=== PATIENT | male | born 1950 | race Caucasian/White ===

== ENCOUNTER 2018-02-10 17:51 | Inpatient (IN) ==
[2018-02-10] MEDS ORDERED: Sod Chloride 0.9% Inj 1,000 ML IV.SIG SCH ×3 (18:15→19:30)
[2018-02-10 18:25] LABS: Baso % (Auto) 0.1 % (0.0-2.0); Hematocrit 34.2 % (39.0-51.0); Hemoglobin 11.5 gm/dL (13.0-17.0); Lymph # (Auto) 0.6 th/mm3 (1.0-4.8); Lymph % (Auto) 5.2 % (9.0-44.0); Mean Corpuscular HGB Conc 33.5 % (32.0-36.0); Mean Corpuscular Hemoglobin 28.9 pg (27.0-34.0); Mean Corpuscular Volume 86.5 fL (80.0-100.0); Mean Platelet Volume 9.9 fL (7.0-11.0); Mono # (Auto) 1.5 th/mm3 (0.0-0.9); Mono % (Auto) 12.4 % (0.0-8.0); Neut # (Auto) 9.8 th/mm3 (1.8-7.7); Neut % (Auto) 82.3 % (16.0-70.0); Platelet Count 257 th/mm3 (150-450); Red Blood Count 3.96 mil/mm3 (4.50-5.90); Red Cell Distribution Width 15.8 % (11.6-17.2)
--- NOTE | 2018-02-10 18:33 | ED ---
HPI General Chief Complaint: Altered Mental Status Stated Complaint: Syncope Time Seen by Provider: 02/10/18 17:59 Source: patient and EMS Mode of arrival: EMS Limitations: altered mental status History of Present Illness HPI narrative: 67-year-old male who presents to the ED for evaluation of altered mental status and possible syncope. Per EVAC report this patient himself is not a good historian and appears to be altered patient apparently had a syncopal versus alteration today. Apparently about 30 minutes before EVAC showed up patient had a possible syncope and he was acting abnormal. Per bystanders he may have passed out but is unclear as there is no bystanders of family at bedside. Patient himself is a poor historian and does state that he does drink alcohol but cannot really provide much information. He denies any pain. He does appear to be somewhat confused. He does answer some yes and no questions appropriately. Does appear to know where he is. Again history is limited as patient himself is not a great historian. 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 Medical History Medical History ETOH abuse (Acute) Tobacco abuse (Acute) Surgical History Surgical History History of total left hip arthroplasty (Acute) Family History Family History Mother CHF (congestive heart failure) Social History Social History Substance History: Unable to Obtain Smoking Status: Smoker, status unknown Tobacco Type: Cigarettes How Often Do You Have a Drink Containing Alcohol: 4 or more times a week Recent Travel in [place] within the Last 8 Weeks: No Recent Out of Country Travel within the Last 8 Weeks: No Exam Narrative Exam Narrative: GENERAL: Well appearing but confused SKIN: Focused skin assessment warm/dry. HEAD: Atraumatic. Normocephalic. EYES: Pupils equal and round. No scleral icterus. No injection or drainage. ENT: No nasal bleeding or discharge. Mucous membranes pink and moist. Tongue is midline. No Uvula deviation. NECK: Trachea midline. No JVD. CARDIOVASCULAR: Regular rate and rhythm. No murmur appreciated. RESPIRATORY: No accessory muscle use. Clear to auscultation. Breath sounds equal bilaterally. GASTROINTESTINAL: Abdomen soft, non-tender, nondistended. Hepatic and splenic margins not palpable. MUSCULOSKELETAL: No obvious deformities. No clubbing. No cyanosis. No edema. Full range of motion of the upper and lower extremities bilaterally. 2+ pulses bilaterally. NEUROLOGICAL: Awake and alert. No obvious cranial nerve deficits. Motor grossly within normal limits. Normal speech. PSYCHIATRIC: Altered mood and affect; insight and judgment minimal Course Initial Documented Vital Signs Temperature 97.6 F 02/10/18 18:04 Pulse Rate 104 H 02/10/18 18:04 Respiratory Rate 22 02/10/18 18:04 Blood Pressure 101/59 L 02/10/18 18:04 Pulse Oximetry 94 L 02/10/18 18:04 Last Documented Vital Signs Temperature 97.6 F 02/10/18 18:04 Pulse Rate 107 H 02/10/18 18:44 Respiratory Rate 18 02/10/18 18:44 Blood Pressure 101/59 L 02/10/18 18:04 Pulse Oximetry 94 L 02/10/18 18:04 Procedures Intubation Time Out Performed: No Sedative: etomidate Paralytic: succinylcholine Laryngoscope: Mason Tube Secured Depth (cm): 8 Tube Placement Confirmation: visualized tube passing through cords, equal breath sounds bilaterally and no breath sounds over epigastrium Patient Tolerated Procedure: well Intubation Complications: none Medical Decision Making MORALES Attestation MORALES supervised visit: Yes Attestation: The history, exam, and medical decision-making in the associated mid-level provider note were completed with my assistance. I reviewed and agree with the findings presented. I attest that I had a [id number] encounter with the patient on the same day, and personally performed and documented my assessment and findings in the medical record. *My assessment and Findings: 67-year-old man with altered mental status, shock, respiratory failure, unclear etiology, mild pneumonia on chest x-ray. Empirically covered. Altered mental status etiology is unclear. He was intubated. We will plan on doing LP. Will be admitted to the ICU. [facility] Narrative Medical decision making narrative: 67-year-old male who presents to the ED for evaluation of altered mental status and possible syncope. Labs and imaging were ordered. Labs and imaging showed what appears to be severe sepsis with elevated troponin. Unclear etiology. Patient has possible pneumonia and chest x-ray. My attending was made aware of findings and evaluate the patient himself. Dr. Portillo recommends intubation due to patient decompensating.. Patient was intubated. Patient was started on Rocephin and azithromycin IV to cover for infectious etiology. My attending spoke with Dr. Palma for intensive care who agreed to admission to her service. Medical Screen Exam Complete: Yes Emergency Medical Condition: Yes Differential Diagnosis Differential Diagnosis: Altered mental status versus syncope versus alcohol versus substance use versus ACS versus dehydration 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s Medical records reviewed: Yes I reviewed the patient's medical records. Lab Data Lab results reviewed: Yes I reviewed the patient's lab results. Result diagrams: 02/10/18 18:15 02/10/18 18:15 Lab Results 02/10/18 02/10/18 02/10/18 Range/Units 18:15 18:15 18:15 WBC 12.0 H (4.0-11.0) th/mm3 RBC 3.96 L (4.50-5.90) mil/mm3 Hgb 11.5 L (13.0-17.0) gm/dL Hct 34.2 L (39.0-51.0) % MCV 86.5 (80.0-100.0) fL MCH 28.9 (27.0-34.0) pg MCHC 33.5 (32.0-36.0) % RDW 15.8 (11.6-17.2) % Plt Count 257 (150-450) th/mm3 MPV 9.9 (7.0-11.0) fL Neut % (Auto) 82.3 H (16.0-70.0) % Lymph % (Auto) 5.2 L (9.0-44.0) % [place] % (Auto) 12.4 H (0.0-8.0) % Eos % (Auto) 0.0 (0.0-4.0) % Baso % (Auto) 0.1 (0.0-2.0) % Neut # (Auto) 9.8 H (1.8-7.7) th/mm3 Lymph # (Auto) 0.6 L (1.0-4.8) th/mm3 [place] # (Auto) 1.5 H (0.0-0.9) th/mm3 Eos # (Auto) 0.0 (0.0-0.4) th/mm3 Baso # (Auto) 0.0 (0.0-0.2) th/mm3 WBC Differential . Differential Comment Auto diff final PT 15.2 H (9.8-11.6) sec INR 1.5 Ratio APTT 28.0 (23.4-31.7) sec Sodium 135 L (136-145) meq/L Potassium 4.0 (3.5-5.1) meq/L Chloride 95 L (98-107) meq/L Carbon Dioxide 29.6 (21.0-32.0) meq/L Anion Gap 10 (5-15) meq/L BUN 58 H (7-18) mg/dL Creatinine 1.84 H (0.60-1.30) mg/dL Estimated GFR 37 L (>89) mL/min Random Glucose 145 H (74-106) mg/dL Lactic Acid (0.4-2.0) mmol/L Calcium 8.1 L (8.5-10.1) mg/dL Magnesium 2.0 (1.5-2.5) mg/dL Total Bilirubin 1.0 (0.2-1.0) mg/dL AST 229 H (15-37) U/L ALT 119 H (12-78) U/L Alkaline Phosphatase 92 (45-117) U/L Ammonia (11-32) mcmol/L Troponin I 0.21 H (0.02-0.05) ng/mL B-Natriuretic Peptide (0-100) pg/mL Total Protein 7.8 (6.4-8.2) g/dL Albumin 2.5 L (3.4-5.0) g/dL TSH 2.100 (0.358-3.740) uIU/mL Urine Color (Yellw/Straw) Urine Clarity (Clear) Urine pH (5.0-8.5) Ur Specific [place] (1.002-1.035) Urine Protein (Neg-Trace) mg/dL Urine Glucose (UA) (Negative) mg/dL Urine Ketones (Negative) mg/dL Urine Occult Blood (Negative) Urine Nitrate (Negative) Urine Bilirubin (Negative) Urine Ictotest (Negative) Urine Urobilinogen (Less than 2) mg/dL Ur Leukocyte Esterase (Negative) Urine RBC (0-3) /hpf Urine WBC (0-5) /hpf Amorphous Sediment (None) /hpf Urine Bacteria (None) /hpf Hyaline Casts (0-3) /lpf Urine Mucus (Occasional) /lpf Micro UA Comment Ur Microscopic Review Urine Culture Comments Urine Opiates Screen (Neg) Ur Barbiturates Screen (Neg) Ur Amphetamines Screen (Neg) U Benzodiazepines Scrn (Neg) Urine Cocaine Screen (Neg) U Cannabinoids Screen (Neg) Serum Alcohol Less than 3 (0-5) mg/dL 02/10/18 02/10/18 02/10/18 Range/Units 18:15 18:15 18:15 WBC (4.0-11.0) th/mm3 RBC (4.50-5.90) mil/mm3 Hgb (13.0-17.0) gm/dL Hct (39.0-51.0) % MCV (80.0-100.0) fL MCH (27.0-34.0) pg MCHC (32.0-36.0) % RDW (11.6-17.2) % Plt Count (150-450) th/mm3 MPV (7.0-11.0) fL Neut % (Auto) (16.0-70.0) % Lymph % (Auto) (9.0-44.0) % [place] % (Auto) (0.0-8.0) % Eos % (Auto) (0.0-4.0) % Baso % (Auto) (0.0-2.0) % Neut # (Auto) (1.8-7.7) th/mm3 Lymph # (Auto) (1.0-4.8) th/mm3 [place] # (Auto) (0.0-0.9) th/mm3 Eos # (Auto) (0.0-0.4) th/mm3 Baso # (Auto) (0.0-0.2) th/mm3 WBC Differential Differential Comment PT (9.8-11.6) sec INR Ratio APTT (23.4-31.7) sec Sodium (136-145) meq/L Potassium (3.5-5.1) meq/L Chloride (98-107) meq/L Carbon Dioxide (21.0-32.0) meq/L Anion Gap (5-15) meq/L BUN (7-18) mg/dL Creatinine (0.60-1.30) mg/dL Estimated GFR (>89) mL/min Random Glucose (74-106) mg/dL Lactic Acid 5.0 H* (0.4-2.0) mmol/L Calcium (8.5-10.1) mg/dL Magnesium (1.5-2.5) mg/dL Total Bilirubin (0.2-1.0) mg/dL AST (15-37) U/L ALT (12-78) U/L Alkaline Phosphatase (45-117) U/L Ammonia 29 (11-32) mcmol/L Troponin I (0.02-0.05) ng/mL B-Natriuretic Peptide 1035 H (0-100) pg/mL Total Protein (6.4-8.2) g/dL Albumin (3.4-5.0) g/dL TSH (0.358-3.740) uIU/mL Urine Color (Yellw/Straw) Urine Clarity (Clear) Urine pH (5.0-8.5) Ur Specific [place] (1.002-1.035) Urine Protein (Neg-Trace) mg/dL Urine Glucose (UA) (Negative) mg/dL Urine Ketones (Negative) mg/dL Urine Occult Blood (Negative) Urine Nitrate (Negative) Urine Bilirubin (Negative) Urine Ictotest (Negative) Urine Urobilinogen (Less than 2) mg/dL Ur Leukocyte Esterase (Negative) Urine RBC (0-3) /hpf Urine WBC (0-5) /hpf Amorphous Sediment (None) /hpf Urine Bacteria (None) /hpf Hyaline Casts (0-3) /lpf Urine Mucus (Occasional) /lpf Micro UA Comment Ur Microscopic Review Urine Culture Comments Urine Opiates Screen (Neg) Ur Barbiturates Screen (Neg) Ur Amphetamines Screen (Neg) U Benzodiazepines Scrn (Neg) Urine Cocaine Screen (Neg) U Cannabinoids Screen (Neg) Serum Alcohol (0-5) mg/dL 02/10/18 02/10/18 Range/Units 20:39 20:39 WBC (4.0-11.0) th/mm3 RBC (4.50-5.90) mil/mm3 Hgb (13.0-17.0) gm/dL Hct (39.0-51.0) % MCV (80.0-100.0) fL MCH (27.0-34.0) pg MCHC (32.0-36.0) % RDW (11.6-17.2) % Plt Count (150-450) th/mm3 MPV (7.0-11.0) fL Neut % (Auto) (16.0-70.0) % Lymph % (Auto) (9.0-44.0) % [place] % (Auto) (0.0-8.0) % Eos % (Auto) (0.0-4.0) % Baso % (Auto) (0.0-2.0) % Neut # (Auto) (1.8-7.7) th/mm3 Lymph # (Auto) (1.0-4.8) th/mm3 [place] # (Auto) (0.0-0.9) th/mm3 Eos # (Auto) (0.0-0.4) th/mm3 Baso # (Auto) (0.0-0.2) th/mm3 WBC Differential Differential Comment PT (9.8-11.6) sec INR Ratio APTT (23.4-31.7) sec Sodium (136-145) meq/L Potassium (3.5-5.1) meq/L Chloride (98-107) meq/L Carbon Dioxide (21.0-32.0) meq/L Anion Gap (5-15) meq/L BUN (7-18) mg/dL Creatinine (0.60-1.30) mg/dL Estimated GFR (>89) mL/min Random Glucose (74-106) mg/dL Lactic Acid (0.4-2.0) mmol/L Calcium (8.5-10.1) mg/dL Magnesium (1.5-2.5) mg/dL Total Bilirubin (0.2-1.0) mg/dL AST (15-37) U/L ALT (12-78) U/L Alkaline Phosphatase (45-117) U/L Ammonia (11-32) mcmol/L Troponin I (0.02-0.05) ng/mL B-Natriuretic Peptide (0-100) pg/mL Total Protein (6.4-8.2) g/dL Albumin (3.4-5.0) g/dL TSH (0.358-3.740) uIU/mL Urine Color [place] (Yellw/Straw) Urine Clarity Cloudy H (Clear) Urine pH 5.0 (5.0-8.5) Ur Specific [place] 1.018 (1.002-1.035) Urine Protein 500 or greater (Neg-Trace) mg/dL Urine Glucose (UA) Negative (Negative) mg/dL Urine Ketones Negative (Negative) mg/dL Urine Occult Blood Negative (Negative) Urine Nitrate Negative (Negative) Urine Bilirubin Negative (Negative) Urine Ictotest Negative (Negative) Urine Urobilinogen 1.0 (Less than 2) mg/dL Ur Leukocyte Esterase Negative (Negative) Urine RBC 2 (0-3) /hpf Urine WBC 8 H (0-5) /hpf Amorphous Sediment Moderate H (None) /hpf Urine Bacteria Few H (None) /hpf Hyaline Casts Innum (0-3) /lpf Urine Mucus Moderate H (Occasional) /lpf Micro UA Comment Culture not ind Ur Microscopic Review Not Reportable Urine Culture Comments Culture not ind Urine Opiates Screen Neg (Neg) Ur Barbiturates Screen Neg (Neg) Ur Amphetamines Screen Neg (Neg) U Benzodiazepines Scrn Neg (Neg) Urine Cocaine Screen Neg (Neg) U Cannabinoids Screen Neg (Neg) Serum Alcohol (0-5) mg/dL Imaging Data Attestation: I personally reviewed and interpreted this imaging study as follows : Radiologist's impression: Chest X-Ray 02/10/18 18:03 CONCLUSION: Right basilar lung consolidation most characteristic of pneumonia or aspiration. Chest X-Ray 02/10/18 20:21 CONCLUSION: Intubation with endotracheal tube in good position. NG traversing the esophagus. ECG Data Attestation: I personally reviewed and interpreted this ECG as follows: Interpretation: EKG shows sinus tachycardia with a ventricular rate 106 bpm, ID interval [address] elevations or signs of acute ischemia read by my attending. Discharge Plan Discharge Disposition Patient Disposition: ED Admit(ED Internal Use Only) Discharge Details Diagnosis: Altered mental status, Sepsis, Acute respiratory distress, Pneumonia Physicians Team ED Provider: Lawrence Portillo ED Midlevel Provider: Ad Franklin Primary Care Provider: Primary Care Physici,No Rxs /Orders / Referrals /Forms Prescriptions: No Action Unable to Obtain Home Meds RF: 0 Status ED Status: Admitted Patient
[2018-02-10 18:35] LABS: INR 1.5 Ratio; Prothrombin Time 15.2 sec (9.8-11.6)
[2018-02-10 18:44] LABS: Alanine Aminotransferase 119 U/L (12-78); Albumin 2.5 g/dL (3.4-5.0); Anion Gap 10 meq/L (5-15); Aspartate Aminotransferase 229 U/L (15-37); Blood Urea Nitrogen 58 mg/dL (7-18); Calcium 8.1 mg/dL (8.5-10.1); Carbon Dioxide 29.6 meq/L (21.0-32.0); Chloride 95 meq/L (98-107); Glomerular Filtration Rate 37 mL/min (>89); Glucose,Random 145 mg/dL (74-106); Sodium 135 meq/L (136-145)
[2018-02-10 18:54] LABS: Alkaline Phosphatase 92 U/L (45-117); Total Protein 7.8 g/dL (6.4-8.2); Troponin I 0.21 ng/mL (0.02-0.05)
[2018-02-10] MEDS ORDERED: Aspirin 325 MG Tablet PO ONE (19:00)
--- NOTE | 2018-02-10 19:02 | XR ---
EXAM DATE: 02/10/2018 6:35 PM EST AGE/SEX: 67 years / Male INDICATIONS: Chest pain. CLINICAL DATA: This is the patient's initial encounter. Patient reports that signs and symptoms have been present for 1 day and indicates a pain score of Nonresponsive. MEDICAL/SURGICAL HISTORY: Non-responsive. Non-responsive. COMPARISON: No prior exams available for comparison. FINDINGS: There is right basilar airspace consolidation. Differential diagnosis includes pneumonia and aspirati on. Probable left basilar atelectasis. No significant effusion. No pneumothorax. Healed right rib fra ctures. CONCLUSION: Right basilar lung consolidation most characteristic of pneumonia or aspiration. Electronically signed by: Kenny Orozco MD Board Certified Radiologist 02/10/2018 7:00 PM EST
[2018-02-10] MEDS ORDERED: Azithromycin Inj 500 MG in Sodium Chlor 0.9% Inj 250 ML IV.SIG ONE (19:03)
[2018-02-10] MEDS ORDERED: Etomidate Inj 40 MG/20 ML Vial IV.PUSH ONE ×2 (20:09→21:20)
[2018-02-10] MEDS: Propofol 1000 mg/100 ml Inj 1,000 MG/100 ML BOTTLE IV.CONT PRN (20:30)
[2018-02-10 21:00] LABS: Amphetamine Screen,Urine Neg (Neg); Barbiturate Screen,Urine Neg (Neg); Cannabinoid Screen,Urine Neg (Neg); Cocaine Screen,Urine Neg (Neg)
[2018-02-10 21:01] LABS: Amorphous Sediment,Urine Moderate /hpf; Bacteria,Urine Few /hpf; Clarity,Urine Cloudy (Clear); Color,Urine Amber (Yellw/Straw); Glucose,Urine (UA) Negative (Negative); Hyaline Casts,Urine INNUM /lpf (0-3); Leukocyte Esterase,Urine Negative (Negative); Mucus,Urine Moderate /lpf (Occasional); Nitrite,Urine Negative (Negative); Specific Gravity,Urine 1.018 (1.002-1.035)
--- NOTE | 2018-02-10 21:02 | P.HPCC ---
History of Present Illness Service: Critical Care Medicine Primary Care Physician: No Primary Care Physician Chief Complaint: AMS History of Present Illness: Patient is unable to provide history because he is intubated. Reviewed EMR. 67-year-old male with past medical history of alcohol abuse, tobacco abuse who presented to [facility] emergency department with altered mental status. Per report from [facility] he may have had syncope prior to their arrival. He ultimately was intubated for airway protection. CXR shows right lower lobe consolidation. White blood cell count is 12. Lactic acid is 5. Creatinine is 1.8. Most recent prior creatinine was 0.6 in 2008. He received 3 L normal saline bolus, azithromycin, Rocephin, neb in the emergency department. CT brain is pending. Mainframe Programmer consulted for admission. 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 - Medical History Medical History: Medical History (Last Updated 02/10/18 @ 20:57 by Tiffany Palma MD) ETOH abuse Tobacco abuse - Surgical History Surgical History: Surgical History (Last Updated 02/10/18 @ 20:58 by Tiffany Palma MD) History of total left hip arthroplasty - Family History Family History: Family History (Last Updated 02/10/18 @ 20:58 by Tiffany Palma MD) Mother CHF (congestive heart failure) - Social History I have reviewed the patient's Social History: Yes - Tobacco History Smoking Status: Smoker, status unknown Tobacco Type: Cigarettes - Alcohol History How Often Do You Have a Drink Containing Alcohol: 4 or more times a week - Substance Use History Substance History: Unable to Obtain - Travel History Recent Travel in the [place] Within the Last 8 Weeks: No Recent Travel Out of the Country Within the Last 8 Weeks: No - Immunization History Tetanus Immunization: Unable to Assess Medications and Allergies Active Medications: Active Medications Propofol (Diprivan 1000 Mg/100 Ml Inj) 1,000 mg in 100 mls @ 2.313 mls/hr IV.CONT TITRATE PRN; Protocol PRN Reason: Per Protocol Allergies Allergy/AdvReac Type Severity Reaction Status Date / Time penicillin G Allergy Severe RASH Unverified 09/24/16 19:44 Home Medications Medication Instructions Recorded Confirmed Type Unable to Obtain Home Meds 02/10/18 02/10/18 History Results - Labs CBC & Chem 7: 02/11/18 03:51 02/11/18 03:51 Labs: Short CBC 02/10/18 Range/Units 18:15 WBC 12.0 H (4.0-11.0) th/mm3 Hgb 11.5 L (13.0-17.0) gm/dL Hct 34.2 L (39.0-51.0) % Plt Count 257 (150-450) th/mm3 BMP 02/10/18 18:15 Sodium 135 L Potassium 4.0 Chloride 95 L Carbon Dioxide 29.6 BUN 58 H Creatinine 1.84 H Calcium 8.1 L Cardiac Enzymes 02/10/18 Range/Units 18:15 Troponin I 0.21 H (0.02-0.05) ng/mL Liver Function 02/10/18 Range/Units 18:15 Total Bilirubin 1.0 (0.2-1.0) mg/dL AST 229 H (15-37) U/L ALT 119 H (12-78) U/L Alkaline Phosphatase 92 (45-117) U/L Albumin 2.5 L (3.4-5.0) g/dL - Imaging Impressions Chest X-Ray 02/10/18 18:03 CONCLUSION: Right basilar lung consolidation most characteristic of pneumonia or aspiration. Exam Vital signs: Vital Signs 02/10/18 18:04 02/10/18 18:44 Temperature 97.6 F Pulse Rate 104 H 107 H Respiratory Rate 22 18 Blood Pressure 101/59 L Pulse Oximetry 94 L Intake & Output 02/10/18 02/10/18 02/11/18 06:59 18:59 06:59 Weight 77.111 kg Narrative: GENERAL: Well-nourished, well-developed patient who is orotracheally intubated. He has been on sedation fall but this was held for examination. SKIN: Warm and dry. There are excoriations around his bilateral ankles. There are petechiae around the ankles at the site of the excoriations and there is a clear line of delineation where they abruptly stop at what appears to be a sock or shoe line. No petechiae of palms or soles. No splinter hemorrhages. HEAD: Atraumatic. Normocephalic. EYES: Pupils equal and round, pinpoint bilaterally no scleral icterus. No injection or drainage. ENT: No nasal bleeding or discharge. Mucous membranes pink and moist. NECK: Trachea midline. +JVD. No meningismus CARDIOVASCULAR: Regular rate and rhythm. No murmurs rubs or gallops. RESPIRATORY: Bibasilar rales with rhonchorous breath sounds bilaterally. Copious yellow secretions with endotracheal tube suctioning. Wheeze from left lung field GASTROINTESTINAL: Abdomen soft, non-tender, nondistended. Bowel sounds present. OG tube in place with gastric secretions suctioned. MUSCULOSKELETAL: Extremities without clubbing, cyanosis, or edema. Scar overlying left shoulder. NEUROLOGICAL: No eye opening. Pupils pinpoint and sluggishly reactive bilaterally. Gaze is conjugate. Moves bilateral lower extremities spontaneously off sedation. Withdraws with all extremities, moves Left upper more vigorously than right. No clonus. Septic Shock Reassessment Septic shock perfusion: reassessment completed Caprini VTE Risk Assessment Caprini VTE Risk Assessment: Moderate/High Risk (score >= 2) Caprini Risk Assessment Model: Point Value = 1 Point Value = 2 Point Value = 3 Point Value = 5 Age 41-60 Minor surgery BMI > 25 kg/m2 Swollen legs Varicose veins or History of unexplained or recurrent spontaneous Oral contraceptives or hormone replacement Sepsis (< 1 month) Serious lung disease, including pneumonia (< 1 month) Abnormal pulmonary function Acute myocardial infarction Congestive heart failure (< 1 month) History of inflammatory bowel disease Medical patient at bed rest Age 61-74 Arthroscopic surgery Major open surgery (> 45 min) Laparoscopic surgery (> 45 min) Malignancy Confined to bed (> 72 hours) Immobilizing plaster cast Central venous access Age >= 75 History of VTE Family history of VTE Factor V Leiden Prothrombin [id number] Lupus anticoagulant Anticardiolipin antibodies Elevated serum homocysteine Heparin-induced thrombocytopenia Other congenital or acquired thrombophilia Stroke (< 1 month) Elective arthroplasty Hip, pelvis, or leg fracture Acute spinal cord injury (< 1 month) Prophylaxis Regimen: Total Risk Factor Score Risk Level Prophylaxis Regimen 0-1 Low Early ambulation 2 Moderate Order ONE of the following: *Sequential Compression Device (SCD) *Heparin 5000 units SQ BID 3-4 Higher Order ONE of the following medications: *Heparin 5000 units SQ TID *Enoxaparin/Lovenox 40 mg SQ daily (WT < 150 kg, CrCl > 30 mL/min) *Enoxaparin/Lovenox 30 mg SQ daily (WT < 150 kg, CrCl > 10-29 mL/min) *Enoxaparin/Lovenox 30 mg SQ BID (WT < 150 kg, CrCl > 30 mL/min) AND/OR *Sequential Compression Device (SCD) 5 or more Highest Order ONE of the following medications: *Heparin 5000 units SQ TID (Preferred with Epidurals) *Enoxaparin/Lovenox 40 mg SQ daily (WT < 150 kg, CrCl > 30 mL/min) *Enoxaparin/Lovenox 30 mg SQ daily (WT < 150 kg, CrCl > 10-29 mL/min) *Enoxaparin/Lovenox 30 mg SQ BID (WT < 150 kg, CrCl > 30 mL/min) AND *Sequential Compression Device (SCD) Assessment and Plan - Problem List (1) Stroke Code(s): I63.9 - Cerebral infarction, unspecified Status: Acute (2) Encephalopathy acute Code(s): G93.40 - Encephalopathy, unspecified Status: Acute (3) Septic shock Code(s): A41.9 - Sepsis, unspecified organism; R65.21 - Severe sepsis with septic shock Status: Acute (4) Respiratory failure Code(s): J96.90 - Respiratory failure, unspecified, unspecified whether with hypoxia or hypercapnia Status: Acute (5) Aspiration pneumonia Code(s): J69.0 - Pneumonitis due to inhalation of food and vomit Status: Acute (6) KIMBERLY (acute kidney injury) Code(s): N17.9 - Acute kidney failure, unspecified Status: Acute (7) Tobacco abuse Code(s): Z72.0 - Tobacco use Status: Chronic (8) Anemia Code(s): D64.9 - Anemia, unspecified Status: Chronic (9) Lactic acidemia Code(s): E87.2 - Acidosis Status: Acute (10) Transaminasemia Code(s): R74.0 - Nonspecific elevation of levels of transaminase and lactic acid dehydrogenase [LDH] Status: Acute (11) Hyperglycemia Code(s): R73.9 - Hyperglycemia, unspecified Status: Acute - Assessment and Plan Plan: NEURO: Subacute ischemic stroke Acute encephalopathy EtOH abuse per prior record CT brain volving infarct left occipital lobe and medial left temporal lobe. No hemorrhage. Not candidate for TPA due to unknown time of onset, probably subacute. Obtain 2D echo, MRI/MRA carotids, lipids, hemoglobin A1c Aspirin 162 daily Neurology consult Ammonia level normal. Thiamine/multivitamin/folic acid Seizure a consideration with presence of lactic acidemia ?postictal. He would be at risk with history of alcohol use and acute stroke. Currently no evidence of clinical seizure and is on propofol which for which would provide seizure suppression. Will check portably EEG Ativan as needed seizure. Monitor for signs of alcohol withdrawal and administer Ativan as indicated per [facility] protocol. RESP: Acute hypercapnic respiratory failure Tobacco abuse Intubated 02/10 for airway protection Ventilator bundle PRVC tidal volume 575/rate 18/PEEP 5/I time 1/FiO2 50% DuoNeb every 6 hours. Albuterol every 2 hours as needed CV: Lactic acidemia Elevated troponin Received 3 L normal saline bolus per ED. Appears significantly volume loaded and has JVD.. Levophed to maintain mean pressure greater than 65 Receiving aspirin Trend troponin. Obtain 2D echo EKG sinus rhythm with nonspecific ST changes in inferior leads. Trend lactic acid until clear GI: Transaminase elevated Follow-up liver ultrasound Viral hepatitis panel OG tube to low intermittent wall suction. Bowel regimen FEN/RENAL: Acute kidney injury Check CPK. Follow-up renal ultrasound Insert Ornelas. Monitor intake and output hourly. Monitor electrolytes and replace as indicated. ID: Septic shock Leukocytosis Aspiration pneumonia Penicillin allergyhives. Received ceftriaxone in the ED without issue. Chest x-ray with right lower lobe infiltrate. Blood cultures pending. Influenza negative. Ordered sputum culture Follow-up urine Legionella pneumococcal antigen. Received ceftriaxone and azithromycin in the emergency department. Will continue ceftriaxone and flagyl. HEME: Anemia Monitor CBC ENDO: Mild hyperglycemia Check HgbA1C TSH normal PROPH: SCDs for DVT prophylaxis. Protonix 40 mg IV daily for stress ulcer prophylaxis ACCESS: Left IJ central venous line placed 02/10 #1 FULL CODE CCT 55 minutes exclusive of separately billable procedures. (4) Respiratory failure Qualifiers: Chronicity: acute Respiratory failure complication: hypercapnia Qualified Code(s): J96.02 - Acute respiratory failure with hypercapnia
[2018-02-10 21:05] LABS: Bilirubin,Urine Negative (Negative); Ictotest,Urine Negative (Negative); Opiate Screen,Urine Neg (Neg)
--- NOTE | 2018-02-10 21:16 | XR ---
EXAM DATE: 02/10/2018 8:56 PM EST AGE/SEX: 67 years / Male INDICATIONS: Post intubation. CLINICAL DATA: This is the patient's subsequent encounter. Patient reports that signs and symptoms h ave been present for 1 day and indicates a pain score of Nonresponsive. MEDICAL/SURGICAL HISTORY: Non-responsive. Non-responsive. COMPARISON: [facility], CHEST 1V SINGLE AP, 02/10/2018. . FINDINGS: Endotracheal tube in good position. NG traverses esophagus. Stable right basilar airspace disease. No significant effusion or pneumothorax. CONCLUSION: Intubation with endotracheal tube in good position. NG traversing the esophagus. Electronically signed by: Kenny Orozco MD Board Certified Radiologist 02/10/2018 9:14 PM EST
[2018-02-10] MEDS ORDERED: Succinylcholine Inj 100 MG/5 ML Syringe IV.PUSH ONE (21:20)
--- NOTE | 2018-02-10 21:44 | P.PCN ---
Date of procedure: 02/10/18 Procedure: DATE: 02/10/18 CENTRAL LINE PLACEMENT: Left IJ vein. INDICATION: Central venous access CONSENT Patient is not capacitated for medical decision-making. Line was placed emergently as patient is acutely hypotensive and unstable and requiring central line placement. DESCRIPTION OF THE PROCEDURE The patient was placed in supine position, mild Trendelenburg. The skin was cleansed with Chloraprep x3. Additional barrier precautions included large sterile drape, sterile gloves, sterile gown, face mask, and hat. 1 % lidocaine was used for local anesthesia. Under direct ultrasound guidance and on single attempt, the vein was accessed with an introducer needle. The guide wire was advanced and the tract was dilated. Using Seldinger technique a 7 Micronesian 20 cm antimicrobial coated triple-lumen catheter was advanced to a depth of 20 centimeters. The guide wire was removed. All ports had good return of dark venous blood and flushed easily with saline. The central line was secured with 2.0 silk and StatLock would not adhere adequately. A sterile dressing with antibiotic disc was applied. ESTIMATED BLOOD LOSS: Minimal COMPLICATIONS: No apparent complications. STAT chest x-ray is pending.
--- NOTE | 2018-02-10 22:22 | XR ---
EXAM DATE: 02/10/2018 10:03 PM EST AGE/SEX: 67 years / Male INDICATIONS: Central line placement. CLINICAL DATA: This is the patient's subsequent encounter. Patient reports that signs and symptoms h ave been present for 1 day and indicates a pain score of Nonresponsive. MEDICAL/SURGICAL HISTORY: Non-responsive. Abdominal aortic aneurysm repair. COMPARISON: [facility], CHEST 1V SINGLE AP, 02/10/2018. . FINDINGS: Endotracheal tube is in good position. NG enters stomach. Left central line in superior cava. Right b asilar airspace disease is stable. CONCLUSION: New left central line in superior vena cava. No pneumothorax. Endotracheal tube and nasogastric tube unchanged. Electronically signed by: Kenny Orozco MD Board Certified Radiologist 02/10/2018 10:21 PM EST
[2018-02-10 22:38] LABS: ABG Base Excess 2.1 mmol/L (-2-2); ABG PCO2 59 mmHg (38-42); ABG PO2 472 mmHg (61-120)
--- NOTE | 2018-02-10 22:39 | CT ---
EXAM DATE: 02/10/2018 10:30 PM EST AGE/SEX: 67 years / Male INDICATIONS: Altered mental status. CLINICAL DATA: This is the patient's initial encounter. Patient reports that signs and symptoms have been present for 1 day and indicates a pain score of Nonresponsive. MEDICAL/SURGICAL HISTORY: None. None. RADIATION DOSE: 66.40 CTDI (mGy) COMPARISON: No prior exams available for comparison. TECHNIQUE: CT of the head without contrast. Using automated exposure control and adjustment of the mA and/or kV according to patient size, radiation dose was kept as low as reasonably achievable to ob tain optimal diagnostic quality images. DICOM format image data is available electronically for revi ew and comparison. FINDINGS: There is a suspected evolving infarct left occipital lobe extending into the medial left temporal lob e. No mass effect or shift. No associated hemorrhage. No hydrocephalus. Chronic white matter ischemic changes. CONCLUSION: 1. Probable evolving infarct in the left occipital lobe extending into the medial left temporal lobe without hemorrhage or significant mass effect. 2. Chronic white matter ischemic changes. . Electronically signed by: Kenny Orozco MD Board Certified Radiologist 02/10/2018 10:38 PM EST
[2018-02-10] MEDS ORDERED: Bisacodyl 10 MG Supp RECTAL PRN (22:53)
[2018-02-10] MEDS ORDERED: fentaNYL Citrate Inj 100 MCG/2 ML Ampul IV PUSH PRN (22:53)
[2018-02-10] MEDS ORDERED: Acetaminophen 325 MG Tablet PO PRN (22:53)
[2018-02-10] MEDS ORDERED: LORazepam 1 MG Tablet PO PRN (23:00)
[2018-02-11 00:15] LABS: Hepatitis A IgM Antibody Nonreactive (Nonreactive); Hepatitits B Surface Antigen Nonreactive (Nonreactive)
[2018-02-11] MEDS: Heparin - SQ 10,000 UNITS/ML Vial SQ SCH ×2 (00:28→10:29)
[2018-02-11] MEDS: Thiamine Inj 100 MG in Sodium Chlor 0.9% Inj 100 ML IV.SIG SCH ×2 (00:28→08:35)
[2018-02-11] MEDS: Oral Hygiene Kit OROPHARYNG SCH ×4 (00:33→16:54)
[2018-02-11] MEDS: Propofol 1000 mg/100 ml Inj 1,000 MG/100 ML BOTTLE IV.CONT PRN ×4 (02:45→20:44)
[2018-02-11] MEDS: Chlorhexidine Gluconate 2% 1 Pack (2 Cloths) TOPICAL SCH (03:10)
[2018-02-11] MEDS ORDERED: Chlorhexidine Gluconate 2% 1 Pack (2 Cloths) TOPICAL PRN (04:00)
[2018-02-11 04:51] LABS: Baso % (Auto) 0.2 % (0.0-2.0); Hemoglobin 10.3 gm/dL (13.0-17.0); Lymph % (Auto) 9.1 % (9.0-44.0); Mean Corpuscular HGB Conc 32.3 % (32.0-36.0); Mean Corpuscular Hemoglobin 27.3 pg (27.0-34.0); Mean Corpuscular Volume 84.6 fL (80.0-100.0); Mean Platelet Volume 10.1 fL (7.0-11.0); Mono # (Auto) 1.5 th/mm3 (0.0-0.9); Mono % (Auto) 13.3 % (0.0-8.0); Neut # (Auto) 8.6 th/mm3 (1.8-7.7); Neut % (Auto) 77.4 % (16.0-70.0); Platelet Count 222 th/mm3 (150-450); Red Blood Count 3.79 mil/mm3 (4.50-5.90); Red Cell Distribution Width 15.8 % (11.6-17.2); White Blood Count 11.1 th/mm3 (4.0-11.0)
[2018-02-11 05:27] LABS: Alanine Aminotransferase 472 U/L (12-78); Albumin 2.2 g/dL (3.4-5.0); Alkaline Phosphatase 80 U/L (45-117); Anion Gap 9 meq/L (5-15); Aspartate Aminotransferase 1188 U/L (15-37); Blood Urea Nitrogen 61 mg/dL (7-18); Calcium 7.5 mg/dL (8.5-10.1); Carbon Dioxide 28.6 meq/L (21.0-32.0); Chloride 101 meq/L (98-107); Cholesterol 76 mg/dL (120-200); Glomerular Filtration Rate 47 mL/min (>89); Glucose,Random 102 mg/dL (74-106); HDL Cholesterol 27.1 mg/dL (40.0-60.0); LDL Cholesterol,Calculated 35 mg/dL (0-99); Magnesium 1.8 mg/dL (1.5-2.5); Potassium 3.7 meq/L (3.5-5.1); Sodium 139 meq/L (136-145); Total Protein 6.4 g/dL (6.4-8.2); Triglycerides 69 mg/dL (42-150)
[2018-02-11] MEDS: Senna/Docusate Sodium 8.6/50 MG Tablet PO SCH ×2 (08:35→20:46)
[2018-02-11] MEDS: Pantoprazole Inj 40 MG Vial IV.PUSH SCH (08:35)
[2018-02-11] MEDS: Chlorhexidine 0.12% Oral Kit 15 ML UDC OROPHARYNG SCH ×2 (08:35→20:45)
[2018-02-11] MEDS: Folic Acid 1 MG Tablet NG/OG SCH (08:35)
--- NOTE | 2018-02-11 09:35 | US ---
EXAM DATE: 02/11/2018 9:28 AM EST AGE/SEX: 67 years / Male INDICATIONS: Abdominal pain. CLINICAL DATA: This is the patient's initial encounter. Patient reports that signs and symptoms have been present for 1 day and indicates a pain score of 0/10. MEDICAL/SURGICAL HISTORY: . ETOH. . Left hip arthroplasty. COMPARISON: No prior exams available for comparison. MEASUREMENTS: Liver:__ 16.7 cm. Common Bile Duct:___ 3mm. Right Kidney:___11.8 x 5.6 x 5.3 cm. Left Kidney:___11.5 x 5.4 x 5.5 cm. Spleen:___7.6 cm. FINDINGS: Liver: Normal echogenicity without focal lesion or ductal dilatation. Trace ascites is seen around t he liver. Portal Vein: Hepatopedal flow seen in portal vein. Common Duct: No intraluminal mass or stone visualized. Gallbladder: Gallstone or wall thickening with some ascites around the gallbladder. No gallstones Pancreas: The visualized portions are within normal limits Right Kidney: Small 2.3 cm cyst lower pole right kidney Left Kidney: Normal echogenicity and cortical thickness. No mass or hydronephrosis. Ascites: Trace ascites Pleural Effusion: Left Spleen: Granulomas present in the spleen Aorta: Non aneurysmal. IVC: Within normal limits CONCLUSION: 1. Small liver with trace ascites. 2. Small cyst lower pole right kidney. Electronically signed by: Pastor Nava MD Board Certified Radiologist 02/11/2018 9:34 AM EST
--- NOTE | 2018-02-11 10:00 | ECG ---
Date Performed: 02/10/2018 Time Performed: 19:05:28 PTAGE: 67 years EKG: SINUS TACHYCARDIA LEFT ATRIAL ENLARGEMENT RIGHT BUNDLE BRANCH BLOCK MODERATE T-WAVE ABNORMA LITY, CONSIDER INFERIOR ISCHEMIA ABNORMAL ECG PREVIOUS TRACING : 12/29/2006 08.49 DOCTOR: Lawrence Hernandez Interpretating Date/Time 02/11/2018 09:56:22
--- NOTE | 2018-02-11 10:51 | MB ---
cc: Joel Santillan MD DATE: 02/11/2018 HISTORY OF PRESENT ILLNESS: With a history of fall at home, possible syncope. He was acting abnormal, may have passed out. It was unclear. The history is a little sketchy. I did talk with somebody who lives in his apartment building and they said that he fell but they did not see it. They thought in the ER he had severe sepsis, elevated troponin, and he wound up being intubated. He has not had frequent admissions to the hospital here. In the past, from the ER notes from 2012: SOCIAL HISTORY: He has 2 beers a day, 1 pack a day smoker. No drug abuse ALLERGIES: HE IS ALLERGIC TO PENICILLIN. HOME MEDICATIONS: He does not usually take any medication. PAST MEDICAL HISTORY: There is a history of arthritis, otherwise appeared fairly healthy. CURRENT MEDICATIONS: He is on Tylenol, 162 of aspirin, fentanyl, folic acid, p.r.n. Ativan. PHYSICAL EXAMINATION: VITAL SIGNS: Sinus rhythm, sinus jhonny, afebrile, 44, 18, 128/64, his lowest 93/59. NECK: There are no carotid bruits. GENERAL: He is intubated. CARDIOVASCULAR: Regular rate and rhythm. I did not detect a murmur. NEUROLOGIC: Pupils are equal, appears to react to threat. He wiggled his toes for me in both his feet. He appears to move all 4 extremities. Toes are downgoing bilaterally. DTRs are trace to absent. DIAGNOSTIC STUDIES: His white count was elevated at 12. UA is 8 white cells. BMP: Creatinine 1.47, had been 1.84. Ammonia 49. Troponin elevated at 0.42. LDL cholesterol normal. TSH normal. Lactic acid was 5. AST 229, ALT 119. CPK normal. ABG 7.30, 59, 472. Coags were normal. Hepatitis screen negative. Urine drug screen negative. CT scan of his brain shows what appears to be as acute to subacute left occipital lobe infarct. IMPRESSION AND PLAN: Left occipital lobe infarct, probably resulted in his fall, may be a myocardial infarction. I would recommend having cardiology see him. Check an echo, Holter, MRI of the brain, MRA neck and kaw of Stone, B12 level. Leave him on the aspirin for now. MD CORI Garcia/caden , 10:28 AM , 10:36 AM
[2018-02-11] MEDS ORDERED: Vancomycin Consult Pharmacy OTHER PRN (11:16)
--- NOTE | 2018-02-11 11:24 | P.PNCC ---
Subjective Subjective Remarks/Hospital Course: Patient is unable to provide history because he is intubated. Reviewed EMR. 67-year-old male with past medical history of alcohol abuse, tobacco abuse who presented to [facility] emergency department with altered mental status. Per report from [facility] he may have had syncope prior to their arrival. He ultimately was intubated for airway protection. CXR shows right lower lobe consolidation. White blood cell count is 12. Lactic acid is 5. Creatinine is 1.8. Most recent prior creatinine was 0.6 in 2008. He received 3 L normal saline bolus, azithromycin, Rocephin, neb in the emergency department. CT brain is pending. Barbering Teacher consulted for admission. SUBJ 02/11/18: Remains severely septic from 4 out of 4 bottles growing GPC. 2D echo ordered to rule out endocarditis. However mental status is improving following commands. MRI ordered by Dr. Santillan Objective Vital Signs / I&O: Vital Signs 02/10/18 18:04 02/10/18 18:44 02/10/18 20:01 Temperature 97.6 F Pulse Rate 104 H 107 H 112 H Respiratory Rate 22 18 26 H Blood Pressure 101/59 L 146/76 H Pulse Oximetry 94 L 93 L 02/10/18 20:09 02/10/18 20:17 02/10/18 20:20 Temperature Pulse Rate 156 H 116 H Respiratory Rate 26 H 18 18 Blood Pressure 197/101 H 152/67 H Pulse Oximetry 93 L 94 L 100 02/10/18 20:30 02/10/18 20:45 02/10/18 20:58 Temperature Pulse Rate 137 H 86 90 Respiratory Rate 18 18 18 Blood Pressure 154/66 H 122/54 L 90/51 L Pulse Oximetry 100 100 100 02/10/18 21:00 02/10/18 21:30 02/10/18 22:00 Temperature Pulse Rate 76 68 62 Respiratory Rate 18 18 18 Blood Pressure 93/59 L 93/59 L 113/66 Pulse Oximetry 100 100 100 02/10/18 22:05 02/10/18 22:30 02/10/18 23:00 Temperature Pulse Rate 62 57 L Respiratory Rate 18 18 Blood Pressure 126/61 147/70 H Pulse Oximetry 100 100 98 02/10/18 23:24 02/11/18 01:49 02/11/18 02:17 Temperature Pulse Rate 58 L 61 Respiratory Rate 18 18 18 Blood Pressure 125/64 123/72 Pulse Oximetry 100 99 98 02/11/18 02:30 02/11/18 02:37 02/11/18 02:45 Temperature Pulse Rate Respiratory Rate 18 19 Blood Pressure Pulse Oximetry 98 99 100 02/11/18 03:00 02/11/18 03:25 02/11/18 04:00 Temperature 97.1 F L 97.5 F L Pulse Rate 53 L 55 L 45 L Respiratory Rate 18 18 18 Blood Pressure 102/57 L 115/64 Pulse Oximetry 100 100 02/11/18 04:02 02/11/18 05:00 02/11/18 06:00 Temperature 98.6 F 98.2 F Pulse Rate 52 L 45 L Respiratory Rate 18 18 18 Blood Pressure 120/66 127/71 Pulse Oximetry 100 100 100 02/11/18 07:00 02/11/18 07:15 02/11/18 09:51 Temperature 98.2 F Pulse Rate 44 L 60 Respiratory Rate 18 18 18 Blood Pressure 128/64 Pulse Oximetry 100 100 Intake & Output 02/10/18 02/11/18 02/11/18 18:59 06:59 18:59 Intake Total 3651 / 3651 0 / 0 Output Total 280 / 280 0 / 0 Balance 3371 / 3371 0 / 0 Weight 77.111 kg 70.3 kg Intake: IV 3651 / 3651 Diprivan 1000 mg/100 ml Inj 1, 100 / 100 000 mg In 100 ml @ 5 MCG/KG/MIN 2.313 mls/hr IV.CONT TITRATE PRN Rx#:[id number] Azithromycin Inj 500 MG In NS 250 / 250 Inj 250 ML @ 250 mls/hr IV.SIG ONCE ONE Rx#:[id number] NS Inj 1,000 ML @ 1000 mls/hr 3000 / 3000 IV.SIG BOLUS JUSTINE Rx#:[id number] Thiamine Inj 100 MG In NS Inj 101 / 101 100 ML @ 100 mls/hr IV.SIG DAILY JUSTINE Rx#:[id number] Rocephin Inj 1,000 MG In NS Inj 100 / 100 100 ML @ 200 mls/hr IV.SIG ONCE ONE Rx#:[id number] Flagyl 500 MG Inj 100 ML @ 100 100 / 100 mls/hr IV.SIG Q8H JUSTINE Rx#: [id number] Oral 0 / 0 0 / 0 Output: Stool 0 / 0 0 / 0 Urine/Stool Mix 0 / 0 0 / 0 Urine Amount (Catheter) 280 / 280 0 / 0 Indwelling Urethral Catheter 280 / 280 0 / 0 Other: # Bowel Movements 0 0 # Incontinent Bowel Movements 0 0 Weight On Admission 70.4 kg Result Diagrams: 02/11/18 03:51 02/11/18 03:51 Objective Remarks: GENERAL: Well-nourished, well-developed patient who is orotracheally intubated. SKIN: Warm and dry. There are excoriations around his bilateral ankles. There are petechiae around the ankles at the site of the excoriations and there is a clear line of delineation where they abruptly stop at what appears to be a sock or shoe line. No petechiae of palms or soles. No splinter hemorrhages. HEAD: Atraumatic. Normocephalic. EYES: Pupils equal and round, pinpoint bilaterally no scleral icterus. No injection or drainage. ENT: No nasal bleeding or discharge. Mucous membranes pink and moist. NECK: Trachea midline. +JVD. No meningismus CARDIOVASCULAR: Regular rate and rhythm. No murmurs rubs or gallops. RESPIRATORY: Bibasilar rales with rhonchorous breath sounds bilaterally. Copious yellow secretions with endotracheal tube suctioning. Wheeze from left lung GASTROINTESTINAL: Abdomen soft, non-tender, nondistended. Bowel sounds present. OG tube in place with gastric secretions suctioned. MUSCULOSKELETAL: Extremities without clubbing, cyanosis, or edema. Scar overlying left shoulder. NEUROLOGICAL: Pupils pinpoint and sluggishly reactive bilaterally. Gaze is conjugate. Follows commands on bilateral upper extremities. Withdraws lower extremities Assessment and Plan - Assessment and Plan Plan: NEURO: Subacute ischemic stroke Acute encephalopathy EtOH abuse per prior record CT brain 1/1evolving infarct left occipital lobe and medial left temporal lobe. No hemorrhage. Not candidate for TPA due to unknown time of onset, probably subacute. F/u 2D echo, MRI/MRA carotids, lipids, hemoglobin A1c Aspirin [address] Santillan Ammonia level normal. Thiamine/multivitamin/folic acid Seizure a consideration with presence of lactic acidemia ?postictal. He would be at risk with history of alcohol use and acute stroke. Currently no evidence of clinical seizure and is on propofol which for which would provide seizure suppression. Ativan as needed seizure. Monitor for signs of alcohol withdrawal and administer Ativan as indicated per [facility] protocol. RESP: Acute hypercapnic respiratory failure Tobacco abuse Intubated 02/10 for airway protection Ventilator bundle PRVC tidal volume 575/rate 18/PEEP 5/I time 1/FiO2 50% DuoNeb every 6 hours. Albuterol every 2 hours as needed CV: Lactic acidemia Elevated troponin Received 3 L normal saline bolus per ED. Appears significantly volume loaded and has JVD.. Levophed to maintain mean pressure greater than 65 Receiving aspirin Trend troponin. Obtain 2D echo EKG sinus rhythm with nonspecific ST changes in inferior leads. Trend lactic acid until clear GI: Transaminase elevated, likely shock liver Follow-up liver ultrasound Viral hepatitis panel OG tube to low intermittent wall suction. Bowel regimen FEN/RENAL: Acute kidney injury Follow-up renal ultrasound Maintain Ornelas. Monitor intake and output hourly. Monitor electrolytes and replace as indicated. ID: Septic shock Leukocytosis Aspiration pneumonia Gram-positive bacteremia Penicillin allergyhives. Received ceftriaxone in the ED without issue. Chest x-ray with right lower lobe infiltrate. Blood cultures pending. Influenza negative. Ordered sputum culture Follow-up urine Legionella pneumococcal antigen. Received ceftriaxone and azithromycin in the emergency department. Will continue ceftriaxone and flagyl. Add vancomycin 1.25 g x1 and pharmacy to dose HEME: Anemia Monitor CBC ENDO: Mild hyperglycemia F/u HgbA1C, B12 TSH normal PROPH: SCDs for DVT prophylaxis. Protonix 40 mg IV daily for stress ulcer prophylaxis ACCESS: Left IJ central venous line placed 02/10 #2 FULL CODE CCT 45 minutes exclusive of separately billable procedures. Patient is critically ill with new onset acute stroke renal failure and now with gram-positive bacteremia likely secondary to pneumonia. Prognosis is guarded. 2D echo to evaluate for endocarditis ordered
--- NOTE | 2018-02-11 12:50 | MR ---
EXAM DATE: 02/11/2018 12:43 PM EST AGE/SEX: 67 years / Male INDICATIONS: CVA. CLINICAL DATA: This is the patient's initial encounter. Patient reports that signs and symptoms have been present for 1 day and indicates a pain score of 0/10. MEDICAL/SURGICAL HISTORY: Non-responsive. . Left hip replacement. [place] [facility] [place]. . TECHNIQUE: 3D [id number] MRA was performed. Source images, multiplanar STS MIP, and 3D volum e MIP reconstructions were reviewed. FINDINGS: There is occlusion of the left posterior cerebral artery corresponding with the area of restricted di ffusion in the left occipital region in the left SOFTWARE DEVELOPMENT ENGINEER territory. Moderate gaseous chronic vascular disease is evident in the supratentorial brain. The basilar artery is patent. CONCLUSION: 1. Occlusion of the left posterior cerebral artery at its origin with acute ischemia left occipital region.. Electronically signed by: Pastor Nava MD Board Certified Radiologist 02/11/2018 12:49 PM EST
[2018-02-11] MEDS ORDERED: Gadobutrol PF 10 MMOL/10 ML Vial (for RAD) IV.SIG ONE (12:57)
[2018-02-11] MEDS ORDERED: Vancomycin Inj 1,250 MG in Sodium Chlor 0.9% Inj 250 ML IV.SIG ONE (13:00)
--- NOTE | 2018-02-11 13:01 | MR ---
EXAM DATE: 02/11/2018 12:56 PM EST AGE/SEX: 67 years / Male INDICATIONS: Stenosis. CLINICAL DATA: This is the patient's initial encounter. Patient reports that signs and symptoms have been present for 1 day and indicates a pain score of 0/10. MEDICAL/SURGICAL HISTORY: Non-responsive. . Left hip replacement. COMPAR[place]: [facility] [place] W & W/O CONTRAST, 02/11/2018. . TECHNIQUE: 10 ml Gadavist (gadobutrol) contrast infused MRA (single exam dose) of the extracranial circulation was performed using a neurovascular coil. Postprocessing was performed, including rotati ng sub-volume maximum intensity projections of each carotid artery, rotating full-volume maximum inte nsity projections of both carotid arteries, sagittal and coronal sliding thin-slab reformations of ea ch carotid artery, and left oblique sliding thin-slab reformation through the aortic arch to include the origin of the arch branch vessels. FINDINGS: Aortic Arch : There is a three-vessel origin of the great vessels from the aorta. No evidence of o stial narrowing. Right Carotid : The common carotid artery is intact. The carotid bulb has a normal configuration wi thout ulceration or narrowing. The internal carotid artery lumen is smooth without stenosis. The ex ternal carotid artery is intact. Left Carotid : The common carotid artery is intact. The carotid bulb has a normal configuration wit hout ulceration or narrowing. The internal carotid artery lumen is smooth without stenosis. The ext ernal carotid artery is intact. Vertebrals : The vertebral arteries have a symmetric diameter. No stenotic lesions are seen. CONCLUSION: 1. Negative MRA Carotids. Percent stenosis is calculated using the diameter of the stenotic region over the diameter of the nor mal distal internal carotid artery Electronically signed by: Geo Kwong MD Board Certified Radiologist 02/11/2018 1:00 PM EST
--- NOTE | 2018-02-11 13:07 | MR ---
EXAM DATE: 02/11/2018 12:56 PM EST AGE/SEX: 67 years / Male INDICATIONS: CVA. CLINICAL DATA: This is the patient's initial encounter. Patient reports that signs and symptoms have been present for 1 day and indicates a pain score of 0/10. MEDICAL/SURGICAL HISTORY: Non-responsive. . Left hip replacement. COMPARISON: [facility] – [place], MRA HEAD W/O CONTRAST, 02/11/2018. [facility] [place], [place] HEAD W/O CONTRAST, 02/10/2018. . TECHNIQUE: Multiplanar, multisequence examination of the brain was performed without and with 10 ml G adavist (gadobutrol) contrast as a single exam dose. FINDINGS: There is a large area of acute infarction involving the left occipital lobe and parts of the left pos terior thalamus demonstrating abnormal diffusion. There is punctate area of bright signal on the diff usion portion of the exam in the right high convexity anterior parietal lobe appears to be shine thro ugh without any restriction of diffusion capacity. Moderate periventricular white matter changes seen nonspecific mostly consistent with chronic small vessel ischemic changes. CONCLUSION: 1. Acute infarction involving the left posterior thalamus and occipital lobe without hemorrhage or m ass effect. Electronically signed by: Geo Kwong MD Board Certified Radiologist 02/11/2018 1:06 PM EST
--- NOTE | 2018-02-11 13:49 | MG ---
cc: Madiha Leal MD ELECTROENCEPHALOGRAM NUMBER: [id number]. REFERRING PHYSICIAN: Tiffany Palma. ROOM: 505B. Photic done, 20 mcg of propofol. Awake, drowsy, asleep, intubated. History of ethanol, tobacco use. MRI report is not clear what it states here. Partially typed but not indicating what type of finding. Patient has an overall background of 5 Hz. EKG: Difficult to read as far sinus rhythm, out of eye movement artifact. Photic stimulation shows a posterior driving response. Hyperventilation was not done. No epileptic activity. IMPRESSION: Mild slowing in the background consistent with encephalopathy. Clinical correlation. Madiha Leal MD DF/ts , 01:26 PM , 01:33 PM
--- NOTE | 2018-02-11 14:03 | ECHRPT ---
Indication: cva/tia CONCLUSIONS Technically very difficult study making assessment of left ventricular function and wall motion subo ptimal. Upper normal left ventricular size. Wall thickness is normal. Left ventricular systolic function is mild to moderately reduced with an estimated ejection fraction in the range of 40-45%. No definite regiona l wall motion abnormalities. There is mild tricuspid valve regurgitation. The estimated pulmonary arterial pressure is 40 mmHg. BP: / HR: Rhythm: MEASUREMENTS (Male / Female) Normal Values Technical Quality: 2D ECHO LV Diastolic Diameter PLAX 5.4 cm 4.2 - 5.9 / 3.9 - 5.3 cm LV Systolic Diameter PLAX 4.6 cm IVS Diastolic Thickness 1.1 cm 0.6 - 1.0 / 0.6 - 0.9 cm LVPW Diastolic Thickness 0.9 cm 0.6 - 1.0 / 0.6 - 0.9 cm LV Relative Wall Thickness 0.4 RV Internal Dim ED PLAX 3.4 cm LVOT Diameter 2.1 cm Aortic Root Diameter 2.7 cm LA Systolic Diameter LX 3.8 cm 3.0 - 4.0 / 2.7 - 3.8 cm M-MODE Aortic Root Diameter MM 3.4 cm LA Systolic Diameter MM 4.0 cm LA Ao Ratio MM 1.2 AV Cusp Separation MM 1.7 cm DOPPLER AV Peak Velocity 114.0 cm/s AV Peak Gradient 5.2 mmHg LVOT Peak Velocity 64.2 cm/s LVOT Peak Gradient 1.6 mmHg AV Area Cont Eq pk 2.0 cm Mitral E Point Velocity 71.1 cm/s Mitral A Point Velocity 60.2 cm/s Mitral E to A Ratio 1.2 LV E' Lateral Velocity 2.5 cm/s Mitral E to LV E' Lateral Ratio 28.1 LV E' Septal Velocity 3.8 cm/s Mitral E to LV E' Septal Ratio 18.7 TR Peak Velocity 274.0 cm/s TR Peak Gradient 30.0 mmHg Right Atrial Pressure 10.0 mmHg Pulmonary Artery Systolic Pressu 40.0 mmHg Right Ventricular Systolic Press 40.0 mmHg PV Peak Velocity 56.5 cm/s PV Peak Gradient 1.3 mmHg FINDINGS LEFT VENTRICLE Technically very difficult study making assessment of left ventricular function and wall motion subo ptimal. Upper normal left ventricular size. Wall thickness is normal. Left ventricular systolic function is mild to moderately reduced with an estimated ejection fraction in the range of 40-45%. No definite regiona l wall motion abnormalities. RIGHT VENTRICLE Normal right ventricular size and systolic function. LEFT ATRIUM The left atrial size is upper limits of normal. RIGHT ATRIUM The right atrial size is normal. ATRIAL SEPTUM Normal atrial septal thickness without atrial level shunting by limited color doppler interrogation. AORTA The aortic root and proximal ascending aorta are normal in size on limited imaging. MITRAL VALVE Structurally normal mitral valve. No mitral valve stenosis or regurgitation. AORTIC VALVE Trileaflet aortic valve. No aortic valve stenosis or regurgitation. TRICUSPID VALVE There is mild tricuspid valve regurgitation. The estimated pulmonary arterial pressure is 40 mmHg. PULMONARY VALVE No pulmonary valve regurgitation or stenosis. VESSELS The inferior vena cava is normal in size. PERICARDIUM No pericardial effusion. Rafael Gibson MD (Electronically Signed) Final Date:11 February 2018 14:02
[2018-02-11 16:38] LABS: Hemoglobin A1c 5.3 % (4.3-6.0)
[2018-02-12] MEDS: Heparin - SQ 10,000 UNITS/ML Vial SQ SCH ×2 (00:25→10:59)
[2018-02-12] MEDS: Oral Hygiene Kit OROPHARYNG SCH ×4 (00:25→15:51)
[2018-02-12] MEDS: Propofol 1000 mg/100 ml Inj 1,000 MG/100 ML BOTTLE IV.CONT PRN (03:14)
[2018-02-12] MEDS: Chlorhexidine Gluconate 2% 1 Pack (2 Cloths) TOPICAL SCH (03:15)
[2018-02-12 04:31] LABS: Hematocrit 32.7 % (39.0-51.0); Hemoglobin 10.4 gm/dL (13.0-17.0); Mean Corpuscular HGB Conc 31.8 % (32.0-36.0); Mean Corpuscular Volume 84.8 fL (80.0-100.0); Mean Platelet Volume 9.9 fL (7.0-11.0); Platelet Count 249 th/mm3 (150-450); Red Blood Count 3.86 mil/mm3 (4.50-5.90); Red Cell Distribution Width 16.1 % (11.6-17.2); White Blood Count 10.3 th/mm3 (4.0-11.0)
[2018-02-12 04:41] LABS: Alanine Aminotransferase 313 U/L (12-78); Albumin 1.8 g/dL (3.4-5.0); Alkaline Phosphatase 73 U/L (45-117); Anion Gap 6 meq/L (5-15); Aspartate Aminotransferase 316 U/L (15-37); Blood Urea Nitrogen 42 mg/dL (7-18); Calcium 7.6 mg/dL (8.5-10.1); Carbon Dioxide 30.8 meq/L (21.0-32.0); Chloride 105 meq/L (98-107); Chol/HDL Ratio 3.45 Ratio; Cholesterol 67 mg/dL (120-200); Glomerular Filtration Rate 86 mL/min (>89); Glucose,Random 79 mg/dL (74-106); HDL Cholesterol 19.4 mg/dL (40.0-60.0); LDL Cholesterol,Calculated 31 mg/dL (0-99); Phosphorus 1.4 mg/dL (2.5-4.9); Potassium 3.3 meq/L (3.5-5.1); Sodium 142 meq/L (136-145); Total Protein 5.9 g/dL (6.4-8.2); Triglycerides 85 mg/dL (42-150)
--- NOTE | 2018-02-12 05:40 | XR ---
EXAM DATE: 02/12/2018 5:36 AM EST AGE/SEX: 67 years / Male INDICATIONS: Shortness of breath, possible pulmonary disease. CLINICAL DATA: This is the patient's subsequent encounter. Patient reports that signs and symptoms h ave been present for 3 days and indicates a pain score of Nonresponsive. MEDICAL/SURGICAL HISTORY: Non-responsive. . Left hip arthroplasty. COMPARISON: [facility], CHEST 1V SINGLE AP, 02/10/2018. . FINDINGS: The ET tube and NG tube are well placed. The heart size is normal. This increased density seen in the mid and lower right lung with silhouetting the right hemidiaphragm. The left lung is grossly clear. There are old healed fracture deformities from right rib fractures. Surgical hardware seen at the lef t scapula and left proximal humerus. CONCLUSION: Right mid and lower lung atelectasis or consolidation. Some degree of right effusion should be consid ered. Electronically signed by: Adarsh Rodriguez MD Board Certified Radiologist 02/12/2018 5:39 AM EST
--- NOTE | 2018-02-12 07:54 | P.PNNEU ---
Subjective Subjective Comments: sr Active Medications: Active Medications Acetaminophen (Tylenol) 650 mg PO Q6H PRN PRN Reason: PAIN 1-10 AND/OR FEVER >101F Hydrocodone Bitart/Acetaminophen ([place] 5/325) 1 tab PO Q4H PRN PRN Reason: PAIN SCALE 1 TO 5 Al Hydroxide/Mg Hydroxide (Milk Of Magnvalencia Liq) 30 ml PO Q12H PRN PRN Reason: Mild Constipation Albuterol (Albuterol Neb (Prn)) 2.5 mg NEB Q2HR NEB PRN PRN Reason: SHORTNESS OF BREATH/WHEEZING Albuterol (Duoneb Neb ([facility])) 1 ampul NEB Q6HR NEB [facility] Last Admin: 02/12/18 03:25 Dose: 1 ampul Aspirin (Aspirin Chew) 162 mg PO DAILY [facility] Last Admin: 02/11/18 08:36 Dose: 162 mg Bisacodyl (Dulcolax Supp) 10 mg RECTAL DAILY PRN PRN Reason: SEVERE CONSITIPATION Chlorhexidine Gluconate (Peridex 0.12% Oral Kit) 15 ml OROPHARYNG BID@0800, 2000 [facility] Last Admin: 02/11/18 20:45 Dose: 15 ml Chlorhexidine Gluconate (Chlorhexidine 2% Cloth) 3 pack TOPICAL DAILY@0400 [facility] Stop: 02/16/18 03:59 Last Admin: 02/12/18 03:15 Dose: 3 pack Chlorhexidine Gluconate (Chlorhexidine 2% Cloth) 3 pack TOPICAL DAILY@0400 PRN PRN Reason: Extra cloth needed Stop: 02/16/18 03:59 Fentanyl Citrate (Fentanyl Inj) 50 mcg IV PUSH Q1H PRN PRN Reason: Pain scale 6-10, &/or sedation Flumazenil (Romazicon Inj) 0.2 mg IV.PUSH Q1M PRN PRN Reason: OVERSEDATION Folic Acid (Folic Acid) 1 mg NG/OG DAILY [facility] Last Admin: 02/11/18 08:35 Dose: 1 mg Heparin Sodium (Porcine) (Heparin Inj) 5,000 units SQ Q12H [facility] Last Admin: 02/12/18 00:25 Dose: 5,000 units Propofol (Diprivan 1000 Mg/100 Ml Inj) 1,000 mg in 100 mls @ 2.313 mls/hr IV.CONT TITRATE PRN; Protocol PRN Reason: Per Protocol Last Admin: 02/12/18 03:14 Dose: 30 mcg/kg/min, 13.88 mls/hr Norepinephrine Bitartrate (Levophed-Dextrose 4 Mg/250 Ml Drip) 4 mg in 250 mls @ 7.5 mls/hr IV.SIG TITRATE PRN; Protocol PRN Reason: Per Protocol Last Titration: 02/11/18 02:40 Dose: 0 mcg/min, 0 mls/hr Thiamine HCl 100 mg/ Sodium (Chloride) 101 mls @ 100 mls/hr IV.SIG DAILY [facility] Last Infusion: 02/11/18 10:00 Dose: Infused Ceftriaxone Sodium 1,000 mg/ (Sodium Chloride) 100 mls @ 200 mls/hr IV.SIG Q12H [facility] Last Infusion: 02/12/18 06:29 Dose: Infused Metronidazole/Sodium Chloride (Flagyl 500 Mg Inj) 100 mls @ 100 mls/hr IV.SIG Q8H [facility] Last Infusion: 02/12/18 06:29 Dose: Infused Vancomycin HCl 1,500 mg/ (Sodium Chloride) 515 mls @ 250 mls/hr IV.SIG Q24H [facility] Lactulose (Lactulose Liq) 30 ml PO DAILY PRN PRN Reason: SEVERE CONSITIPATION Lorazepam (Ativan) 1 mg PO Q4H PRN PRN Reason: for CIWA 8-10 Lorazepam (Ativan Inj) 2 mg IV.PUSH Q2H PRN PRN Reason: for CIWA 11-14 Lorazepam (Ativan Inj) 2 mg IV.PUSH Q1H PRN PRN Reason: for CIWA 15-20 Lorazepam (Ativan Inj) 2 mg IV.PUSH Q15M PRN PRN Reason: for CIWA > 20 Lorazepam (Ativan Inj) 1 mg IV.PUSH Q4H PRN PRN Reason: for CIWA 8-10 Lorazepam (Ativan) 2 mg PO Q2H PRN PRN Reason: for CIWA 11-14 Lorazepam (Ativan Inj) 1 mg IV.PUSH Q5M PRN PRN Reason: seizure Miscellaneous Information ([facility] Ordered Lab Info) 0 each OTHER ONCE ONE Stop: 02/14/18 11:46 Miscellaneous Medication () 1 each OROPHARYNG 0000,0400,1200,1600 [facility] Last Admin: 02/12/18 03:16 Dose: 1 each Multivitamins (Theragran) 1 tab NG/OG DAILY [facility] Last Admin: 02/11/18 08:35 Dose: 1 tab Ondansetron HCl (Zofran Inj) 4 mg IV.PUSH Q6H PRN PRN Reason: NAUSEA OR VOMITING Pantoprazole Sodium (Protonix Inj) 40 mg IV.PUSH DAILY [facility] Last Admin: 02/11/18 08:35 Dose: 40 mg Pharmacy Profile Note (Vancomycin Consult Pharmacy) 1 each OTHER UNSCH PRN PRN Reason: Pharmacy to dose Senna/Docusate Sodium (Charissa-Colace) 1 tab PO BID [facility] Last Admin: 02/11/18 20:46 Dose: 1 tab Sennosides (Senokot) 17.2 mg PO Q12H PRN PRN Reason: Moderate Constipation Sodium Chloride (Ns Flush) 2 ml IV.FLUSH PRN PRN PRN Reason: FLUSH AFTER USING IV ACCESS Sodium Chloride (Ns Flush) 2 ml IV.FLUSH BID [facility] Last Admin: 02/11/18 20:46 Dose: 2 ml Terbutaline Sulfate (Brethine Inj) 1 mg SQ UNSCH PRN PRN Reason: For Extravasation Allergies/Adverse Reactions: Allergies Allergy/AdvReac Type Severity Reaction Status Date / Time penicillin G Allergy Severe RASH Unverified 09/24/16 19:44 Physical Exam Vital signs: Vital Signs 02/11/18 08:00 02/11/18 09:10 02/11/18 09:20 Temperature 97.6 F Pulse Rate 49 L 64 60 Respiratory Rate 18 18 18 Blood Pressure 128/67 116/65 130/69 Pulse Oximetry 100 100 99 02/11/18 09:31 02/11/18 09:40 02/11/18 09:50 Temperature Pulse Rate 62 59 L 58 L Respiratory Rate 18 18 18 Blood Pressure 120/64 115/71 115/68 Pulse Oximetry 100 100 100 02/11/18 09:51 02/11/18 10:00 02/11/18 10:10 Temperature Pulse Rate 60 60 59 L Respiratory Rate 18 18 18 Blood Pressure 116/65 128/67 Pulse Oximetry 99 99 02/11/18 10:20 02/11/18 10:30 02/11/18 10:41 Temperature Pulse Rate 63 66 65 Respiratory Rate 18 18 24 Blood Pressure 137/62 133/67 132/62 Pulse Oximetry 98 98 98 02/11/18 10:50 02/11/18 11:00 02/11/18 11:10 Temperature Pulse Rate 61 62 67 Respiratory Rate 18 18 18 Blood Pressure 125/59 L 132/70 123/71 Pulse Oximetry 98 98 97 02/11/18 11:14 02/11/18 11:20 02/11/18 11:27 Temperature Pulse Rate 70 65 Respiratory Rate 18 18 18 Blood Pressure 123/60 125/59 L Pulse Oximetry 96 96 99 02/11/18 11:30 02/11/18 11:40 02/11/18 12:00 Temperature Pulse Rate 68 57 L 68 Respiratory Rate 18 18 15 Blood Pressure 125/59 L 119/58 L Pulse Oximetry 98 99 100 02/11/18 12:09 02/11/18 12:13 02/11/18 12:39 Temperature Pulse Rate 70 Respiratory Rate Blood Pressure 117/58 L Pulse Oximetry 99 100 02/11/18 13:00 02/11/18 13:04 02/11/18 13:10 Temperature Pulse Rate 72 76 71 Respiratory Rate 23 10 L 13 Blood Pressure 124/64 120/63 Pulse Oximetry 100 100 100 02/11/18 13:16 02/11/18 14:00 02/11/18 15:00 Temperature Pulse Rate 90 73 68 Respiratory Rate 11 L 17 15 Blood Pressure 121/57 L 106/55 L 108/56 L Pulse Oximetry 100 92 L 93 L 02/11/18 15:44 02/11/18 16:00 02/11/18 18:00 Temperature 96.2 F L Pulse Rate 69 70 62 Respiratory Rate 16 16 Blood Pressure 111/56 L Pulse Oximetry 93 L 92 L 02/11/18 19:58 02/11/18 20:00 02/11/18 20:06 Temperature 97.4 F L Pulse Rate 60 63 Respiratory Rate 18 18 18 Blood Pressure 120/60 Pulse Oximetry 96 97 02/11/18 22:00 02/12/18 00:00 02/12/18 00:30 Temperature 97.4 F L Pulse Rate 55 L 52 L Respiratory Rate 18 18 Blood Pressure 133/63 Pulse Oximetry 96 95 02/12/18 02:00 02/12/18 03:25 02/12/18 04:00 Temperature 97.4 F L Pulse Rate 52 L 48 L 60 Respiratory Rate 18 18 Blood Pressure 126/62 Pulse Oximetry 96 96 02/12/18 06:00 02/12/18 07:22 Temperature Pulse Rate 68 Respiratory Rate 13 Blood Pressure Pulse Oximetry 98 Intake & Output 02/11/18 02/12/18 02/12/18 18:59 06:59 18:59 Intake Total 663.50 / 663.50 600 / 600 Output Total 900 / 900 0 / 0 Balance -236.50 / -236.50 600 / 600 Weight 70.1 kg Intake: IV 663.50 / 663.50 600 / 600 Diprivan 1000 mg/100 ml Inj 1, 100 / 100 300 / 300 000 mg In 100 ml @ 5 MCG/KG/MIN 2.313 mls/hr IV.CONT TITRATE PRN Rx#:[id number] Thiamine Inj 100 MG In NS Inj 101 / 101 100 ML @ 100 mls/hr IV.SIG DAILY [facility] Rx#:[id number] Vancomycin Inj 1,250 MG In NS 262.50 / 262.50 Inj 250 ML @ 250 mls/hr IV.SIG ONCE ONE Rx#:[id number] Rocephin Inj 1,000 MG In NS Inj 100 / 100 100 / 100 100 ML @ 200 mls/hr IV.SIG Q12H [facility] Rx#:[id number] Flagyl 500 MG Inj 100 ML @ 100 100 / 100 200 / 200 mls/hr IV.SIG Q8H [facility] Rx#: [id number] Oral 0 / 0 0 / 0 Output: Stool 0 / 0 0 / 0 Urine/Stool Mix 0 / 0 0 / 0 Urine Amount (Catheter) 900 / 900 0 / 0 Indwelling Urethral Catheter 900 / 900 0 / 0 Other: Date of Last Bowel Movement 02/11/18 02/11/18 # Bowel Movements 0 0 # Incontinent Bowel Movements 0 0 Narrative: moving all agitated off sedatives on vent not follow commands for me - Urinary Catheter Management Condom Cath placed during this visit: yes Reason for continuing: Hourly intake/output Insertion date: 02/10/18 Insertion time: 20:20 Indwelling Urethral Catheter Cath placed during this visit: yes, but has since been removed by the nurse Reason for continuing: Decision to DC catheter Insertion date: 02/10/18 Insertion time: 23:00 Removal date: 02/11/18 Removal time: 17:00 Objective Laboratory Results - last 24 hr 02/11/18 02/11/18 02/11/18 03:51 06:13 13:59 WBC RBC Hgb Hct MCV MCH MCHC RDW Plt Count MPV ESR Sodium Potassium Chloride Carbon Dioxide Anion Gap BUN Creatinine Estimated GFR POC Glucose 98 Random Glucose Hemoglobin A1c 5.3 Calcium Phosphorus Magnesium Total Bilirubin AST ALT Alkaline Phosphatase Troponin I 0.42 H Total Protein Albumin Triglycerides Cholesterol LDL Cholesterol, Calc HDL Cholesterol Cholesterol/HDL Ratio Vitamin B12 02/11/18 02/11/18 02/11/18 14:22 14:22 17:20 WBC RBC Hgb Hct MCV MCH MCHC RDW Plt Count MPV ESR 32 H Sodium Potassium Chloride Carbon Dioxide Anion Gap BUN Creatinine Estimated GFR POC Glucose 84 Random Glucose Hemoglobin A1c Calcium Phosphorus Magnesium Total Bilirubin AST ALT Alkaline Phosphatase Troponin I Total Protein Albumin Triglycerides Cholesterol LDL Cholesterol, Calc HDL Cholesterol Cholesterol/HDL Ratio Vitamin B12 917 02/12/18 02/12/18 03:30 03:30 WBC 10.3 RBC 3.86 L Hgb 10.4 L Hct 32.7 L MCV 84.8 MCH 27.0 MCHC 31.8 L RDW 16.1 Plt Count 249 MPV 9.9 ESR Sodium 142 Potassium 3.3 L Chloride 105 Carbon Dioxide 30.8 Anion Gap 6 BUN 42 H Creatinine 0.88 Estimated GFR 86 L POC Glucose Random Glucose 79 Hemoglobin A1c Calcium 7.6 L Phosphorus 1.4 L Magnesium 2.0 Total Bilirubin 0.6 AST 316 H ALT 313 H Alkaline Phosphatase 73 Troponin I Total Protein 5.9 L Albumin 1.8 L Triglycerides 85 Cholesterol 67 L LDL Cholesterol, Calc 31 HDL Cholesterol 19.4 L Cholesterol/HDL Ratio 3.45 Vitamin B12 Microbiology 02/10/18 20:00 Aerobic Blood Culture - Preliminary Blood - Peripheral Streptococcus species Anaerobic Blood Culture - Preliminary gram positive cocci 02/10/18 20:05 Aerobic Blood Culture - Preliminary Blood - Peripheral gram positive cocci Anaerobic Blood Culture - Preliminary gram positive cocci 02/11/18 04:44 Gram Stain - Final Sputum - Tracheal Aspirate 02/10/18 23:00 Streptococcus pneumoniae Antigen (M - Final Urine - Catheterized Urine Presumptive negative for streptococcus pneumoniae antigen, suggesting no current or recent infection. Infection due to Streptococcus pneumoniae cannot be ruled out since the antigen present in the sample may be below the detection limit of the test. 02/10/18 23:00 Legionella Antigen - Final Urine - Catheterized Urine Presumptive negative for Legionella pneumophila serogroup 1 antigen in urine, suggesting no recent or recurrent infection. Infection due to Legionella cannot be ruled out since other serogroups and species may cause disease, antigen may not be present in urine in early infection, and the level of antigen present in the urine may be below the detection limit of the test. 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
--- NOTE | 2018-02-12 09:06 | P.CONCA ---
History of Present Illness Service: cardiology Consult date: 02/12/18 Requesting Physician: Joel Amin Reason for Consult: stroke Primary Care Provider: No Primary Care Physician Chief Complaint: AMS History of Present Illness: 67-year-old gentleman who presented on 02/10/2018 with altered mental status after an apparent syncopal event. Patient is currently AOx name only and HPI is obtained from chart review. Apparently he is an active smoker and drinker of alcohol. He was found to have RML and RLL infiltrates on chest x-ray consistent with probable pneumonia. WBC 12, LA 5, significant transaminitis, Cr 1.8 on arrival. MRI brain revealed acute stroke involving the left posterior thalamus and occipital lobes. He required endotracheal intubation due to respiratory failure. He was provided IV fluid resuscitation with improvement in renal function to near baseline. He self extubated this morning and is currently moderately hypoxemic on supplemental oxygen via nasal cannula. Blood cultures have returned +2/2 for GPC. Patient has been maintained on broad-spectrum antibiotics since admission. Neurology was consulted and has evaluated the patient and believes his stroke appears to be possibly embolic in nature. Cardiology was consulted for mild elevation in troponin 0.21, 0.42 in this setting. EKG reveals sinus rhythm with RBBB and nonspecific ST-T abnormalities. Echocardiogram reveals LVEF 40-45% with poor imaging for sensitivity of valvular vegetations. No clinically significant valvular stenosis or regurgitation. Review of Systems Unable to be accurately obtained due to patient's altered mental status. 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 - Medical History Medical History: Medical History (Last Reviewed 02/11/18 @ 07:53 by Yohannes Corrales) ETOH abuse Tobacco abuse - Surgical History Surgical History: Surgical History (Last Reviewed 02/11/18 @ 07:53 by Yohannes Corrales) History of total left hip arthroplasty - Family History Family History: Family History (Last Updated 02/10/18 @ 20:58 by Tiffany Palma MD) Mother CHF (congestive heart failure) - Tobacco History Second Hand Smoke Exposure: Yes Tobacco Use In Past 30 Days: Yes Smoking Status: Smoker, status unknown Tobacco Type: Cigarettes - Alcohol History How Often Do You Have a Drink Containing Alcohol: 4 or more times a week - Substance Use History Substance History: Unable to Obtain - Travel History Recent Travel in the [facility] Within the Last 8 Weeks: No Recent Travel Out of the Country Within the Last 8 Weeks: No - Immunization History Tetanus Immunization: Unable to Assess Medications and Allergies Active Medications: Active Medications Acetaminophen (Tylenol) 650 mg PO Q6H PRN PRN Reason: PAIN 1-10 AND/OR FEVER >101F Hydrocodone Bitart/Acetaminophen ([place] 5/325) 1 tab PO Q4H PRN PRN Reason: PAIN SCALE 1 TO 5 Al Hydroxide/Mg Hydroxide (Milk Of Magnvalencia Liq) 30 ml PO Q12H PRN PRN Reason: Mild Constipation Albuterol (Albuterol Neb (Prn)) 2.5 mg NEB Q2HR NEB PRN PRN Reason: SHORTNESS OF BREATH/WHEEZING Albuterol (Duoneb Neb ([facility])) 1 ampul NEB Q6HR NEB [facility] Last Admin: 02/12/18 03:25 Dose: 1 ampul Aspirin (Aspirin Chew) 162 mg PO DAILY [facility] Last Admin: 02/11/18 08:36 Dose: 162 mg Bisacodyl (Dulcolax Supp) 10 mg RECTAL DAILY PRN PRN Reason: SEVERE CONSITIPATION Chlorhexidine Gluconate (Peridex 0.12% Oral Kit) 15 ml OROPHARYNG BID@0800, 2000 [facility] Last Admin: 02/11/18 20:45 Dose: 15 ml Chlorhexidine Gluconate (Chlorhexidine 2% Cloth) 3 pack TOPICAL DAILY@0400 [facility] Stop: 02/16/18 03:59 Last Admin: 02/12/18 03:15 Dose: 3 pack Chlorhexidine Gluconate (Chlorhexidine 2% Cloth) 3 pack TOPICAL DAILY@0400 PRN PRN Reason: Extra cloth needed Stop: 02/16/18 03:59 Fentanyl Citrate (Fentanyl Inj) 50 mcg IV PUSH Q1H PRN PRN Reason: Pain scale 6-10, &/or sedation Flumazenil (Romazicon Inj) 0.2 mg IV.PUSH Q1M PRN PRN Reason: OVERSEDATION Folic Acid (Folic Acid) 1 mg NG/OG DAILY [facility] Last Admin: 02/11/18 08:35 Dose: 1 mg Heparin Sodium (Porcine) (Heparin Inj) 5,000 units SQ Q12H [facility] Last Admin: 02/12/18 00:25 Dose: 5,000 units Propofol (Diprivan 1000 Mg/100 Ml Inj) 1,000 mg in 100 mls @ 2.313 mls/hr IV.CONT TITRATE PRN; Protocol PRN Reason: Per Protocol Last Admin: 02/12/18 03:14 Dose: 30 mcg/kg/min, 13.88 mls/hr Norepinephrine Bitartrate (Levophed-Dextrose 4 Mg/250 Ml Drip) 4 mg in 250 mls @ 7.5 mls/hr IV.SIG TITRATE PRN; Protocol PRN Reason: Per Protocol Last Titration: 02/11/18 02:40 Dose: 0 mcg/min, 0 mls/hr Thiamine HCl 100 mg/ Sodium (Chloride) 101 mls @ 100 mls/hr IV.SIG DAILY [facility] Last Infusion: 02/11/18 10:00 Dose: Infused Ceftriaxone Sodium 1,000 mg/ (Sodium Chloride) 100 mls @ 200 mls/hr IV.SIG Q12H [facility] Last Infusion: 02/12/18 06:29 Dose: Infused Metronidazole/Sodium Chloride (Flagyl 500 Mg Inj) 100 mls @ 100 mls/hr IV.SIG Q8H [facility] Last Infusion: 02/12/18 06:29 Dose: Infused Vancomycin HCl 1,500 mg/ (Sodium Chloride) 515 mls @ 250 mls/hr IV.SIG Q24H [facility] Lactulose (Lactulose Liq) 30 ml PO DAILY PRN PRN Reason: SEVERE CONSITIPATION Lorazepam (Ativan) 1 mg PO Q4H PRN PRN Reason: for CIWA 8-10 Lorazepam (Ativan Inj) 2 mg IV.PUSH Q2H PRN PRN Reason: for CIWA 11-14 Lorazepam (Ativan Inj) 2 mg IV.PUSH Q1H PRN PRN Reason: for CIWA 15-20 Lorazepam (Ativan Inj) 2 mg IV.PUSH Q15M PRN PRN Reason: for CIWA > 20 Lorazepam (Ativan Inj) 1 mg IV.PUSH Q4H PRN PRN Reason: for CIWA 8-10 Lorazepam (Ativan) 2 mg PO Q2H PRN PRN Reason: for CIWA 11-14 Lorazepam (Ativan Inj) 1 mg IV.PUSH Q5M PRN PRN Reason: seizure Miscellaneous Information ([facility] Ordered Lab Info) 0 each OTHER ONCE ONE Stop: 02/14/18 11:46 Miscellaneous Medication () 1 each OROPHARYNG 0000,0400,1200,1600 [facility] Last Admin: 02/12/18 03:16 Dose: 1 each Multivitamins (Theragran) 1 tab NG/OG DAILY [facility] Last Admin: 02/11/18 08:35 Dose: 1 tab Ondansetron HCl (Zofran Inj) 4 mg IV.PUSH Q6H PRN PRN Reason: NAUSEA OR VOMITING Pantoprazole Sodium (Protonix Inj) 40 mg IV.PUSH DAILY [facility] Last Admin: 02/11/18 08:35 Dose: 40 mg Pharmacy Profile Note (Vancomycin Consult Pharmacy) 1 each OTHER UNSCH PRN PRN Reason: Pharmacy to dose Senna/Docusate Sodium (Charissa-Colace) 1 tab PO BID [facility] Last Admin: 02/11/18 20:46 Dose: 1 tab Sennosides (Senokot) 17.2 mg PO Q12H PRN PRN Reason: Moderate Constipation Sodium Chloride (Ns Flush) 2 ml IV.FLUSH PRN PRN PRN Reason: FLUSH AFTER USING IV ACCESS Sodium Chloride (Ns Flush) 2 ml IV.FLUSH BID [facility] Last Admin: 02/11/18 20:46 Dose: 2 ml Terbutaline Sulfate (Brethine Inj) 1 mg SQ UNSCH PRN PRN Reason: For Extravasation Allergies Allergy/AdvReac Type Severity Reaction Status Date / Time penicillin G Allergy Severe RASH Unverified 09/24/16 19:44 Home Medications Medication Instructions Recorded Confirmed Type Unable to Obtain Home Meds 02/10/18 02/10/18 History Exam Vital signs: Vital Signs 02/11/18 09:10 02/11/18 09:20 02/11/18 09:31 Temperature Pulse Rate 64 60 62 Respiratory Rate 18 18 18 Blood Pressure 116/65 130/69 120/64 Pulse Oximetry 100 99 100 02/11/18 09:40 02/11/18 09:50 02/11/18 09:51 Temperature Pulse Rate 59 L 58 L 60 Respiratory Rate 18 18 18 Blood Pressure 115/71 115/68 Pulse Oximetry 100 100 02/11/18 10:00 02/11/18 10:10 02/11/18 10:20 Temperature Pulse Rate 60 59 L 63 Respiratory Rate 18 18 18 Blood Pressure 116/65 128/67 137/62 Pulse Oximetry 99 99 98 02/11/18 10:30 02/11/18 10:41 02/11/18 10:50 Temperature Pulse Rate 66 65 61 Respiratory Rate 18 24 18 Blood Pressure 133/67 132/62 125/59 L Pulse Oximetry 98 98 98 02/11/18 11:00 02/11/18 11:10 02/11/18 11:14 Temperature Pulse Rate 62 67 Respiratory Rate 18 18 18 Blood Pressure 132/70 123/71 Pulse Oximetry 98 97 96 02/11/18 11:20 02/11/18 11:27 02/11/18 11:30 Temperature Pulse Rate 70 65 68 Respiratory Rate 18 18 18 Blood Pressure 123/60 125/59 L 125/59 L Pulse Oximetry 96 99 98 02/11/18 11:40 02/11/18 12:00 02/11/18 12:09 Temperature Pulse Rate 57 L 68 70 Respiratory Rate 18 15 Blood Pressure 119/58 L Pulse Oximetry 99 100 99 02/11/18 12:13 02/11/18 12:39 02/11/18 13:00 Temperature Pulse Rate 72 Respiratory Rate 23 Blood Pressure 117/58 L Pulse Oximetry 100 100 02/11/18 13:04 02/11/18 13:10 02/11/18 13:16 Temperature Pulse Rate 76 71 90 Respiratory Rate 10 L 13 11 L Blood Pressure 124/64 120/63 121/57 L Pulse Oximetry 100 100 100 02/11/18 14:00 02/11/18 15:00 02/11/18 15:44 Temperature Pulse Rate 73 68 69 Respiratory Rate 17 15 16 Blood Pressure 106/55 L 108/56 L Pulse Oximetry 92 L 93 L 93 L 02/11/18 16:00 02/11/18 18:00 02/11/18 19:58 Temperature 96.2 F L Pulse Rate 70 62 Respiratory Rate 16 18 Blood Pressure 111/56 L Pulse Oximetry 92 L 96 02/11/18 20:00 02/11/18 20:06 02/11/18 22:00 Temperature 97.4 F L Pulse Rate 60 63 55 L Respiratory Rate 18 18 Blood Pressure 120/60 Pulse Oximetry 97 02/12/18 00:00 02/12/18 00:30 02/12/18 02:00 Temperature 97.4 F L Pulse Rate 52 L 52 L Respiratory Rate 18 18 Blood Pressure 133/63 Pulse Oximetry 96 95 02/12/18 03:25 02/12/18 04:00 02/12/18 06:00 Temperature 97.4 F L Pulse Rate 48 L 60 68 Respiratory Rate 18 18 Blood Pressure 126/62 Pulse Oximetry 96 96 02/12/18 07:22 02/12/18 08:02 Temperature Pulse Rate Respiratory Rate 13 Blood Pressure Pulse Oximetry 98 95 Intake & Output 02/11/18 02/12/18 02/12/18 18:59 06:59 18:59 Intake Total 663.50 / 663.50 600 / 600 Output Total 900 / 900 0 / 0 Balance -236.50 / -236.50 600 / 600 Weight 70.1 kg Intake: IV 663.50 / 663.50 600 / 600 Diprivan 1000 mg/100 ml Inj 1, 100 / 100 300 / 300 000 mg In 100 ml @ 5 MCG/KG/MIN 2.313 mls/hr IV.CONT TITRATE PRN Rx#:[id number] Thiamine Inj 100 MG In NS Inj 101 / 101 100 ML @ 100 mls/hr IV.SIG DAILY [facility] Rx#:[id number] Vancomycin Inj 1,250 MG In NS 262.50 / 262.50 Inj 250 ML @ 250 mls/hr IV.SIG ONCE ONE Rx#:[id number] Rocephin Inj 1,000 MG In NS Inj 100 / 100 100 / 100 100 ML @ 200 mls/hr IV.SIG Q12H [facility] Rx#:[id number] Flagyl 500 MG Inj 100 ML @ 100 100 / 100 200 / 200 mls/hr IV.SIG Q8H [facility] Rx#: [id number] Oral 0 / 0 0 / 0 Output: Stool 0 / 0 0 / 0 Urine/Stool Mix 0 / 0 0 / 0 Urine Amount (Catheter) 900 / 900 0 / 0 Indwelling Urethral Catheter 900 / 900 0 / 0 Other: Date of Last Bowel Movement 02/11/18 02/11/18 # Bowel Movements 0 0 # Incontinent Bowel Movements 0 0 Narrative: GENERAL: AAO x1 (name only) not speaking coherently but is able to say his name SKIN: Warm and dry. HEAD: Atraumatic. Normocephalic. EYES: Pupils equal and round. No scleral icterus. No injection or drainage. NECK: Trachea midline. No JVD. Left IJ TLC CARDIOVASCULAR: Regular rate and rhythm. RESPIRATORY: Decreased breath sounds with upper airway tracheal sounds, no wheeze GASTROINTESTINAL: Abdomen soft, non-tender, nondistended. MUSCULOSKELETAL: Extremities without clubbing, cyanosis, or edema. No obvious deformities. Results 02/12/18 03:30 02/12/18 03:30 Cardiac Enzymes 02/10/18 02/10/18 02/11/18 Range/Units 18:15 18:15 00:26 AST 229 H (15-37) U/L Troponin I 0.21 H 0.34 H (0.02-0.05) ng/mL B-Natriuretic Peptide 1035 H (0-100) pg/mL 02/11/18 02/11/18 02/12/18 Range/Units 03:51 06:13 03:30 AST 1188 H 316 H (15-37) U/L Troponin I 0.42 H (0.02-0.05) ng/mL B-Natriuretic Peptide (0-100) pg/mL Coagulation 02/10/18 02/10/18 Range/Units 18:15 18:15 PT 15.2 H (9.8-11.6) sec APTT 28.0 (23.4-31.7) sec B-Natriuretic Peptide 1035 H (0-100) pg/mL Lipids 02/11/18 02/12/18 Range/Units 03:51 03:30 Triglycerides 69 85 (42-150) mg/dL Cholesterol 76 L 67 L (120-200) mg/dL HDL Cholesterol 27.1 L 19.4 L (40.0-60.0) mg/dL Cholesterol/HDL Ratio 2.80 3.45 Ratio CBC 02/10/18 02/11/18 02/12/18 Range/Units 18:15 03:51 03:30 WBC 12.0 H 11.1 H 10.3 (4.0-11.0) th/mm3 RBC 3.96 L 3.79 L 3.86 L (4.50-5.90) mil/mm3 Hgb 11.5 L 10.3 L 10.4 L (13.0-17.0) gm/dL Hct 34.2 L 32.0 L 32.7 L (39.0-51.0) % Plt Count 257 222 249 (150-450) th/mm3 Neut # (Auto) 9.8 H 8.6 H (1.8-7.7) th/mm3 Lymph # (Auto) 0.6 L 1.0 (1.0-4.8) th/mm3 Ralls # (Auto) 1.5 H 1.5 H (0.0-0.9) th/mm3 Eos # (Auto) 0.0 0.0 (0.0-0.4) th/mm3 Baso # (Auto) 0.0 0.0 (0.0-0.2) th/mm3 Comprehensive Metabolic Panel 02/10/18 02/11/18 02/12/18 Range/Units 18:15 03:51 03:30 Sodium 135 L 139 142 (136-145) meq/L Potassium 4.0 3.7 3.3 L (3.5-5.1) meq/L Chloride 95 L 101 105 (98-107) meq/L Carbon Dioxide 29.6 28.6 30.8 (21.0-32.0) meq/L BUN 58 H 61 H 42 H (7-18) mg/dL Creatinine 1.84 H 1.47 H 0.88 (0.60-1.30) mg/dL Calcium 8.1 L 7.5 L 7.6 L (8.5-10.1) mg/dL AST 229 H 1188 H 316 H (15-37) U/L ALT 119 H 472 H 313 H (12-78) U/L Alkaline Phosphatase 92 80 73 (45-117) U/L Total Protein 7.8 6.4 D 5.9 L (6.4-8.2) g/dL Albumin 2.5 L 2.2 L 1.8 L (3.4-5.0) g/dL Intake and Output 02/11/18 02/12/18 02/12/18 22:59 06:59 14:59 Intake Total 300 / 300 300 / 300 Output Total 400 / 400 0 / 0 Balance -100 / -100 300 / 300 Intake: IV 300 / 300 300 / 300 Diprivan 1000 mg/100 ml Inj 1, 200 / 200 100 / 100 000 mg In 100 ml @ 5 MCG/KG/MIN 2.313 mls/hr IV.CONT TITRATE PRN Rx#:[id number] Rocephin Inj 1,000 MG In NS Inj 100 / 100 100 ML @ 200 mls/hr IV.SIG Q12H [facility] Rx#:[id number] Flagyl 500 MG Inj 100 ML @ 100 100 / 100 100 / 100 mls/hr IV.SIG Q8H [facility] Rx#: [id number] Oral 0 / 0 Output: Stool 0 / 0 Urine/Stool Mix 0 / 0 Urine Amount (Catheter) 400 / 400 0 / 0 Indwelling Urethral Catheter 400 / 400 0 / 0 Other: Date of Last Bowel Movement 02/11/18 02/11/18 # Bowel Movements 0 # Incontinent Bowel Movements 0 Weight 70.1 kg - Imaging and Cardiology Imaging: Impressions Chest X-Ray 02/10/18 18:03 CONCLUSION: Right basilar lung consolidation most characteristic of pneumonia or aspiration. Head CT 02/10/18 18:03 CONCLUSION: 1. Probable evolving infarct in the left occipital lobe extending into the medial left temporal lobe without hemorrhage or significant mass effect. 2. Chronic white matter ischemic changes. . Chest X-Ray 02/10/18 20:21 CONCLUSION: Intubation with endotracheal tube in good position. NG traversing the esophagus. Chest X-Ray 02/10/18 21:43 CONCLUSION: New left central line in superior vena cava. No pneumothorax. Endotracheal tube and nasogastric tube unchanged. Abdomen Ultrasound 02/11/18 00:00 CONCLUSION: 1. Small liver with trace ascites. 2. Small cyst lower pole right kidney. Head MRA 02/11/18 00:00 CONCLUSION: 1. Occlusion of the left posterior cerebral artery at its origin with acute ischemia left occipital region.. Neck MRA 02/11/18 00:00 CONCLUSION: 1. Negative MRA Carotids. Percent stenosis is calculated using the diameter of the stenotic region over the diameter of the normal distal internal carotid artery Head MRI 02/11/18 10:28 CONCLUSION: 1. Acute infarction involving the left posterior thalamus and occipital lobe without hemorrhage or mass effect. Chest X-Ray 02/12/18 06:00 CONCLUSION: Right mid and lower lung atelectasis or consolidation. Some degree of right effusion should be considered. Assessment and Plan - Plan Assessment: Mild troponin elevation consistent with demand ischemia in the setting of the following problems. Doubt ACS. Altered mental status/confusion in the setting of acute stroke syndrome Acute left thalamic and occipital strokes by MRI, suspicious for embolic etiology Bacteremia with 2/2 blood culture positive for GPC Severe sepsis secondary to RML/RLL pneumonia with bacteremia Acute respiratory failure requiring endotracheal intubation, currently moderately hypoxemic following self extubation this morning Significant transaminitis consistent with possible shock liver versus potential embolic ischemic event with liver infarction KIMBERLY appears to have resolved Recommendations: Appropriate to continue antiplatelet agent given ischemic strokes. Lipid profile is acceptable. Given stroke superior embolic in etiology, would recommend CHARLIE. Please obtain consent. Patient is currently unstable from a respiratory standpoint for sedation for the procedure therefore will hold off until more stable. I am suspecting he will be here through the weekend and may consider the procedure for Friday. ID consultation to guide antibiosis Respiratory primary team
[2018-02-12] MEDS: Thiamine Inj 100 MG in Sodium Chlor 0.9% Inj 100 ML IV.SIG SCH (09:30)
[2018-02-12] MEDS: Pantoprazole Inj 40 MG Vial IV.PUSH SCH (09:30)
[2018-02-12] MEDS: Senna/Docusate Sodium 8.6/50 MG Tablet PO SCH ×2 (10:58→21:16)
[2018-02-12] MEDS: Chlorhexidine 0.12% Oral Kit 15 ML UDC OROPHARYNG SCH ×2 (10:58→21:15)
[2018-02-12] MEDS: Folic Acid 1 MG Tablet NG/OG SCH (10:58)
--- NOTE | 2018-02-12 11:25 | P.PNCC ---
Subjective Subjective Remarks/Hospital Course: Patient is unable to provide history because he is intubated. Reviewed EMR. 67-year-old male with past medical history of alcohol abuse, tobacco abuse who presented to [facility] emergency department with altered mental status. Per report from [facility] he may have had syncope prior to their arrival. He ultimately was intubated for airway protection. CXR shows right lower lobe consolidation. White blood cell count is 12. Lactic acid is 5. Creatinine is 1.8. Most recent prior creatinine was 0.6 in 2008. He received 3 L normal saline bolus, azithromycin, Rocephin, neb in the emergency department. CT brain is pending. [facility] [employer] consulted for admission. SUBJ 02/11/18: Remains severely septic from 4 out of 4 bottles growing GPC. 2D echo ordered to rule out endocarditis. However mental status is improving following commands. MRI ordered by Dr. Santillan 02/12/18: Patient was intubated lightly sedated am. On sedation hold slight improvement of the neuro exam opens eyes intermittently follows simple commands with upper extremities. While undergoing CPAP trial patient self extubated initially was hypoxic and required 100% oxygen currently maintaining oxygen saturation on nonrebreather. Objective Vital Signs / I&O: Vital Signs 02/11/18 11:14 02/11/18 11:20 02/11/18 11:27 Temperature Pulse Rate 70 65 Respiratory Rate 18 18 18 Blood Pressure 123/60 125/59 L Pulse Oximetry 96 96 99 02/11/18 11:30 02/11/18 11:40 02/11/18 12:00 Temperature Pulse Rate 68 57 L 68 Respiratory Rate 18 18 15 Blood Pressure 125/59 L 119/58 L Pulse Oximetry 98 99 100 02/11/18 12:09 02/11/18 12:13 02/11/18 12:39 Temperature Pulse Rate 70 Respiratory Rate Blood Pressure 117/58 L Pulse Oximetry 99 100 02/11/18 13:00 02/11/18 13:04 02/11/18 13:10 Temperature Pulse Rate 72 76 71 Respiratory Rate 23 10 L 13 Blood Pressure 124/64 120/63 Pulse Oximetry 100 100 100 02/11/18 13:16 02/11/18 14:00 02/11/18 15:00 Temperature Pulse Rate 90 73 68 Respiratory Rate 11 L 17 15 Blood Pressure 121/57 L 106/55 L 108/56 L Pulse Oximetry 100 92 L 93 L 02/11/18 15:44 02/11/18 16:00 02/11/18 17:00 Temperature 96.2 F L Pulse Rate 69 70 61 Respiratory Rate 16 16 18 Blood Pressure 111/56 L 108/59 L Pulse Oximetry 93 L 92 L 95 02/11/18 18:00 02/11/18 19:00 02/11/18 19:58 Temperature Pulse Rate 62 61 Respiratory Rate 18 18 18 Blood Pressure 120/59 L 118/58 L Pulse Oximetry 95 95 96 02/11/18 20:00 02/11/18 20:06 02/11/18 21:00 Temperature 97.4 F L Pulse Rate 60 63 58 L Respiratory Rate 18 18 18 Blood Pressure 121/60 121/60 Pulse Oximetry 97 95 02/11/18 22:00 02/11/18 23:00 02/12/18 00:00 Temperature 97.4 F L Pulse Rate 55 L 50 L 52 L Respiratory Rate 18 18 18 Blood Pressure 127/62 122/58 L 133/63 Pulse Oximetry 94 L 96 96 02/12/18 00:30 02/12/18 01:00 02/12/18 02:00 Temperature Pulse Rate 50 L 52 L Respiratory Rate 18 18 18 Blood Pressure 122/60 122/57 L Pulse Oximetry 95 95 94 L 02/12/18 03:00 02/12/18 03:25 02/12/18 04:00 Temperature 97.4 F L Pulse Rate 52 L 48 L 60 Respiratory Rate 18 18 18 Blood Pressure 118/58 L 126/62 Pulse Oximetry 95 96 93 L 02/12/18 05:00 02/12/18 06:00 02/12/18 07:00 Temperature Pulse Rate 69 68 111 H Respiratory Rate 19 18 25 H Blood Pressure 120/61 126/59 L 121/69 Pulse Oximetry 92 L 94 L 89 L 02/12/18 07:22 02/12/18 08:00 02/12/18 08:02 Temperature 98.3 F Pulse Rate 83 Respiratory Rate 13 28 H Blood Pressure 117/56 L Pulse Oximetry 98 92 L 95 02/12/18 09:00 02/12/18 10:00 02/12/18 10:20 Temperature Pulse Rate 92 H 84 82 Respiratory Rate 23 21 20 Blood Pressure 127/66 124/60 Pulse Oximetry 95 99 02/12/18 10:21 Temperature Pulse Rate Respiratory Rate Blood Pressure Pulse Oximetry 95 Intake & Output 02/11/18 02/12/18 02/12/18 18:59 06:59 18:59 Intake Total 663.50 / 663.50 600 / 600 Output Total 900 / 900 0 / 0 Balance -236.50 / -236.50 600 / 600 Weight 70.1 kg Intake: IV 663.50 / 663.50 600 / 600 Diprivan 1000 mg/100 ml Inj 1, 100 / 100 300 / 300 000 mg In 100 ml @ 5 MCG/KG/MIN 2.313 mls/hr IV.CONT TITRATE PRN Rx#:[id number] Thiamine Inj 100 MG In NS Inj 101 / 101 100 ML @ 100 mls/hr IV.SIG DAILY JUSTINE Rx#:[id number] Vancomycin Inj 1,250 MG In NS 262.50 / 262.50 Inj 250 ML @ 250 mls/hr IV.SIG ONCE ONE Rx#:[id number] Rocephin Inj 1,000 MG In NS Inj 100 / 100 100 / 100 100 ML @ 200 mls/hr IV.SIG Q12H JUSTINE Rx#:[id number] Flagyl 500 MG Inj 100 ML @ 100 100 / 100 200 / 200 mls/hr IV.SIG Q8H JUSTINE Rx#: [id number] Oral 0 / 0 0 / 0 Output: Stool 0 / 0 0 / 0 Urine/Stool Mix 0 / 0 0 / 0 Urine Amount (Catheter) 900 / 900 0 / 0 Indwelling Urethral Catheter 900 / 900 0 / 0 Other: Date of Last Bowel Movement 02/11/18 02/11/18 02/11/18 # Bowel Movements 0 0 # Incontinent Bowel Movements 0 0 Result Diagrams: 02/12/18 03:30 02/12/18 03:30 Objective Remarks: GENERAL: Well-nourished, well-developed patient who is orotracheally intubated. SKIN: Warm and dry. There are excoriations around his bilateral ankles. There are petechiae around the ankles at the site of the excoriations and there is a clear line of delineation where they abruptly stop at what appears to be a sock or shoe line. No petechiae of palms or soles. No splinter hemorrhages. HEAD: Atraumatic. Normocephalic. EYES: Pupils equal and round, pinpoint bilaterally no scleral icterus. No injection or drainage. ENT: No nasal bleeding or discharge. Mucous membranes pink and moist. NECK: Trachea midline. +JVD. No meningismus CARDIOVASCULAR: Regular rate and rhythm. No murmurs rubs or gallops. RESPIRATORY: Bibasilar rales with rhonchorous breath sounds bilaterally. Yellow secretions with endotracheal tube suctioning. Wheeze from left lung GASTROINTESTINAL: Abdomen soft, non-tender, nondistended. Bowel sounds present. OG tube MUSCULOSKELETAL: Extremities without clubbing, cyanosis, or edema. Scar overlying left shoulder. NEUROLOGICAL: Pupils pinpoint and sluggishly reactive bilaterally. Gaze is conjugate. Follows commands on bilateral upper extremities. Withdraws lower extremities Assessment and Plan - Problem List (1) Stroke Code(s): I63.9 - Cerebral infarction, unspecified Status: Acute (2) Encephalopathy acute Code(s): G93.40 - Encephalopathy, unspecified Status: Acute (3) Septic shock Code(s): A41.9 - Sepsis, unspecified organism; R65.21 - Severe sepsis with septic shock Status: Acute (4) Respiratory failure Code(s): J96.90 - Respiratory failure, unspecified, unspecified whether with hypoxia or hypercapnia Status: Acute (5) Aspiration pneumonia Code(s): J69.0 - Pneumonitis due to inhalation of food and vomit Status: Acute (6) KIMBERLY (acute kidney injury) Code(s): N17.9 - Acute kidney failure, unspecified Status: Acute (7) Tobacco abuse Code(s): Z72.0 - Tobacco use Status: Chronic (8) Anemia Code(s): D64.9 - Anemia, unspecified Status: Chronic (9) Lactic acidemia Code(s): E87.2 - Acidosis Status: Acute (10) Transaminasemia Code(s): R74.0 - Nonspecific elevation of levels of transaminase and lactic acid dehydrogenase [LDH] Status: Acute (11) Hyperglycemia Code(s): R73.9 - Hyperglycemia, unspecified Status: Acute - Assessment and Plan Plan: NEURO: Subacute ischemic stroke Acute encephalopathy EtOH abuse per prior record CT brain 1/1evolving infarct left occipital lobe and medial left temporal lobe. No hemorrhage. MRI brain -Acute infarction involving the left posterior thalamus and occipital lobe without hemorrhage or mass effect. Not candidate for TPA due to unknown time of onset, probably subacute. Aspirin 162 daily Neurology consult Ammonia level normal. Thiamine/multivitamin/folic acid Ativan as needed seizure. Monitor for signs of alcohol withdrawal and administer Ativan as indicated per [facility] protocol. 2D echo inadequate study, may need CHARLIE when clinically stable RESP: Acute hypercapnic respiratory failure Tobacco abuse Intubated 02/10 for airway protection Self extubated today 02/12/2017 while on CPAP trial Currently requiring 100% nonrebreather DuoNeb every 6 hours. Albuterol every 2 hours as needed Broad-spectrum antibiotics for pneumonia CV: Lactic acidemia Elevated troponin/demand ischemia Received 3 L normal saline bolus per ED. Appears significantly volume loaded and has JVD.. Levophed to maintain mean pressure greater than 65 Receiving aspirin Trend troponin. 2D echo limited study normal-appearing ejection fraction Need CHARLIE when clinically stable appreciate cardiology consult EKG sinus rhythm with nonspecific ST changes in inferior leads. Trend lactic acid until clear GI: Transaminase elevated Follow-up liver ultrasound Viral hepatitis panel OG tube to low intermittent wall suction. Bowel regimen FEN/RENAL: Acute kidney injury Follow-up renal ultrasound. Ornelas removed 02-28 Monitor intake and output hourly. Monitor electrolytes and replace as indicated. ID: Septic shock GPC bacteremia Leukocytosis Aspiration pneumonia Penicillin allergyhives. Received ceftriaxone in the ED without issue. Chest x-ray with right lower lobe infiltrate. Blood cultures GPC/Streptococcus in 4 out of 4 bottles. Influenza negative. Follow-up sputum culture Follow-up urine Legionella pneumococcal antigen. Received ceftriaxone and azithromycin in the emergency department. Continue ceftriaxone and Flagyl Vancomycin started yesterday HEME: Anemia Monitor CBC ENDO: Mild hyperglycemia HgbA1C 5.3 TSH normal PROPH: SCDs for DVT prophylaxis. Protonix 40 mg IV daily for stress ulcer prophylaxis ACCESS: Left IJ central venous line placed 02/10 FULL CODE CCT 35 minutes exclusive of separately billable procedures. Remains critically ill do mental status slightly improved patient self extubated while on CPAP trial. Currently requiring 100% nonrebreather. He is maintaining oxygen saturation however his ability to protect airway is questionable. Not a candidate for BiPAP due to pneumonia and altered mental status. Closely watch for airway protection and further deterioration (4) Respiratory failure Qualifiers: Chronicity: acute Respiratory failure complication: hypercapnia Qualified Code(s): J96.02 - Acute respiratory failure with hypercapnia
[2018-02-12] MEDS ORDERED: Vancomycin Inj 1,500 MG in Sodium Chlor 0.9% Inj 500 ML IV.SIG SCH (12:00)
[2018-02-13] MEDS: Oral Hygiene Kit OROPHARYNG SCH ×4 (00:22→16:20)
[2018-02-13] MEDS: Heparin - SQ 10,000 UNITS/ML Vial SQ SCH ×3 (00:22→22:53)
[2018-02-13 04:12] LABS: Hematocrit 33.7 % (39.0-51.0); Hemoglobin 10.7 gm/dL (13.0-17.0); Mean Corpuscular HGB Conc 31.7 % (32.0-36.0); Mean Corpuscular Hemoglobin 27.2 pg (27.0-34.0); Mean Corpuscular Volume 85.6 fL (80.0-100.0); Mean Platelet Volume 9.2 fL (7.0-11.0); Platelet Count 249 th/mm3 (150-450); Red Blood Count 3.94 mil/mm3 (4.50-5.90); Red Cell Distribution Width 16.3 % (11.6-17.2)
[2018-02-13 04:47] LABS: Alanine Aminotransferase 264 U/L (12-78); Albumin 1.9 g/dL (3.4-5.0); Anion Gap 4 meq/L (5-15); Aspartate Aminotransferase 181 U/L (15-37); Blood Urea Nitrogen 19 mg/dL (7-18); Calcium 7.9 mg/dL (8.5-10.1); Carbon Dioxide 36.2 meq/L (21.0-32.0); Chloride 106 meq/L (98-107); Glomerular Filtration Rate Greater Than 89 mL/min (>89); Glucose,Random 70 mg/dL (74-106); Magnesium 2.1 mg/dL (1.5-2.5); Potassium 3.5 meq/L (3.5-5.1); Sodium 146 meq/L (136-145)
[2018-02-13 04:49] LABS: Alkaline Phosphatase 75 U/L (45-117); Total Protein 6.4 g/dL (6.4-8.2)
[2018-02-13] MEDS: Chlorhexidine Gluconate 2% 1 Pack (2 Cloths) TOPICAL SCH (05:17)
[2018-02-13] MEDS: Vancomycin Inj 1,500 MG in Sodium Chlor 0.9% Inj 500 ML IV.SIG SCH (05:21)
--- NOTE | 2018-02-13 06:26 | XR ---
EXAM DATE: 02/13/2018 5:52 AM EST AGE/SEX: 67 years / Male INDICATIONS: Respiratory failure. Status post extubation. CLINICAL DATA: This is the patient's subsequent encounter. Patient reports that signs and symptoms h ave been present for 4 - 6 days and indicates a pain score of Nonresponsive. MEDICAL/SURGICAL HISTORY: Non-responsive. Non-responsive. COMPARISON: [facility], CHEST 1V SINGLE AP, 02/12/2018. . FINDINGS: 2 AP portable supine views of the chest were obtained and demonstrate apparent mild interval increase in the hazy opacity in the perihilar regions and both lung bases. The right costophrenic angle remai ns blunted. There is mild blunting of the left costophrenic angle as well. The heart size remains at the upper limits of normal. CONCLUSION: 1. Status post extubation and removal of nasogastric tube. 2. Mild increase in the perihilar and bibasilar opacity. 3. Bilateral effusions right greater than left. Electronically signed by: Yohannes Hidalgo MD Board Certified Radiologist 02/13/2018 6:25 AM EST
--- NOTE | 2018-02-13 07:35 | P.PNNEU ---
Subjective Active Medications: Active Medications Acetaminophen (Tylenol) 650 mg PO Q6H PRN PRN Reason: PAIN 1-10 AND/OR FEVER >101F Hydrocodone Bitart/Acetaminophen ([place] 5/325) 1 tab PO Q4H PRN PRN Reason: PAIN SCALE 1 TO 5 Al Hydroxide/Mg Hydroxide (Milk Of Magnvalencia Liq) 30 ml PO Q12H PRN PRN Reason: Mild Constipation Albuterol (Albuterol Neb (Prn)) 2.5 mg NEB Q2HR NEB PRN PRN Reason: SHORTNESS OF BREATH/WHEEZING Albuterol (Duoneb Neb (Russell)) 1 ampul NEB Q6HR NEB [facility] Last Admin: 02/13/18 03:38 Dose: 1 ampul Aspirin (Aspirin Chew) 162 mg PO DAILY [facility] Last Admin: 02/12/18 10:58 Dose: Not Given Bisacodyl (Dulcolax Supp) 10 mg RECTAL DAILY PRN PRN Reason: SEVERE CONSITIPATION Chlorhexidine Gluconate (Peridex 0.12% Oral Kit) 15 ml OROPHARYNG BID@0800, 2000 [facility] Last Admin: 02/12/18 21:15 Dose: 15 ml Chlorhexidine Gluconate (Chlorhexidine 2% Cloth) 3 pack TOPICAL DAILY@0400 [facility] Stop: 02/16/18 03:59 Last Admin: 02/13/18 05:17 Dose: 3 pack Chlorhexidine Gluconate (Chlorhexidine 2% Cloth) 3 pack TOPICAL DAILY@0400 PRN PRN Reason: Extra cloth needed Stop: 02/16/18 03:59 Fentanyl Citrate (Fentanyl Inj) 50 mcg IV PUSH Q1H PRN PRN Reason: Pain scale 6-10, &/or sedation Flumazenil (Romazicon Inj) 0.2 mg IV.PUSH Q1M PRN PRN Reason: OVERSEDATION Folic Acid (Folic Acid) 1 mg NG/OG DAILY [facility] Last Admin: 02/12/18 10:58 Dose: Not Given Heparin Sodium (Porcine) (Heparin Inj) 5,000 units SQ Q12H [facility] Last Admin: 02/13/18 00:22 Dose: 5,000 units Propofol (Diprivan 1000 Mg/100 Ml Inj) 1,000 mg in 100 mls @ 2.313 mls/hr IV.CONT TITRATE PRN; Protocol PRN Reason: Per Protocol Last Titration: 02/12/18 07:30 Dose: Infused Norepinephrine Bitartrate (Levophed-Dextrose 4 Mg/250 Ml Drip) 4 mg in 250 mls @ 7.5 mls/hr IV.SIG TITRATE PRN; Protocol PRN Reason: Per Protocol Last Titration: 02/11/18 02:40 Dose: 0 mcg/min, 0 mls/hr Thiamine HCl 100 mg/ Sodium (Chloride) 101 mls @ 100 mls/hr IV.SIG DAILY RUSSELL Last Infusion: 02/12/18 10:35 Dose: Infused Ceftriaxone Sodium 1,000 mg/ (Sodium Chloride) 100 mls @ 200 mls/hr IV.SIG Q12H [facility] Last Infusion: 02/13/18 06:48 Dose: Infused Metronidazole/Sodium Chloride (Flagyl 500 Mg Inj) 100 mls @ 100 mls/hr IV.SIG Q8H [facility] Last Infusion: 02/13/18 06:48 Dose: Infused Vancomycin HCl 1,500 mg/ (Sodium Chloride) 515 mls @ 250 mls/hr IV.SIG Q18H [facility] Last Admin: 02/13/18 05:21 Dose: 250 mls/hr Lactulose (Lactulose Liq) 30 ml PO DAILY PRN PRN Reason: SEVERE CONSITIPATION Lorazepam (Ativan) 1 mg PO Q4H PRN PRN Reason: for CIWA 8-10 Lorazepam (Ativan Inj) 2 mg IV.PUSH Q2H PRN PRN Reason: for CIWA 11-14 Lorazepam (Ativan Inj) 2 mg IV.PUSH Q1H PRN PRN Reason: for CIWA 15-20 Lorazepam (Ativan Inj) 2 mg IV.PUSH Q15M PRN PRN Reason: for CIWA > 20 Lorazepam (Ativan Inj) 1 mg IV.PUSH Q4H PRN PRN Reason: for CIWA 8-10 Lorazepam (Ativan) 2 mg PO Q2H PRN PRN Reason: for CIWA 11-14 Lorazepam (Ativan Inj) 1 mg IV.PUSH Q5M PRN PRN Reason: seizure Miscellaneous Information ([facility] Ordered Lab Info) 0 each OTHER ONCE ONE Stop: 02/14/18 17:46 Miscellaneous Medication () 1 each OROPHARYNG 0000,0400,1200,1600 [facility] Last Admin: 02/13/18 05:17 Dose: 1 each Multivitamins (Theragran) 1 tab NG/OG DAILY [facility] Last Admin: 02/12/18 10:59 Dose: Not Given Ondansetron HCl (Zofran Inj) 4 mg IV.PUSH Q6H PRN PRN Reason: NAUSEA OR VOMITING Pantoprazole Sodium (Protonix Inj) 40 mg IV.PUSH DAILY [facility] Last Admin: 02/12/18 09:30 Dose: 40 mg Pharmacy Profile Note (Vancomycin Consult Pharmacy) 1 each OTHER UNSCH PRN PRN Reason: Pharmacy to dose Senna/Docusate Sodium (Charissa-Colace) 1 tab PO BID [facility] Last Admin: 02/12/18 21:16 Dose: Not Given Sennosides (Senokot) 17.2 mg PO Q12H PRN PRN Reason: Moderate Constipation Sodium Chloride (Ns Flush) 2 ml IV.FLUSH PRN PRN PRN Reason: FLUSH AFTER USING IV ACCESS Sodium Chloride (Ns Flush) 2 ml IV.FLUSH BID [facility] Last Admin: 02/12/18 21:16 Dose: 2 ml Terbutaline Sulfate (Brethine Inj) 1 mg SQ UNSCH PRN PRN Reason: For Extravasation Allergies/Adverse Reactions: Allergies Allergy/AdvReac Type Severity Reaction Status Date / Time penicillin G Allergy Severe RASH Unverified 09/24/16 19:44 Physical Exam Vital signs: Vital Signs 02/12/18 08:00 02/12/18 08:02 02/12/18 09:00 Temperature 98.3 F Pulse Rate 83 92 H Respiratory Rate 28 H 23 Blood Pressure 117/56 L 127/66 Pulse Oximetry 92 L 95 95 02/12/18 10:00 02/12/18 10:20 02/12/18 10:21 Temperature Pulse Rate 84 82 Respiratory Rate 21 20 Blood Pressure 124/60 Pulse Oximetry 99 95 02/12/18 11:00 02/12/18 12:00 02/12/18 13:00 Temperature 98.4 F Pulse Rate 81 80 82 Respiratory Rate 18 18 18 Blood Pressure 118/55 L 128/59 L 120/56 L Pulse Oximetry 96 96 94 L 02/12/18 14:00 02/12/18 14:51 02/12/18 15:00 Temperature Pulse Rate 77 76 77 Respiratory Rate 16 20 18 Blood Pressure 119/59 L 117/57 L 118/59 L Pulse Oximetry 95 92 L 94 L 02/12/18 15:20 02/12/18 15:21 02/12/18 16:00 Temperature 98.0 F Pulse Rate 79 84 Respiratory Rate 18 25 H Blood Pressure 118/61 Pulse Oximetry 93 L 96 02/12/18 18:00 02/12/18 19:00 02/12/18 20:00 Temperature 97.9 F Pulse Rate 83 77 Respiratory Rate 21 Blood Pressure 118/59 L Pulse Oximetry 93 L 96 02/12/18 20:07 02/12/18 22:00 02/13/18 00:00 Temperature 97.9 F Pulse Rate 79 75 75 Respiratory Rate 18 21 Blood Pressure 126/59 L Pulse Oximetry 93 L 96 02/13/18 02:00 02/13/18 03:38 02/13/18 04:00 Temperature 97.9 F Pulse Rate 82 80 84 Respiratory Rate 20 17 Blood Pressure 136/63 Pulse Oximetry 96 02/13/18 06:00 Temperature Pulse Rate 75 Respiratory Rate Blood Pressure Pulse Oximetry Intake & Output 02/12/18 02/13/18 02/13/18 18:59 06:59 18:59 Intake Total 357 / 357 815 / 815 Output Total 900 / 900 300 / 300 Balance -543 / -543 515 / 515 Weight 71 kg Intake: IV 357 / 357 815 / 815 Diprivan 1000 mg/100 ml Inj 1, 56 / 56 000 mg In 100 ml @ 5 MCG/KG/MIN 2.313 mls/hr IV.CONT TITRATE PRN Rx#:[id number] Thiamine Inj 100 MG In NS Inj 101 / 101 100 ML @ 100 mls/hr IV.SIG DAILY RUSSELL Rx#:[id number] Rocephin Inj 1,000 MG In NS Inj 100 / 100 100 / 100 100 ML @ 200 mls/hr IV.SIG Q12H [facility]LL Rx#:[id number] Flagyl 500 MG Inj 100 ML @ 100 100 / 100 200 / 200 mls/hr IV.SIG Q8H [facility]USSELL Rx#: [id number] Oral 0 / 0 Output: Urine 200 / 200 300 / 300 Stool 0 / 0 Urine/Stool Mix 0 / 0 Urine Amount (Catheter) 700 / 700 Indwelling Urethral Catheter 700 / 700 Other: # Incontinent Voids 1 2 Date of Last Bowel Movement 02/11/18 02/11/18 # Bowel Movements 0 # Incontinent Bowel Movements 0 Narrative: awake alert rhh moves all well - Urinary Catheter Management Condom Cath placed during this visit: yes Reason for continuing: Hourly intake/output Insertion date: 02/10/18 Insertion time: 20:20 Indwelling Urethral Catheter Cath placed during this visit: yes, but has since been removed by the nurse Reason for continuing: Decision to DC catheter Insertion date: 02/10/18 Insertion time: 23:00 Removal date: 02/11/18 Removal time: 17:00 Objective Laboratory Results - last 24 hr 02/12/18 02/12/18 02/13/18 11:58 17:28 03:30 WBC 10.0 RBC 3.94 L Hgb 10.7 L Hct 33.7 L MCV 85.6 MCH 27.2 MCHC 31.7 L RDW 16.3 Plt Count 249 MPV 9.2 Sodium Potassium Chloride Carbon Dioxide Anion Gap BUN Creatinine Estimated GFR POC Glucose 78 78 Random Glucose Calcium Magnesium Total Bilirubin AST ALT Alkaline Phosphatase Total Protein Albumin 02/13/18 03:30 WBC RBC Hgb Hct MCV MCH MCHC RDW Plt Count MPV Sodium 146 H Potassium 3.5 Chloride 106 Carbon Dioxide 36.2 H Anion Gap 4 L BUN 19 H Creatinine 0.52 L Estimated GFR Greater than 89 POC Glucose Random Glucose 70 L Calcium 7.9 L Magnesium 2.1 Total Bilirubin 0.5 AST 181 H ALT 264 H Alkaline Phosphatase 75 Total Protein 6.4 Albumin 1.9 L Microbiology 02/11/18 04:44 Gram Stain - Final Sputum - Tracheal Aspirate Sputum Culture - Preliminary Haemophilus species Review/Management - Review/Management Plan: 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
[2018-02-13] MEDS: Chlorhexidine 0.12% Oral Kit 15 ML UDC OROPHARYNG SCH ×2 (08:37→19:49)
[2018-02-13] MEDS: Folic Acid 1 MG Tablet NG/OG SCH (08:37)
[2018-02-13] MEDS: Senna/Docusate Sodium 8.6/50 MG Tablet PO SCH ×2 (08:38→20:25)
[2018-02-13] MEDS: Thiamine Inj 100 MG in Sodium Chlor 0.9% Inj 100 ML IV.SIG SCH (08:38)
[2018-02-13] MEDS: Pantoprazole Inj 40 MG Vial IV.PUSH SCH (08:38)
--- NOTE | 2018-02-13 11:18 | P.PNCC ---
Subjective Subjective Remarks/Hospital Course: Patient is unable to provide history because he is intubated. Reviewed EMR. 67-year-old male with past medical history of alcohol abuse, tobacco abuse who presented to [facility] emergency department with altered mental status. Per report from [facility] he may have had syncope prior to their arrival. He ultimately was intubated for airway protection. CXR shows right lower lobe consolidation. White blood cell count is 12. Lactic acid is 5. Creatinine is 1.8. Most recent prior creatinine was 0.6 in 2008. He received 3 L normal saline bolus, azithromycin, Rocephin, neb in the emergency department. CT brain is pending. Armature Straightener consulted for admission. SUBJ 02/11/18: Remains severely septic from 4 out of 4 bottles growing GPC. 2D echo ordered to rule out endocarditis. However mental status is improving following commands. MRI ordered by Dr. Santillan 02/12/18: Patient was intubated lightly sedated am. On sedation hold slight improvement of the neuro exam opens eyes intermittently follows simple commands with upper extremities. While undergoing CPAP trial patient self extubated initially was hypoxic and required 100% oxygen currently maintaining oxygen saturation on nonrebreather. 02/13/18: Patient self extubated yesterday a.m. while undergoing CPAP trial for planned extubation. Tolerating reasonably well. Chest x-ray shows increasing right-sided effusion. Sputum culture with Haemophilus. Plan for thoracentesis if large enough pleural effusion. Blood cultures growing strep species. 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, will need CHARLIE when more stable Objective Vital Signs / I&O: Vital Signs 02/12/18 12:00 02/12/18 13:00 02/12/18 14:00 Temperature 98.4 F Pulse Rate 80 82 77 Respiratory Rate 18 18 16 Blood Pressure 128/59 L 120/56 L 119/59 L Pulse Oximetry 96 94 L 95 02/12/18 14:51 02/12/18 15:00 02/12/18 15:20 Temperature Pulse Rate 76 77 79 Respiratory Rate 20 18 18 Blood Pressure 117/57 L 118/59 L Pulse Oximetry 92 L 94 L 02/12/18 15:21 02/12/18 16:00 02/12/18 17:00 Temperature 98.0 F Pulse Rate 84 83 Respiratory Rate 25 H 26 H Blood Pressure 118/61 120/58 L Pulse Oximetry 93 L 96 94 L 02/12/18 18:00 02/12/18 19:00 02/12/18 20:00 Temperature 97.9 F Pulse Rate 83 78 77 Respiratory Rate 21 24 21 Blood Pressure 119/57 L 118/56 L 118/59 L Pulse Oximetry 94 L 93 L 92 L 02/12/18 20:07 02/12/18 21:00 02/12/18 22:00 Temperature Pulse Rate 79 79 80 Respiratory Rate 18 21 18 Blood Pressure 117/58 L 131/62 Pulse Oximetry 93 L 96 02/12/18 23:00 02/13/18 00:00 02/13/18 01:00 Temperature 97.9 F Pulse Rate 89 75 76 Respiratory Rate 23 21 13 Blood Pressure 130/67 126/59 L 130/61 Pulse Oximetry 92 L 93 L 02/13/18 02:00 02/13/18 03:00 02/13/18 03:38 Temperature Pulse Rate 82 84 80 Respiratory Rate 12 39 H 20 Blood Pressure 124/60 131/63 Pulse Oximetry 92 L 85 L 02/13/18 04:00 02/13/18 05:00 02/13/18 06:00 Temperature 97.9 F Pulse Rate 84 83 75 Respiratory Rate 20 25 H 23 Blood Pressure 136/63 131/63 133/63 Pulse Oximetry 93 L 91 L 94 L 02/13/18 07:00 02/13/18 08:00 02/13/18 08:35 Temperature 98.3 F Pulse Rate 74 77 76 Respiratory Rate 19 20 18 Blood Pressure 134/63 134/64 Pulse Oximetry 95 95 94 L 02/13/18 09:00 02/13/18 10:00 Temperature Pulse Rate 85 90 Respiratory Rate 21 Blood Pressure 158/68 H Pulse Oximetry 94 L Intake & Output 02/12/18 02/13/18 02/13/18 18:59 06:59 18:59 Intake Total 357 / 357 815 / 815 716 / 716 Output Total 900 / 900 300 / 300 Balance -543 / -543 515 / 515 716 / 716 Weight 71 kg Intake: IV 357 / 357 815 / 815 716 / 716 Diprivan 1000 mg/100 ml Inj 1, 56 / 56 000 mg In 100 ml @ 5 MCG/KG/MIN 2.313 mls/hr IV.CONT TITRATE PRN Rx#:[id number] Thiamine Inj 100 MG In NS Inj 101 / 101 101 / 101 100 ML @ 100 mls/hr IV.SIG DAILY [facility] Rx#:[id number] Vancomycin Inj 1,500 MG In NS 515 / 515 Inj 500 ML @ 250 mls/hr IV.SIG Q18H [facility] Rx#:[id number] Rocephin Inj 1,000 MG In NS Inj 100 / 100 100 / 100 100 / 100 100 ML @ 200 mls/hr IV.SIG Q12H [facility] Rx#:[id number] Flagyl 500 MG Inj 100 ML @ 100 100 / 100 200 / 200 mls/hr IV.SIG Q8H [facility] Rx#: [id number] Oral 0 / 0 Output: Urine 200 / 200 300 / 300 Stool 0 / 0 Urine/Stool Mix 0 / 0 Urine Amount (Catheter) 700 / 700 Indwelling Urethral Catheter 700 / 700 Other: # Incontinent Voids 1 2 Date of Last Bowel Movement 02/11/18 02/11/18 02/11/18 # Bowel Movements 0 # Incontinent Bowel Movements 0 Result Diagrams: 02/13/18 03:30 02/13/18 03:30 Objective Remarks: GENERAL: Well-nourished, well-developed patient who is lying in bed slightly sedated from receiving Ativan SKIN: Warm and dry. There are excoriations around his bilateral ankles. There are petechiae around the ankles at the site of the excoriations and there is a clear line of delineation where they abruptly stop at what appears to be a sock or shoe line. No petechiae of palms or soles. No splinter hemorrhages. HEAD: Atraumatic. Normocephalic. EYES: Pupils equal and round, pinpoint bilaterally no scleral icterus. No injection or drainage. ENT: No nasal bleeding or discharge. Mucous membranes pink and moist. NECK: Trachea midline. +JVD. No meningismus CARDIOVASCULAR: Regular rate and rhythm. No murmurs rubs or gallops. RESPIRATORY: Bibasilar rales with rhonchorous breath sounds bilaterally. Minimal Wheezes GASTROINTESTINAL: Abdomen soft, non-tender, nondistended. Bowel sounds present. MUSCULOSKELETAL: Extremities without clubbing, cyanosis, or edema. Scar overlying left shoulder. NEUROLOGICAL: Pupils pinpoint and sluggishly reactive bilaterally. Sedated from recent Ativen otherwise, moving purposefully x4. Follows commands Assessment and Plan - Problem List (1) Stroke Code(s): I63.9 - Cerebral infarction, unspecified Status: Acute (2) Encephalopathy acute Code(s): G93.40 - Encephalopathy, unspecified Status: Acute (3) Septic shock Code(s): A41.9 - Sepsis, unspecified organism; R65.21 - Severe sepsis with septic shock Status: Acute (4) Respiratory failure Code(s): J96.90 - Respiratory failure, unspecified, unspecified whether with hypoxia or hypercapnia Status: Acute (5) Aspiration pneumonia Code(s): J69.0 - Pneumonitis due to inhalation of food and vomit Status: Acute (6) KIMBERLY (acute kidney injury) Code(s): N17.9 - Acute kidney failure, unspecified Status: Acute (7) Tobacco abuse Code(s): Z72.0 - Tobacco use Status: Chronic (8) Anemia Code(s): D64.9 - Anemia, unspecified Status: Chronic (9) Lactic acidemia Code(s): E87.2 - Acidosis Status: Acute (10) Transaminasemia Code(s): R74.0 - Nonspecific elevation of levels of transaminase and lactic acid dehydrogenase [LDH] Status: Acute (11) Hyperglycemia Code(s): R73.9 - Hyperglycemia, unspecified Status: Acute - Assessment and Plan Plan: NEURO: Subacute ischemic stroke Acute encephalopathy EtOH abuse per prior record CT brain 1/1evolving infarct left occipital lobe and medial left temporal lobe. No hemorrhage. MRI brain -Acute infarction involving the left posterior thalamus and occipital lobe without hemorrhage or mass effect. 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 Aspirin [address] Santillan Ammonia level normal. Thiamine/multivitamin/folic acid Ativan as needed seizure. Monitor for signs of alcohol withdrawal 2D echo inadequate study, may need CHARLIE when clinically stable- RESP: Acute hypercapnic respiratory failure Haemophilus influenza pneumonia right pleural effusion Tobacco abuse Intubated 02/10 for airway protection Self extubated today 02/12/2017 while on CPAP trial Currently requiring on NC DuoNeb every 6 hours. Albuterol every 2 hours as needed Broad-spectrum antibiotics for pneumonia Likely need right thoracentesis CV: Lactic acidemia Elevated troponin/demand ischemia Received 3 L normal saline bolus per ED. Appears significantly volume loaded and has JVD. Levophed as needed to maintain mean pressure greater than 65 Receiving aspirin 2D echo limited study normal-appearing ejection fraction Need CHARLIE when clinically stable appreciate cardiology consult EKG sinus rhythm with nonspecific ST changes in inferior leads. Trend lactic acid until clear GI: Transaminase elevated Follow-up liver ultrasound Viral hepatitis panel FEN/RENAL: Acute kidney injury Follow-up renal ultrasound. Ornelas removed 02-28 Monitor intake and output hourly. Monitor electrolytes and replace as indicated. ID: Septic shock-resolving GPC/Streptococcus bacteremia Leukocytosis Aspiration pneumonia/Haemophilus influenza Penicillin allergyhives. Received ceftriaxone in the ED without issue. Chest x-ray with right lower lobe infiltrate. Blood cultures GPC/Streptococcus in 4 out of 4 bottles. Influenza negative. Follow-up sputum culture-Haemophilus influenzae Follow-up urine Legionella pneumococcal antigen. Received ceftriaxone and azithromycin in the emergency department. Continue ceftriaxone and Flagyl Vancomycin started 02/11/18 HEME: Anemia Monitor CBC ENDO: Mild hyperglycemia HgbA1C 5.3 TSH normal PROPH: SCDs for DVT prophylaxis. Protonix 40 mg IV daily for stress ulcer prophylaxis ACCESS: Left IJ central venous line placed 02/10 FULL CODE CCT 35 Patient is critically ill has sustained embolic stroke to the left posterior cerebral artery territory. He has pneumonia and sepsis. Need CHARLIE to rule out cardioembolic source of emboli and rule out vegetation. He is acute at risk of respiratory and neurological decompensation. Continue ICU care (4) Respiratory failure Qualifiers: Chronicity: acute Respiratory failure complication: hypercapnia Qualified Code(s): J96.02 - Acute respiratory failure with hypercapnia
--- NOTE | 2018-02-13 14:00 | P.PCN ---
Date of procedure: 02/13/18 Pre-op diagnosis: Large right pl effusion, pneumonia Post-op diagnosis: same Procedure: Ultrasound-guided right thoracentesis Details of procedure: Consent obtained from patient's brother. The patient was laid in left lateral decubitus position. The right posterior lateral chest wall was cleaned with ChloraPrep twice. Regional sterile drapes were applied. 1% lidocaine was used for local anesthesia and injected into the subcutaneous and deep muscle tissues at the site marked by ultrasound. A 0.25 cm skin incision was made with a scalpel blade. Thoracentesis needle was placed angled superiorly and posteriorly and the insertion needle was entered into the pleural space superior to the rib and slightly cloudy yellow pleural fluid was obtained. Thoracentesis catheter was further advanced and the needle and syringe were removed. Sample was collected and the thoracentesis catheter was connected to the Vacutainer and approximately 650 mL of slightly cloudy yellow pleural fluid was drained. After procedure thoracentesis catheter was removed, Band-Aid was placed at the site. Chest x-ray pending fluid studies are sent. Anesthesia: local Surgeon: Suri Altamirano Estimated blood loss (mL): 1 Pathology: other Condition: critical Disposition: ICU (Pleural fluid study)
--- NOTE | 2018-02-13 14:24 | XR ---
EXAM DATE: 02/13/2018 2:21 PM EST AGE/SEX: 67 years / Male INDICATIONS: Right thoracentesis. CLINICAL DATA: This is the patient's subsequent encounter. Patient reports that signs and symptoms h ave been present for 1 day and indicates a pain score of Nonresponsive. MEDICAL/SURGICAL HISTORY: Non-responsive. Non-responsive. COMPARISON: . FINDINGS: There is no pneumothorax following right thoracentesis. Moderate interstitial edema remains. Minimal bibasilar parenchymal changes are evident. CONCLUSION: No pneumothorax following right thoracentesis Electronically signed by: Pastor Nava MD Board Certified Radiologist 02/13/2018 2:23 PM EST
[2018-02-13 14:45] LABS: RBC,Pleural Fluid 115 /mm3 (0-0)
[2018-02-13 14:48] LABS: Lymphocytes,Pleural Fluid 6 %; Mesothelial,Pleural Fluid 2 %; Monocytes,Pleural Fluid 11 %; Neutrophils,Pleural Fluid 79 %; Total Protein,Pleural Fluid 1.8 gm/dL
[2018-02-13] MEDS ORDERED: Amiodarone Inj 150 MG in Dextrose 5% in Water Inj 97 ML IV.SIG ONE ×2 (23:42)
[2018-02-13] MEDS ORDERED: Calcium Chloride Inj 1 GM in Dextrose 5% in Water Inj 100 ML IV.SIG ONE ×2 (23:45)
[2018-02-13] MEDS ORDERED: Magnesium Sulfate Inj 2 GM in Sodium Chlor 0.9% Inj 96 ML IV.SIG ONE (23:45)
[2018-02-13] MEDS ORDERED: Potassium Chlor 40 mEq Premix 40 MEQ/100 ML PIGGYBACK IV.SIG ONE (23:48)
[2018-02-14] MEDS: dilTIAZem Inj 125 MG in Sodium Chlor 0.9% Inj 100 ML IV.CONT PRN ×2 (00:23→20:55)
[2018-02-14] MEDS: Oral Hygiene Kit OROPHARYNG SCH ×4 (00:38→16:27)
[2018-02-14] MEDS ORDERED: Potassium Chlor 20 mEq Premix 20 MEQ/100 ML PIGGYBACK IV.SIG ONE (00:45)
[2018-02-14] MEDS: Potassium Chlor 20 mEq Premix 20 MEQ/100 ML PIGGYBACK IV.SIG SCH ×2 (00:56→02:52)
[2018-02-14] MEDS: Vancomycin Inj 1,500 MG in Sodium Chlor 0.9% Inj 500 ML IV.SIG SCH ×2 (00:57→17:14)
[2018-02-14] MEDS: Chlorhexidine Gluconate 2% 1 Pack (2 Cloths) TOPICAL SCH (05:00)
--- NOTE | 2018-02-14 05:57 | XR ---
EXAM DATE: 02/14/2018 5:13 AM EST AGE/SEX: 67 years / Male INDICATIONS: Shortness of breath. Respiratory failure. CLINICAL DATA: This is the patient's subsequent encounter. Patient reports that signs and symptoms h ave been present for 1 week and indicates a pain score of Nonresponsive. MEDICAL/SURGICAL HISTORY: Non-responsive. Non-responsive. COMPARISON: [facility] [place], CHEST 1V SINGLE AP, 02/13/2018. [facility] [place], CHEST 1V SINGLE AP, 02/13/2018. . FINDINGS: A single AP semierect portable view of the chest was obtained. This again demonstrates volume loss in the right hemithorax, shift to the right. The heart size remains mildly prominent. Perihilar and bib asilar opacities remain right greater than left. Both costophrenic angles remain blunted. The bony th orax is intact. CONCLUSION: No significant change. The findings remain most characteristic of pulmonary edema. Electronically signed by: Yohannes Hidalgo MD Board Certified Radiologist 02/14/2018 5:56 AM EST
[2018-02-14] MEDS: Thiamine Inj 100 MG in Sodium Chlor 0.9% Inj 100 ML IV.SIG SCH (08:19)
[2018-02-14] MEDS: Chlorhexidine 0.12% Oral Kit 15 ML UDC OROPHARYNG SCH ×2 (08:23→21:42)
[2018-02-14] MEDS: Senna/Docusate Sodium 8.6/50 MG Tablet PO SCH ×2 (08:39→21:15)
[2018-02-14] MEDS: Folic Acid 1 MG Tablet NG/OG SCH (08:39)
[2018-02-14] MEDS: Pantoprazole Inj 40 MG Vial IV.PUSH SCH (08:40)
[2018-02-14 09:06] LABS: Hematocrit 39.2 % (39.0-51.0); Mean Corpuscular Hemoglobin 27.1 pg (27.0-34.0); Mean Corpuscular Volume 88.6 fL (80.0-100.0); Mean Platelet Volume 9.4 fL (7.0-11.0); Platelet Count 237 th/mm3 (150-450); Red Blood Count 4.43 mil/mm3 (4.50-5.90); Red Cell Distribution Width 16.3 % (11.6-17.2); White Blood Count 9.3 th/mm3 (4.0-11.0)
[2018-02-14 09:10] LABS: Mean Corpuscular HGB Conc 30.5 % (32.0-36.0)
[2018-02-14 09:20] LABS: Albumin 2.2 g/dL (3.4-5.0); Anion Gap 2 meq/L (5-15); Aspartate Aminotransferase 152 U/L (15-37); Blood Urea Nitrogen 14 mg/dL (7-18); Calcium 8.6 mg/dL (8.5-10.1); Chloride 105 meq/L (98-107); Glomerular Filtration Rate Greater Than 89 mL/min (>89); Glucose,Random 115 mg/dL (74-106); Magnesium 2.3 mg/dL (1.5-2.5); Potassium 4.3 meq/L (3.5-5.1); Sodium 145 meq/L (136-145)
[2018-02-14 09:22] LABS: Alanine Aminotransferase 256 U/L (12-78)
[2018-02-14 09:37] LABS: Alkaline Phosphatase 76 U/L (45-117); Total Protein 7.2 g/dL (6.4-8.2); Troponin I 0.09 ng/mL (0.02-0.05)
[2018-02-14] MEDS: Heparin - SQ 10,000 UNITS/ML Vial SQ SCH ×2 (10:03→23:38)
--- NOTE | 2018-02-14 15:32 | HM ---
Date Performed: 02/11/2018 Time Performed: 15:32:00 HOOKUP DATE: 02/11/18 03:32:00 PM Wed ANALYSIS START TIME: 02/11/2018 3:37:00 PM ANALYSIS END TIME: 02/12/2018 3:40:59 PM PATIENT AGE: 67 PATIENT HEIGHT PATIENT WEIGHT DRUG LIST: ROOM 505 PATIENT DIAGNOSIS: RESPIRATORY FAILURE/NEURO TEST NARRATIVE: The patient's average heart rate was 69 BPM. Heart rates greater than 120 B PM were noted < 1% of the time. Heart rates less than 50 BPM were noted 16% of the time. No paus es exceeding 2.0 seconds were noted. 715 ventricular ectopics, which represented 1% of the total beat count, were noted. The highest ventricular ectopic frequency occurred from 07:00 AM to 08:00 AM Whit. During this time 110 VE(s) occurred. Ventricular ectopics were observed as 701 isolated beat( s) and as 7 couplet(s). No runs were noted. Some of the ventricular beats occurred in bigeminal cyc les. 2980 supraventricular ectopics, which represented 3% of the total beat count, were noted. T he highest supraventricular ectopic frequency occurred from 06:00 AM to 07:00 AM Whit. During this ti me 439 SVE(s) occurred. No episodes of ST depression (defined as -1.0 mm or more) were noted in c hannel 1. No episodes of ST depression (defined as -1.0 mm or more) were noted in channel 2. No epi sodes of ST depression (defined as -1.0 mm or more) were noted in channel 3. NO DIARY WAS GIVEN TO PA TIENT TEST INTERPRETATION: Patient has a moderate amount of supraventricular ectopic rhythm. There are some isolated PACs, some couplets, some runs of PACs in an irregular rate at a rate between 100 and 135, usually between 4 and 8 beats that seem to self-terminate. There is no atrial fibrillation seen. There is no prolonged pauses or heart blocks seen. Ventricular ectopy is occasional with only some c ouplets that are rare. No triplets or Vtach seen. No patient diary included. Overall, this patient h as a moderate amount of supraventricular ectopic beats with moderate complexity of runs between 4 and 8 beats at a rate between 100-140. No atrial fibrillation and no heart block seen. Ventricular ectop y is infrequent with no significant complex forms. Signed by : Ibrahima Barkley
--- NOTE | 2018-02-14 17:02 | P.PNCC ---
Subjective Subjective Remarks/Hospital Course: Patient is unable to provide history because he is intubated. Reviewed EMR. 67-year-old male with past medical history of alcohol abuse, tobacco abuse who presented to [facility] emergency department with altered mental status. Per report from [facility] he may have had syncope prior to their arrival. He ultimately was intubated for airway protection. CXR shows right lower lobe consolidation. White blood cell count is 12. Lactic acid is 5. Creatinine is 1.8. Most recent prior creatinine was 0.6 in 2008. He received 3 L normal saline bolus, azithromycin, Rocephin, neb in the emergency department. CT brain is pending. [facility]lman consulted for admission. SUBJ 02/11/18: Remains severely septic from 4 out of 4 bottles growing GPC. 2D echo ordered to rule out endocarditis. However mental status is improving following commands. MRI ordered by Dr. Santillan 02/12/18: Patient was intubated lightly sedated am. On sedation hold slight improvement of the neuro exam opens eyes intermittently follows simple commands with upper extremities. While undergoing CPAP trial patient self extubated initially was hypoxic and required 100% oxygen currently maintaining oxygen saturation on nonrebreather. 02/13/18: Patient self extubated yesterday a.m. while undergoing CPAP trial for planned extubation. Tolerating reasonably well. Chest x-ray shows increasing right-sided effusion. Sputum culture with Haemophilus. Plan for thoracentesis if large enough pleural effusion. Blood cultures growing strep species. 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, will need CHARLIE when more stable 02/14: Afebrile .patient remains on facemask at 5 L O2 saturation 96%. The patient underwent thoracentesis yesterday with approximately 650 cc removed, cultures pending. Patient extremely lethargic after receiving Ativan during the night. Ativan now discontinued the patient is on scheduled doses of Librium for avoidance of delirium tremens.. Formal swallow completed patient on mechanical soft diet, currently held secondary to lethargy. Objective Vital Signs / I&O: Vital Signs 02/13/18 18:00 02/13/18 19:00 02/13/18 20:00 Temperature 98.7 F Pulse Rate 87 98 H 91 H Respiratory Rate 46 H 30 H Blood Pressure 160/90 H 163/78 H Pulse Oximetry 90 L 94 L 02/13/18 20:46 02/13/18 21:00 02/13/18 21:06 Temperature Pulse Rate 90 114 H 115 H Respiratory Rate 26 H 28 H 31 H Blood Pressure 181/86 H 150/81 H Pulse Oximetry 93 L 92 L 76 L 02/13/18 22:00 02/13/18 22:14 02/13/18 23:00 Temperature Pulse Rate 143 H 147 H 159 H Respiratory Rate 23 30 H 41 H Blood Pressure 148/113 H 130/67 142/95 H Pulse Oximetry 90 L 71 L 95 02/13/18 23:43 02/13/18 23:45 02/13/18 23:50 Temperature Pulse Rate 150 H 152 H 154 H Respiratory Rate 35 H 36 H 42 H Blood Pressure 176/98 H 150/85 H 158/81 H Pulse Oximetry 96 95 94 L 02/13/18 23:55 02/14/18 00:00 02/14/18 00:01 Temperature 99 F Pulse Rate 143 H 113 H 112 H Respiratory Rate 38 H 31 H 34 H Blood Pressure 147/80 H 172/81 H Pulse Oximetry 94 L 94 L 94 L 02/14/18 00:05 02/14/18 00:10 02/14/18 00:15 Temperature Pulse Rate 110 H 112 H 113 H Respiratory Rate 30 H 36 H 29 H Blood Pressure 164/77 H 164/79 H 162/77 H Pulse Oximetry 93 L 94 L 93 L 02/14/18 00:20 02/14/18 00:30 02/14/18 00:45 Temperature Pulse Rate 112 H 100 H 96 H Respiratory Rate 35 H 35 H 33 H Blood Pressure 156/77 H 140/69 154/70 H Pulse Oximetry 93 L 88 L 92 L 02/14/18 01:00 02/14/18 01:15 02/14/18 01:30 Temperature Pulse Rate 81 79 74 Respiratory Rate 27 H 30 H 30 H Blood Pressure 133/68 137/70 134/68 Pulse Oximetry 91 L 88 L 88 L 02/14/18 01:45 02/14/18 02:00 02/14/18 02:15 Temperature Pulse Rate 73 71 75 Respiratory Rate 32 H 29 H 31 H Blood Pressure 133/64 142/67 H 140/68 Pulse Oximetry 93 L 94 L 95 02/14/18 02:30 02/14/18 02:45 02/14/18 03:00 Temperature Pulse Rate 74 74 74 Respiratory Rate 32 H 31 H 33 H Blood Pressure 140/65 146/65 H 134/73 Pulse Oximetry 91 L 89 L 94 L 02/14/18 03:15 02/14/18 03:30 02/14/18 03:45 Temperature 99.1 F Pulse Rate 72 76 73 Respiratory Rate 36 H 33 H 38 H Blood Pressure 140/71 141/67 H 134/64 Pulse Oximetry 98 86 L 91 L 02/14/18 04:00 02/14/18 04:15 02/14/18 04:30 Temperature Pulse Rate 71 71 74 Respiratory Rate 35 H 29 H 36 H Blood Pressure 136/66 139/69 135/71 Pulse Oximetry 92 L 87 L 93 L 02/14/18 04:45 02/14/18 05:00 02/14/18 05:15 Temperature Pulse Rate 72 74 71 Respiratory Rate 30 H 40 H 31 H Blood Pressure 145/69 H 147/70 H 127/63 Pulse Oximetry 94 L 92 L 90 L 02/14/18 05:30 02/14/18 05:45 02/14/18 06:00 Temperature Pulse Rate 72 69 71 Respiratory Rate 32 H 29 H 37 H Blood Pressure 150/68 H 146/63 H 148/69 H Pulse Oximetry 91 L 93 L 87 L 02/14/18 06:15 02/14/18 06:30 02/14/18 06:45 Temperature Pulse Rate 72 70 69 Respiratory Rate 31 H 32 H 31 H Blood Pressure 134/60 134/64 133/64 Pulse Oximetry 91 L 84 L 90 L 02/14/18 07:00 02/14/18 07:15 02/14/18 07:30 Temperature Pulse Rate 67 69 67 Respiratory Rate 24 23 28 H Blood Pressure 145/67 H 144/69 H 138/62 Pulse Oximetry 93 L 94 L 95 02/14/18 07:45 02/14/18 08:00 02/14/18 08:15 Temperature 98.2 F Pulse Rate 69 71 70 Respiratory Rate 29 H 28 H 34 H Blood Pressure 146/72 H 139/67 137/65 Pulse Oximetry 96 95 95 02/14/18 08:30 02/14/18 09:00 02/14/18 09:02 Temperature Pulse Rate 67 71 70 Respiratory Rate 33 H 33 H 24 Blood Pressure 136/62 148/67 H Pulse Oximetry 94 L 95 02/14/18 09:03 02/14/18 09:30 02/14/18 10:00 Temperature Pulse Rate 68 69 Respiratory Rate 29 H 28 H Blood Pressure 147/69 H 146/67 H Pulse Oximetry 94 L 94 L 95 02/14/18 10:30 02/14/18 11:00 02/14/18 11:30 Temperature Pulse Rate 66 69 66 Respiratory Rate 25 H 29 H 28 H Blood Pressure 143/65 H 145/67 H 144/65 H Pulse Oximetry 97 97 97 02/14/18 12:00 02/14/18 12:34 02/14/18 13:00 Temperature 97.7 F Pulse Rate 65 67 69 Respiratory Rate 52 H 28 H 37 H Blood Pressure 146/67 H 148/68 H 154/69 H Pulse Oximetry 95 96 95 02/14/18 13:30 02/14/18 14:00 02/14/18 14:31 Temperature Pulse Rate 71 68 75 Respiratory Rate 28 H 28 H 30 H Blood Pressure 161/70 H 156/67 H 173/81 H Pulse Oximetry 95 92 L 92 L 02/14/18 14:51 02/14/18 15:00 02/14/18 15:02 Temperature Pulse Rate 73 74 74 Respiratory Rate 20 37 H 28 H Blood Pressure 155/120 H 154/70 H Pulse Oximetry 94 L 94 L 02/14/18 15:30 02/14/18 16:00 Temperature 97.7 F Pulse Rate 69 71 Respiratory Rate 27 H 24 Blood Pressure 156/68 H 150/69 H Pulse Oximetry 96 93 L Intake & Output 02/13/18 02/14/18 02/14/18 18:59 06:59 18:59 Intake Total 816 / 816 200 / 200 1776 / 1776 Output Total 1075 / 1075 550 / 550 Balance -259 / -259 -350 / -350 1776 / 1776 Weight 71.5 kg Intake: IV 816 / 816 200 / 200 1776 / 1776 Cordarone Inj 450 MG In D5W Inj 350 / 350 241 ML @ 1 MG/MIN 33.33 mls/hr IV.CONT TITRATE PRN Rx#: [id number] Cordarone Inj 150 MG In D5W Inj 100 / 100 97 ML @ 600 mls/hr IV.SIG ONCE ONE Rx#:[id number] Calcium Chloride Inj 1 GM In 110 / 110 D5W Inj 100 ML @ 110 mls/hr IV. SIG ONCE ONE Rx#:[id number] Magnesium Sulfate Inj 2 GM In 100 / 100 NS Inj 96 ML @ 50 mls/hr IV.SIG ONCE ONE Rx#:[id number] KCl 20 mEq Premix Inj 20 meq In 100 / 100 100 / 100 100 ml @ 50 mls/hr IV.SIG Q2H JUSTINE Rx#:[id number] Thiamine Inj 100 MG In NS Inj 101 / 101 101 / 101 100 ML @ 100 mls/hr IV.SIG DAILY JUSTINE Rx#:[id number] Vancomycin Inj 1,500 MG In NS 515 / 515 515 / 515 Inj 500 ML @ 250 mls/hr IV.SIG Q18H JUSTINE Rx#:[id number] Rocephin Inj 1,000 MG In NS Inj 100 / 100 200 / 200 100 ML @ 200 mls/hr IV.SIG Q12H JUSTINE Rx#:[id number] Flagyl 500 MG Inj 100 ML @ 100 100 / 100 100 / 100 200 / 200 mls/hr IV.SIG Q8H JUSTINE Rx#: [id number] Oral 0 / 0 Output: Pleural Fluid 650 / 650 Urine Amount (Catheter) 425 / 425 550 / 550 Condom 425 / 425 550 / 550 Other: # Incontinent Voids 3 Date of Last Bowel Movement 02/13/18 02/13/18 02/13/18 # Bowel Movements 0 # Incontinent Bowel Movements 1 Result Diagrams: 02/14/18 08:28 02/14/18 08:23 Other Results: Laboratory Results WBC 9.3 th/mm3 (4.0-11.0) 02/14/18 08:28 RBC 4.43 mil/mm3 (4.50-5.90) L 02/14/18 08:28 Hgb 12.0 gm/dL (13.0-17.0) L 02/14/18 08:28 Hct 39.2 % (39.0-51.0) 02/14/18 08:28 MCV 88.6 fL (80.0-100.0) 02/14/18 08:28 MCH 27.1 pg (27.0-34.0) 02/14/18 08:28 MCHC 30.5 % (32.0-36.0) L 02/14/18 08:28 RDW 16.3 % (11.6-17.2) 02/14/18 08:28 Plt Count 237 th/mm3 (150-450) 02/14/18 08:28 MPV 9.4 fL (7.0-11.0) 02/14/18 08:28 Neut % (Auto) 77.4 % (16.0-70.0) H 02/11/18 03:51 Lymph % (Auto) 9.1 % (9.0-44.0) 02/11/18 03:51 [place] % (Auto) 13.3 % (0.0-8.0) H 02/11/18 03:51 Eos % (Auto) 0.0 % (0.0-4.0) 02/11/18 03:51 Baso % (Auto) 0.2 % (0.0-2.0) 02/11/18 03:51 Neut # (Auto) 8.6 th/mm3 (1.8-7.7) H 02/11/18 03:51 Lymph # (Auto) 1.0 th/mm3 (1.0-4.8) 02/11/18 03:51 [place] # (Auto) 1.5 th/mm3 (0.0-0.9) H 02/11/18 03:51 Eos # (Auto) 0.0 th/mm3 (0.0-0.4) 02/11/18 03:51 Baso # (Auto) 0.0 th/mm3 (0.0-0.2) 02/11/18 03:51 WBC Differential . 02/11/18 03:51 Differential Comment Auto diff final 02/11/18 03:51 ESR 32 mm/hr (0-20) H 02/11/18 14:22 PT 15.2 sec (9.8-11.6) H 02/10/18 18:15 INR 1.5 Ratio 02/10/18 18:15 APTT 28.0 sec (23.4-31.7) 02/10/18 18:15 Puncture Site Right brachial 02/10/18 22:00 Patient Temperature 98.6 02/10/18 22:00 O2 Saturation 96 % (90-100) 02/10/18 22:00 ABG pH 7.30 (7.380-7.420) L 02/10/18 22:00 ABG pCO2 59 mmHg (38-42) H* 02/10/18 22:00 ABG pO2 472 mmHg (61-120) H 02/10/18 22:00 ABG HCO3 28 mmol/L (22-26) H 02/10/18 22:00 ABG O2 Content 14.6 Vol % (12.0-20.0) 02/10/18 22:00 ABG Base Excess 2.1 mmol/L (-2-2) H 02/10/18 22:00 ABG Methemoglobin 0.3 % (0-2) 02/10/18 22:00 Hemoglobin 10.0 G/DL (12.0-16.0) L 02/10/18 22:00 Carboxyhemoglobin 4.1 % (0-4) H 02/10/18 22:00 O2 Delivery Device Ventilator 02/10/18 22:00 Vent Setting 02/10/18 22:00 Inspired O2 100 % 02/10/18 22:00 Critical Value Yes 02/10/18 22:00 Sodium 145 meq/L (136-145) 02/14/18 08:23 Potassium 4.3 meq/L (3.5-5.1) D 02/14/18 08:23 Chloride 105 meq/L (98-107) 02/14/18 08:23 Carbon Dioxide 38.0 meq/L (21.0-32.0) H 02/14/18 08:23 Anion Gap 2 meq/L (5-15) L 02/14/18 08:23 BUN 14 mg/dL (7-18) 02/14/18 08:23 Creatinine 0.57 mg/dL (0.60-1.30) L 02/14/18 08:23 Estimated GFR Greater than 89 mL/min (>89) 02/14/18 08:23 POC Glucose 94 mg/dl (68-110) 02/13/18 11:22 Random Glucose 115 mg/dL (74-106) H 02/14/18 08:23 Hemoglobin A1c 5.3 % (4.3-6.0) 02/11/18 03:51 Lactic Acid 1.3 mmol/L (0.4-2.0) 02/10/18 22:40 Calcium 8.6 mg/dL (8.5-10.1) 02/14/18 08:23 Phosphorus 1.4 mg/dL (2.5-4.9) L 02/12/18 03:30 Magnesium 2.3 mg/dL (1.5-2.5) 02/14/18 08:23 Total Bilirubin 0.4 mg/dL (0.2-1.0) 02/14/18 08:23 AST 152 U/L (15-37) H 02/14/18 08:23 ALT 256 U/L (12-78) H 02/14/18 08:23 Alkaline Phosphatase 76 U/L (45-117) 02/14/18 08:23 Ammonia 49 mcmol/L (11-32) H 02/10/18 22:40 Total Creatine Kinase 111 U/L (39-308) 02/10/18 18:15 Troponin I 0.09 ng/mL (0.02-0.05) H 02/14/18 08:23 B-Natriuretic Peptide 1035 pg/mL (0-100) H 02/10/18 18:15 Total Protein 7.2 g/dL (6.4-8.2) D 02/14/18 08:23 Albumin 2.2 g/dL (3.4-5.0) L 02/14/18 08:23 Triglycerides 85 mg/dL (42-150) 02/12/18 03:30 Cholesterol 67 mg/dL (120-200) L 02/12/18 03:30 LDL Cholesterol, Calc 31 mg/dL (0-99) 02/12/18 03:30 HDL Cholesterol 19.4 mg/dL (40.0-60.0) L 02/12/18 03:30 Cholesterol/HDL Ratio 3.45 Ratio 02/12/18 03:30 Vitamin B12 917 pg/mL (193-986) 02/11/18 14:22 TSH 2.100 uIU/mL (0.358-3.740) 02/10/18 18:15 Urine Color Yesenia (Yellw/Straw) 02/10/18 20:39 Urine Clarity Cloudy (Clear) H 02/10/18 20:39 Urine pH 5.0 (5.0-8.5) 02/10/18 20:39 Ur Specific Lowry 1.018 (1.002-1.035) 02/10/18 20:39 Urine Protein 500 or greater mg/dL (Neg-Trace) 02/10/18 20:39 Urine Glucose (UA) Negative mg/dL (Negative) 02/10/18 20:39 Urine Ketones Negative mg/dL (Negative) 02/10/18 20:39 Urine Occult Blood Negative (Negative) 02/10/18 20:39 Urine Nitrate Negative (Negative) 02/10/18 20:39 Urine Bilirubin Negative (Negative) 02/10/18 20:39 Urine Ictotest Negative (Negative) 02/10/18 20:39 Urine Urobilinogen 1.0 mg/dL (Less than 2) 02/10/18 20:39 Ur Leukocyte Esterase Negative (Negative) 02/10/18 20:39 Urine RBC 2 /hpf (0-3) 02/10/18 20:39 Urine WBC 8 /hpf (0-5) H 02/10/18 20:39 Amorphous Sediment Moderate /hpf (None) H 02/10/18 20:39 Urine Bacteria Few /hpf (None) H 02/10/18 20:39 Hyaline Casts Innum /lpf (0-3) 02/10/18 20:39 Urine Mucus Moderate /lpf (Occasional) H 02/10/18 20:39 Micro UA Comment Culture not ind 02/10/18 20:39 Ur Microscopic Review Not Reportable 02/10/18 20:39 Urine Culture Comments Culture not ind 02/10/18 20:39 Pleural pH 8.0 02/13/18 13:25 Pleural RBC 115 /mm3 (0-0) H 02/13/18 13:25 Pleural Nuc Cells 655 /mm3 (0-10) H 02/13/18 13:25 Pleural Neutrophils 79 % 02/13/18 13:25 Pleural Lymphocytes 6 % 02/13/18 13:25 Pleural Monocytes 11 % 02/13/18 13:25 Pleural Plasma Cells 1 % 02/13/18 13:25 Pleural Mesothelial 2 % 02/13/18 13:25 Pleural Other Cells 1 % 02/13/18 13:25 Pleural Total Protein 1.8 gm/dL 02/13/18 13:25 Pleural LDH 65 U/L 02/13/18 13:25 Pleural Glucose 100 mg/dL 02/13/18 13:25 Pleural Amylase 13 U/L 02/13/18 13:25 Nasal Screen MRSA (PCR) Not detected (Negative) 02/11/18 02:30 Urine Opiates Screen Neg (Neg) 02/10/18 20:39 Ur Barbiturates Screen Neg (Neg) 02/10/18 20:39 Ur Amphetamines Screen Neg (Neg) 02/10/18 20:39 U Benzodiazepines Scrn Neg (Neg) 02/10/18 20:39 Urine Cocaine Screen Neg (Neg) 02/10/18 20:39 U Cannabinoids Screen Neg (Neg) 02/10/18 20:39 Serum Alcohol Less than 3 mg/dL (0-5) 02/10/18 18:15 JOSE Screen Neg (Neg) 02/11/18 14:22 Hepatitis A IgM Ab Nonreactive (Nonreactive) 02/10/18 22:40 Hep Bs Antigen Nonreactive (Nonreactive) 02/10/18 22:40 Hep B Core IgM Ab Nonreactive (Nonreactive) 02/10/18 22:40 Hep C IgG Ab Nonreactive (Nonreactive) 02/10/18 22:[address] 02/10/18 18:03 CONCLUSION: 1. Probable evolving infarct in the left occipital lobe extending into the medial left temporal lobe without hemorrhage or significant mass effect. 2. Chronic white matter ischemic changes. . Abdomen Ultrasound 02/11/18 00:00 CONCLUSION: 1. Small liver with trace ascites. 2. Small cyst lower pole right kidney. Head MRA 02/11/18 00:00 CONCLUSION: 1. Occlusion of the left posterior cerebral artery at its origin with acute ischemia left occipital region.. Neck MRA 02/11/18 00:00 CONCLUSION: 1. Negative MRA Carotids. Percent stenosis is calculated using the diameter of the stenotic region over the diameter of the normal distal internal carotid artery Head MRI 02/11/18 10:28 CONCLUSION: 1. Acute infarction involving the left posterior thalamus and occipital lobe without hemorrhage or mass effect. Chest X-Ray 02/14/18 06:00 CONCLUSION: No significant change. The findings remain most characteristic of pulmonary edema. Objective Remarks: GENERAL: Well-nourished, well-developed patient who is lying in bed slightly sedated from receiving Ativan overnight SKIN: Warm and dry. There are excoriations around his bilateral ankles. There are petechiae around the ankles at the site of the excoriations and there is a clear line of delineation where they abruptly stop at what appears to be a sock or shoe line. No petechiae of palms or soles. No splinter hemorrhages. HEAD: Atraumatic. Normocephalic. EYES: Pupils equal and round, pinpoint bilaterally no scleral icterus. No injection or drainage. ENT: No nasal bleeding or discharge. Mucous membranes pink and moist. NECK: Trachea midline. +JVD. No meningismus CARDIOVASCULAR: Regular rate and rhythm. No murmurs rubs or gallops. RESPIRATORY: Bibasilar rales with rhonchorous breath sounds bilaterally. Minimal expiratory wheezing GASTROINTESTINAL: Abdomen soft, non-tender, nondistended. Bowel sounds present. MUSCULOSKELETAL: Extremities without clubbing, cyanosis, or edema. Scar overlying left shoulder. NEUROLOGICAL: Pupils pinpoint and sluggishly reactive bilaterally. Sedated from recent Ativan otherwise, moving purposefully x 4. Follows commands Procedures: 02/13 Thoracentesis Assessment and Plan - Problem List (1) Stroke Code(s): I63.9 - Cerebral infarction, unspecified Status: Acute (2) Encephalopathy acute Code(s): G93.40 - Encephalopathy, unspecified Status: Acute (3) Septic shock Code(s): A41.9 - Sepsis, unspecified organism; R65.21 - Severe sepsis with septic shock Status: Acute (4) Respiratory failure Code(s): J96.90 - Respiratory failure, unspecified, unspecified whether with hypoxia or hypercapnia Status: Acute (5) Aspiration pneumonia Code(s): J69.0 - Pneumonitis due to inhalation of food and vomit Status: Acute (6) KIMBERLY (acute kidney injury) Code(s): N17.9 - Acute kidney failure, unspecified Status: Acute (7) Tobacco abuse Code(s): Z72.0 - Tobacco use Status: Chronic (8) Anemia Code(s): D64.9 - Anemia, unspecified Status: Chronic (9) Lactic acidemia Code(s): E87.2 - Acidosis Status: Acute (10) Transaminasemia Code(s): R74.0 - Nonspecific elevation of levels of transaminase and lactic acid dehydrogenase [LDH] Status: Acute (11) Hyperglycemia Code(s): R73.9 - Hyperglycemia, unspecified Status: Acute - Assessment and Plan Plan: NEURO: Subacute ischemic stroke Acute encephalopathy EtOH abuse per prior record CT brain volving infarct left occipital lobe and medial left temporal lobe. No hemorrhage. MRI brain -Acute infarction involving the left posterior thalamus and occipital lobe without hemorrhage or mass effect. 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 Aspirin [address] Santillan following Ammonia level normal. Thiamine/multivitamin/folic acid Seizure precautions. Monitor for signs of alcohol withdrawal Add Librium 10 mill TID 2D echo inadequate study, may need CHARLIE when clinically stable- RESP: Acute hypercapnic respiratory failure Haemophilus influenza pneumonia right pleural effusion Tobacco abuse Intubated 02/10 for airway protection Self extubated today 02/12/2017 while on CPAP trial Currently requiring on NC DuoNeb every 6 hours. Albuterol every 2 hours as needed Broad-spectrum antibiotics for pneumonia 02/13 S/P right thoracentesis-650 cc removed CV: Lactic acidemia Elevated troponin/demand ischemia Received 3 L normal saline bolus per ED. Appears significantly volume loaded and has JVD. Levophed as needed to maintain mean pressure greater than 65 Receiving aspirin 2D echo limited study normal-appearing ejection fraction Need CHARLIE when clinically stable appreciate cardiology consult EKG sinus rhythm with nonspecific ST changes in inferior leads. Trend lactic acid until clear GI: Transaminase elevated Follow-up liver ultrasound Viral hepatitis panel FEN/RENAL: Acute kidney injury Follow-up renal ultrasound. Ornelas removed 1-19 Monitor intake and output hourly. Monitor electrolytes and replace as indicated. ID: Septic shock-resolving GPC/Streptococcus bacteremia Leukocytosis Aspiration pneumonia/Haemophilus influenza Penicillin allergyhives. Received ceftriaxone in the ED without issue. Chest x-ray with right lower lobe infiltrate. Blood cultures GPC/Streptococcus in 4 out of 4 bottles. Influenza negative. Follow-up sputum culture-Haemophilus influenzae Urine Legionella pneumococcal antigen- negative Received ceftriaxone and azithromycin in the emergency department. Continue ceftriaxone and Flagyl Vancomycin started 02/11/18 HEME: Anemia Monitor CBC ENDO: Mild hyperglycemia HgbA1C 5.3 TSH normal PROPH: SCDs for DVT prophylaxis. Protonix 40 mg IV daily for stress ulcer prophylaxis ACCESS: Left IJ central venous line placed 02/10 FULL CODE Patient is critically ill has sustained embolic stroke to the left posterior cerebral artery territory. He has pneumonia and sepsis. Need CHARLIE to rule out cardioembolic source of emboli and rule out vegetation. He is acute at risk of respiratory and neurological decompensation. Continue ICU care This patient remains critically ill with one or more organ systems which are or may become a threat to life. I have spent in excess of 32 minutes discontinuously in the care and management of this patient. This time is exclusive of procedures, and includes, but is not limited to, evaluation of the patient, review of the medical record, discussions with family, consultants, nursing staff, or respiratory therapy, and documentation in the medical record. Code Status: Full Discussed Condition With: MANAGER SALT at bedside (4) Respiratory failure Qualifiers: Chronicity: acute Respiratory failure complication: hypercapnia Qualified Code(s): J96.02 - Acute respiratory failure with hypercapnia
[2018-02-14] MEDS ORDERED: Pharmacy Ordered Lab Info OTHER ONE (17:45)
--- NOTE | 2018-02-14 19:08 | ECG ---
Date Performed: 02/13/2018 Time Performed: 23:33:56 PTAGE: 67 years EKG: Atrial fibrillation with uncontrolled ventricular response Left ventricular hypertrophy ST junctional depression is nonspecific Abnormal ECG NO PREVIOUS TRACING DOCTOR: Ibrahima Barkley Interpretating Date/Time 02/14/2018 19:06:10
[2018-02-15] MEDS: Oral Hygiene Kit OROPHARYNG SCH ×5 (03:08→23:31)
[2018-02-15] MEDS: Chlorhexidine Gluconate 2% 1 Pack (2 Cloths) TOPICAL SCH (03:44)
[2018-02-15 05:08] LABS: Baso % (Auto) 0.2 % (0.0-2.0); Eos % (Auto) 0.1 % (0.0-4.0); Hematocrit 36.7 % (39.0-51.0); Hemoglobin 11.4 gm/dL (13.0-17.0); Lymph # (Auto) 0.6 th/mm3 (1.0-4.8); Lymph % (Auto) 6.7 % (9.0-44.0); Mean Corpuscular HGB Conc 31.2 % (32.0-36.0); Mean Corpuscular Hemoglobin 27.3 pg (27.0-34.0); Mean Corpuscular Volume 87.6 fL (80.0-100.0); Mean Platelet Volume 8.8 fL (7.0-11.0); Mono % (Auto) 10.6 % (0.0-8.0); Neut # (Auto) 7.8 th/mm3 (1.8-7.7); Neut % (Auto) 82.4 % (16.0-70.0); Platelet Count 205 th/mm3 (150-450); Red Blood Count 4.19 mil/mm3 (4.50-5.90); Red Cell Distribution Width 16.3 % (11.6-17.2); White Blood Count 9.4 th/mm3 (4.0-11.0)
[2018-02-15 05:32] LABS: Anion Gap 4 meq/L (5-15); Blood Urea Nitrogen 14 mg/dL (7-18); Calcium 8.4 mg/dL (8.5-10.1); Chloride 105 meq/L (98-107); Glomerular Filtration Rate Greater Than 89 mL/min (>89); Glucose,Random 114 mg/dL (74-106); Magnesium 1.9 mg/dL (1.5-2.5); Potassium 3.9 meq/L (3.5-5.1); Sodium 145 meq/L (136-145)
[2018-02-15 05:33] LABS: Phosphorus 0.9 mg/dL (2.5-4.9)
[2018-02-15] MEDS: Chlorhexidine 0.12% Oral Kit 15 ML UDC OROPHARYNG SCH ×2 (08:50→19:52)
[2018-02-15] MEDS: Pantoprazole Inj 40 MG Vial IV.PUSH SCH (08:51)
[2018-02-15] MEDS: Folic Acid 1 MG Tablet NG/OG SCH (08:51)
[2018-02-15] MEDS: Senna/Docusate Sodium 8.6/50 MG Tablet PO SCH ×2 (08:51→20:35)
[2018-02-15] MEDS: Thiamine Inj 100 MG in Sodium Chlor 0.9% Inj 100 ML IV.SIG SCH (08:52)
[2018-02-15] MEDS: Heparin - SQ 10,000 UNITS/ML Vial SQ SCH ×2 (10:12→23:30)
[2018-02-15] MEDS: dilTIAZem Inj 125 MG in Sodium Chlor 0.9% Inj 100 ML IV.CONT PRN (11:27)
[2018-02-15 11:42] LABS: Lymphocytes 6 % (9-44); Monocytes 2 % (0-8); Myelocytes 3 % (0-0); Tallied Nucleated RBC 1 (0-0)
[2018-02-15 11:46] LABS: Platelet Estimate Normal (Normal); Platelet Morphology Normal (Normal)
[2018-02-15] MEDS ORDERED: Magnesium Sulfate Inj 2 GM in Sodium Chlor 0.9% Inj 96 ML IV.SIG PRN (12:17)
[2018-02-15] MEDS ORDERED: Potassium Chloride 25 MEQ Effervescent Tablet PO PRN (12:17)
[2018-02-15] MEDS ORDERED: Sodium Phosphate Inj 30 MMOL in Sodium Chlor 0.9% Inj 250 ML IV.SIG PRN (12:17)
[2018-02-15] MEDS ORDERED: Potassium Chlor 40 mEq Premix 40 MEQ/100 ML PIGGYBACK IV.SIG PRN ×2 (12:17)
[2018-02-15] MEDS ORDERED: Potassium Phosphate Inj 30 MMOL in Sodium Chlor 0.9% Inj 250 ML IV.SIG PRN (12:17)
[2018-02-15] MEDS ORDERED: Potassium Phosphate 500 MG Soluble Tablet PO PRN ×2 (12:17)
[2018-02-15] MEDS ORDERED: Magnesium Sulfate Inj 4 GM in Sodium Chlor 0.9% Inj 92 ML IV.SIG PRN (12:17)
[2018-02-15] MEDS ORDERED: SODIUM CHLOR 0.9% IV.SIG PRN (12:28)
[2018-02-15] MEDS ORDERED: SODIUM GLYCEROPHOSPHATE IV.SIG PRN (12:28)
[2018-02-15] MEDS: Vancomycin Inj 1,500 MG in Sodium Chlor 0.9% Inj 500 ML IV.SIG SCH (12:32)
[2018-02-15] MEDS ORDERED: hydrALAZINE HCl Inj 20 MG/ML Vial IV.PUSH PRN (15:30)
--- NOTE | 2018-02-15 15:53 | P.PNCC ---
Subjective Subjective Remarks/Hospital Course: Patient is unable to provide history because he is intubated. Reviewed EMR. 67-year-old male with past medical history of alcohol abuse, tobacco abuse who presented to [facility] emergency department with altered mental status. Per report from [facility] he may have had syncope prior to their arrival. He ultimately was intubated for airway protection. CXR shows right lower lobe consolidation. White blood cell count is 12. Lactic acid is 5. Creatinine is 1.8. Most recent prior creatinine was 0.6 in 2008. He received 3 L normal saline bolus, azithromycin, Rocephin, neb in the emergency department. CT brain is pending. [facility] consulted for admission. SUBJ 02/11/18: Remains severely septic from 4 out of 4 bottles growing GPC. 2D echo ordered to rule out endocarditis. However mental status is improving following commands. MRI ordered by Dr. Santillan 02/12/18: Patient was intubated lightly sedated am. On sedation hold slight improvement of the neuro exam opens eyes intermittently follows simple commands with upper extremities. While undergoing CPAP trial patient self extubated initially was hypoxic and required 100% oxygen currently maintaining oxygen saturation on nonrebreather. 02/13/18: Patient self extubated yesterday a.m. while undergoing CPAP trial for planned extubation. Tolerating reasonably well. Chest x-ray shows increasing right-sided effusion. Sputum culture with Haemophilus. Plan for thoracentesis if large enough pleural effusion. Blood cultures growing strep species. 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, will need CHARLIE when more stable 02/14: Afebrile .patient remains on facemask at 5 L O2 saturation 96%. The patient underwent thoracentesis yesterday with approximately 650 cc removed, cultures pending. Patient extremely lethargic after receiving Ativan during the night. Ativan now discontinued the patient is on scheduled doses of Librium for avoidance of delirium tremens.. Formal swallow completed patient on mechanical soft diet, currently held secondary to lethargy. 02/15: The patient is more alert this afternoon after cessation of Ativan. Patient continues on Librium 3 times daily. Patient continues to have high FiO2 requirements Lasix twice daily added to medication regimen. Patient noted to be hypertensive systolic 170s hydralazine added also to medication regime Cardizem IV infusion transition to p.o. Cardizem extended release. The patient remains in four-point restraints for patient safety, intermittent bouts of confusion. Patient tolerating mechanical soft diet but needs assistance to be fed. Objective Vital Signs / I&O: Vital Signs 02/14/18 16:00 02/14/18 16:30 02/14/18 17:00 Temperature 97.7 F Pulse Rate 71 69 74 Respiratory Rate 24 27 H 27 H Blood Pressure 150/69 H 151/66 H 166/75 H Pulse Oximetry 93 L 97 95 02/14/18 17:15 02/14/18 17:30 02/14/18 17:45 Temperature Pulse Rate 70 73 73 Respiratory Rate 27 H 32 H 32 H Blood Pressure 154/70 H 158/73 H 155/67 H Pulse Oximetry 96 96 96 02/14/18 18:00 02/14/18 18:11 02/14/18 18:15 Temperature Pulse Rate 75 74 73 Respiratory Rate 32 H 24 29 H Blood Pressure 158/73 H 152/71 H Pulse Oximetry 96 94 L 02/14/18 18:30 02/14/18 19:00 02/14/18 20:00 Temperature 98.2 F Pulse Rate 75 75 73 Respiratory Rate 11 L 33 H 27 H Blood Pressure 152/67 H 152/69 H 148/67 H Pulse Oximetry 95 96 95 02/14/18 20:08 02/14/18 21:00 02/14/18 22:00 Temperature Pulse Rate 71 74 71 Respiratory Rate 18 29 H 27 H Blood Pressure 140/63 150/67 H Pulse Oximetry 95 92 L 92 L 02/14/18 23:00 02/15/18 00:00 02/15/18 00:22 Temperature 98.1 F Pulse Rate 70 70 70 Respiratory Rate 28 H 22 Blood Pressure 146/66 H 157/72 H Pulse Oximetry 83 L 94 L 95 02/15/18 01:00 02/15/18 02:00 02/15/18 03:00 Temperature 98.3 F Pulse Rate 71 68 69 Respiratory Rate 29 H Blood Pressure 152/71 H 140/64 Pulse Oximetry 90 L 89 L 84 L 02/15/18 03:01 02/15/18 03:55 02/15/18 04:00 Temperature Pulse Rate 69 63 70 Respiratory Rate 36 H 22 29 H Blood Pressure 175/77 H 172/73 H Pulse Oximetry 88 L 93 L 02/15/18 05:00 02/15/18 06:00 02/15/18 07:00 Temperature Pulse Rate 75 73 68 Respiratory Rate 31 H 43 H 27 H Blood Pressure 151/67 H 151/70 H 171/77 H Pulse Oximetry 81 L 93 L 02/15/18 07:14 02/15/18 07:15 02/15/18 08:00 Temperature 97.5 F L Pulse Rate 69 73 Respiratory Rate 22 Blood Pressure 167/74 H Pulse Oximetry 96 93 L 02/15/18 08:10 02/15/18 09:00 02/15/18 10:00 Temperature Pulse Rate 73 75 80 Respiratory Rate 26 H 38 H 36 H Blood Pressure 152/71 H 166/72 H 195/82 H Pulse Oximetry 98 96 96 02/15/18 10:03 02/15/18 11:00 02/15/18 11:20 Temperature Pulse Rate 79 77 79 Respiratory Rate 35 H 36 H 20 Blood Pressure 162/63 H 179/77 H Pulse Oximetry 96 98 02/15/18 11:28 02/15/18 12:00 02/15/18 12:02 Temperature 97.8 F Pulse Rate 78 84 83 Respiratory Rate 20 31 H 35 H Blood Pressure 158/75 H 177/79 H Pulse Oximetry 95 96 97 02/15/18 14:00 02/15/18 14:56 Temperature Pulse Rate 87 80 Respiratory Rate 20 Blood Pressure Pulse Oximetry Intake & Output 02/14/18 02/15/18 02/15/18 18:59 06:59 18:59 Intake Total 1776 / 1776 680 / 680 1531 / 1531 Output Total 375 / 375 250 / 250 Balance 1401 / 1401 430 / 430 1531 / 1531 Weight 71.5 kg Intake: IV 1776 / 1776 200 / 200 1531 / 1531 Cordarone Inj 450 MG In D5W Inj 350 / 350 241 ML @ 1 MG/MIN 33.33 mls/hr IV.CONT TITRATE PRN Rx#: [id number] Cardizem Inj 125 MG In NS Inj 100 / 100 0 / 0 100 ML @ 5 MG/HR 5 mls/hr IV. CONT TITRATE PRN Rx#:[id number] Cordarone Inj 150 MG In D5W Inj 100 / 100 97 ML @ 600 mls/hr IV.SIG ONCE ONE Rx#:[id number] Calcium Chloride Inj 1 GM In 110 / 110 D5W Inj 100 ML @ 110 mls/hr IV. SIG ONCE ONE Rx#:[id number] Magnesium Sulfate Inj 2 GM In 100 / 100 NS Inj 96 ML @ 50 mls/hr IV.SIG ONCE ONE Rx#:[id number] KCl 20 mEq Premix Inj 20 meq In 100 / 100 100 ml @ 50 mls/hr IV.SIG Q2H JUSTINE Rx#:[id number] Thiamine Inj 100 MG In NS Inj 101 / 101 101 / 101 100 ML @ 100 mls/hr IV.SIG DAILY JUSTINE Rx#:[id number] Vancomycin Inj 1,500 MG In NS 515 / 515 1030 / 1030 Inj 500 ML @ 250 mls/hr IV.SIG Q18H JUSTINE Rx#:[id number] Rocephin Inj 1,000 MG In NS Inj 200 / 200 200 / 200 100 ML @ 200 mls/hr IV.SIG Q12H JUSTINE Rx#:[id number] Flagyl 500 MG Inj 100 ML @ 100 200 / 200 100 / 100 200 / 200 mls/hr IV.SIG Q8H JUSTINE Rx#: [id number] Oral 480 / 480 Output: Urine 250 / 250 Urine Amount (Catheter) 375 / 375 Condom 375 / 375 Other: Post Void Residual 1 # Incontinent Voids 2 Date of Last Bowel Movement 02/13/18 02/13/18 02/13/18 Result Diagrams: 02/16/18 04:19 02/16/18 04:19 Other Results: Laboratory Results WBC 9.4 th/mm3 (4.0-11.0) 02/15/18 04:49 RBC 4.19 mil/mm3 (4.50-5.90) L 02/15/18 04:49 Hgb 11.4 gm/dL (13.0-17.0) L 02/15/18 04:49 Hct 36.7 % (39.0-51.0) L 02/15/18 04:49 MCV 87.6 fL (80.0-100.0) 02/15/18 04:49 MCH 27.3 pg (27.0-34.0) 02/15/18 04:49 MCHC 31.2 % (32.0-36.0) L 02/15/18 04:49 RDW 16.3 % (11.6-17.2) 02/15/18 04:49 Plt Count 205 th/mm3 (150-450) 02/15/18 04:49 MPV 8.8 fL (7.0-11.0) 02/15/18 04:49 Prelim Diff (Auto) Slide review pending 02/15/18 04:49 Neut % (Auto) 82.4 % (16.0-70.0) H 02/15/18 04:49 Lymph % (Auto) 6.7 % (9.0-44.0) L 02/15/18 04:49 [place] % (Auto) 10.6 % (0.0-8.0) H 02/15/18 04:49 Eos % (Auto) 0.1 % (0.0-4.0) 02/15/18 04:49 Baso % (Auto) 0.2 % (0.0-2.0) 02/15/18 04:49 Neut # (Auto) 7.8 th/mm3 (1.8-7.7) H 02/15/18 04:49 Lymph # (Auto) 0.6 th/mm3 (1.0-4.8) L 02/15/18 04:49 [place] # (Auto) 1.0 th/mm3 (0.0-0.9) H 02/15/18 04:49 Eos # (Auto) 0.0 th/mm3 (0.0-0.4) 02/15/18 04:49 Baso # (Auto) 0.0 th/mm3 (0.0-0.2) 02/15/18 04:49 WBC Differential Manual diff final 02/15/18 04:49 Seg Neuts % (Manual) 88 % (16-70) H 02/15/18 04:49 Band Neuts % (Manual) 1 % (0-6) 02/15/18 04:49 Lymphocytes % (Manual) 6 % (9-44) L 02/15/18 04:49 Monocytes % (Manual) 2 % (0-8) 02/15/18 04:49 Myelocytes % (Man) 3 % (0-0) H 02/15/18 04:49 Abs Neuts (Manual) 8.6 th/mm3 (1.8-7.7) H 02/15/18 04:49 Nucleated RBCs/100 WBC 1 /100 WBC (0-0) H 02/15/18 04:49 Differential Comment . 02/15/18 04:49 Platelet Estimate Normal (Normal) 02/15/18 04:49 Platelet Morphology Normal (Normal) 02/15/18 04:49 Basophilic Stippling Faint (None) H 02/15/18 04:49 ESR 32 mm/hr (0-20) H 02/11/18 14:22 PT 15.2 sec (9.8-11.6) H 02/10/18 18:15 INR 1.5 Ratio 02/10/18 18:15 APTT 28.0 sec (23.4-31.7) 02/10/18 18:15 Puncture Site Right brachial 02/10/18 22:00 Patient Temperature 98.6 02/10/18 22:00 O2 Saturation 96 % (90-100) 02/10/18 22:00 ABG pH 7.30 (7.380-7.420) L 02/10/18 22:00 ABG pCO2 59 mmHg (38-42) H* 02/10/18 22:00 ABG pO2 472 mmHg (61-120) H 02/10/18 22:00 ABG HCO3 28 mmol/L (22-26) H 02/10/18 22:00 ABG O2 Content 14.6 Vol % (12.0-20.0) 02/10/18 22:00 ABG Base Excess 2.1 mmol/L (-2-2) H 02/10/18 22:00 ABG Methemoglobin 0.3 % (0-2) 02/10/18 22:00 Hemoglobin 10.0 G/DL (12.0-16.0) L 02/10/18 22:00 Carboxyhemoglobin 4.1 % (0-4) H 02/10/18 22:00 O2 Delivery Device Ventilator 02/10/18 22:00 Vent Setting 02/10/18 22:00 Inspired O2 100 % 02/10/18 22:00 Critical Value Yes 02/10/18 22:00 Sodium 145 meq/L (136-145) 02/15/18 04:49 Potassium 3.9 meq/L (3.5-5.1) 02/15/18 04:49 Chloride 105 meq/L (98-107) 02/15/18 04:49 Carbon Dioxide 36.0 meq/L (21.0-32.0) H 02/15/18 04:49 Anion Gap 4 meq/L (5-15) L 02/15/18 04:49 BUN 14 mg/dL (7-18) 02/15/18 04:49 Creatinine 0.50 mg/dL (0.60-1.30) L 02/15/18 04:49 Estimated GFR Greater than 89 mL/min (>89) 02/15/18 04:49 POC Glucose 94 mg/dl (68-110) 02/13/18 11:22 Random Glucose 114 mg/dL (74-106) H 02/15/18 04:49 Hemoglobin A1c 5.3 % (4.3-6.0) 02/11/18 03:51 Lactic Acid 1.3 mmol/L (0.4-2.0) 02/10/18 22:40 Calcium 8.4 mg/dL (8.5-10.1) L 02/15/18 04:49 Phosphorus 0.9 mg/dL (2.5-4.9) L 02/15/18 04:49 Magnesium 1.9 mg/dL (1.5-2.5) 02/15/18 04:49 Total Bilirubin 0.4 mg/dL (0.2-1.0) 02/14/18 08:23 AST 152 U/L (15-37) H 02/14/18 08:23 ALT 256 U/L (12-78) H 02/14/18 08:23 Alkaline Phosphatase 76 U/L (45-117) 02/14/18 08:23 Ammonia 17 mcmol/L (11-32) 02/15/18 03:49 Total Creatine Kinase 111 U/L (39-308) 02/10/18 18:15 Troponin I 0.09 ng/mL (0.02-0.05) H 02/14/18 08:23 B-Natriuretic Peptide 1035 pg/mL (0-100) H 02/10/18 18:15 Total Protein 7.2 g/dL (6.4-8.2) D 02/14/18 08:23 Albumin 2.2 g/dL (3.4-5.0) L 02/14/18 08:23 Triglycerides 85 mg/dL (42-150) 02/12/18 03:30 Cholesterol 67 mg/dL (120-200) L 02/12/18 03:30 LDL Cholesterol, Calc 31 mg/dL (0-99) 02/12/18 03:30 HDL Cholesterol 19.4 mg/dL (40.0-60.0) L 02/12/18 03:30 Cholesterol/HDL Ratio 3.45 Ratio 02/12/18 03:30 Vitamin B12 917 pg/mL (193-986) 02/11/18 14:22 TSH 2.100 uIU/mL (0.358-3.740) 02/10/18 18:15 Urine Color [place] (Yellw/Straw) 02/10/18 20:39 Urine Clarity Cloudy (Clear) H 02/10/18 20:39 Urine pH 5.0 (5.0-8.5) 02/10/18 20:39 Ur Specific [place] 1.018 (1.002-1.035) 02/10/18 20:39 Urine Protein 500 or greater mg/dL (Neg-Trace) 02/10/18 20:39 Urine Glucose (UA) Negative mg/dL (Negative) 02/10/18 20:39 Urine Ketones Negative mg/dL (Negative) 02/10/18 20:39 Urine Occult Blood Negative (Negative) 02/10/18 20:39 Urine Nitrate Negative (Negative) 02/10/18 20:39 Urine Bilirubin Negative (Negative) 02/10/18 20:39 Urine Ictotest Negative (Negative) 02/10/18 20:39 Urine Urobilinogen 1.0 mg/dL (Less than 2) 02/10/18 20:39 Ur Leukocyte Esterase Negative (Negative) 02/10/18 20:39 Urine RBC 2 /hpf (0-3) 02/10/18 20:39 Urine WBC 8 /hpf (0-5) H 02/10/18 20:39 Amorphous Sediment Moderate /hpf (None) H 02/10/18 20:39 Urine Bacteria Few /hpf (None) H 02/10/18 20:39 Hyaline Casts Innum /lpf (0-3) 02/10/18 20:39 Urine Mucus Moderate /lpf (Occasional) H 02/10/18 20:39 Micro UA Comment Culture not ind 02/10/18 20:39 Ur Microscopic Review Not Reportable 02/10/18 20:39 Urine Culture Comments Culture not ind 02/10/18 20:39 Pleural pH 8.0 02/13/18 13:25 Pleural RBC 115 /mm3 (0-0) H 02/13/18 13:25 Pleural Nuc Cells 655 /mm3 (0-10) H 02/13/18 13:25 Pleural Neutrophils 79 % 02/13/18 13:25 Pleural Lymphocytes 6 % 02/13/18 13:25 Pleural Monocytes 11 % 02/13/18 13:25 Pleural Plasma Cells 1 % 02/13/18 13:25 Pleural Mesothelial 2 % 02/13/18 13:25 Pleural Other Cells 1 % 02/13/18 13:25 Pleural Total Protein 1.8 gm/dL 02/13/18 13:25 Pleural LDH 65 U/L 02/13/18 13:25 Pleural Glucose 100 mg/dL 02/13/18 13:25 Pleural Amylase 13 U/L 02/13/18 13:25 Nasal Screen MRSA (PCR) Not detected (Negative) 02/11/18 02:30 Vancomycin Trough 14.5 mcg/mL (5.0-10.0) H 02/14/18 16:30 Urine Opiates Screen Neg (Neg) 02/10/18 20:39 Ur Barbiturates Screen Neg (Neg) 02/10/18 20:39 Ur Amphetamines Screen Neg (Neg) 02/10/18 20:39 U Benzodiazepines Scrn Neg (Neg) 02/10/18 20:39 Urine Cocaine Screen Neg (Neg) 02/10/18 20:39 U Cannabinoids Screen Neg (Neg) 02/10/18 20:39 Serum Alcohol Less than 3 mg/dL (0-5) 02/10/18 18:15 JOSE Screen Neg (Neg) 02/11/18 14:22 Hepatitis A IgM Ab Nonreactive (Nonreactive) 02/10/18 22:40 Hep Bs Antigen Nonreactive (Nonreactive) 02/10/18 22:40 Hep B Core IgM Ab Nonreactive (Nonreactive) 02/10/18 22:40 Hep C IgG Ab Nonreactive (Nonreactive) 02/10/18 22:[address] 02/10/18 18:03 CONCLUSION: 1. Probable evolving infarct in the left occipital lobe extending into the medial left temporal lobe without hemorrhage or significant mass effect. 2. Chronic white matter ischemic changes. . Abdomen Ultrasound 02/11/18 00:00 CONCLUSION: 1. Small liver with trace ascites. 2. Small cyst lower pole right kidney. Head MRA 02/11/18 00:00 CONCLUSION: 1. Occlusion of the left posterior cerebral artery at its origin with acute ischemia left occipital region.. Neck MRA 02/11/18 00:00 CONCLUSION: 1. Negative MRA Carotids. Percent stenosis is calculated using the diameter of the stenotic region over the diameter of the normal distal internal carotid artery Head MRI 02/11/18 10:28 CONCLUSION: 1. Acute infarction involving the left posterior thalamus and occipital lobe without hemorrhage or mass effect. Chest X-Ray 02/14/18 06:00 CONCLUSION: No significant change. The findings remain most characteristic of pulmonary edema. Objective Remarks: GENERAL: Well-nourished, well-developed patient who is lying in bed in four- point restraints, awake and confused SKIN: Warm and dry. There are excoriations around his bilateral ankles. There are petechiae around the ankles at the site of the excoriations and there is a clear line of delineation where they abruptly stop at what appears to be a sock or shoe line. No petechiae of palms or soles. No splinter hemorrhages. HEAD: Atraumatic. Normocephalic. EYES: Pupils equal and round, pinpoint bilaterally no scleral icterus. No injection or drainage. ENT: No nasal bleeding or discharge. Mucous membranes pink and moist. Facemask NECK: Trachea midline. +JVD. No meningismus CARDIOVASCULAR: Regular rate and rhythm. No murmurs rubs or gallops. RESPIRATORY: Bibasilar rales with rhonchorous breath sounds bilaterally. Minimal expiratory wheezing GASTROINTESTINAL: Abdomen soft, non-tender, nondistended. Bowel sounds present. MUSCULOSKELETAL: Extremities without clubbing, cyanosis, or edema. Scar overlying left shoulder. NEUROLOGICAL: GCS 14. RASS 0. Moving purposefully x 4 extremitie. Follows commands intermittently Procedures: 1/ Thoracentesis Assessment and Plan - Problem List (1) Stroke Code(s): I63.9 - Cerebral infarction, unspecified Status: Acute (2) Encephalopathy acute Code(s): G93.40 - Encephalopathy, unspecified Status: Acute (3) Septic shock Code(s): A41.9 - Sepsis, unspecified organism; R65.21 - Severe sepsis with septic shock Status: Acute (4) Respiratory failure Code(s): J96.90 - Respiratory failure, unspecified, unspecified whether with hypoxia or hypercapnia Status: Acute (5) Aspiration pneumonia Code(s): J69.0 - Pneumonitis due to inhalation of food and vomit Status: Acute (6) KIMBERLY (acute kidney injury) Code(s): N17.9 - Acute kidney failure, unspecified Status: Acute (7) Tobacco abuse Code(s): Z72.0 - Tobacco use Status: Chronic (8) Anemia Code(s): D64.9 - Anemia, unspecified Status: Chronic (9) Lactic acidemia Code(s): E87.2 - Acidosis Status: Acute (10) Transaminasemia Code(s): R74.0 - Nonspecific elevation of levels of transaminase and lactic acid dehydrogenase [LDH] Status: Acute (11) Hyperglycemia Code(s): R73.9 - Hyperglycemia, unspecified Status: Acute - Assessment and Plan Plan: NEURO: Subacute ischemic stroke Acute encephalopathy EtOH abuse per prior record CT brain 1/1evolving infarct left occipital lobe and medial left temporal lobe. No hemorrhage. MRI brain -Acute infarction involving the left posterior thalamus and occipital lobe without hemorrhage or mass effect. MRA head Left PHARM SPEC occlusion Not candidate for TPA due to unknown time of onset, probably subacute. Aspirin [address] Santillan following Ammonia level normal. Thiamine/multivitamin/folic acid Seizure precautions. Monitor for signs of alcohol withdrawal Add Librium 10 mg TID 2D echo inadequate study, may need CHARLIE when clinically stable- Four-point restraints placed for patient safety RESP: Acute hypercapnic respiratory failure Haemophilus influenza pneumonia right pleural effusion Tobacco abuse Intubated 02/10 for airway protection Self extubated today 02/12/2017 while on CPAP trial Currently requiring facemask DuoNeb every 6 hours. Albuterol every 2 hours as needed Broad-spectrum antibiotics for pneumonia 02/13 S/P right thoracentesis-650 cc removed Initiate chest physiotherapy 02/14 chest x-ray pulmonary edema-Lasix ordered twice daily CV: Lactic acidemia Elevated troponin/demand ischemia Hypertension Received 3 L normal saline bolus per ED. Appears significantly volume loaded and has JVD. Levophed as needed to maintain mean pressure greater than 65 Receiving aspirin 2D echo limited study normal-appearing ejection fraction Need CHARLIE when clinically stable appreciate cardiology consult EKG sinus rhythm with nonspecific ST changes in inferior leads. Trend lactic acid until clear Hydralazine 20 mg every 4 hours as needed for systolic blood pressure greater than 160 GI: Transaminase elevated Follow-up liver ultrasound Viral hepatitis panel FEN/RENAL: Acute kidney injury Follow-up renal ultrasound. Ornelas removed 02-28 Monitor intake and output hourly. Monitor electrolytes and replace as indicated. ID: Septic shock-resolving GPC/Streptococcus bacteremia Leukocytosis Aspiration pneumonia/Haemophilus influenza Penicillin allergyhives. Received ceftriaxone in the ED without issue. Chest x-ray with right lower lobe infiltrate. Blood cultures GPC/Streptococcus in 4 out of 4 bottles. Influenza negative. Follow-up sputum culture-Haemophilus influenzae Urine Legionella pneumococcal antigen- negative Received ceftriaxone and azithromycin in the emergency department. Continue ceftriaxone and Flagyl Vancomycin started 02/11/18 HEME: Anemia Monitor CBC ENDO: Mild hyperglycemia HgbA1C 5.3 TSH normal PROPH: SCDs for DVT prophylaxis. Protonix 40 mg IV daily for stress ulcer prophylaxis ACCESS: Left IJ central venous line placed 02/10 FULL CODE Patient is critically ill has sustained embolic stroke to the left posterior cerebral artery territory. He has pneumonia and sepsis. Plan forTEE to rule out cardioembolic source of emboli and rule out vegetation. He is acute at risk of respiratory and neurological decompensation. Continue ICU care This patient remains critically ill with one or more organ systems which are or may become a threat to life. I have spent in excess of 35 minutes discontinuously in the care and management of this patient. This time is exclusive of procedures, and includes, but is not limited to, evaluation of the patient, review of the medical record, discussions with family, consultants, nursing staff, or respiratory therapy, and documentation in the medical record. Code Status: Full Discussed Condition With: Discussed with [employer] at bedside, and cousin at bedside (4) Respiratory failure Qualifiers: Chronicity: acute Respiratory failure complication: hypercapnia Qualified Code(s): J96.02 - Acute respiratory failure with hypercapnia
[2018-02-15] MEDS: dilTIAZem CD 120 MG Capsule PO SCH (16:29)
[2018-02-15] MEDS ORDERED: Labetalol HCl Inj 100 MG/20 ML Vial ONE (18:16)
[2018-02-15] MEDS: Labetalol HCl Inj 100 MG/20 ML Vial IV.PUSH PRN (18:57)
[2018-02-16] MEDS: Labetalol HCl Inj 100 MG/20 ML Vial IV.PUSH PRN ×3 (01:49→16:46)
[2018-02-16] MEDS: Oral Hygiene Kit OROPHARYNG SCH ×4 (04:57→23:40)
[2018-02-16] MEDS: Vancomycin Inj 1,500 MG in Sodium Chlor 0.9% Inj 500 ML IV.SIG SCH (05:04)
[2018-02-16 06:45] LABS: Baso % (Auto) 0.4 % (0.0-2.0); Eos % (Auto) 0.2 % (0.0-4.0); Hematocrit 38.3 % (39.0-51.0); Hemoglobin 11.8 gm/dL (13.0-17.0); Lymph # (Auto) 0.6 th/mm3 (1.0-4.8); Lymph % (Auto) 6.3 % (9.0-44.0); Mean Corpuscular Hemoglobin 27.2 pg (27.0-34.0); Mean Corpuscular Volume 88.4 fL (80.0-100.0); Mean Platelet Volume 8.8 fL (7.0-11.0); Mono # (Auto) 0.9 th/mm3 (0.0-0.9); Mono % (Auto) 9.6 % (0.0-8.0); Neut # (Auto) 8.2 th/mm3 (1.8-7.7); Neut % (Auto) 83.5 % (16.0-70.0); Platelet Count 193 th/mm3 (150-450); Red Blood Count 4.33 mil/mm3 (4.50-5.90); Red Cell Distribution Width 16.8 % (11.6-17.2); White Blood Count 9.8 th/mm3 (4.0-11.0)
[2018-02-16 06:53] LABS: Mean Corpuscular HGB Conc 30.8 % (32.0-36.0)
[2018-02-16 07:08] LABS: Anion Gap 1 meq/L (5-15); Blood Urea Nitrogen 13 mg/dL (7-18); Calcium 8.2 mg/dL (8.5-10.1); Carbon Dioxide 44.7 meq/L (21.0-32.0); Chloride 104 meq/L (98-107); Glomerular Filtration Rate Greater Than 89 mL/min (>89); Glucose,Random 94 mg/dL (74-106); Magnesium 1.8 mg/dL (1.5-2.5); Phosphorus 3.4 mg/dL (2.5-4.9); Potassium 3.9 meq/L (3.5-5.1); Sodium 150 meq/L (136-145)
--- NOTE | 2018-02-16 08:37 | P.PNCA ---
Subjective Interval history: RN at bedside. Patient has been oriented x1 and is in four-point restraints due to intermittent agitation. The patient awakens and responds to voice, however mumbles/moans, no coherent history obtained at this time. No A. fib noted on telemetry review. Medications and Allergies Allergies Allergy/AdvReac Type Severity Reaction Status Date / Time penicillin G Allergy Severe RASH Unverified 09/24/16 19:44 Home Medications Medication Instructions Recorded Confirmed Type Unable to Obtain Home Meds 02/10/18 02/10/18 History Active Medications: Active Medications Acetaminophen (Tylenol) 650 mg PO Q6H PRN PRN Reason: PAIN 1-10 AND/OR FEVER >101F Hydrocodone Bitart/Acetaminophen ([place] 5/325) 1 tab PO Q4H PRN PRN Reason: PAIN SCALE 1 TO 5 Last Admin: 02/15/18 20:33 Dose: 1 tab Al Hydroxide/Mg Hydroxide (Milk Of Magnvalencia Liq) 30 ml PO Q12H PRN PRN Reason: Mild Constipation Albuterol (Albuterol Neb (Prn)) 2.5 mg NEB Q2HR NEB PRN PRN Reason: SHORTNESS OF BREATH/WHEEZING Albuterol (Duoneb Neb (Russell)) 1 ampul NEB Q4HR NEB [facility] Last Admin: 02/16/18 07:35 Dose: 1 ampul Aspirin (Aspirin Chew) 162 mg PO DAILY [facility] Last Admin: 02/15/18 08:51 Dose: 162 mg Bisacodyl (Dulcolax Supp) 10 mg RECTAL DAILY PRN PRN Reason: SEVERE CONSITIPATION Chlordiazepoxide (Librium) 10 mg PO Q8H [facility] Last Admin: 02/16/18 01:48 Dose: 10 mg Chlorhexidine Gluconate (Peridex 0.12% Oral Kit) 15 ml OROPHARYNG BID@0800, 2000 [facility] Last Admin: 02/15/18 19:52 Dose: Not Given Diltiazem HCl (Cardizem Cd 24hr) 120 mg PO DAILY [facility] Last Admin: 02/15/18 16:29 Dose: 120 mg Flumazenil (Romazicon Inj) 0.2 mg IV.PUSH Q1M PRN PRN Reason: OVERSEDATION Folic Acid (Folic Acid) 1 mg NG/OG DAILY [facility] Last Admin: 02/15/18 08:51 Dose: 1 mg Furosemide (Lasix Inj) 40 mg IV.PUSH BID@0900,1800 [facility] Last Admin: 02/15/18 17:04 Dose: 40 mg Heparin Sodium (Porcine) (Heparin Inj) 5,000 units SQ Q12H [facility] Last Admin: 02/15/18 23:30 Dose: 5,000 units Hydralazine HCl (Apresoline Inj) 20 mg IV.PUSH Q4H PRN PRN Reason: HYPERTENSION Thiamine HCl 100 mg/ Sodium (Chloride) 101 mls @ 100 mls/hr IV.SIG DAILY [facility] Last Infusion: 02/15/18 11:20 Dose: Infused Ceftriaxone Sodium 1,000 mg/ (Sodium Chloride) 100 mls @ 200 mls/hr IV.SIG Q12H [facility] Last Infusion: 02/15/18 23:32 Dose: Infused Metronidazole/Sodium Chloride (Flagyl 500 Mg Inj) 100 mls @ 100 mls/hr IV.SIG Q8H [facility] Last Infusion: 02/16/18 07:24 Dose: Infused Vancomycin HCl 1,500 mg/ (Sodium Chloride) 515 mls @ 250 mls/hr IV.SIG Q18H [facility] Last Infusion: 02/16/18 07:25 Dose: Infused Magnesium Sulfate 2 gm/ Sodium (Chloride) 100 mls @ 50 mls/hr IV.SIG UNSCH PRN PRN Reason: For Magnesium 1.2 - 1.6 mg/dL Potassium Chloride (Kcl 40 Meq Premix Inj) 40 meq in 100 mls @ 25 mls/hr IV.SIG Q2H PRN PRN Reason: For Potassium 2.8 - 3.2 mEq/L Potassium Chloride (Kcl 20 Meq Premix Inj) 20 meq in 100 mls @ 50 mls/hr IV.SIG Q2H PRN PRN Reason: For Potassium 3.3 - 3.5 mEq/L Potassium Chloride (Kcl 40 Meq Premix Inj) 40 meq in 100 mls @ 25 mls/hr IV.SIG UNSCH PRN PRN Reason: For Potassium 3.3 - 3.5 mEq/L Potassium Phosphate 30 mmol/ (Sodium Chloride) 260 mls @ 42 mls/hr IV.SIG UNSCH PRN PRN Reason: SEE LABEL COMMENTS Magnesium Sulfate 4 gm/ Sodium (Chloride) 100 mls @ 50 mls/hr IV.SIG UNSCH PRN PRN Reason: For Magnesium 0.9 - 1.1 mg/dL Potassium Chloride (Kcl 20 Meq Premix Inj) 20 meq in 100 mls @ 50 mls/hr IV.SIG Q2H PRN PRN Reason: For Potassium 2.8 - 3.2 mEq/L Sodium Glycerophosphate 30 (mmol/ Sodium Chloride) 260 mls @ 42 mls/hr IV.SIG UNSCH PRN PRN Reason: For Phosphorus < 2.5 mg/dL Last Infusion: 02/15/18 23:32 Dose: Infused Labetalol HCl (Trandate Inj) 10 mg IV.PUSH Q6H PRN PRN Reason: SYS BP GREATER THAN OR = 160 Last Admin: 02/16/18 01:49 Dose: 10 mg Lactulose (Lactulose Liq) 30 ml PO DAILY PRN PRN Reason: SEVERE CONSITIPATION Magnesium Oxide (Mag-Ox) 800 mg PO UNSCH PRN PRN Reason: For Magnesium 1.2 - 1.6 mg/dL Miscellaneous Information ([facility] Ordered Lab Info) 1 each OTHER ONCE ONE Stop: 02/16/18 23:46 Miscellaneous Medication () 1 each OROPHARYNG 0000,0400,1200,1600 [facility] Last Admin: 02/16/18 04:57 Dose: Not Given Multivitamins (Theragran) 1 tab NG/OG DAILY [facility] Last Admin: 02/15/18 08:52 Dose: 1 tab Ondansetron HCl (Zofran Inj) 4 mg IV.PUSH Q6H PRN PRN Reason: NAUSEA OR VOMITING Pantoprazole Sodium (Protonix Inj) 40 mg IV.PUSH DAILY [facility] Last Admin: 02/15/18 08:51 Dose: 40 mg Pharmacy Profile Note (Vancomycin Consult Pharmacy) 1 each OTHER UNSCH PRN PRN Reason: Pharmacy to dose Potassium Bicarb/Potassium Chloride (K-Lyte Cl Eff) 50 meq PO UNSCH PRN PRN Reason: For Potassium 3.3 - 3.5 mEq/L Potassium Phosphate (K-Phos Original) 2,000 mg PO Q4H PRN PRN Reason: Phosphorus Less Than 2.5 mg/dL Potassium Phosphate (K-Phos Original) 2,000 mg PO UNSCH PRN PRN Reason: SEE LABEL COMMENTS Senna/Docusate Sodium (Charissa-Colace) 1 tab PO BID [facility] Last Admin: 02/15/18 20:35 Dose: 1 tab Sennosides (Senokot) 17.2 mg PO Q12H PRN PRN Reason: Moderate Constipation Sodium Chloride (Ns Flush) 2 ml IV.FLUSH PRN PRN PRN Reason: FLUSH AFTER USING IV ACCESS Last Admin: 02/15/18 08:51 Dose: 2 ml Sodium Chloride (Ns Flush) 2 ml IV.FLUSH BID [facility] Last Admin: 02/15/18 20:35 Dose: 2 ml Physical Exam Vital signs: Vital Signs 02/15/18 09:00 02/15/18 10:00 02/15/18 10:03 Temperature Pulse Rate 75 80 79 Respiratory Rate 38 H 36 H 35 H Blood Pressure 166/72 H 195/82 H 162/63 H Pulse Oximetry 96 96 96 02/15/18 11:00 02/15/18 11:20 02/15/18 11:28 Temperature Pulse Rate 77 79 78 Respiratory Rate 36 H 20 20 Blood Pressure 179/77 H 158/75 H Pulse Oximetry 98 95 02/15/18 12:00 02/15/18 12:02 02/15/18 12:30 Temperature 97.8 F Pulse Rate 84 83 80 Respiratory Rate 31 H 35 H 26 H Blood Pressure 177/79 H 163/76 H Pulse Oximetry 96 97 97 02/15/18 13:00 02/15/18 14:00 02/15/18 14:56 Temperature Pulse Rate 80 79 80 Respiratory Rate 25 H 34 H 20 Blood Pressure 176/77 H 154/74 H Pulse Oximetry 94 L 98 02/15/18 15:00 02/15/18 16:00 02/15/18 16:14 Temperature 97.8 F Pulse Rate 84 92 H 96 H Respiratory Rate 33 H 29 H 30 H Blood Pressure 172/82 H 180/80 H 194/81 H Pulse Oximetry 90 L 99 95 02/15/18 16:17 02/15/18 17:00 02/15/18 18:00 Temperature Pulse Rate 98 H 97 H 106 H Respiratory Rate 33 H 37 H 35 H Blood Pressure 175/85 H 190/83 H 196/95 H Pulse Oximetry 100 100 96 02/15/18 18:07 02/15/18 18:21 02/15/18 18:36 Temperature Pulse Rate 106 H 84 81 Respiratory Rate 32 H 34 H 37 H Blood Pressure 191/102 H 156/74 H 157/85 H Pulse Oximetry 84 L 97 97 02/15/18 19:00 02/15/18 19:01 02/15/18 19:20 Temperature Pulse Rate 85 87 86 Respiratory Rate 40 H 41 H 39 H Blood Pressure 219/91 H 194/88 H Pulse Oximetry 98 98 98 02/15/18 19:39 02/15/18 19:42 02/15/18 19:55 Temperature Pulse Rate 88 84 91 H Respiratory Rate 33 H 34 H 24 Blood Pressure 187/130 H 181/79 H Pulse Oximetry 96 97 98 02/15/18 20:00 02/15/18 21:00 02/15/18 22:00 Temperature 98.4 F Pulse Rate 90 89 81 Respiratory Rate 38 H 31 H 25 H Blood Pressure 173/82 H 168/75 H 144/65 H Pulse Oximetry 96 95 96 02/15/18 23:00 02/16/18 00:00 02/16/18 00:12 Temperature Pulse Rate 79 78 76 Respiratory Rate 25 H 23 24 Blood Pressure 144/65 H 150/68 H Pulse Oximetry 96 95 02/16/18 01:00 02/16/18 02:00 02/16/18 02:01 Temperature Pulse Rate 78 67 67 Respiratory Rate 22 21 22 Blood Pressure 164/68 H 117/56 L Pulse Oximetry 96 97 98 02/16/18 03:00 02/16/18 04:00 02/16/18 04:29 Temperature 98.1 F Pulse Rate 68 71 74 Respiratory Rate 21 22 20 Blood Pressure 139/64 158/71 H Pulse Oximetry 97 97 02/16/18 05:00 02/16/18 06:00 02/16/18 06:05 Temperature Pulse Rate 74 73 75 Respiratory Rate 21 34 H 21 Blood Pressure 153/70 H 160/72 H Pulse Oximetry 96 87 L 83 L 02/16/18 07:35 Temperature Pulse Rate 73 Respiratory Rate 18 Blood Pressure Pulse Oximetry 97 Intake & Output 02/15/18 02/16/18 02/16/18 18:59 06:59 18:59 Intake Total 1551.5 / 1551.5 580 / 580 615 / 615 Output Total 650 / 650 1400 / 1400 Balance 901.5 / 901.5 -820 / -820 615 / 615 Weight 156 lb 4.924 oz Intake: IV 1551.5 / 1551.5 460 / 460 615 / 615 Cardizem Inj 125 MG In NS Inj 20.5 / 20.5 100 ML @ 5 MG/HR 5 mls/hr IV. CONT TITRATE PRN Rx#:[id number] Glycophos Inj 30 MMOL In NS Inj 260 / 260 230 ML @ 42 mls/hr IV.SIG UNSCH PRN Rx#:[id number] Thiamine Inj 100 MG In NS Inj 101 / 101 100 ML @ 100 mls/hr IV.SIG DAILY [facility] Rx#:[id number] Vancomycin Inj 1,500 MG In NS 1030 / 1030 515 / 515 Inj 500 ML @ 250 mls/hr IV.SIG Q18H [facility] Rx#:[id number] Rocephin Inj 1,000 MG In NS Inj 200 / 200 100 / 100 100 ML @ 200 mls/hr IV.SIG Q12H [facility] Rx#:[id number] Flagyl 500 MG Inj 100 ML @ 100 200 / 200 100 / 100 100 / 100 mls/hr IV.SIG Q8H [facility] Rx#: [id number] Oral 120 / 120 Output: Urine 1400 / 1400 Urine Amount (Catheter) 650 / 650 Condom 650 / 650 Other: # Incontinent Voids 2 Date of Last Bowel Movement 02/13/18 # Bowel Movements 0 Narrative: GENERAL: Well-developed well-nourished. Appears in no acute distress on simple mask. NECK: No carotid bruits. No JVD. CARDIOVASCULAR: Regular rate and rhythm. No murmur appreciated. RESPIRATORY: No accessory muscle use. Right base wheezing. MUSCULOSKELETAL: No clubbing or cyanosis. No edema. - Urinary Catheter Management Condom Cath placed during this visit: yes Reason for continuing: Hourly intake/output Insertion date: 02/10/18 Insertion time: 20:20 Indwelling Urethral Catheter Cath placed during this visit: yes, but has since been removed by the nurse Reason for continuing: Decision to DC catheter Insertion date: 02/10/18 Insertion time: 23:00 Removal date: 02/11/18 Removal time: 17:00 Results 02/16/18 04:19 02/16/18 04:19 Cardiac Enzymes 02/14/18 Range/Units 08:23 AST 152 H (15-37) U/L Troponin I 0.09 H (0.02-0.05) ng/mL CBC 02/14/18 02/15/18 02/16/18 Range/Units 08:28 04:49 04:19 WBC 9.3 9.4 9.8 (4.0-11.0) th/mm3 RBC 4.43 L 4.19 L 4.33 L (4.50-5.90) mil/mm3 Hgb 12.0 L 11.4 L 11.8 L (13.0-17.0) gm/dL Hct 39.2 36.7 L 38.3 L (39.0-51.0) % Plt Count 237 205 193 (150-450) th/mm3 Neut # (Auto) 7.8 H 8.2 H (1.8-7.7) th/mm3 Lymph # (Auto) 0.6 L 0.6 L (1.0-4.8) th/mm3 Harvey # (Auto) 1.0 H 0.9 (0.0-0.9) th/mm3 Eos # (Auto) 0.0 0.0 (0.0-0.4) th/mm3 Baso # (Auto) 0.0 0.0 (0.0-0.2) th/mm3 Comprehensive Metabolic Panel 02/14/18 02/15/18 02/16/18 Range/Units 08:23 04:49 04:19 Sodium 145 145 150 H (136-145) meq/L Potassium 4.3 D 3.9 3.9 (3.5-5.1) meq/L Chloride 105 105 104 (98-107) meq/L Carbon Dioxide 38.0 H 36.0 H 44.7 H (21.0-32.0) meq/L BUN 14 14 13 (7-18) mg/dL Creatinine 0.57 L 0.50 L 0.62 (0.60-1.30) mg/dL Calcium 8.6 8.4 L 8.2 L (8.5-10.1) mg/dL AST 152 H (15-37) U/L ALT 256 H (12-78) U/L Alkaline Phosphatase 76 (45-117) U/L Total Protein 7.2 D (6.4-8.2) g/dL Albumin 2.2 L (3.4-5.0) g/dL Intake and Output 02/15/18 02/16/18 02/16/18 22:59 06:59 14:59 Intake Total 120.5 / 120.5 480 / 480 615 / 615 Output Total 650 / 650 1400 / 1400 Balance -529.5 / -529.5 -920 / -920 615 / 615 Intake: IV 120.5 / 120.5 360 / 360 615 / 615 Cardizem Inj 125 MG In NS Inj 20.5 / 20.5 100 ML @ 5 MG/HR 5 mls/hr IV. CONT TITRATE PRN Rx#:[id number] Glycophos Inj 30 MMOL In NS Inj 260 / 260 230 ML @ 42 mls/hr IV.SIG UNSCH PRN Rx#:[id number] Vancomycin Inj 1,500 MG In NS 515 / 515 Inj 500 ML @ 250 mls/hr IV.SIG Q18H [facility] Rx#:[id number] Rocephin Inj 1,000 MG In NS Inj 100 / 100 100 ML @ 200 mls/hr IV.SIG Q12H [facility] Rx#:[id number] Flagyl 500 MG Inj 100 ML @ 100 100 / 100 100 / 100 mls/hr IV.SIG Q8H [facility] Rx#: [id number] Oral 120 / 120 Output: Urine 1400 / 1400 Urine Amount (Catheter) 650 / 650 Condom 650 / 650 Other: # Incontinent Voids 2 Date of Last Bowel Movement 02/13/18 # Bowel Movements 0 Weight 156 lb 4.924 oz Assessment and Plan - Plan Assessment: Mild troponin elevation consistent with demand ischemia in the setting of the following problems. Doubt ACS. 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 Lipid profile is acceptable. Given stroke superior embolic in etiology, would recommend CHARLIE. Please obtain consent. Patient is currently unstable from a respiratory standpoint for sedation for the procedure therefore will hold off until more stable. ID consultation to guide antibiosis Respiratory per primary team Discussed Condition With: Patient with RN at bedside, Dr. Minor - Attending Attestation Trans-esophageal echocardiogram when clinically more stable
[2018-02-16 09:01] LABS: Lymphocytes 5 % (9-44); Metamyelocytes 4 % (0-1); Monocytes 2 % (0-8); Myelocytes 1 % (0-0)
[2018-02-16 09:02] LABS: Platelet Estimate Normal (Normal); Platelet Morphology Normal (Normal)
[2018-02-16] MEDS: Senna/Docusate Sodium 8.6/50 MG Tablet PO SCH ×2 (09:09→21:52)
[2018-02-16] MEDS: dilTIAZem CD 120 MG Capsule PO SCH (09:09)
[2018-02-16] MEDS: Folic Acid 1 MG Tablet NG/OG SCH (09:09)
[2018-02-16] MEDS: Thiamine Inj 100 MG in Sodium Chlor 0.9% Inj 100 ML IV.SIG SCH (09:10)
[2018-02-16] MEDS: Pantoprazole Inj 40 MG Vial IV.PUSH SCH (09:10)
[2018-02-16] MEDS: Chlorhexidine 0.12% Oral Kit 15 ML UDC OROPHARYNG SCH ×2 (09:11→21:09)
--- NOTE | 2018-02-16 09:38 | P.PNNEU ---
Subjective Active Medications: Active Medications Acetaminophen (Tylenol) 650 mg PO Q6H PRN PRN Reason: PAIN 1-10 AND/OR FEVER >101F Hydrocodone Bitart/Acetaminophen ([place] 5/325) 1 tab PO Q4H PRN PRN Reason: PAIN SCALE 1 TO 5 Last Admin: 02/15/18 20:33 Dose: 1 tab Al Hydroxide/Mg Hydroxide (Milk Of Magnesia Liq) 30 ml PO Q12H PRN PRN Reason: Mild Constipation Albuterol (Albuterol Neb (Prn)) 2.5 mg NEB Q2HR NEB PRN PRN Reason: SHORTNESS OF BREATH/WHEEZING Albuterol (Duoneb Neb ([facility])) 1 ampul NEB Q4HR NEB [facility] Last Admin: 02/16/18 07:35 Dose: 1 ampul Aspirin (Aspirin Chew) 162 mg PO DAILY [facility] Last Admin: 02/16/18 09:09 Dose: 162 mg Bisacodyl (Dulcolax Supp) 10 mg RECTAL DAILY PRN PRN Reason: SEVERE CONSITIPATION Chlordiazepoxide (Librium) 10 mg PO Q8H [facility] Last Admin: 02/16/18 09:09 Dose: 10 mg Chlorhexidine Gluconate (Peridex 0.12% Oral Kit) 15 ml OROPHARYNG BID@0800, 2000 [facility] Last Admin: 02/16/18 09:11 Dose: Not Given Diltiazem HCl (Cardizem Cd 24hr) 120 mg PO DAILY [facility] Last Admin: 02/16/18 09:09 Dose: 120 mg Flumazenil (Romazicon Inj) 0.2 mg IV.PUSH Q1M PRN PRN Reason: OVERSEDATION Folic Acid (Folic Acid) 1 mg NG/OG DAILY [facility] Last Admin: 02/16/18 09:09 Dose: 1 mg Furosemide (Lasix Inj) 40 mg IV.PUSH BID@0900,1800 [facility] Last Admin: 02/16/18 09:10 Dose: 40 mg Heparin Sodium (Porcine) (Heparin Inj) 5,000 units SQ Q12H [facility] Last Admin: 02/15/18 23:30 Dose: 5,000 units Hydralazine HCl (Apresoline Inj) 20 mg IV.PUSH Q4H PRN PRN Reason: HYPERTENSION Thiamine HCl 100 mg/ Sodium (Chloride) 101 mls @ 100 mls/hr IV.SIG DAILY [facility] Last Admin: 02/16/18 09:10 Dose: 100 mls/hr Ceftriaxone Sodium 1,000 mg/ (Sodium Chloride) 100 mls @ 200 mls/hr IV.SIG Q12H [facility] Last Infusion: 02/15/18 23:32 Dose: Infused Metronidazole/Sodium Chloride (Flagyl 500 Mg Inj) 100 mls @ 100 mls/hr IV.SIG Q8H [facility] Last Infusion: 02/16/18 07:24 Dose: Infused Vancomycin HCl 1,500 mg/ (Sodium Chloride) 515 mls @ 250 mls/hr IV.SIG Q18H [facility] Last Infusion: 02/16/18 07:25 Dose: Infused Magnesium Sulfate 2 gm/ Sodium (Chloride) 100 mls @ 50 mls/hr IV.SIG UNSCH PRN PRN Reason: For Magnesium 1.2 - 1.6 mg/dL Potassium Chloride (Kcl 40 Meq Premix Inj) 40 meq in 100 mls @ 25 mls/hr IV.SIG Q2H PRN PRN Reason: For Potassium 2.8 - 3.2 mEq/L Potassium Chloride (Kcl 20 Meq Premix Inj) 20 meq in 100 mls @ 50 mls/hr IV.SIG Q2H PRN PRN Reason: For Potassium 3.3 - 3.5 mEq/L Potassium Chloride (Kcl 40 Meq Premix Inj) 40 meq in 100 mls @ 25 mls/hr IV.SIG UNSCH PRN PRN Reason: For Potassium 3.3 - 3.5 mEq/L Potassium Phosphate 30 mmol/ (Sodium Chloride) 260 mls @ 42 mls/hr IV.SIG UNSCH PRN PRN Reason: SEE LABEL COMMENTS Magnesium Sulfate 4 gm/ Sodium (Chloride) 100 mls @ 50 mls/hr IV.SIG UNSCH PRN PRN Reason: For Magnesium 0.9 - 1.1 mg/dL Potassium Chloride (Kcl 20 Meq Premix Inj) 20 meq in 100 mls @ 50 mls/hr IV.SIG Q2H PRN PRN Reason: For Potassium 2.8 - 3.2 mEq/L Sodium Glycerophosphate 30 (mmol/ Sodium Chloride) 260 mls @ 42 mls/hr IV.SIG UNSCH PRN PRN Reason: For Phosphorus < 2.5 mg/dL Last Infusion: 02/15/18 23:32 Dose: Infused Labetalol HCl (Trandate Inj) 10 mg IV.PUSH Q6H PRN PRN Reason: SYS BP GREATER THAN OR = 160 Last Admin: 02/16/18 01:49 Dose: 10 mg Lactulose (Lactulose Liq) 30 ml PO DAILY PRN PRN Reason: SEVERE CONSITIPATION Magnesium Oxide (Mag-Ox) 800 mg PO UNSCH PRN PRN Reason: For Magnesium 1.2 - 1.6 mg/dL Miscellaneous Information ([facility] Ordered Lab Info) 1 each OTHER ONCE ONE Stop: 02/16/18 23:46 Miscellaneous Medication () 1 each OROPHARYNG 0000,0400,1200,1600 [facility] Last Admin: 02/16/18 04:57 Dose: Not Given Multivitamins (Theragran) 1 tab NG/OG DAILY [facility] Last Admin: 02/16/18 09:09 Dose: 1 tab Ondansetron HCl (Zofran Inj) 4 mg IV.PUSH Q6H PRN PRN Reason: NAUSEA OR VOMITING Pantoprazole Sodium (Protonix Inj) 40 mg IV.PUSH DAILY [facility] Last Admin: 02/16/18 09:10 Dose: 40 mg Pharmacy Profile Note (Vancomycin Consult Pharmacy) 1 each OTHER UNSCH PRN PRN Reason: Pharmacy to dose Potassium Bicarb/Potassium Chloride (K-Lyte Cl Eff) 50 meq PO UNSCH PRN PRN Reason: For Potassium 3.3 - 3.5 mEq/L Potassium Phosphate (K-Phos Original) 2,000 mg PO Q4H PRN PRN Reason: Phosphorus Less Than 2.5 mg/dL Potassium Phosphate (K-Phos Original) 2,000 mg PO UNSCH PRN PRN Reason: SEE LABEL COMMENTS Senna/Docusate Sodium (Charissa-Colace) 1 tab PO BID [facility] Last Admin: 02/16/18 09:09 Dose: 1 tab Sennosides (Senokot) 17.2 mg PO Q12H PRN PRN Reason: Moderate Constipation Sodium Chloride (Ns Flush) 2 ml IV.FLUSH PRN PRN PRN Reason: FLUSH AFTER USING IV ACCESS Last Admin: 02/15/18 08:51 Dose: 2 ml Sodium Chloride (Ns Flush) 2 ml IV.FLUSH BID [facility] Last Admin: 02/16/18 09:11 Dose: 2 ml Allergies/Adverse Reactions: Allergies Allergy/AdvReac Type Severity Reaction Status Date / Time penicillin G Allergy Severe RASH Unverified 09/24/16 19:44 Physical Exam Vital signs: Vital Signs 02/15/18 10:00 02/15/18 10:03 02/15/18 11:00 Temperature Pulse Rate 80 79 77 Respiratory Rate 36 H 35 H 36 H Blood Pressure 195/82 H 162/63 H 179/77 H Pulse Oximetry 96 96 98 02/15/18 11:20 02/15/18 11:28 02/15/18 12:00 Temperature 97.8 F Pulse Rate 79 78 84 Respiratory Rate 20 20 31 H Blood Pressure 158/75 H Pulse Oximetry 95 96 02/15/18 12:02 02/15/18 12:30 02/15/18 13:00 Temperature Pulse Rate 83 80 80 Respiratory Rate 35 H 26 H 25 H Blood Pressure 177/79 H 163/76 H 176/77 H Pulse Oximetry 97 97 94 L 02/15/18 14:00 02/15/18 14:56 02/15/18 15:00 Temperature Pulse Rate 79 80 84 Respiratory Rate 34 H 20 33 H Blood Pressure 154/74 H 172/82 H Pulse Oximetry 98 90 L 02/15/18 16:00 02/15/18 16:14 02/15/18 16:17 Temperature 97.8 F Pulse Rate 92 H 96 H 98 H Respiratory Rate 29 H 30 H 33 H Blood Pressure 180/80 H 194/81 H 175/85 H Pulse Oximetry 99 95 100 02/15/18 17:00 02/15/18 18:00 02/15/18 18:07 Temperature Pulse Rate 97 H 106 H 106 H Respiratory Rate 37 H 35 H 32 H Blood Pressure 190/83 H 196/95 H 191/102 H Pulse Oximetry 100 96 84 L 02/15/18 18:21 02/15/18 18:36 02/15/18 19:00 Temperature Pulse Rate 84 81 85 Respiratory Rate 34 H 37 H 40 H Blood Pressure 156/74 H 157/85 H Pulse Oximetry 97 97 98 02/15/18 19:01 02/15/18 19:20 02/15/18 19:39 Temperature Pulse Rate 87 86 88 Respiratory Rate 41 H 39 H 33 H Blood Pressure 219/91 H 194/88 H 187/130 H Pulse Oximetry 98 98 96 02/15/18 19:42 02/15/18 19:55 02/15/18 20:00 Temperature 98.4 F Pulse Rate 84 91 H 90 Respiratory Rate 34 H 24 38 H Blood Pressure 181/79 H 173/82 H Pulse Oximetry 97 98 96 02/15/18 21:00 02/15/18 22:00 02/15/18 23:00 Temperature Pulse Rate 89 81 79 Respiratory Rate 31 H 25 H 25 H Blood Pressure 168/75 H 144/65 H 144/65 H Pulse Oximetry 95 96 96 02/16/18 00:00 02/16/18 00:12 02/16/18 01:00 Temperature Pulse Rate 78 76 78 Respiratory Rate 23 24 22 Blood Pressure 150/68 H 164/68 H Pulse Oximetry 95 96 02/16/18 02:00 02/16/18 02:01 02/16/18 03:00 Temperature Pulse Rate 67 67 68 Respiratory Rate 21 22 21 Blood Pressure 117/56 L 139/64 Pulse Oximetry 97 98 97 02/16/18 04:00 02/16/18 04:29 02/16/18 05:00 Temperature 98.1 F Pulse Rate 71 74 74 Respiratory Rate 22 20 21 Blood Pressure 158/71 H 153/70 H Pulse Oximetry 97 96 02/16/18 06:00 02/16/18 06:05 02/16/18 07:35 Temperature Pulse Rate 73 75 73 Respiratory Rate 34 H 21 18 Blood Pressure 160/72 H Pulse Oximetry 87 L 83 L 97 Intake & Output 02/15/18 02/16/18 02/16/18 18:59 06:59 18:59 Intake Total 1551.5 / 1551.5 580 / 580 615 / 615 Output Total 650 / 650 1400 / 1400 Balance 901.5 / 901.5 -820 / -820 615 / 615 Weight 70.9 kg Intake: IV 1551.5 / 1551.5 460 / 460 615 / 615 Cardizem Inj 125 MG In NS Inj 20.5 / 20.5 100 ML @ 5 MG/HR 5 mls/hr IV. CONT TITRATE PRN Rx#:[id number] Glycophos Inj 30 MMOL In NS Inj 260 / 260 230 ML @ 42 mls/hr IV.SIG UNSCH PRN Rx#:[id number] Thiamine Inj 100 MG In NS Inj 101 / 101 100 ML @ 100 mls/hr IV.SIG DAILY [facility] Rx#:[id number] Vancomycin Inj 1,500 MG In NS 1030 / 1030 515 / 515 Inj 500 ML @ 250 mls/hr IV.SIG Q18H [facility] Rx#:[id number] Rocephin Inj 1,000 MG In NS Inj 200 / 200 100 / 100 100 ML @ 200 mls/hr IV.SIG Q12H [facility] Rx#:[id number] Flagyl 500 MG Inj 100 ML @ 100 200 / 200 100 / 100 100 / 100 mls/hr IV.SIG Q8H [facility] Rx#: [id number] Oral 120 / 120 Output: Urine 1400 / 1400 Urine Amount (Catheter) 650 / 650 Condom 650 / 650 Other: # Incontinent Voids 2 Date of Last Bowel Movement 02/13/18 # Bowel Movements 0 Narrative: awake still dec vision to r moves all well moaning talks ok - Urinary Catheter Management Condom Cath placed during this visit: yes Reason for continuing: Hourly intake/output Insertion date: 02/10/18 Insertion time: 20:20 Indwelling Urethral Catheter Cath placed during this visit: yes, but has since been removed by the nurse Reason for continuing: Decision to DC catheter Insertion date: 02/10/18 Insertion time: 23:00 Removal date: 02/11/18 Removal time: 17:00 Objective Laboratory Results - last 24 hr 02/15/18 02/16/18 02/16/18 04:49 04:19 04:19 WBC 9.8 RBC 4.33 L Hgb 11.8 L Hct 38.3 L MCV 88.4 MCH 27.2 MCHC 30.8 L RDW 16.8 Plt Count 193 MPV 8.8 Prelim Diff (Auto) Slide review pending Neut % (Auto) 83.5 H Lymph % (Auto) 6.3 L Mccormick % (Auto) 9.6 H Eos % (Auto) 0.2 Baso % (Auto) 0.4 Neut # (Auto) 8.2 H Lymph # (Auto) 0.6 L Mccormick # (Auto) 0.9 Eos # (Auto) 0.0 Baso # (Auto) 0.0 WBC Differential Manual diff final Manual diff final Seg Neuts % (Manual) 88 H 78 H Band Neuts % (Manual) 1 10 H Lymphocytes % (Manual) 6 L 5 L Monocytes % (Manual) 2 2 Metamyelocytes % (Man) 4 H Myelocytes % (Man) 3 H 1 H Abs Neuts (Manual) 8.6 H 9.1 H Nucleated RBCs/100 WBC 1 H Differential Comment . 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 with minimal blood products one small acute r mca cva on mri mra neck and cow ok 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
--- NOTE | 2018-02-16 10:16 | P.PNCC ---
Subjective Subjective Remarks/Hospital Course: Patient is unable to provide history because he is intubated. Reviewed EMR. 67-year-old male with past medical history of alcohol abuse, tobacco abuse who presented to [facility] emergency department with altered mental status. Per report from [facility] he may have had syncope prior to their arrival. He ultimately was intubated for airway protection. CXR shows right lower lobe consolidation. White blood cell count is 12. Lactic acid is 5. Creatinine is 1.8. Most recent prior creatinine was 0.6 in 2008. He received 3 L normal saline bolus, azithromycin, Rocephin, neb in the emergency department. CT brain is pending. Transportation Maintenance Supervisor consulted for admission. SUBJ 02/11/18: Remains severely septic from 4 out of 4 bottles growing GPC. 2D echo ordered to rule out endocarditis. However mental status is improving following commands. MRI ordered by Dr. Santillan 02/12/18: Patient was intubated lightly sedated am. On sedation hold slight improvement of the neuro exam opens eyes intermittently follows simple commands with upper extremities. While undergoing CPAP trial patient self extubated initially was hypoxic and required 100% oxygen currently maintaining oxygen saturation on nonrebreather. 02/13/18: Patient self extubated yesterday a.m. while undergoing CPAP trial for planned extubation. Tolerating reasonably well. Chest x-ray shows increasing right-sided effusion. Sputum culture with Haemophilus. Plan for thoracentesis if large enough pleural effusion. Blood cultures growing strep species. 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, will need CHARLIE when more stable 02/14: Afebrile .patient remains on facemask at 5 L O2 saturation 96%. The patient underwent thoracentesis yesterday with approximately 650 cc removed, cultures pending. Patient extremely lethargic after receiving Ativan during the night. Ativan now discontinued the patient is on scheduled doses of Librium for avoidance of delirium tremens.. Formal swallow completed patient on mechanical soft diet, currently held secondary to lethargy. 02/15: The patient is more alert this afternoon after cessation of Ativan. Patient continues on Librium 3 times daily. Patient continues to have high FiO2 requirements Lasix twice daily added to medication regimen. Patient noted to be hypertensive systolic 170s hydralazine added also to medication regimen Cardizem IV infusion transition to p.o. Cardizem extended release. The patient remains in four-point restraints for patient safety, intermittent bouts of confusion. Patient tolerating mechanical soft diet but needs assistance to be fed. 02/16: Patient alert, following commands. Neurology at bedside for evaluation, discussed with Dr. Santillan. The patient remains n.p.o. for planned CHARLIE today. The patient continues on low-dose Librium 3 times daily. The patient remains normotensive. Objective Vital Signs / I&O: Vital Signs 02/15/18 11:00 02/15/18 11:20 02/15/18 11:28 Temperature Pulse Rate 77 79 78 Respiratory Rate 36 H 20 20 Blood Pressure 179/77 H 158/75 H Pulse Oximetry 98 95 02/15/18 12:00 02/15/18 12:02 02/15/18 12:30 Temperature 97.8 F Pulse Rate 84 83 80 Respiratory Rate 31 H 35 H 26 H Blood Pressure 177/79 H 163/76 H Pulse Oximetry 96 97 97 02/15/18 13:00 02/15/18 14:00 02/15/18 14:56 Temperature Pulse Rate 80 79 80 Respiratory Rate 25 H 34 H 20 Blood Pressure 176/77 H 154/74 H Pulse Oximetry 94 L 98 02/15/18 15:00 02/15/18 16:00 02/15/18 16:14 Temperature 97.8 F Pulse Rate 84 92 H 96 H Respiratory Rate 33 H 29 H 30 H Blood Pressure 172/82 H 180/80 H 194/81 H Pulse Oximetry 90 L 99 95 02/15/18 16:17 02/15/18 17:00 02/15/18 18:00 Temperature Pulse Rate 98 H 97 H 106 H Respiratory Rate 33 H 37 H 35 H Blood Pressure 175/85 H 190/83 H 196/95 H Pulse Oximetry 100 100 96 02/15/18 18:07 02/15/18 18:21 02/15/18 18:36 Temperature Pulse Rate 106 H 84 81 Respiratory Rate 32 H 34 H 37 H Blood Pressure 191/102 H 156/74 H 157/85 H Pulse Oximetry 84 L 97 97 02/15/18 19:00 02/15/18 19:01 02/15/18 19:20 Temperature Pulse Rate 85 87 86 Respiratory Rate 40 H 41 H 39 H Blood Pressure 219/91 H 194/88 H Pulse Oximetry 98 98 98 02/15/18 19:39 02/15/18 19:42 02/15/18 19:55 Temperature Pulse Rate 88 84 91 H Respiratory Rate 33 H 34 H 24 Blood Pressure 187/130 H 181/79 H Pulse Oximetry 96 97 98 02/15/18 20:00 02/15/18 21:00 02/15/18 22:00 Temperature 98.4 F Pulse Rate 90 89 81 Respiratory Rate 38 H 31 H 25 H Blood Pressure 173/82 H 168/75 H 144/65 H Pulse Oximetry 96 95 96 02/15/18 23:00 02/16/18 00:00 02/16/18 00:12 Temperature Pulse Rate 79 78 76 Respiratory Rate 25 H 23 24 Blood Pressure 144/65 H 150/68 H Pulse Oximetry 96 95 02/16/18 01:00 02/16/18 02:00 02/16/18 02:01 Temperature Pulse Rate 78 67 67 Respiratory Rate 22 21 22 Blood Pressure 164/68 H 117/56 L Pulse Oximetry 96 97 98 02/16/18 03:00 02/16/18 04:00 02/16/18 04:29 Temperature 98.1 F Pulse Rate 68 71 74 Respiratory Rate 21 22 20 Blood Pressure 139/64 158/71 H Pulse Oximetry 97 97 02/16/18 05:00 02/16/18 06:00 02/16/18 06:05 Temperature Pulse Rate 74 73 75 Respiratory Rate 21 34 H 21 Blood Pressure 153/70 H 160/72 H Pulse Oximetry 96 87 L 83 L 02/16/18 07:35 Temperature Pulse Rate 73 Respiratory Rate 18 Blood Pressure Pulse Oximetry 97 Intake & Output 02/15/18 02/16/18 02/16/18 18:59 06:59 18:59 Intake Total 1551.5 / 1551.5 580 / 580 615 / 615 Output Total 650 / 650 1400 / 1400 Balance 901.5 / 901.5 -820 / -820 615 / 615 Weight 70.9 kg Intake: IV 1551.5 / 1551.5 460 / 460 615 / 615 Cardizem Inj 125 MG In NS Inj 20.5 / 20.5 100 ML @ 5 MG/HR 5 mls/hr IV. CONT TITRATE PRN Rx#:[id number] Glycophos Inj 30 MMOL In NS Inj 260 / 260 230 ML @ 42 mls/hr IV.SIG UNSCH PRN Rx#:[id number] Thiamine Inj 100 MG In NS Inj 101 / 101 100 ML @ 100 mls/hr IV.SIG DAILY JUSTINE Rx#:[id number] Vancomycin Inj 1,500 MG In NS 1030 / 1030 515 / 515 Inj 500 ML @ 250 mls/hr IV.SIG Q18H JUSTINE Rx#:[id number] Rocephin Inj 1,000 MG In NS Inj 200 / 200 100 / 100 100 ML @ 200 mls/hr IV.SIG Q12H JUSTINE Rx#:[id number] Flagyl 500 MG Inj 100 ML @ 100 200 / 200 100 / 100 100 / 100 mls/hr IV.SIG Q8H JUSTINE Rx#: [id number] Oral 120 / 120 Output: Urine 1400 / 1400 Urine Amount (Catheter) 650 / 650 Condom 650 / 650 Other: # Incontinent Voids 2 Date of Last Bowel Movement 02/13/18 # Bowel Movements 0 Result Diagrams: 02/16/18 04:19 02/16/18 04:19 Other Results: Laboratory Results WBC 9.8 th/mm3 (4.0-11.0) 02/16/18 04:19 RBC 4.33 mil/mm3 (4.50-5.90) L 02/16/18 04:19 Hgb 11.8 gm/dL (13.0-17.0) L 02/16/18 04:19 Hct 38.3 % (39.0-51.0) L 02/16/18 04:19 MCV 88.4 fL (80.0-100.0) 02/16/18 04:19 MCH 27.2 pg (27.0-34.0) 02/16/18 04:19 MCHC 30.8 % (32.0-36.0) L 02/16/18 04:19 RDW 16.8 % (11.6-17.2) 02/16/18 04:19 Plt Count 193 th/mm3 (150-450) 02/16/18 04:19 MPV 8.8 fL (7.0-11.0) 02/16/18 04:19 Prelim Diff (Auto) Slide review pending 02/16/18 04:19 Neut % (Auto) 83.5 % (16.0-70.0) H 02/16/18 04:19 Lymph % (Auto) 6.3 % (9.0-44.0) L 02/16/18 04:19 [place] % (Auto) 9.6 % (0.0-8.0) H 02/16/18 04:19 Eos % (Auto) 0.2 % (0.0-4.0) 02/16/18 04:19 Baso % (Auto) 0.4 % (0.0-2.0) 02/16/18 04:19 Neut # (Auto) 8.2 th/mm3 (1.8-7.7) H 02/16/18 04:19 Lymph # (Auto) 0.6 th/mm3 (1.0-4.8) L 02/16/18 04:19 [place] # (Auto) 0.9 th/mm3 (0.0-0.9) 02/16/18 04:19 Eos # (Auto) 0.0 th/mm3 (0.0-0.4) 02/16/18 04:19 Baso # (Auto) 0.0 th/mm3 (0.0-0.2) 02/16/18 04:19 WBC Differential Manual diff final 02/16/18 04:19 Seg Neuts % (Manual) 78 % (16-70) H 02/16/18 04:19 Band Neuts % (Manual) 10 % (0-6) H 02/16/18 04:19 Lymphocytes % (Manual) 5 % (9-44) L 02/16/18 04:19 Monocytes % (Manual) 2 % (0-8) 02/16/18 04:19 Metamyelocytes % (Man) 4 % (0-1) H 02/16/18 04:19 Myelocytes % (Man) 1 % (0-0) H 02/16/18 04:19 Abs Neuts (Manual) 9.1 th/mm3 (1.8-7.7) H 02/16/18 04:19 Nucleated RBCs/100 WBC 1 /100 WBC (0-0) H 02/15/18 04:49 Differential Comment . 02/16/18 04:19 Platelet Estimate Normal (Normal) 02/16/18 04:19 Platelet Morphology Normal (Normal) 02/16/18 04:19 Basophilic Stippling Faint (None) H 02/15/18 04:49 ESR 32 mm/hr (0-20) H 02/11/18 14:22 PT 15.2 sec (9.8-11.6) H 02/10/18 18:15 INR 1.5 Ratio 02/10/18 18:15 APTT 28.0 sec (23.4-31.7) 02/10/18 18:15 Puncture Site Right brachial 02/10/18 22:00 Patient Temperature 98.6 02/10/18 22:00 O2 Saturation 96 % (90-100) 02/10/18 22:00 ABG pH 7.30 (7.380-7.420) L 02/10/18 22:00 ABG pCO2 59 mmHg (38-42) H* 02/10/18 22:00 ABG pO2 472 mmHg (61-120) H 02/10/18 22:00 ABG HCO3 28 mmol/L (22-26) H 02/10/18 22:00 ABG O2 Content 14.6 Vol % (12.0-20.0) 02/10/18 22:00 ABG Base Excess 2.1 mmol/L (-2-2) H 02/10/18 22:00 ABG Methemoglobin 0.3 % (0-2) 02/10/18 22:00 Hemoglobin 10.0 G/DL (12.0-16.0) L 02/10/18 22:00 Carboxyhemoglobin 4.1 % (0-4) H 02/10/18 22:00 O2 Delivery Device Ventilator 02/10/18 22:00 Vent Setting 02/10/18 22:00 Inspired O2 100 % 02/10/18 22:00 Critical Value Yes 02/10/18 22:00 Sodium 150 meq/L (136-145) H 02/16/18 04:19 Potassium 3.9 meq/L (3.5-5.1) 02/16/18 04:19 Chloride 104 meq/L (98-107) 02/16/18 04:19 Carbon Dioxide 44.7 meq/L (21.0-32.0) H 02/16/18 04:19 Anion Gap 1 meq/L (5-15) L 02/16/18 04:19 BUN 13 mg/dL (7-18) 02/16/18 04:19 Creatinine 0.62 mg/dL (0.60-1.30) 02/16/18 04:19 Estimated GFR Greater than 89 mL/min (>89) 02/16/18 04:19 POC Glucose 94 mg/dl (68-110) 02/13/18 11:22 Random Glucose 94 mg/dL (74-106) 02/16/18 04:19 Hemoglobin A1c 5.3 % (4.3-6.0) 02/11/18 03:51 Lactic Acid 1.3 mmol/L (0.4-2.0) 02/10/18 22:40 Calcium 8.2 mg/dL (8.5-10.1) L 02/16/18 04:19 Phosphorus 3.4 mg/dL (2.5-4.9) D 02/16/18 04:19 Magnesium 1.8 mg/dL (1.5-2.5) 02/16/18 04:19 Total Bilirubin 0.4 mg/dL (0.2-1.0) 02/14/18 08:23 AST 152 U/L (15-37) H 02/14/18 08:23 ALT 256 U/L (12-78) H 02/14/18 08:23 Alkaline Phosphatase 76 U/L (45-117) 02/14/18 08:23 Ammonia 17 mcmol/L (11-32) 02/15/18 03:49 Total Creatine Kinase 111 U/L (39-308) 02/10/18 18:15 Troponin I 0.09 ng/mL (0.02-0.05) H 02/14/18 08:23 B-Natriuretic Peptide 1035 pg/mL (0-100) H 02/10/18 18:15 Total Protein 7.2 g/dL (6.4-8.2) D 02/14/18 08:23 Albumin 2.2 g/dL (3.4-5.0) L 02/14/18 08:23 Triglycerides 85 mg/dL (42-150) 02/12/18 03:30 Cholesterol 67 mg/dL (120-200) L 02/12/18 03:30 LDL Cholesterol, Calc 31 mg/dL (0-99) 02/12/18 03:30 HDL Cholesterol 19.4 mg/dL (40.0-60.0) L 02/12/18 03:30 Cholesterol/HDL Ratio 3.45 Ratio 02/12/18 03:30 Vitamin B12 917 pg/mL (193-986) 02/11/18 14:22 TSH 2.100 uIU/mL (0.358-3.740) 02/10/18 18:15 Urine Color [place] (Yellw/Straw) 02/10/18 20:39 Urine Clarity Cloudy (Clear) H 02/10/18 20:39 Urine pH 5.0 (5.0-8.5) 02/10/18 20:39 Ur Specific [place] 1.018 (1.002-1.035) 02/10/18 20:39 Urine Protein 500 or greater mg/dL (Neg-Trace) 02/10/18 20:39 Urine Glucose (UA) Negative mg/dL (Negative) 02/10/18 20:39 Urine Ketones Negative mg/dL (Negative) 02/10/18 20:39 Urine Occult Blood Negative (Negative) 02/10/18 20:39 Urine Nitrate Negative (Negative) 02/10/18 20:39 Urine Bilirubin Negative (Negative) 02/10/18 20:39 Urine Ictotest Negative (Negative) 02/10/18 20:39 Urine Urobilinogen 1.0 mg/dL (Less than 2) 02/10/18 20:39 Ur Leukocyte Esterase Negative (Negative) 02/10/18 20:39 Urine RBC 2 /hpf (0-3) 02/10/18 20:39 Urine WBC 8 /hpf (0-5) H 02/10/18 20:39 Amorphous Sediment Moderate /hpf (None) H 02/10/18 20:39 Urine Bacteria Few /hpf (None) H 02/10/18 20:39 Hyaline Casts Innum /lpf (0-3) 02/10/18 20:39 Urine Mucus Moderate /lpf (Occasional) H 02/10/18 20:39 Micro UA Comment Culture not ind 02/10/18 20:39 Ur Microscopic Review Not Reportable 02/10/18 20:39 Urine Culture Comments Culture not ind 02/10/18 20:39 Pleural pH 8.0 02/13/18 13:25 Pleural RBC 115 /mm3 (0-0) H 02/13/18 13:25 Pleural Nuc Cells 655 /mm3 (0-10) H 02/13/18 13:25 Pleural Neutrophils 79 % 02/13/18 13:25 Pleural Lymphocytes 6 % 02/13/18 13:25 Pleural Monocytes 11 % 02/13/18 13:25 Pleural Plasma Cells 1 % 02/13/18 13:25 Pleural Mesothelial 2 % 02/13/18 13:25 Pleural Other Cells 1 % 02/13/18 13:25 Pleural Total Protein 1.8 gm/dL 02/13/18 13:25 Pleural LDH 65 U/L 02/13/18 13:25 Pleural Glucose 100 mg/dL 02/13/18 13:25 Pleural Amylase 13 U/L 02/13/18 13:25 Nasal Screen MRSA (PCR) Not detected (Negative) 02/11/18 02:30 Vancomycin Trough 14.5 mcg/mL (5.0-10.0) H 02/14/18 16:30 Urine Opiates Screen Neg (Neg) 02/10/18 20:39 Ur Barbiturates Screen Neg (Neg) 02/10/18 20:39 Ur Amphetamines Screen Neg (Neg) 02/10/18 20:39 U Benzodiazepines Scrn Neg (Neg) 02/10/18 20:39 Urine Cocaine Screen Neg (Neg) 02/10/18 20:39 U Cannabinoids Screen Neg (Neg) 02/10/18 20:39 Serum Alcohol Less than 3 mg/dL (0-5) 02/10/18 18:15 JOSE Screen Neg (Neg) 02/11/18 14:22 Hepatitis A IgM Ab Nonreactive (Nonreactive) 02/10/18 22:40 Hep Bs Antigen Nonreactive (Nonreactive) 02/10/18 22:40 Hep B Core IgM Ab Nonreactive (Nonreactive) 02/10/18 22:40 Hep C IgG Ab Nonreactive (Nonreactive) 02/10/18 22:[address] 02/10/18 18:03 CONCLUSION: 1. Probable evolving infarct in the left occipital lobe extending into the medial left temporal lobe without hemorrhage or significant mass effect. 2. Chronic white matter ischemic changes. . Abdomen Ultrasound 02/11/18 00:00 CONCLUSION: 1. Small liver with trace ascites. 2. Small cyst lower pole right kidney. Head MRA 02/11/18 00:00 CONCLUSION: 1. Occlusion of the left posterior cerebral artery at its origin with acute ischemia left occipital region.. Neck MRA 02/11/18 00:00 CONCLUSION: 1. Negative MRA Carotids. Percent stenosis is calculated using the diameter of the stenotic region over the diameter of the normal distal internal carotid artery Head MRI 02/11/18 10:28 CONCLUSION: 1. Acute infarction involving the left posterior thalamus and occipital lobe without hemorrhage or mass effect. Chest X-Ray 02/14/18 06:00 CONCLUSION: No significant change. The findings remain most characteristic of pulmonary edema. Objective Remarks: GENERAL: Well-nourished, well-developed patient who is lying in bed in four- point restraints, awake , intermittent SKIN: Warm and dry. There are excoriations around his bilateral ankles. There are petechiae around the ankles at the site of the excoriations and there is a clear line of delineation where they abruptly stop at what appears to be a sock or shoe line. No petechiae of palms or soles. No splinter hemorrhages. HEAD: Atraumatic. Normocephalic. EYES: Pupils equal and round, pinpoint bilaterally no scleral icterus. No injection or drainage. ENT: No nasal bleeding or discharge. Mucous membranes pink and moist. Facemask 50% FIO2 NECK: Trachea midline. +JVD. No meningismus CARDIOVASCULAR: Regular rate and rhythm. No murmurs rubs or gallops. RESPIRATORY: Bibasilar rales with rhonchorous breath sounds bilaterally. Minimal expiratory wheezing GASTROINTESTINAL: Abdomen soft, non-tender, nondistended. Bowel sounds present. MUSCULOSKELETAL: Extremities without clubbing, cyanosis, or edema. Scar overlying left shoulder. NEUROLOGICAL: GCS 14. RASS 0. Moving purposefully x 4 extremities. Follows commands intermittently Procedures: 02/13 Thoracentesis Assessment and Plan - Problem List (1) Stroke Code(s): I63.9 - Cerebral infarction, unspecified Status: Acute (2) Encephalopathy acute Code(s): G93.40 - Encephalopathy, unspecified Status: Acute (3) Septic shock Code(s): A41.9 - Sepsis, unspecified organism; R65.21 - Severe sepsis with septic shock Status: Acute (4) Respiratory failure Code(s): J96.90 - Respiratory failure, unspecified, unspecified whether with hypoxia or hypercapnia Status: Acute (5) Aspiration pneumonia Code(s): J69.0 - Pneumonitis due to inhalation of food and vomit Status: Acute (6) KIMBERLY (acute kidney injury) Code(s): N17.9 - Acute kidney failure, unspecified Status: Acute (7) Tobacco abuse Code(s): Z72.0 - Tobacco use Status: Chronic (8) Anemia Code(s): D64.9 - Anemia, unspecified Status: Chronic (9) Lactic acidemia Code(s): E87.2 - Acidosis Status: Acute (10) Transaminasemia Code(s): R74.0 - Nonspecific elevation of levels of transaminase and lactic acid dehydrogenase [LDH] Status: Acute (11) Hyperglycemia Code(s): R73.9 - Hyperglycemia, unspecified Status: Acute - Assessment and Plan Plan: NEURO: Subacute ischemic stroke Acute encephalopathy EtOH abuse per prior record CT brain volving infarct left occipital lobe and medial left temporal lobe. No hemorrhage. MRI brain -Acute infarction involving the left posterior thalamus and occipital lobe without hemorrhage or mass effect. MRA head Left [employer] occlusion Not candidate for TPA due to unknown time of onset, probably subacute. Aspirin [address] Santillan following-plan for consult with case management for disposition to rehab facility Ammonia level normal. Thiamine/multivitamin/folic acid Seizure precautions. Monitor for signs of alcohol withdrawal Add Librium 10 mg TID 2D echo inadequate study, scheduled for CHARLIE today Four-point restraints placed for patient safety RESP: Acute hypercapnic respiratory failure Haemophilus influenza pneumonia right pleural effusion Tobacco abuse Intubated 02/10 for airway protection Self extubated today 02/12/2017 while on CPAP trial Currently requiring facemask DuoNeb every 6 hours. Albuterol every 2 hours as needed Broad-spectrum antibiotics for pneumonia 02/13 S/P right thoracentesis-650 cc removed Initiate chest physiotherapy 02/14 chest x-ray pulmonary edema-Lasix ordered twice daily CV: Lactic acidemia Elevated troponin/demand ischemia Hypertension On admission Received 3 L normal saline bolus per ED. Levophed as needed to maintain mean pressure greater than 65 Receiving aspirin 2D echo limited study normal-appearing ejection fraction Need CHARLIE when clinically stable appreciate cardiology consult EKG sinus rhythm with nonspecific ST changes in inferior leads. Trend lactic acid until clear Hydralazine 20 mg every 4 hours as needed for systolic blood pressure greater than 160 GI: Transaminase elevated 02/11 liver ultrasound-trace ascites Viral hepatitis panel FEN/RENAL: Acute kidney injury Hypernatremia Follow-up renal ultrasound. Ornelas removed 02-28 Monitor intake and output hourly. Monitor electrolytes and replace as indicated. Monitor sodium levels ID: Septic shock-resolving GPC/Streptococcus bacteremia Leukocytosis Aspiration pneumonia/Haemophilus influenza Penicillin allergyhives. Received ceftriaxone in the ED without issue. Chest x-ray with right lower lobe infiltrate. Blood cultures GPC/Streptococcus in 4 out of 4 bottles. Influenza negative. Sputum culture-Haemophilus influenzae Urine Legionella pneumococcal antigen- negative Received ceftriaxone and azithromycin in the emergency department. Continue ceftriaxone and Flagyl Vancomycin started 02/11/18 HEME: Anemia Monitor CBC ENDO: Mild hyperglycemia HgbA1C 5.3 TSH normal PROPH: SCDs for DVT prophylaxis. Protonix 40 mg IV daily for stress ulcer prophylaxis ACCESS: Left IJ central venous line placed 02/10 FULL CODE Patient is critically ill has sustained embolic stroke to the left posterior cerebral artery territory. He has pneumonia and sepsis. Pending CHARLIE to rule out cardioembolic source of emboli and rule out vegetation. He is acute at risk of respiratory and neurological decompensation. Continue ICU care This patient remains critically ill with one or more organ systems which are or may become a threat to life. I have spent in excess of 30 minutes discontinuously in the care and management of this patient. This time is exclusive of procedures, and includes, but is not limited to, evaluation of the patient, review of the medical record, discussions with family, consultants, nursing staff, or respiratory therapy, and documentation in the medical record. Code Status: Full Discussed Condition With: Dr. Santillan and [employer] at bedside (4) Respiratory failure Qualifiers: Chronicity: acute Respiratory failure complication: hypercapnia Qualified Code(s): J96.02 - Acute respiratory failure with hypercapnia
[2018-02-16] MEDS: Heparin - SQ 10,000 UNITS/ML Vial SQ SCH ×2 (12:08→23:39)
[2018-02-16] MEDS ORDERED: Albumin Human 25% Inj 100 ML IV.SIG ONE (17:35)
[2018-02-16] MEDS ORDERED: Albumin Human 5% Inj 250 ML IV.SIG ONE ×2 (17:37)
[2018-02-16] MEDS ORDERED: Pharmacy Ordered Lab Info OTHER ONE (23:45)
[2018-02-17] MEDS: Vancomycin Inj 1,500 MG in Sodium Chlor 0.9% Inj 500 ML IV.SIG SCH ×2 (00:04→17:30)
[2018-02-17 00:46] LABS: Blood Urea Nitrogen 13 mg/dL (7-18); Calcium 8.2 mg/dL (8.5-10.1); Chloride 95 meq/L (98-107); Glomerular Filtration Rate Greater Than 89 mL/min (>89); Glucose,Random 99 mg/dL (74-106); Magnesium 1.4 mg/dL (1.5-2.5); Phosphorus 0.7 mg/dL (2.5-4.9); Sodium 149 meq/L (136-145); Vancomycin,Trough 15.6 mcg/mL (5.0-10.0)
[2018-02-17 00:47] LABS: Anion Gap 9 meq/L (5-15)
[2018-02-17 00:48] LABS: Potassium 2.8 meq/L (3.5-5.1)
[2018-02-17] MEDS ORDERED: Magnesium Sulfate Inj 2 GM in Sodium Chlor 0.9% Inj 96 ML IV.SIG ONE (01:00)
[2018-02-17] MEDS ORDERED: Potassium Phosphate Inj 30 MMOL in Sodium Chlor 0.9% Inj 250 ML IV.SIG ONE (01:01)
[2018-02-17] MEDS: Potassium Chlor 20 mEq Premix 20 MEQ/100 ML PIGGYBACK IV.SIG SCH ×6 (01:40→23:01)
--- NOTE | 2018-02-17 04:16 | XR ---
EXAM DATE: 02/17/2018 4:13 AM EST AGE/SEX: 67 years / Male INDICATIONS: Short of breath. CLINICAL DATA: This is the patient's subsequent encounter. Patient reports that signs and symptoms h ave been present for 1 week and indicates a pain score of 0/10. MEDICAL/SURGICAL HISTORY: None. None. COMPARISON: [facility] – [place], CHEST 1V SINGLE AP, 02/14/2018. . FINDINGS: A single AP view of the chest demonstrates diffuse bilateral pulmonary infiltrates most pronounced wi thin the bases. These have progressed. Small bilateral pleural effusions. Heart is normal in size. Or thopedic hardware involving the left shoulder. CONCLUSION: Progression in diffuse bilateral pulmonary infiltrates and small effusions. Electronically signed by: Jose Davenport MD Board Certified Radiologist 02/17/2018 4:15 AM EST
[2018-02-17] MEDS: Oral Hygiene Kit OROPHARYNG SCH ×3 (04:17→17:26)
[2018-02-17 08:03] LABS: Baso # (Auto) 0.1 th/mm3 (0.0-0.2); Baso % (Auto) 0.7 % (0.0-2.0); Eos # (Auto) 0.1 th/mm3 (0.0-0.4); Eos % (Auto) 0.8 % (0.0-4.0); Hematocrit 38.9 % (39.0-51.0); Lymph # (Auto) 0.8 th/mm3 (1.0-4.8); Lymph % (Auto) 7.2 % (9.0-44.0); Mean Corpuscular Hemoglobin 26.8 pg (27.0-34.0); Mean Corpuscular Volume 86.9 fL (80.0-100.0); Mono # (Auto) 1.1 th/mm3 (0.0-0.9); Mono % (Auto) 9.3 % (0.0-8.0); Neut # (Auto) 9.6 th/mm3 (1.8-7.7); Platelet Count 176 th/mm3 (150-450); Red Blood Count 4.48 mil/mm3 (4.50-5.90); Red Cell Distribution Width 15.5 % (11.6-17.2); White Blood Count 11.7 th/mm3 (4.0-11.0)
[2018-02-17 08:05] LABS: Mean Corpuscular HGB Conc 30.9 % (32.0-36.0)
[2018-02-17] MEDS: dilTIAZem CD 120 MG Capsule PO SCH (09:41)
[2018-02-17] MEDS: Pantoprazole Inj 40 MG Vial IV.PUSH SCH (09:41)
[2018-02-17] MEDS: Folic Acid 1 MG Tablet NG/OG SCH (09:41)
[2018-02-17] MEDS: Senna/Docusate Sodium 8.6/50 MG Tablet PO SCH ×2 (09:42→21:02)
[2018-02-17] MEDS: Thiamine Inj 100 MG in Sodium Chlor 0.9% Inj 100 ML IV.SIG SCH (09:42)
[2018-02-17] MEDS: Chlorhexidine 0.12% Oral Kit 15 ML UDC OROPHARYNG SCH ×2 (09:42→21:02)
[2018-02-17] MEDS: Heparin - SQ 10,000 UNITS/ML Vial SQ SCH ×2 (11:53→23:54)
[2018-02-17 13:07] LABS: Magnesium 1.8 mg/dL (1.5-2.5); Phosphorus 1.5 mg/dL (2.5-4.9)
[2018-02-17] MEDS: Potassium Chlor 20 mEq Premix 20 MEQ/100 ML PIGGYBACK IV.SIG PRN ×4 (14:40→21:25)
[2018-02-17] MEDS ORDERED: SODIUM GLYCEROPHOSPHATE IV.SIG ONE (15:00)
[2018-02-17] MEDS ORDERED: SODIUM CHLOR 0.9% IV.SIG ONE (15:00)
--- NOTE | 2018-02-17 15:37 | CT ---
EXAM DATE: 02/17/2018 3:33 PM EST AGE/SEX: 67 years / Male INDICATIONS: Follow up on possible recent ischemic stroke. CLINICAL DATA: This is the patient's subsequent encounter. Patient reports that signs and symptoms h ave been present for 4 - 6 days and indicates a pain score of 0/10. MEDICAL/SURGICAL HISTORY: Cerebrovascular disease. Hypertension. Carcinoma, breast. None. RADIATION DOSE: 49.36 CTDI (mGy) COMPARISON: [facility] [place] HEAD W/O CONTRAST, 02/10/2018. . TECHNIQUE: CT of the head without contrast. Using automated exposure control and adjustment of the mA and/or kV according to patient size, radiation dose was kept as low as reasonably achievable to ob tain optimal diagnostic quality images. DICOM format image data is available electronically for revi ew and comparison. FINDINGS: There is infarction within the left BINA distribution involving the medial temporal lobe and occipital lobe corresponding to the infarction seen on the patient's prior MRI evolving into area of encephalo malacia. There is no hemorrhage or mass effect. CONCLUSION: Evolving left occipital and medial temporal lobe infarction which is developing into an a sergei of encephalomalacia. Electronically signed by: Geo Kwong MD Board Certified Radiologist 02/17/2018 3:36 PM EST
--- NOTE | 2018-02-17 18:44 | P.PNIM ---
Subjective Interval history: Patient laying down in bed, does not appear to be in any acute distress. Patient is encephalopathic. Physical Exam Vital signs: Vital Signs 02/16/18 19:00 02/16/18 19:58 02/16/18 20:00 Temperature Pulse Rate 107 H 91 H 75 Respiratory Rate 31 H 25 H 33 H Blood Pressure 175/79 H 195/79 H Pulse Oximetry 88 L 88 L 02/16/18 20:01 02/16/18 21:00 02/16/18 21:01 Temperature Pulse Rate 79 79 Respiratory Rate 24 33 H Blood Pressure 163/77 H Pulse Oximetry 93 L 02/16/18 22:00 02/16/18 23:00 02/17/18 00:00 Temperature Pulse Rate 74 72 68 Respiratory Rate 26 H 18 18 Blood Pressure 165/77 H 159/72 H 169/74 H Pulse Oximetry 93 L 94 L 97 02/17/18 00:04 02/17/18 00:05 02/17/18 00:06 Temperature Pulse Rate 71 Respiratory Rate 21 Blood Pressure Pulse Oximetry 98 98 02/17/18 01:00 02/17/18 02:00 02/17/18 02:05 Temperature Pulse Rate 72 67 66 Respiratory Rate 19 17 15 Blood Pressure 163/72 H 160/68 H Pulse Oximetry 96 95 96 02/17/18 03:00 02/17/18 04:00 02/17/18 04:01 Temperature Pulse Rate 64 69 72 Respiratory Rate 17 19 23 Blood Pressure 137/62 158/107 H Pulse Oximetry 96 90 L 89 L 02/17/18 04:13 02/17/18 04:25 02/17/18 04:28 Temperature Pulse Rate 72 68 Respiratory Rate 24 20 Blood Pressure 148/70 H Pulse Oximetry 79 L 94 L 98 02/17/18 05:00 02/17/18 05:01 02/17/18 06:00 Temperature Pulse Rate 62 63 66 Respiratory Rate 15 14 17 Blood Pressure 133/62 117/75 Pulse Oximetry 99 99 98 02/17/18 07:00 02/17/18 08:00 02/17/18 09:00 Temperature 97.5 F L Pulse Rate 66 65 67 Respiratory Rate 17 16 17 Blood Pressure 120/72 169/70 H 172/74 H Pulse Oximetry 100 94 L 88 L 02/17/18 10:00 02/17/18 11:00 02/17/18 11:01 Temperature Pulse Rate 71 80 71 Respiratory Rate 22 20 25 H Blood Pressure 148/69 H Pulse Oximetry 96 86 L 87 L 02/17/18 12:00 02/17/18 13:00 02/17/18 13:02 Temperature 97.4 F L Pulse Rate 70 67 68 Respiratory Rate 24 26 H 15 Blood Pressure 149/95 H 155/68 H Pulse Oximetry 85 L 90 L 91 L 02/17/18 14:00 02/17/18 14:01 02/17/18 15:00 Temperature Pulse Rate 80 85 67 Respiratory Rate 31 H 42 H 25 H Blood Pressure 110/60 Pulse Oximetry 74 L 73 L 96 02/17/18 15:29 02/17/18 15:51 02/17/18 15:52 Temperature Pulse Rate 66 70 Respiratory Rate 19 22 Blood Pressure 149/67 H Pulse Oximetry 93 L 92 L 02/17/18 16:00 Temperature 97.7 F Pulse Rate 66 Respiratory Rate 28 H Blood Pressure 157/70 H Pulse Oximetry 100 Intake & Output 02/16/18 02/17/18 02/17/18 18:59 06:59 18:59 Intake Total 1006 / 1006 1115 / 1115 661 / 661 Output Total 2475 / 2475 300 / 300 Balance -1469 / -1469 815 / 815 661 / 661 Weight 66 kg Intake: IV 946 / 946 1115 / 1115 661 / 661 Magnesium Sulfate Inj 2 GM In 100 / 100 NS Inj 96 ML @ 50 mls/hr IV.SIG ONCE ONE Rx#:[id number] KCl 20 mEq Premix Inj 20 meq In 200 / 200 100 / 100 100 ml @ 50 mls/hr IV.SIG Q2H PRN Rx#:[id number] Potassium Phosphate Inj 30 MMOL 260 / 260 In NS Inj 250 ML @ 43.333 mls/ hr IV.SIG ONCE ONE Rx#:[id number] Thiamine Inj 100 MG In NS Inj 101 / 101 101 / 101 100 ML @ 100 mls/hr IV.SIG DAILY JUSTINE Rx#:[id number] Vancomycin Inj 1,500 MG In NS 515 / 515 515 / 515 Inj 500 ML @ 250 mls/hr IV.SIG Q18H JUSTINE Rx#:[id number] Rocephin Inj 1,000 MG In NS Inj 100 / 100 100 / 100 100 / 100 100 ML @ 200 mls/hr IV.SIG Q12H JUSTINE Rx#:[id number] Flagyl 500 MG Inj 100 ML @ 100 200 / 200 200 / 200 100 / 100 mls/hr IV.SIG Q8H JUSTINE Rx#: [id number] Oral 60 / 60 Output: Urine 2475 / 2475 Urine Amount (Catheter) 300 / 300 Condom 300 / 300 Other: # Incontinent Voids 3 Date of Last Bowel Movement 02/16/18 02/16/18 02/17/18 # Incontinent Bowel Movements 2 Narrative: Patient appears weak. He is still encephalopathic. S1S2 Decreased breath sounds at right lung base abd soft, nontender, normal bowel sounds No edema of exts. Patient moves all 4 exts, no focal neuro deficits. Full neuro assessment difficult and patient is currently encephalopathic. - Urinary Catheter Management Condom Cath placed during this visit: yes Reason for continuing: Hourly intake/output Insertion date: 02/10/18 Insertion time: 20:20 Indwelling Urethral Catheter Cath placed during this visit: yes, but has since been removed by the nurse Reason for continuing: Decision to DC catheter Insertion date: 02/10/18 Insertion time: 23:00 Removal date: 02/11/18 Removal time: 17:00 Results - Labs CBC & Chem 7: 02/17/18 07:05 02/17/18 12:10 Laboratory Results - last 24 hr 02/16/18 02/17/18 02/17/18 23:45 07:05 12:10 WBC 11.7 H RBC 4.48 L Hgb 12.0 L Hct 38.9 L MCV 86.9 MCH 26.8 L MCHC 30.9 L RDW 15.5 Plt Count 176 MPV 9.0 Neut % (Auto) 82.0 H Lymph % (Auto) 7.2 L [place] % (Auto) 9.3 H Eos % (Auto) 0.8 Baso % (Auto) 0.7 Neut # (Auto) 9.6 H Lymph # (Auto) 0.8 L [place] # (Auto) 1.1 H Eos # (Auto) 0.1 Baso # (Auto) 0.1 WBC Differential . Differential Comment Auto diff final Sodium 149 H Potassium 2.8 L* D 3.0 L Chloride 95 L D Carbon Dioxide Greater than 45.0 H Anion Gap 9 BUN 13 Creatinine 0.61 Estimated GFR Greater than 89 Random Glucose 99 Calcium 8.2 L Phosphorus 0.7 L D 1.5 L Magnesium 1.4 L 1.8 Vancomycin Trough 15.6 H Microbiology 02/13/18 13:25 Fluid - Pleural fluid Acid Fast Bacilli Smear - Final No acid fast bacilli seen - Imaging Impressions Head CT 02/17/18 00:00 CONCLUSION: Evolving left occipital and medial temporal lobe infarction which is developing into an area of encephalomalacia. Chest X-Ray 02/17/18 04:00 CONCLUSION: Progression in diffuse bilateral pulmonary infiltrates and small effusions. Assessment and Plan - Plan 67 y/o male with a dx of alcohol abuse, tobacco abuse, htn, who presented to the ER with acute encephalopathy. As per documentation he had a syncopal episode prior to arrival. He was subsequently intubated for airway protection. Patient was found to have a slightly elevated wbc ct, lactate 5, cxr showed a right lower lobe infiltrate. He was admitted to the intensive care unit. 1. Subacute ischemic CVA 2. Acute encephalopathy 2/2 #1 3. Troponemia likely demand ischemia CT head shows a evolving infarct of the left occipital lobe and medial left temporal lobe. MRI brain acute infarct of the left post thalamus, and occipital lobe. MRA head left bank analyst occlusion. No tpa as pt was not a candidate, no known onset of symptoms. Neurology following the patient. Continue aspirin. NSR on telemetry, CHARLIE will be done once the patient is stable as per cardiology note. Will follow up with the cardiology team. Patient is in nsr on telemetry. EKG nsr, nonspecific st changes in inf leads 2decho limited study, normal ef. Slight elevation in serum trops, cardiology following the patient. Likely demand ischemia. On aspirin. 4. Acute hypoxic hypercapnic respiratory failure 2/2 H. influenza pna 5. Haemophilus influenza pna with right pleural effusion 6. ETOH abuse. [facility] Subsequently self extubated on . Currently on supplemental oxygen. Continue oxygen and keep o2 sats above 92%. S/p thoracentesis, 650 cc removed 02/14/18. Sputum grew H. Influenza Continue current antibiotics. Continue CIWA protocol. Patient counseled to stop drinking alcohol. Folic acid, mv, thiamine, librium, ativan prn. 7. Septic shock 2/2 Strept Viridans bacteremia Blood cxs from 02/10/18 positive 2/2 Repeat blood cultures ordered today. CHARLIE pending. ID will be consulted. Continue rocephin. Heparin for DVT prophylaxis.
[2018-02-17] MEDS: amLODIPine 5 MG Tablet PO SCH (21:01)
[2018-02-18] MEDS: amLODIPine 5 MG Tablet PO SCH ×2 (02:53→09:11)
[2018-02-18] MEDS: Oral Hygiene Kit OROPHARYNG SCH ×4 (02:56→15:47)
[2018-02-18 05:05] LABS: Anion Gap 7 meq/L (5-15); Blood Urea Nitrogen 11 mg/dL (7-18); Calcium 7.9 mg/dL (8.5-10.1); Chloride 92 meq/L (98-107); Glomerular Filtration Rate Greater Than 89 mL/min (>89); Glucose,Random 98 mg/dL (74-106); Magnesium 1.4 mg/dL (1.5-2.5); Potassium 3.4 meq/L (3.5-5.1); Sodium 144 meq/L (136-145)
[2018-02-18 06:31] LABS: ABG Base Excess 26.3 mmol/L (-2-2); ABG PCO2 74 mmHg (38-42); ABG PO2 80 mmHG (61-120)
--- NOTE | 2018-02-18 07:39 | P.PNCA ---
Subjective Interval history: Discussed with RN. Patient had some respiratory decompensation and hypoxia this morning, currently more comfortable on BiPAP. Telemetry reviewed with no A. fib noted. Medications and Allergies Active Medications: Active Medications Acetaminophen (Tylenol) 650 mg PO Q6H PRN PRN Reason: PAIN 1-10 AND/OR FEVER >101F Hydrocodone Bitart/Acetaminophen ([place] 5/325) 1 tab PO Q4H PRN PRN Reason: PAIN SCALE 1 TO 5 Last Admin: 02/16/18 21:24 Dose: 1 tab Al Hydroxide/Mg Hydroxide (Milk Of Viola Liq) 30 ml PO Q12H PRN PRN Reason: Mild Constipation Albuterol (Albuterol Neb (Prn)) 2.5 mg NEB Q2HR NEB PRN PRN Reason: SHORTNESS OF BREATH/WHEEZING Albuterol (Duoneb Neb (Russell)) 1 ampul NEB Q4HR NEB [facility] Last Admin: 02/18/18 03:31 Dose: 1 ampul Amlodipine Besylate (Norvasc) 5 mg PO DAILY [facility] Last Admin: 02/18/18 02:53 Dose: Not Given Aspirin (Aspirin Chew) 162 mg PO DAILY [facility] Last Admin: 02/17/18 09:41 Dose: 162 mg Bisacodyl (Dulcolax Supp) 10 mg RECTAL DAILY PRN PRN Reason: SEVERE CONSITIPATION Chlordiazepoxide (Librium) 10 mg PO Q8H [facility] Last Admin: 02/18/18 02:56 Dose: 10 mg Chlorhexidine Gluconate (Peridex 0.12% Oral Kit) 15 ml OROPHARYNG BID@0800, 2000 [facility] Last Admin: 02/17/18 21:02 Dose: Not Given Diltiazem HCl (Cardizem Cd 24hr) 120 mg PO DAILY [facility] Last Admin: 02/17/18 09:41 Dose: 120 mg Flumazenil (Romazicon Inj) 0.2 mg IV.PUSH Q1M PRN PRN Reason: OVERSEDATION Folic Acid (Folic Acid) 1 mg NG/OG DAILY [facility] Last Admin: 02/17/18 09:41 Dose: 1 mg Furosemide (Lasix Inj) 40 mg IV.PUSH BID@0900,1800 [facility] Last Admin: 02/17/18 17:30 Dose: 40 mg Heparin Sodium (Porcine) (Heparin Inj) 5,000 units SQ Q12H [facility] Last Admin: 02/17/18 23:54 Dose: 5,000 units Hydralazine HCl (Apresoline Inj) 20 mg IV.PUSH Q4H PRN PRN Reason: HYPERTENSION Thiamine HCl 100 mg/ Sodium (Chloride) 101 mls @ 100 mls/hr IV.SIG DAILY RUSSELL Last Infusion: 02/17/18 16:03 Dose: Infused Ceftriaxone Sodium 1,000 mg/ (Sodium Chloride) 100 mls @ 200 mls/hr IV.SIG Q12H RUSSELL Last Infusion: 02/18/18 00:25 Dose: Infused Magnesium Sulfate 2 gm/ Sodium (Chloride) 100 mls @ 50 mls/hr IV.SIG UNSCH PRN PRN Reason: For Magnesium 1.2 - 1.6 mg/dL Potassium Chloride (Kcl 40 Meq Premix Inj) 40 meq in 100 mls @ 25 mls/hr IV.SIG Q2H PRN PRN Reason: For Potassium 2.8 - 3.2 mEq/L Potassium Chloride (Kcl 20 Meq Premix Inj) 20 meq in 100 mls @ 50 mls/hr IV.SIG Q2H PRN PRN Reason: For Potassium 3.3 - 3.5 mEq/L Potassium Chloride (Kcl 40 Meq Premix Inj) 40 meq in 100 mls @ 25 mls/hr IV.SIG UNSCH PRN PRN Reason: For Potassium 3.3 - 3.5 mEq/L Potassium Phosphate 30 mmol/ (Sodium Chloride) 260 mls @ 42 mls/hr IV.SIG UNSCH PRN PRN Reason: SEE LABEL COMMENTS Magnesium Sulfate 4 gm/ Sodium (Chloride) 100 mls @ 50 mls/hr IV.SIG UNSCH PRN PRN Reason: For Magnesium 0.9 - 1.1 mg/dL Potassium Chloride (Kcl 20 Meq Premix Inj) 20 meq in 100 mls @ 50 mls/hr IV.SIG Q2H PRN PRN Reason: For Potassium 2.8 - 3.2 mEq/L Last Infusion: 02/17/18 23:30 Dose: Infused Sodium Glycerophosphate 30 (mmol/ Sodium Chloride) 260 mls @ 42 mls/hr IV.SIG UNSCH PRN PRN Reason: For Phosphorus < 2.5 mg/dL Last Infusion: 02/15/18 23:32 Dose: Infused Labetalol HCl (Trandate Inj) 10 mg IV.PUSH Q6H PRN PRN Reason: SYS BP GREATER THAN OR = 160 Last Admin: 02/16/18 16:46 Dose: 10 mg Lactulose (Lactulose Liq) 30 ml PO DAILY PRN PRN Reason: SEVERE CONSITIPATION Magnesium Oxide (Mag-Ox) 800 mg PO UNSCH PRN PRN Reason: For Magnesium 1.2 - 1.6 mg/dL Miscellaneous Medication () 1 each OROPHARYNG 0000,0400,1200,1600 [facility] Last Admin: 02/18/18 03:32 Dose: 1 each Multivitamins (Theragran) 1 tab NG/OG DAILY [facility] Last Admin: 02/17/18 09:41 Dose: 1 tab Ondansetron HCl (Zofran Inj) 4 mg IV.PUSH Q6H PRN PRN Reason: NAUSEA OR VOMITING Pantoprazole Sodium (Protonix Inj) 40 mg IV.PUSH DAILY [facility] Last Admin: 02/17/18 09:41 Dose: 40 mg Pharmacy Profile Note (Vancomycin Consult Pharmacy) 1 each OTHER UNSCH PRN PRN Reason: Pharmacy to dose Potassium Bicarb/Potassium Chloride (K-Lyte Cl Eff) 50 meq PO UNSCH PRN PRN Reason: For Potassium 3.3 - 3.5 mEq/L Potassium Phosphate (K-Phos Original) 2,000 mg PO Q4H PRN PRN Reason: Phosphorus Less Than 2.5 mg/dL Potassium Phosphate (K-Phos Original) 2,000 mg PO UNSCH PRN PRN Reason: SEE LABEL COMMENTS Senna/Docusate Sodium (Charissa-Colace) 1 tab PO BID [facility] Last Admin: 02/17/18 21:02 Dose: 1 tab Sennosides (Senokot) 17.2 mg PO Q12H PRN PRN Reason: Moderate Constipation Sodium Chloride (Ns Flush) 2 ml IV.FLUSH PRN PRN PRN Reason: FLUSH AFTER USING IV ACCESS Last Admin: 02/15/18 08:51 Dose: 2 ml Sodium Chloride (Ns Flush) 2 ml IV.FLUSH BID [facility] Last Admin: 02/17/18 21:02 Dose: 2 ml Allergies Allergy/AdvReac Type Severity Reaction Status Date / Time penicillin G Allergy Severe RASH Unverified 09/24/16 19:44 Home Medications Medication Instructions Recorded Confirmed Type Unable to Obtain Home Meds 02/10/18 02/10/18 History Physical Exam Vital signs: Vital Signs 02/17/18 08:00 02/17/18 09:00 02/17/18 10:00 Temperature 97.5 F L Pulse Rate 65 67 71 Respiratory Rate 16 17 22 Blood Pressure 169/70 H 172/74 H Pulse Oximetry 94 L 88 L 96 02/17/18 11:00 02/17/18 11:01 02/17/18 12:00 Temperature 97.4 F L Pulse Rate 80 71 70 Respiratory Rate 20 25 H 24 Blood Pressure 148/69 H 149/95 H Pulse Oximetry 86 L 87 L 85 L 02/17/18 13:00 02/17/18 13:02 02/17/18 14:00 Temperature Pulse Rate 67 68 80 Respiratory Rate 26 H 15 31 H Blood Pressure 155/68 H Pulse Oximetry 90 L 91 L 74 L 02/17/18 14:01 02/17/18 15:00 02/17/18 15:29 Temperature Pulse Rate 85 67 66 Respiratory Rate 42 H 25 H 19 Blood Pressure 110/60 149/67 H Pulse Oximetry 73 L 96 93 L 02/17/18 15:51 02/17/18 15:52 02/17/18 16:00 Temperature 97.7 F Pulse Rate 70 66 Respiratory Rate 22 28 H Blood Pressure 157/70 H Pulse Oximetry 92 L 100 02/17/18 18:00 02/17/18 19:46 02/17/18 20:00 Temperature 97.9 F Pulse Rate 67 69 73 Respiratory Rate 21 18 Blood Pressure 165/81 H Pulse Oximetry 98 100 02/17/18 20:38 02/17/18 21:00 02/17/18 22:00 Temperature Pulse Rate 72 76 76 Respiratory Rate 23 20 20 Blood Pressure 153/68 H 162/77 H Pulse Oximetry 99 98 95 02/17/18 22:03 02/17/18 23:00 02/17/18 23:58 Temperature Pulse Rate 76 77 70 Respiratory Rate 20 18 17 Blood Pressure 159/76 H 158/102 H Pulse Oximetry 94 L 100 02/18/18 00:00 02/18/18 01:00 02/18/18 02:00 Temperature 98.0 F Pulse Rate 71 74 71 Respiratory Rate 23 24 18 Blood Pressure Pulse Oximetry 100 95 97 02/18/18 03:00 02/18/18 03:03 02/18/18 03:32 Temperature Pulse Rate 77 77 71 Respiratory Rate 24 20 18 Blood Pressure 152/82 H Pulse Oximetry 95 97 02/18/18 03:33 02/18/18 04:00 02/18/18 05:00 Temperature 97.6 F Pulse Rate 74 73 Respiratory Rate 20 23 Blood Pressure 147/69 H 159/73 H Pulse Oximetry 100 97 95 02/18/18 06:00 02/18/18 07:00 Temperature Pulse Rate 79 79 Respiratory Rate 20 20 Blood Pressure 145/71 H 128/82 Pulse Oximetry 92 L 99 Intake & Output 02/17/18 02/18/18 02/18/18 18:59 06:59 18:59 Intake Total 661 / 661 1325 / 1325 Output Total 1000 / 1000 Balance -339 / -339 1325 / 1325 Intake: IV 661 / 661 1325 / 1325 KCl 20 mEq Premix Inj 20 meq In 100 / 100 480 / 480 100 ml @ 50 mls/hr IV.SIG Q2H RUSSELL Rx#:[id number] Potassium Phosphate Inj 30 MMOL 260 / 260 In NS Inj 250 ML @ 43.333 mls/ hr IV.SIG ONCE ONE Rx#:[id number] Glycophos Inj 30 MMOL In NS Inj 250 / 250 230 ML @ 42 mls/hr IV.SIG ONCE ONE Rx#:[id number] Thiamine Inj 100 MG In NS Inj 101 / 101 100 ML @ 100 mls/hr IV.SIG DAILY RUSSELL Rx#:[id number] Vancomycin Inj 1,500 MG In NS 500 / 500 Inj 500 ML @ 250 mls/hr IV.SIG Q18H RUSSELL Rx#:[id number] Rocephin Inj 1,000 MG In NS Inj 100 / 100 95 / 95 100 ML @ 200 mls/hr IV.SIG Q12H RUSSELL Rx#:[id number] Flagyl 500 MG Inj 100 ML @ 100 100 / 100 mls/hr IV.SIG Q8H RUSSELL Rx#: [id number] Output: Urine 1000 / 1000 Other: # Incontinent Voids 4 Date of Last Bowel Movement 02/17/18 02/18/18 # Incontinent Bowel Movements 1 Narrative: GENERAL: Well-developed well-nourished. Appears in no acute distress on Bipap. NECK: No carotid bruits. No JVD. CARDIOVASCULAR: Regular rate and rhythm. No murmur appreciated. RESPIRATORY: No accessory muscle use. Right base wheezing. MUSCULOSKELETAL: No clubbing or cyanosis. No edema. NEURO: Responds to stimuli. In four-point restraints. - Urinary Catheter Management Condom Cath placed during this visit: yes Reason for continuing: Acute urinary retention Insertion date: 02/18/18 Insertion time: 07:00 Indwelling Urethral Catheter Cath placed during this visit: yes, but has since been removed by the nurse Reason for continuing: Acute urinary retention Insertion date: 02/10/18 Insertion time: 23:00 Removal date: 02/11/18 Removal time: 17:00 Results 02/17/18 07:05 02/18/18 04:13 CBC 02/17/18 Range/Units 07:05 WBC 11.7 H (4.0-11.0) th/mm3 RBC 4.48 L (4.50-5.90) mil/mm3 Hgb 12.0 L (13.0-17.0) gm/dL Hct 38.9 L (39.0-51.0) % Plt Count 176 (150-450) th/mm3 Neut # (Auto) 9.6 H (1.8-7.7) th/mm3 Lymph # (Auto) 0.8 L (1.0-4.8) th/mm3 [place] # (Auto) 1.1 H (0.0-0.9) th/mm3 Eos # (Auto) 0.1 (0.0-0.4) th/mm3 Baso # (Auto) 0.1 (0.0-0.2) th/mm3 Comprehensive Metabolic Panel 02/16/18 02/17/18 02/18/18 Range/Units 23:45 12:10 04:13 Sodium 149 H 144 (136-145) meq/L Potassium 2.8 L* D 3.0 L 3.4 L (3.5-5.1) meq/L Chloride 95 L D 92 L (98-107) meq/L Carbon Dioxide Greater than 45.0 H Greater than 45.0 H (21.0-32.0) meq/L BUN 13 11 (7-18) mg/dL Creatinine 0.61 0.52 L (0.60-1.30) mg/dL Calcium 8.2 L 7.9 L (8.5-10.1) mg/dL Intake and Output 02/17/18 02/18/18 02/18/18 22:59 06:59 14:59 Intake Total 1246 / 1246 280 / 280 Output Total 1000 / 1000 Balance 246 / 246 280 / 280 Intake: IV 1246 / 1246 280 / 280 KCl 20 mEq Premix Inj 20 meq In 395 / 395 185 / 185 100 ml @ 50 mls/hr IV.SIG Q2H RUSSELL Rx#:[id number] Glycophos Inj 30 MMOL In NS Inj 250 / 250 230 ML @ 42 mls/hr IV.SIG ONCE ONE Rx#:[id number] Thiamine Inj 100 MG In NS Inj 101 / 101 100 ML @ 100 mls/hr IV.SIG DAILY RUSSELL Rx#:[id number] Vancomycin Inj 1,500 MG In NS 500 / 500 Inj 500 ML @ 250 mls/hr IV.SIG Q18H RUSSELL Rx#:[id number] Rocephin Inj 1,000 MG In NS Inj 95 / 95 100 ML @ 200 mls/hr IV.SIG Q12H RUSSELL Rx#:[id number] Output: Urine 1000 / 1000 Other: # Incontinent Voids 4 Date of Last Bowel Movement 02/17/18 02/18/18 # Incontinent Bowel Movements 1 - Imaging and Cardiology Imaging: Impressions Head CT 02/17/18 00:00 CONCLUSION: Evolving left occipital and medial temporal lobe infarction which is developing into an area of encephalomalacia. Chest X-Ray 02/17/18 04:00 CONCLUSION: Progression in diffuse bilateral pulmonary infiltrates and small effusions. Assessment and Plan - Plan Assessment: Mild troponin elevation consistent with demand ischemia in the setting of the following problems. Doubt ACS. 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 Lipid profile is acceptable. Given stroke superior embolic in etiology, would recommend CHARLIE. Please obtain consent. Patient is currently unstable from a respiratory standpoint for sedation for the procedure therefore will hold off until more stable. Okay for diet today and n.p.o. after midnight for reevaluation tomorrow. Monitor telemetry for A. fib ID consultation to guide antibiosis Respiratory per primary team Discussed Condition With: RNDr. Hernandez
--- NOTE | 2018-02-18 07:42 | XR ---
EXAM DATE: 02/18/2018 7:25 AM EST AGE/SEX: 67 years / Male INDICATIONS: Respiratory distress. CLINICAL DATA: This is the patient's subsequent encounter. Patient reports that signs and symptoms h ave been present for 1 week and indicates a pain score of Nonresponsive. MEDICAL/SURGICAL HISTORY: . ETOH. . Total hip arthroplasty. COMPARISON: [facility] – [place], CHEST 1V SINGLE AP, 02/17/2018. . FINDINGS: Hazy bilateral pleural parenchymal opacity persists, right worse than left. Cardiac contours are jairo sly unchanged with borderline heart size. Central vascular congestion and interstitial prominence aga in noted. CONCLUSION: No significant change Electronically signed by: Adarsh Sue MD Board Certified Radiologist 02/18/2018 7:40 AM EST
--- NOTE | 2018-02-18 07:46 | P.PNCC ---
Subjective Subjective Remarks/Hospital Course: Patient is unable to provide history because he is intubated. Reviewed EMR. 67-year-old male with past medical history of alcohol abuse, tobacco abuse who presented to [facility] emergency department with altered mental status. Per report from [facility] he may have had syncope prior to their arrival. He ultimately was intubated for airway protection. CXR shows right lower lobe consolidation. White blood cell count is 12. Lactic acid is 5. Creatinine is 1.8. Most recent prior creatinine was 0.6 in 2008. He received 3 L normal saline bolus, azithromycin, Rocephin, neb in the emergency department. CT brain is pending. Polymerization Helper consulted for admission. SUBJ 02/11/18: Remains severely septic from 4 out of 4 bottles growing GPC. 2D echo ordered to rule out endocarditis. However mental status is improving following commands. MRI ordered by Dr. Santillan 02/12/18: Patient was intubated lightly sedated am. On sedation hold slight improvement of the neuro exam opens eyes intermittently follows simple commands with upper extremities. While undergoing CPAP trial patient self extubated initially was hypoxic and required 100% oxygen currently maintaining oxygen saturation on nonrebreather. 02/13/18: Patient self extubated yesterday a.m. while undergoing CPAP trial for planned extubation. Tolerating reasonably well. Chest x-ray shows increasing right-sided effusion. Sputum culture with Haemophilus. Plan for thoracentesis if large enough pleural effusion. Blood cultures growing strep species. 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, will need CHARLIE when more stable 02/14: Afebrile .patient remains on facemask at 5 L O2 saturation 96%. The patient underwent thoracentesis yesterday with approximately 650 cc removed, cultures pending. Patient extremely lethargic after receiving Ativan during the night. Ativan now discontinued the patient is on scheduled doses of Librium for avoidance of delirium tremens.. Formal swallow completed patient on mechanical soft diet, currently held secondary to lethargy. 02/15: The patient is more alert this afternoon after cessation of Ativan. Patient continues on Librium 3 times daily. Patient continues to have high FiO2 requirements Lasix twice daily added to medication regimen. Patient noted to be hypertensive systolic 170s hydralazine added also to medication regime Cardizem IV infusion transition to p.o. Cardizem extended release. The patient remains in four-point restraints for patient safety, intermittent bouts of confusion. Patient tolerating mechanical soft diet but needs assistance to be fed. Reconsult 02/18: Overnight the patient became hypoxic with noted cyanosis. Patient was placed on a nonrebreather mask, stat ABG was performed noted to be significantly hypercapnic. The patient was placed on BiPAP. Sleep 20 mg furosemide was given additional 40 mg of Lasix was given Ornelas was inserted to monitor output. Chest x-ray showed worsening infiltrates. Noted patient positive for Haemophilus influenza being treated and strep viridans bacteremia. ID was consulted yesterday will follow up recommendations today. After effective diuresis and placement of BiPAP the patient's FiO2 requirements decreased to 60%. The patient remains n.p.o. for tentative scheduled CHARLIE today. Objective Vital Signs / I&O: Vital Signs 02/17/18 08:00 02/17/18 09:00 02/17/18 10:00 Temperature 97.5 F L Pulse Rate 65 67 71 Respiratory Rate 16 17 22 Blood Pressure 169/70 H 172/74 H Pulse Oximetry 94 L 88 L 96 02/17/18 11:00 02/17/18 11:01 02/17/18 12:00 Temperature 97.4 F L Pulse Rate 80 71 70 Respiratory Rate 20 25 H 24 Blood Pressure 148/69 H 149/95 H Pulse Oximetry 86 L 87 L 85 L 02/17/18 13:00 02/17/18 13:02 02/17/18 14:00 Temperature Pulse Rate 67 68 80 Respiratory Rate 26 H 15 31 H Blood Pressure 155/68 H Pulse Oximetry 90 L 91 L 74 L 02/17/18 14:01 02/17/18 15:00 02/17/18 15:29 Temperature Pulse Rate 85 67 66 Respiratory Rate 42 H 25 H 19 Blood Pressure 110/60 149/67 H Pulse Oximetry 73 L 96 93 L 02/17/18 15:51 02/17/18 15:52 02/17/18 16:00 Temperature 97.7 F Pulse Rate 70 66 Respiratory Rate 22 28 H Blood Pressure 157/70 H Pulse Oximetry 92 L 100 02/17/18 18:00 02/17/18 19:46 02/17/18 20:00 Temperature 97.9 F Pulse Rate 67 69 73 Respiratory Rate 21 18 Blood Pressure 165/81 H Pulse Oximetry 98 100 02/17/18 20:38 02/17/18 21:00 02/17/18 22:00 Temperature Pulse Rate 72 76 76 Respiratory Rate 23 20 20 Blood Pressure 153/68 H 162/77 H Pulse Oximetry 99 98 95 02/17/18 22:03 02/17/18 23:00 02/17/18 23:58 Temperature Pulse Rate 76 77 70 Respiratory Rate 20 18 17 Blood Pressure 159/76 H 158/102 H Pulse Oximetry 94 L 100 02/18/18 00:00 02/18/18 01:00 02/18/18 02:00 Temperature 98.0 F Pulse Rate 71 74 71 Respiratory Rate 23 24 18 Blood Pressure Pulse Oximetry 100 95 97 02/18/18 03:00 02/18/18 03:03 02/18/18 03:32 Temperature Pulse Rate 77 77 71 Respiratory Rate 24 20 18 Blood Pressure 152/82 H Pulse Oximetry 95 97 02/18/18 03:33 02/18/18 04:00 02/18/18 06:00 Temperature Pulse Rate 74 79 Respiratory Rate 18 Blood Pressure Pulse Oximetry 100 Intake & Output 02/17/18 02/18/18 02/18/18 18:59 06:59 18:59 Intake Total 661 / 661 1325 / 1325 Output Total 1000 / 1000 Balance -339 / -339 1325 / 1325 Intake: IV 661 / 661 1325 / 1325 KCl 20 mEq Premix Inj 20 meq In 100 / 100 480 / 480 100 ml @ 50 mls/hr IV.SIG Q2H [facility] Rx#:[id number] Potassium Phosphate Inj 30 MMOL 260 / 260 In NS Inj 250 ML @ 43.333 mls/ hr IV.SIG ONCE ONE Rx#:[id number] Glycophos Inj 30 MMOL In NS Inj 250 / 250 230 ML @ 42 mls/hr IV.SIG ONCE ONE Rx#:[id number] Thiamine Inj 100 MG In NS Inj 101 / 101 100 ML @ 100 mls/hr IV.SIG DAILY [facility] Rx#:[id number] Vancomycin Inj 1,500 MG In NS 500 / 500 Inj 500 ML @ 250 mls/hr IV.SIG Q18H [facility] Rx#:[id number] Rocephin Inj 1,000 MG In NS Inj 100 / 100 95 / 95 100 ML @ 200 mls/hr IV.SIG Q12H [facility] Rx#:[id number] Flagyl 500 MG Inj 100 ML @ 100 100 / 100 mls/hr IV.SIG Q8H [facility] Rx#: [id number] Output: Urine 1000 / 1000 Other: # Incontinent Voids 4 Date of Last Bowel Movement 02/17/18 02/17/18 # Incontinent Bowel Movements 1 Result Diagrams: 02/17/18 07:05 02/18/18 04:13 Other Results: Laboratory Results WBC 11.7 th/mm3 (4.0-11.0) H 02/17/18 07:05 RBC 4.48 mil/mm3 (4.50-5.90) L 02/17/18 07:05 Hgb 12.0 gm/dL (13.0-17.0) L 02/17/18 07:05 Hct 38.9 % (39.0-51.0) L 02/17/18 07:05 MCV 86.9 fL (80.0-100.0) 02/17/18 07:05 MCH 26.8 pg (27.0-34.0) L 02/17/18 07:05 MCHC 30.9 % (32.0-36.0) L 02/17/18 07:05 RDW 15.5 % (11.6-17.2) 02/17/18 07:05 Plt Count 176 th/mm3 (150-450) 02/17/18 07:05 MPV 9.0 fL (7.0-11.0) 02/17/18 07:05 Prelim Diff (Auto) Slide review pending 02/16/18 04:19 Neut % (Auto) 82.0 % (16.0-70.0) H 02/17/18 07:05 Lymph % (Auto) 7.2 % (9.0-44.0) L 02/17/18 07:05 [place] % (Auto) 9.3 % (0.0-8.0) H 02/17/18 07:05 Eos % (Auto) 0.8 % (0.0-4.0) 02/17/18 07:05 Baso % (Auto) 0.7 % (0.0-2.0) 02/17/18 07:05 Neut # (Auto) 9.6 th/mm3 (1.8-7.7) H 02/17/18 07:05 Lymph # (Auto) 0.8 th/mm3 (1.0-4.8) L 02/17/18 07:05 [place] # (Auto) 1.1 th/mm3 (0.0-0.9) H 02/17/18 07:05 Eos # (Auto) 0.1 th/mm3 (0.0-0.4) 02/17/18 07:05 Baso # (Auto) 0.1 th/mm3 (0.0-0.2) 02/17/18 07:05 WBC Differential . 02/17/18 07:05 Seg Neuts % (Manual) 78 % (16-70) H 02/16/18 04:19 Band Neuts % (Manual) 10 % (0-6) H 02/16/18 04:19 Lymphocytes % (Manual) 5 % (9-44) L 02/16/18 04:19 Monocytes % (Manual) 2 % (0-8) 02/16/18 04:19 Metamyelocytes % (Man) 4 % (0-1) H 02/16/18 04:19 Myelocytes % (Man) 1 % (0-0) H 02/16/18 04:19 Abs Neuts (Manual) 9.1 th/mm3 (1.8-7.7) H 02/16/18 04:19 Nucleated RBCs/100 WBC 1 /100 WBC (0-0) H 02/15/18 04:49 Differential Comment Auto diff final 02/17/18 07:05 Platelet Estimate Normal (Normal) 02/16/18 04:19 Platelet Morphology Normal (Normal) 02/16/18 04:19 Basophilic Stippling Faint (None) H 02/15/18 04:49 ESR 32 mm/hr (0-20) H 02/11/18 14:22 PT 15.2 sec (9.8-11.6) H 02/10/18 18:15 INR 1.5 Ratio 02/10/18 18:15 APTT 28.0 sec (23.4-31.7) 02/10/18 18:15 Puncture Site Right radial 02/18/18 06:17 Patient Temperature 98.6 02/18/18 06:17 O2 Saturation 94 % (90-100) 02/18/18 06:17 ABG pH 7.47 (7.380-7.420) H 02/18/18 06:17 ABG pCO2 74 mmHg (38-42) H* 02/18/18 06:17 ABG pO2 80 mmHG (61-120) 02/18/18 06:17 ABG HCO3 53 mmol/L (22-26) H 02/18/18 06:17 ABG O2 Content 16.6 Vol % (12.0-20.0) 02/18/18 06:17 ABG Base Excess 26.3 mmol/L (-2-2) H 02/18/18 06:17 ABG Methemoglobin 1.5 % (0-2) 02/18/18 06:17 Kalyan Test Present 02/18/18 06:17 Hemoglobin 12.6 G/DL (12.0-16.0) 02/18/18 06:17 Carboxyhemoglobin 1.2 % (0-4) 02/18/18 06:17 O2 Delivery Device Non-rebreathing mask 02/18/18 06:17 Liter Flow 15.00 L/M 02/18/18 06:17 Vent Setting 02/10/18 22:00 Inspired O2 100 % 02/18/18 06:17 Critical Value Yes 02/18/18 06:17 Sodium 144 meq/L (136-145) 02/18/18 04:13 Potassium 3.4 meq/L (3.5-5.1) L 02/18/18 04:13 Chloride 92 meq/L (98-107) L 02/18/18 04:13 Carbon Dioxide Greater than 45.0 meq/L (21.0-32.0) H 02/18/18 04:13 Anion Gap 7 meq/L (5-15) 02/18/18 04:13 BUN 11 mg/dL (7-18) 02/18/18 04:13 Creatinine 0.52 mg/dL (0.60-1.30) L 02/18/18 04:13 Estimated GFR Greater than 89 mL/min (>89) 02/18/18 04:13 POC Glucose 94 mg/dl (68-110) 02/13/18 11:22 Random Glucose 98 mg/dL (74-106) 02/18/18 04:13 Hemoglobin A1c 5.3 % (4.3-6.0) 02/11/18 03:51 Lactic Acid 1.3 mmol/L (0.4-2.0) 02/10/18 22:40 Calcium 7.9 mg/dL (8.5-10.1) L 02/18/18 04:13 Phosphorus 1.5 mg/dL (2.5-4.9) L 02/17/18 12:10 Magnesium 1.4 mg/dL (1.5-2.5) L 02/18/18 04:13 Total Bilirubin 0.4 mg/dL (0.2-1.0) 02/14/18 08:23 AST 152 U/L (15-37) H 02/14/18 08:23 ALT 256 U/L (12-78) H 02/14/18 08:23 Alkaline Phosphatase 76 U/L (45-117) 02/14/18 08:23 Ammonia 17 mcmol/L (11-32) 02/15/18 03:49 Total Creatine Kinase 111 U/L (39-308) 02/10/18 18:15 Troponin I 0.09 ng/mL (0.02-0.05) H 02/14/18 08:23 B-Natriuretic Peptide 1035 pg/mL (0-100) H 02/10/18 18:15 Total Protein 7.2 g/dL (6.4-8.2) D 02/14/18 08:23 Albumin 2.2 g/dL (3.4-5.0) L 02/14/18 08:23 Triglycerides 85 mg/dL (42-150) 02/12/18 03:30 Cholesterol 67 mg/dL (120-200) L 02/12/18 03:30 LDL Cholesterol, Calc 31 mg/dL (0-99) 02/12/18 03:30 HDL Cholesterol 19.4 mg/dL (40.0-60.0) L 02/12/18 03:30 Cholesterol/HDL Ratio 3.45 Ratio 02/12/18 03:30 Vitamin B12 917 pg/mL (193-986) 02/11/18 14:22 TSH 2.100 uIU/mL (0.358-3.740) 02/10/18 18:15 Urine Color Yesenia (Yellw/Straw) 02/10/18 20:39 Urine Clarity Cloudy (Clear) H 02/10/18 20:39 Urine pH 5.0 (5.0-8.5) 02/10/18 20:39 Ur Specific [place] 1.018 (1.002-1.035) 02/10/18 20:39 Urine Protein 500 or greater mg/dL (Neg-Trace) 02/10/18 20:39 Urine Glucose (UA) Negative mg/dL (Negative) 02/10/18 20:39 Urine Ketones Negative mg/dL (Negative) 02/10/18 20:39 Urine Occult Blood Negative (Negative) 02/10/18 20:39 Urine Nitrate Negative (Negative) 02/10/18 20:39 Urine Bilirubin Negative (Negative) 02/10/18 20:39 Urine Ictotest Negative (Negative) 02/10/18 20:39 Urine Urobilinogen 1.0 mg/dL (Less than 2) 02/10/18 20:39 Ur Leukocyte Esterase Negative (Negative) 02/10/18 20:39 Urine RBC 2 /hpf (0-3) 02/10/18 20:39 Urine WBC 8 /hpf (0-5) H 02/10/18 20:39 Amorphous Sediment Moderate /hpf (None) H 02/10/18 20:39 Urine Bacteria Few /hpf (None) H 02/10/18 20:39 Hyaline Casts Innum /lpf (0-3) 02/10/18 20:39 Urine Mucus Moderate /lpf (Occasional) H 02/10/18 20:39 Micro UA Comment Culture not ind 02/10/18 20:39 Ur Microscopic Review Not Reportable 02/10/18 20:39 Urine Culture Comments Culture not ind 02/10/18 20:39 Pleural pH 8.0 02/13/18 13:25 Pleural RBC 115 /mm3 (0-0) H 02/13/18 13:25 Pleural Nuc Cells 655 /mm3 (0-10) H 02/13/18 13:25 Pleural Neutrophils 79 % 02/13/18 13:25 Pleural Lymphocytes 6 % 02/13/18 13:25 Pleural Monocytes 11 % 02/13/18 13:25 Pleural Plasma Cells 1 % 02/13/18 13:25 Pleural Mesothelial 2 % 02/13/18 13:25 Pleural Other Cells 1 % 02/13/18 13:25 Pleural Total Protein 1.8 gm/dL 02/13/18 13:25 Pleural LDH 65 U/L 02/13/18 13:25 Pleural Glucose 100 mg/dL 02/13/18 13:25 Pleural Amylase 13 U/L 02/13/18 13:25 Nasal Screen MRSA (PCR) Not detected (Negative) 02/11/18 02:30 Vancomycin Trough 15.6 mcg/mL (5.0-10.0) H 02/16/18 23:45 Urine Opiates Screen Neg (Neg) 02/10/18 20:39 Ur Barbiturates Screen Neg (Neg) 02/10/18 20:39 Ur Amphetamines Screen Neg (Neg) 02/10/18 20:39 U Benzodiazepines Scrn Neg (Neg) 02/10/18 20:39 Urine Cocaine Screen Neg (Neg) 02/10/18 20:39 U Cannabinoids Screen Neg (Neg) 02/10/18 20:39 Serum Alcohol Less than 3 mg/dL (0-5) 02/10/18 18:15 JOSE Screen Neg (Neg) 02/11/18 14:22 Hepatitis A IgM Ab Nonreactive (Nonreactive) 02/10/18 22:40 Hep Bs Antigen Nonreactive (Nonreactive) 02/10/18 22:40 Hep B Core IgM Ab Nonreactive (Nonreactive) 02/10/18 22:40 Hep C IgG Ab Nonreactive (Nonreactive) 02/10/18 22:40 Impressions Abdomen Ultrasound 02/11/18 00:00 CONCLUSION: 1. Small liver with trace ascites. 2. Small cyst lower pole right kidney. Head MRA 02/11/18 00:00 CONCLUSION: 1. Occlusion of the left posterior cerebral artery at its origin with acute ischemia left occipital region.. Neck MRA 02/11/18 00:00 CONCLUSION: 1. Negative MRA Carotids. Percent stenosis is calculated using the diameter of the stenotic region over the diameter of the normal distal internal carotid artery Head MRI 02/11/18 10:28 CONCLUSION: 1. Acute infarction involving the left posterior thalamus and occipital lobe without hemorrhage or mass effect. Head CT 02/17/18 00:00 CONCLUSION: Evolving left occipital and medial temporal lobe infarction which is developing into an area of encephalomalacia. Objective Remarks: GENERAL: Well-nourished, well-developed patient who is lying in bed in four- point restraints, awake on BIPAP SKIN: Warm and dry. There are excoriations around his bilateral ankles. There are petechiae around the ankles at the site of the excoriations and there is a clear line of delineation where they abruptly stop at what appears to be a sock or shoe line. No petechiae of palms or soles. No splinter hemorrhages. HEAD: Atraumatic. Normocephalic. EYES: Pupils equal and round, pinpoint bilaterally no scleral icterus. No injection or drainage. ENT: No nasal bleeding or discharge. Mucous membranes pink and moist. BiPAP at 60% NECK: Trachea midline. +JVD. No meningismus CARDIOVASCULAR: Regular rate and rhythm. No murmurs rubs or gallops. RESPIRATORY: Bibasilar rales with rhonchorous breath sounds bilaterally. No wheeze GASTROINTESTINAL: Abdomen soft, non-tender, nondistended. Bowel sounds present. MUSCULOSKELETAL: Extremities without clubbing, cyanosis, or edema. Scar overlying left shoulder. NEUROLOGICAL: GCS 14. RASS 0. Moving purposefully x 4 extremities. Follows commands intermittently Procedures: 02/13 Thoracentesis Assessment and Plan - Problem List (1) Stroke Code(s): I63.9 - Cerebral infarction, unspecified Status: Acute (2) Encephalopathy acute Code(s): G93.40 - Encephalopathy, unspecified Status: Acute (3) Septic shock Code(s): A41.9 - Sepsis, unspecified organism; R65.21 - Severe sepsis with septic shock Status: Acute (4) Respiratory failure Code(s): J96.90 - Respiratory failure, unspecified, unspecified whether with hypoxia or hypercapnia Status: Acute (5) Aspiration pneumonia Code(s): J69.0 - Pneumonitis due to inhalation of food and vomit Status: Acute (6) KIMBERLY (acute kidney injury) Code(s): N17.9 - Acute kidney failure, unspecified Status: Acute (7) Tobacco abuse Code(s): Z72.0 - Tobacco use Status: Chronic (8) Anemia Code(s): D64.9 - Anemia, unspecified Status: Chronic (9) Lactic acidemia Code(s): E87.2 - Acidosis Status: Acute (10) Transaminasemia Code(s): R74.0 - Nonspecific elevation of levels of transaminase and lactic acid dehydrogenase [LDH] Status: Acute (11) Hyperglycemia Code(s): R73.9 - Hyperglycemia, unspecified Status: Acute - Assessment and Plan Plan: NEURO: Subacute ischemic stroke Acute encephalopathy EtOH abuse per prior record CT brain volving infarct left occipital lobe and medial left temporal lobe. No hemorrhage. MRI brain -Acute infarction involving the left posterior thalamus and occipital lobe without hemorrhage or mass effect. MRA head Left REGIONAL CONTROLLER occlusion Not candidate for TPA due to unknown time of onset, probably subacute. Aspirin [address] Santillan following Ammonia level normal. Thiamine/multivitamin/folic acid Seizure precautions. Monitor for signs of alcohol withdrawal Decrease Librium 2D echo inadequate study, CHARLIE tentatively scheduled for 02/18 Four-point restraints placed for patient safety RESP: Acute hypercapnic respiratory failure Haemophilus influenza pneumonia B/L pleural effusions Tobacco abuse Intubated 02/10 for airway protection Self extubated today 02/12/2017 while on CPAP trial Currently requiring facemask DuoNeb every 6 hours. Albuterol every 2 hours as needed Broad-spectrum antibiotics for pneumonia 02/13 S/P right thoracentesis-650 cc removed Initiate chest physiotherapy 02/17-progression of bilateral pulmonary infiltrates, small bilateral pleural effusions CV: Lactic acidemia Elevated troponin/demand ischemia Hypertension Levophed as needed to maintain mean pressure greater than 65 Receiving aspirin 2D echo limited study normal-appearing ejection fraction Cardiology following ,CHARLIE tentatively schedule 02/18 EKG sinus rhythm with nonspecific ST changes in inferior leads. Trend lactic acid until clear Hydralazine 20 mg every 4 hours as needed for systolic blood pressure greater than 160 GI: Transaminase elevated Follow-up liver ultrasound Viral hepatitis panel-negative FEN/RENAL: Acute kidney injury-resolved Hypokalemia, hypomagnesemia, hypophosphatemia Follow-up renal ultrasound. Ornelas removed 02-28 Monitor intake and output hourly. Monitor electrolytes and replace as indicated. ID: Septic shock-resolved GPC/Streptococcus bacteremia Leukocytosis Aspiration pneumonia/Haemophilus influenza Penicillin allergyhives. Received ceftriaxone in the ED without issue. Chest x-ray with right lower lobe infiltrate. Blood cultures GPC/Streptococcus in 4 out of 4 bottles. Influenza negative. Follow-up sputum culture-Haemophilus influenzae Urine Legionella pneumococcal antigen- negative Received ceftriaxone and azithromycin in the emergency department. Continue ceftriaxone and Flagyl Vancomycin started 02/11/18 ID consulted appreciate recommendations WBC 9.8->11, with worsening infiltrates HEME: Anemia Monitor CBC Transfuse for hemoglobin less than 7 ENDO: Mild hyperglycemia HgbA1C 5.3 TSH normal PROPH: SCDs for DVT prophylaxis. Protonix 40 mg IV daily for stress ulcer prophylaxis ACCESS: Left IJ central venous line placed 02/10 FULL CODE Patient has sustained embolic stroke to the left posterior cerebral artery territory. He has pneumonia and sepsis. Plan for CHARLIE to rule out cardioembolic source of emboli and rule out vegetation. He is acute at risk of respiratory and neurological decompensation. We will resume ICU care Reconsult-critical care time 45mins Code Status: Full Discussed Condition With: PATIENT REGISTRATION SPECIALIST at bedside (4) Respiratory failure Qualifiers: Chronicity: acute Respiratory failure complication: hypercapnia Qualified Code(s): J96.02 - Acute respiratory failure with hypercapnia
--- NOTE | 2018-02-18 07:49 | P.PNNEU ---
Subjective Active Medications: Active Medications Acetaminophen (Tylenol) 650 mg PO Q6H PRN PRN Reason: PAIN 1-10 AND/OR FEVER >101F Hydrocodone Bitart/Acetaminophen ([place] 5/325) 1 tab PO Q4H PRN PRN Reason: PAIN SCALE 1 TO 5 Last Admin: 02/16/18 21:24 Dose: 1 tab Al Hydroxide/Mg Hydroxide (Milk Of Magnvalencia Liq) 30 ml PO Q12H PRN PRN Reason: Mild Constipation Albuterol (Albuterol Neb (Prn)) 2.5 mg NEB Q2HR NEB PRN PRN Reason: SHORTNESS OF BREATH/WHEEZING Albuterol (Duoneb Neb ([facility])) 1 ampul NEB Q4HR NEB [facility] Last Admin: 02/18/18 03:31 Dose: 1 ampul Amlodipine Besylate (Norvasc) 5 mg PO DAILY [facility] Last Admin: 02/18/18 02:53 Dose: Not Given Aspirin (Aspirin Chew) 162 mg PO DAILY [facility] Last Admin: 02/17/18 09:41 Dose: 162 mg Bisacodyl (Dulcolax Supp) 10 mg RECTAL DAILY PRN PRN Reason: SEVERE CONSITIPATION Chlordiazepoxide (Librium) 5 mg PO Q8H [facility] Chlorhexidine Gluconate (Peridex 0.12% Oral Kit) 15 ml OROPHARYNG BID@0800, 2000 [facility] Last Admin: 02/17/18 21:02 Dose: Not Given Diltiazem HCl (Cardizem Cd 24hr) 120 mg PO DAILY [facility] Last Admin: 02/17/18 09:41 Dose: 120 mg Flumazenil (Romazicon Inj) 0.2 mg IV.PUSH Q1M PRN PRN Reason: OVERSEDATION Folic Acid (Folic Acid) 1 mg NG/OG DAILY [facility] Last Admin: 02/17/18 09:41 Dose: 1 mg Furosemide (Lasix Inj) 40 mg IV.PUSH BID@0900,1800 [facility] Last Admin: 02/17/18 17:30 Dose: 40 mg Heparin Sodium (Porcine) (Heparin Inj) 5,000 units SQ Q12H [facility] Last Admin: 02/17/18 23:54 Dose: 5,000 units Hydralazine HCl (Apresoline Inj) 20 mg IV.PUSH Q4H PRN PRN Reason: HYPERTENSION Thiamine HCl 100 mg/ Sodium (Chloride) 101 mls @ 100 mls/hr IV.SIG DAILY [facility] Last Infusion: 02/17/18 16:03 Dose: Infused Ceftriaxone Sodium 1,000 mg/ (Sodium Chloride) 100 mls @ 200 mls/hr IV.SIG Q12H [facility] Last Infusion: 02/18/18 00:25 Dose: Infused Magnesium Sulfate 2 gm/ Sodium (Chloride) 100 mls @ 50 mls/hr IV.SIG UNSCH PRN PRN Reason: For Magnesium 1.2 - 1.6 mg/dL Potassium Chloride (Kcl 40 Meq Premix Inj) 40 meq in 100 mls @ 25 mls/hr IV.SIG Q2H PRN PRN Reason: For Potassium 2.8 - 3.2 mEq/L Potassium Chloride (Kcl 20 Meq Premix Inj) 20 meq in 100 mls @ 50 mls/hr IV.SIG Q2H PRN PRN Reason: For Potassium 3.3 - 3.5 mEq/L Potassium Chloride (Kcl 40 Meq Premix Inj) 40 meq in 100 mls @ 25 mls/hr IV.SIG UNSCH PRN PRN Reason: For Potassium 3.3 - 3.5 mEq/L Potassium Phosphate 30 mmol/ (Sodium Chloride) 260 mls @ 42 mls/hr IV.SIG UNSCH PRN PRN Reason: SEE LABEL COMMENTS Magnesium Sulfate 4 gm/ Sodium (Chloride) 100 mls @ 50 mls/hr IV.SIG UNSCH PRN PRN Reason: For Magnesium 0.9 - 1.1 mg/dL Potassium Chloride (Kcl 20 Meq Premix Inj) 20 meq in 100 mls @ 50 mls/hr IV.SIG Q2H PRN PRN Reason: For Potassium 2.8 - 3.2 mEq/L Last Infusion: 02/17/18 23:30 Dose: Infused Sodium Glycerophosphate 30 (mmol/ Sodium Chloride) 260 mls @ 42 mls/hr IV.SIG UNSCH PRN PRN Reason: For Phosphorus < 2.5 mg/dL Last Infusion: 02/15/18 23:32 Dose: Infused Labetalol HCl (Trandate Inj) 10 mg IV.PUSH Q6H PRN PRN Reason: SYS BP GREATER THAN OR = 160 Last Admin: 02/16/18 16:46 Dose: 10 mg Lactulose (Lactulose Liq) 30 ml PO DAILY PRN PRN Reason: SEVERE CONSITIPATION Magnesium Oxide (Mag-Ox) 800 mg PO UNSCH PRN PRN Reason: For Magnesium 1.2 - 1.6 mg/dL Miscellaneous Medication () 1 each OROPHARYNG 0000,0400,1200,1600 [facility] Last Admin: 02/18/18 03:32 Dose: 1 each Multivitamins (Theragran) 1 tab NG/OG DAILY [facility] Last Admin: 02/17/18 09:41 Dose: 1 tab Ondansetron HCl (Zofran Inj) 4 mg IV.PUSH Q6H PRN PRN Reason: NAUSEA OR VOMITING Pantoprazole Sodium (Protonix Inj) 40 mg IV.PUSH DAILY [facility] Last Admin: 02/17/18 09:41 Dose: 40 mg Pharmacy Profile Note (Vancomycin Consult Pharmacy) 1 each OTHER UNSCH PRN PRN Reason: Pharmacy to dose Potassium Bicarb/Potassium Chloride (K-Lyte Cl Eff) 50 meq PO UNSCH PRN PRN Reason: For Potassium 3.3 - 3.5 mEq/L Potassium Phosphate (K-Phos Original) 2,000 mg PO Q4H PRN PRN Reason: Phosphorus Less Than 2.5 mg/dL Potassium Phosphate (K-Phos Original) 2,000 mg PO UNSCH PRN PRN Reason: SEE LABEL COMMENTS Senna/Docusate Sodium (Charissa-Colace) 1 tab PO BID [facility] Last Admin: 02/17/18 21:02 Dose: 1 tab Sennosides (Senokot) 17.2 mg PO Q12H PRN PRN Reason: Moderate Constipation Sodium Chloride (Ns Flush) 2 ml IV.FLUSH PRN PRN PRN Reason: FLUSH AFTER USING IV ACCESS Last Admin: 02/15/18 08:51 Dose: 2 ml Sodium Chloride (Ns Flush) 2 ml IV.FLUSH BID [facility] Last Admin: 02/17/18 21:02 Dose: 2 ml Allergies/Adverse Reactions: Allergies Allergy/AdvReac Type Severity Reaction Status Date / Time penicillin G Allergy Severe RASH Unverified 09/24/16 19:44 Physical Exam Vital signs: Vital Signs 02/17/18 08:00 02/17/18 09:00 02/17/18 10:00 Temperature 97.5 F L Pulse Rate 65 67 71 Respiratory Rate 16 17 22 Blood Pressure 169/70 H 172/74 H Pulse Oximetry 94 L 88 L 96 02/17/18 11:00 02/17/18 11:01 02/17/18 12:00 Temperature 97.4 F L Pulse Rate 80 71 70 Respiratory Rate 20 25 H 24 Blood Pressure 148/69 H 149/95 H Pulse Oximetry 86 L 87 L 85 L 02/17/18 13:00 02/17/18 13:02 02/17/18 14:00 Temperature Pulse Rate 67 68 80 Respiratory Rate 26 H 15 31 H Blood Pressure 155/68 H Pulse Oximetry 90 L 91 L 74 L 02/17/18 14:01 02/17/18 15:00 02/17/18 15:29 Temperature Pulse Rate 85 67 66 Respiratory Rate 42 H 25 H 19 Blood Pressure 110/60 149/67 H Pulse Oximetry 73 L 96 93 L 02/17/18 15:51 02/17/18 15:52 02/17/18 16:00 Temperature 97.7 F Pulse Rate 70 66 Respiratory Rate 22 28 H Blood Pressure 157/70 H Pulse Oximetry 92 L 100 02/17/18 18:00 02/17/18 19:46 02/17/18 20:00 Temperature 97.9 F Pulse Rate 67 69 73 Respiratory Rate 21 18 Blood Pressure 165/81 H Pulse Oximetry 98 100 02/17/18 20:38 02/17/18 21:00 02/17/18 22:00 Temperature Pulse Rate 72 76 76 Respiratory Rate 23 20 20 Blood Pressure 153/68 H 162/77 H Pulse Oximetry 99 98 95 02/17/18 22:03 02/17/18 23:00 02/17/18 23:58 Temperature Pulse Rate 76 77 70 Respiratory Rate 20 18 17 Blood Pressure 159/76 H 158/102 H Pulse Oximetry 94 L 100 02/18/18 00:00 02/18/18 01:00 02/18/18 02:00 Temperature 98.0 F Pulse Rate 71 74 71 Respiratory Rate 23 24 18 Blood Pressure Pulse Oximetry 100 95 97 02/18/18 03:00 02/18/18 03:03 02/18/18 03:32 Temperature Pulse Rate 77 77 71 Respiratory Rate 24 20 18 Blood Pressure 152/82 H Pulse Oximetry 95 97 02/18/18 03:33 02/18/18 04:00 02/18/18 05:00 Temperature 97.6 F Pulse Rate 74 73 Respiratory Rate 20 23 Blood Pressure 147/69 H 159/73 H Pulse Oximetry 100 97 95 02/18/18 06:00 02/18/18 07:00 Temperature Pulse Rate 79 79 Respiratory Rate 20 20 Blood Pressure 145/71 H 128/82 Pulse Oximetry 92 L 99 Intake & Output 02/17/18 02/18/18 02/18/18 18:59 06:59 18:59 Intake Total 661 / 661 1445 / 1445 Output Total 1000 / 1000 700 / 700 Balance -339 / -339 745 / 745 Weight 64.9 kg Intake: IV 661 / 661 1325 / 1325 KCl 20 mEq Premix Inj 20 meq In 100 / 100 480 / 480 100 ml @ 50 mls/hr IV.SIG Q2H [facility] Rx#:[id number] Potassium Phosphate Inj 30 MMOL 260 / 260 In NS Inj 250 ML @ 43.333 mls/ hr IV.SIG ONCE ONE Rx#:[id number] Glycophos Inj 30 MMOL In NS Inj 250 / 250 230 ML @ 42 mls/hr IV.SIG ONCE ONE Rx#:[id number] Thiamine Inj 100 MG In NS Inj 101 / 101 100 ML @ 100 mls/hr IV.SIG DAILY [facility] Rx#:[id number] Vancomycin Inj 1,500 MG In NS 500 / 500 Inj 500 ML @ 250 mls/hr IV.SIG Q18H [facility] Rx#:[id number] Rocephin Inj 1,000 MG In NS Inj 100 / 100 95 / 95 100 ML @ 200 mls/hr IV.SIG Q12H [facility] Rx#:[id number] Flagyl 500 MG Inj 100 ML @ 100 100 / 100 mls/hr IV.SIG Q8H [facility] Rx#: [id number] Oral 120 / 120 Output: Urine 1000 / 1000 700 / 700 Other: # Incontinent Voids 4 3 Date of Last Bowel Movement 02/17/18 02/18/18 # Incontinent Bowel Movements 1 Narrative: awawek alert on bipap movesa ll well looks comfortable and cooperative now for raissa - Urinary Catheter Management Condom Cath placed during this visit: yes Reason for continuing: Acute urinary retention Insertion date: 02/18/18 Insertion time: 07:00 Indwelling Urethral Catheter Cath placed during this visit: yes, but has since been removed by the nurse Reason for continuing: Acute urinary retention Insertion date: 02/10/18 Insertion time: 23:00 Removal date: 02/11/18 Removal time: 17:00 Objective Laboratory Results - last 24 hr 02/17/18 02/17/18 02/18/18 07:05 12:10 04:13 WBC 11.7 H RBC 4.48 L Hgb 12.0 L Hct 38.9 L MCV 86.9 MCH 26.8 L MCHC 30.9 L RDW 15.5 Plt Count 176 MPV 9.0 Neut % (Auto) 82.0 H Lymph % (Auto) 7.2 L Maury % (Auto) 9.3 H Eos % (Auto) 0.8 Baso % (Auto) 0.7 Neut # (Auto) 9.6 H Lymph # (Auto) 0.8 L Maury # (Auto) 1.1 H Eos # (Auto) 0.1 Baso # (Auto) 0.1 WBC Differential . Differential Comment Auto diff final Puncture Site Patient Temperature O2 Saturation ABG pH ABG pCO2 ABG pO2 ABG HCO3 ABG O2 Content ABG Base Excess ABG Methemoglobin Kalyan Test Hemoglobin Carboxyhemoglobin O2 Delivery Device Liter Flow Inspired O2 Critical Value Sodium 144 Potassium 3.0 L 3.4 L Chloride 92 L Carbon Dioxide Greater than 45.0 H Anion Gap 7 BUN 11 Creatinine 0.52 L Estimated GFR Greater than 89 Random Glucose 98 Calcium 7.9 L Phosphorus 1.5 L Magnesium 1.8 1.4 L 02/18/18 06:17 WBC RBC Hgb Hct MCV MCH MCHC RDW Plt Count MPV Neut % (Auto) Lymph % (Auto) Maury % (Auto) Eos % (Auto) Baso % (Auto) Neut # (Auto) Lymph # (Auto) Maury # (Auto) Eos # (Auto) Baso # (Auto) WBC Differential Differential Comment Puncture Site Right radial Patient Temperature 98.6 O2 Saturation 94 ABG pH 7.47 H ABG pCO2 74 H* ABG pO2 80 ABG HCO3 53 H ABG O2 Content 16.6 ABG Base Excess 26.3 H ABG Methemoglobin 1.5 Kalyan Test Present Hemoglobin 12.6 Carboxyhemoglobin 1.2 O2 Delivery Device Non-rebreathing mask Liter Flow 15.00 Inspired O2 100 Critical Value Yes Sodium Potassium Chloride Carbon Dioxide Anion Gap BUN Creatinine Estimated GFR Random Glucose Calcium Phosphorus Magnesium Review/Management - Review/Management Plan: imp mod size left 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 center director cva with minimal blood products one small acute r mca cva on mri mra neck and cow ok left assistant center director occ vb nl echo la 4.0 45% ef trop inc bilat cva prob cardioembolic ?[place] consult cards watch for any afib fu holter asa for now 02/13/18 he denies etoh does smoke and i asked him to dc that cards on case for raissa next friday asa the inc lft could have been from some emboli also will consider coumadin on him see what raissa shows fu holter loop would be helpful lives in aclf he tells me 02/16/18 holter neg sr on tele raissa today if that is neg i would like to get loop in asa for now
[2018-02-18] MEDS: Chlorhexidine 0.12% Oral Kit 15 ML UDC OROPHARYNG SCH ×2 (08:30→20:38)
[2018-02-18] MEDS: Pantoprazole Inj 40 MG Vial IV.PUSH SCH (09:11)
[2018-02-18] MEDS: dilTIAZem CD 120 MG Capsule PO SCH (09:11)
[2018-02-18] MEDS: Folic Acid 1 MG Tablet NG/OG SCH (09:11)
[2018-02-18] MEDS: Thiamine Inj 100 MG in Sodium Chlor 0.9% Inj 100 ML IV.SIG SCH (09:11)
[2018-02-18] MEDS: Potassium Chlor 20 mEq Premix 20 MEQ/100 ML PIGGYBACK IV.SIG PRN ×2 (09:12→11:39)
[2018-02-18] MEDS: Senna/Docusate Sodium 8.6/50 MG Tablet PO SCH ×2 (09:13→20:39)
[2018-02-18] MEDS: Heparin - SQ 10,000 UNITS/ML Vial SQ SCH ×2 (11:37→22:52)
--- NOTE | 2018-02-18 15:45 | P.PNIM ---
Subjective Interval history: Patient laying down in bed, on bipap. Does not appear to be in any acute distress. Physical Exam Vital signs: Vital Signs 02/17/18 15:51 02/17/18 15:52 02/17/18 16:00 Temperature 97.7 F Pulse Rate 70 66 Respiratory Rate 22 28 H Blood Pressure 157/70 H Pulse Oximetry 92 L 100 02/17/18 18:00 02/17/18 19:46 02/17/18 20:00 Temperature 97.9 F Pulse Rate 67 69 73 Respiratory Rate 21 18 Blood Pressure 165/81 H Pulse Oximetry 98 100 02/17/18 20:38 02/17/18 21:00 02/17/18 22:00 Temperature Pulse Rate 72 76 76 Respiratory Rate 23 20 20 Blood Pressure 153/68 H 162/77 H Pulse Oximetry 99 98 95 02/17/18 22:03 02/17/18 23:00 02/17/18 23:58 Temperature Pulse Rate 76 77 70 Respiratory Rate 20 18 17 Blood Pressure 159/76 H 158/102 H Pulse Oximetry 94 L 100 02/18/18 00:00 02/18/18 01:00 02/18/18 02:00 Temperature 98.0 F Pulse Rate 71 74 71 Respiratory Rate 23 24 18 Blood Pressure Pulse Oximetry 100 95 97 02/18/18 03:00 02/18/18 03:03 02/18/18 03:32 Temperature Pulse Rate 77 77 71 Respiratory Rate 24 20 18 Blood Pressure 152/82 H Pulse Oximetry 95 97 02/18/18 03:33 02/18/18 04:00 02/18/18 05:00 Temperature 97.6 F Pulse Rate 74 73 Respiratory Rate 20 23 Blood Pressure 147/69 H 159/73 H Pulse Oximetry 100 97 95 02/18/18 06:00 02/18/18 07:00 02/18/18 07:55 Temperature Pulse Rate 79 79 74 Respiratory Rate 20 20 12 Blood Pressure 145/71 H 128/82 Pulse Oximetry 92 L 99 99 02/18/18 08:00 02/18/18 10:00 02/18/18 11:32 Temperature 97.5 F L Pulse Rate 74 78 80 Respiratory Rate 18 20 Blood Pressure 128/63 Pulse Oximetry 99 93 L 02/18/18 12:00 02/18/18 14:00 Temperature 97.7 F Pulse Rate 83 81 Respiratory Rate 18 Blood Pressure 111/58 L Pulse Oximetry 94 L Intake & Output 02/17/18 02/18/18 02/18/18 18:59 06:59 18:59 Intake Total 661 / 661 1445 / 1445 401 / 401 Output Total 1000 / 1000 700 / 700 Balance -339 / -339 745 / 745 401 / 401 Weight 64.9 kg Intake: IV 661 / 661 1325 / 1325 401 / 401 KCl 20 mEq Premix Inj 20 meq In 100 / 100 480 / 480 200 / 200 100 ml @ 50 mls/hr IV.SIG Q2H PRN Rx#:[id number] Potassium Phosphate Inj 30 MMOL 260 / 260 In NS Inj 250 ML @ 43.333 mls/ hr IV.SIG ONCE ONE Rx#:[id number] Glycophos Inj 30 MMOL In NS Inj 250 / 250 230 ML @ 42 mls/hr IV.SIG ONCE ONE Rx#:[id number] Thiamine Inj 100 MG In NS Inj 101 / 101 101 / 101 100 ML @ 100 mls/hr IV.SIG DAILY [facility] Rx#:[id number] Vancomycin Inj 1,500 MG In NS 500 / 500 Inj 500 ML @ 250 mls/hr IV.SIG Q18H [facility] Rx#:[id number] Rocephin Inj 1,000 MG In NS Inj 100 / 100 95 / 95 100 / 100 100 ML @ 200 mls/hr IV.SIG Q12H [facility] Rx#:[id number] Flagyl 500 MG Inj 100 ML @ 100 100 / 100 mls/hr IV.SIG Q8H [facility] Rx#: [id number] Oral 120 / 120 Output: Urine 1000 / 1000 700 / 700 Other: # Incontinent Voids 4 3 Date of Last Bowel Movement 02/17/18 02/18/18 02/18/18 # Incontinent Bowel Movements 1 Narrative: Patient appears weak. Currently on bipap. S1S2 Decreased breath sounds at right lung base abd soft, nontender, normal bowel sounds No edema of exts. Patient moves all 4 exts, no focal neuro deficits. Full neuro assessment difficult and patient is currently altered. - Urinary Catheter Management Condom Cath placed during this visit: yes Reason for continuing: Acute urinary retention Insertion date: 02/18/18 Insertion time: 07:00 Indwelling Urethral Catheter Cath placed during this visit: yes, but has since been removed by the nurse Reason for continuing: Acute urinary retention Insertion date: 02/10/18 Insertion time: 23:00 Removal date: 02/11/18 Removal time: 17:00 Results - Labs CBC & Chem 7: 02/17/18 07:05 02/18/18 04:13 Laboratory Results - last 24 hr 02/18/18 02/18/18 04:13 06:17 Puncture Site Right radial Patient Temperature 98.6 O2 Saturation 94 ABG pH 7.47 H ABG pCO2 74 H* ABG pO2 80 ABG HCO3 53 H ABG O2 Content 16.6 ABG Base Excess 26.3 H ABG Methemoglobin 1.5 Kalyan Test Present Hemoglobin 12.6 Carboxyhemoglobin 1.2 O2 Delivery Device Non-rebreathing mask Liter Flow 15.00 Inspired O2 100 Critical Value Yes Sodium 144 Potassium 3.4 L Chloride 92 L Carbon Dioxide Greater than 45.0 H Anion Gap 7 BUN 11 Creatinine 0.52 L Estimated GFR Greater than 89 Random Glucose 98 Calcium 7.9 L Magnesium 1.4 L Microbiology 02/17/18 20:04 Blood - Peripheral Aerobic Blood Culture - Preliminary No growth in 1 day 02/17/18 20:04 Blood - Peripheral Anaerobic Blood Culture - Preliminary No growth in 1 day 02/17/18 19:59 Blood - Peripheral Aerobic Blood Culture - Preliminary No growth in 1 day 02/17/18 19:59 Blood - Peripheral Anaerobic Blood Culture - Preliminary No growth in 1 day - Imaging Impressions Head CT 02/17/18 00:00 CONCLUSION: Evolving left occipital and medial temporal lobe infarction which is developing into an area of encephalomalacia. Chest X-Ray 02/18/18 06:44 CONCLUSION: No significant change Assessment and Plan - Plan 67 y/o male with a dx of alcohol abuse, tobacco abuse, htn, who presented to the ER with acute encephalopathy. As per documentation he had a syncopal episode prior to arrival. He was subsequently intubated for airway protection. Patient was found to have a slightly elevated wbc ct, lactate 5, cxr showed a right lower lobe infiltrate. He was admitted to the intensive care unit. 1. Subacute ischemic CVA 2. Acute encephalopathy 2/2 #1 3. Troponemia likely demand ischemia CT head shows a evolving infarct of the left occipital lobe and medial left temporal lobe. MRI brain acute infarct of the left post thalamus, and occipital lobe. MRA head left arc cutter occlusion. No tpa as pt was not a candidate, no known onset of symptoms. Neurology following the patient. Continue aspirin. NSR on telemetry, CHARLIE rescheduled for tomorrow. Will follow up with the cardiology team. Patient is in nsr on telemetry. EKG nsr, nonspecific st changes in inf leads 2decho limited study, normal ef. Slight elevation in serum trops, cardiology following the patient. Likely demand ischemia. On aspirin. 4. Acute hypoxic hypercapnic respiratory failure 2/2 H. influenza pna 5. Haemophilus influenza pna with right pleural effusion 6. ETOH abuse. Patient was initially on [facility] ventilation. Subsequently self extubated on . Currently on supplemental oxygen. Continue oxygen and keep o2 sats above 92%. S/p thoracentesis, 650 cc removed 02/14/18. Sputum grew H. Influenza Continue current antibiotics. Overnight patient bacame cyanotic, hypoxic. ABG showed hypercapnia, placed on bipap, give dose of lasix. CXR shows worsening infliltrates. Continue bipap intermittently. Continue CIWA protocol. Patient counseled to stop drinking alcohol. Folic acid, mv, thiamine, librium, ativan prn. 7. Septic shock 2/2 Strept Viridans bacteremia Lactate initially 5, now normalized. Blood cxs from 02/10/18 positive 2/2 Repeat blood cultures drawn yesterday. Will follow up. CHARLIE pending. ID following, will follow up with their recommendations. Continue Rocephin. Heparin for DVT prophylaxis.
[2018-02-18] MEDS: Vancomycin Inj 1,500 MG in Sodium Chlor 0.9% Inj 500 ML IV.SIG SCH (15:47)
--- NOTE | 2018-02-18 18:16 | P.CONID ---
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, 1 ppd unable to provide any meaningful history, is confused He was found to have bilateral strokes His cultures are growing virifdans strep 2 D echo was negative 2 D echo negative for vegetations, tech dificult On ROcephin He grew Haemophilkus from the sputum and CXR showed infiltaes Requires O2 mask to amintain sats, resp deterioration in the las 24 hrs On 1 gm of Rocephin Review of Systems unobtainable due to mental status PMFSH - History History Provided By: 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, 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, [employer]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 - Medical History Medical History: Medical History (Last Reviewed 02/19/18 @ 06:40 by Belem Caba MD) ETOH abuse Tobacco abuse - Surgical History Surgical History: Surgical History (Last Reviewed 02/19/18 @ 06:40 by Belem Caba MD) History of total left hip arthroplasty - Family History Family History: Family History (Last Reviewed 02/19/18 @ 06:40 by Belem Caba MD) Mother CHF (congestive heart failure) - Social History I have reviewed the patient's Social History: Yes - Tobacco History Second Hand Smoke Exposure: Yes Tobacco Use In Past 30 Days: Yes Smoking Status: Smoker, status unknown Tobacco Type: Cigarettes - Alcohol History How Often Do You Have a Drink Containing Alcohol: 4 or more times a week - Substance Use History Substance History: Unable to Obtain - Travel History Recent Travel in the [place] Within the Last 8 Weeks: No Recent Travel Out of the Country Within the Last 8 Weeks: No - Immunization History Tetanus Immunization: Unable to Assess Hx Influenza Vaccine This Season: No Medications and Allergies Active Medications: Active Medications Acetaminophen (Tylenol) 650 mg PO Q6H PRN PRN Reason: PAIN 1-10 AND/OR FEVER >101F Hydrocodone Bitart/Acetaminophen ([place] 5/325) 1 tab PO Q4H PRN PRN Reason: PAIN SCALE 1 TO 5 Last Admin: 02/16/18 21:24 Dose: 1 tab Al Hydroxide/Mg Hydroxide (Milk Of Viola Liq) 30 ml PO Q12H PRN PRN Reason: Mild Constipation Albuterol (Albuterol Neb (Prn)) 2.5 mg NEB Q2HR NEB PRN PRN Reason: SHORTNESS OF BREATH/WHEEZING Albuterol (Duoneb Neb (Russell)) 1 ampul NEB Q4HR NEB [facility] Last Admin: 02/18/18 15:47 Dose: 1 ampul Amlodipine Besylate (Norvasc) 5 mg PO DAILY [facility] Last Admin: 02/18/18 09:11 Dose: 5 mg Aspirin (Aspirin Chew) 162 mg PO DAILY [facility] Last Admin: 02/18/18 09:11 Dose: 162 mg Bisacodyl (Dulcolax Supp) 10 mg RECTAL DAILY PRN PRN Reason: SEVERE CONSITIPATION Chlordiazepoxide (Librium) 5 mg PO Q8H [facility] Last Admin: 02/18/18 18:04 Dose: 5 mg Chlorhexidine Gluconate (Peridex 0.12% Oral Kit) 15 ml OROPHARYNG BID@0800, 2000 [facility] Last Admin: 02/18/18 08:30 Dose: 15 ml Diltiazem HCl (Cardizem Cd 24hr) 120 mg PO DAILY [facility] Last Admin: 02/18/18 09:11 Dose: 120 mg Flumazenil (Romazicon Inj) 0.2 mg IV.PUSH Q1M PRN PRN Reason: OVERSEDATION Folic Acid (Folic Acid) 1 mg NG/OG DAILY [facility] Last Admin: 02/18/18 09:11 Dose: 1 mg Furosemide (Lasix Inj) 40 mg IV.PUSH BID@0900,1800 [facility] Last Admin: 02/18/18 18:03 Dose: 40 mg Heparin Sodium (Porcine) (Heparin Inj) 5,000 units SQ Q12H [facility] Last Admin: 02/18/18 11:37 Dose: 5,000 units Hydralazine HCl (Apresoline Inj) 20 mg IV.PUSH Q4H PRN PRN Reason: HYPERTENSION Thiamine HCl 100 mg/ Sodium (Chloride) 101 mls @ 100 mls/hr IV.SIG DAILY [facility] Last Infusion: 02/18/18 10:12 Dose: Infused Ceftriaxone Sodium 1,000 mg/ (Sodium Chloride) 100 mls @ 200 mls/hr IV.SIG Q12H [facility] Last Infusion: 02/18/18 09:42 Dose: Infused Magnesium Sulfate 2 gm/ Sodium (Chloride) 100 mls @ 50 mls/hr IV.SIG UNSCH PRN PRN Reason: For Magnesium 1.2 - 1.6 mg/dL Potassium Chloride (Kcl 40 Meq Premix Inj) 40 meq in 100 mls @ 25 mls/hr IV.SIG Q2H PRN PRN Reason: For Potassium 2.8 - 3.2 mEq/L Potassium Chloride (Kcl 20 Meq Premix Inj) 20 meq in 100 mls @ 50 mls/hr IV.SIG Q2H PRN PRN Reason: For Potassium 3.3 - 3.5 mEq/L Last Infusion: 02/18/18 14:23 Dose: Infused Potassium Chloride (Kcl 40 Meq Premix Inj) 40 meq in 100 mls @ 25 mls/hr IV.SIG UNSCH PRN PRN Reason: For Potassium 3.3 - 3.5 mEq/L Potassium Phosphate 30 mmol/ (Sodium Chloride) 260 mls @ 42 mls/hr IV.SIG UNSCH PRN PRN Reason: SEE LABEL COMMENTS Magnesium Sulfate 4 gm/ Sodium (Chloride) 100 mls @ 50 mls/hr IV.SIG UNSCH PRN PRN Reason: For Magnesium 0.9 - 1.1 mg/dL Potassium Chloride (Kcl 20 Meq Premix Inj) 20 meq in 100 mls @ 50 mls/hr IV.SIG Q2H PRN PRN Reason: For Potassium 2.8 - 3.2 mEq/L Last Infusion: 02/17/18 23:30 Dose: Infused Sodium Glycerophosphate 30 (mmol/ Sodium Chloride) 260 mls @ 42 mls/hr IV.SIG UNSCH PRN PRN Reason: For Phosphorus < 2.5 mg/dL Last Infusion: 02/15/18 23:32 Dose: Infused Vancomycin HCl 1,500 mg/ (Sodium Chloride) 515 mls @ 250 mls/hr IV.SIG Q18H [facility] Last Admin: 02/18/18 15:47 Dose: 250 mls/hr Labetalol HCl (Trandate Inj) 10 mg IV.PUSH Q6H PRN PRN Reason: SYS BP GREATER THAN OR = 160 Last Admin: 02/16/18 16:46 Dose: 10 mg Lactulose (Lactulose Liq) 30 ml PO DAILY PRN PRN Reason: SEVERE CONSITIPATION Magnesium Oxide (Mag-Ox) 800 mg PO UNSCH PRN PRN Reason: For Magnesium 1.2 - 1.6 mg/dL Miscellaneous Information ([facility] Ordered Lab Info) 0 each OTHER ONCE ONE Stop: 02/20/18 17:46 Miscellaneous Medication () 1 each OROPHARYNG 0000,0400,1200,1600 [facility] Last Admin: 02/18/18 15:47 Dose: 1 each Multivitamins (Theragran) 1 tab NG/OG DAILY [facility] Last Admin: 02/18/18 09:11 Dose: 1 tab Ondansetron HCl (Zofran Inj) 4 mg IV.PUSH Q6H PRN PRN Reason: NAUSEA OR VOMITING Pantoprazole Sodium (Protonix Inj) 40 mg IV.PUSH DAILY [facility] Last Admin: 02/18/18 09:11 Dose: 40 mg Pharmacy Profile Note (Vancomycin Consult Pharmacy) 1 each OTHER UNSCH PRN PRN Reason: Pharmacy to dose Potassium Bicarb/Potassium Chloride (K-Lyte Cl Eff) 50 meq PO UNSCH PRN PRN Reason: For Potassium 3.3 - 3.5 mEq/L Potassium Phosphate (K-Phos Original) 2,000 mg PO Q4H PRN PRN Reason: Phosphorus Less Than 2.5 mg/dL Potassium Phosphate (K-Phos Original) 2,000 mg PO UNSCH PRN PRN Reason: SEE LABEL COMMENTS Senna/Docusate Sodium (Charissa-Colace) 1 tab PO BID [facility] Last Admin: 02/18/18 09:13 Dose: Not Given Sennosides (Senokot) 17.2 mg PO Q12H PRN PRN Reason: Moderate Constipation Sodium Chloride (Ns Flush) 2 ml IV.FLUSH PRN PRN PRN Reason: FLUSH AFTER USING IV ACCESS Last Admin: 02/18/18 09:13 Dose: 2 ml Sodium Chloride (Ns Flush) 2 ml IV.FLUSH BID [facility] Last Admin: 02/18/18 09:13 Dose: 2 ml Allergies Allergy/AdvReac Type Severity Reaction Status Date / Time penicillin G Allergy Severe RASH Unverified 09/24/16 19:44 Home Medications Medication Instructions Recorded Confirmed Type Unable to Obtain Home Meds 02/10/18 02/10/18 History Exam Vital signs: Vital Signs 02/17/18 19:46 02/17/18 20:00 02/17/18 20:38 Temperature 97.9 F Pulse Rate 69 73 72 Respiratory Rate 21 18 23 Blood Pressure 165/81 H 153/68 H Pulse Oximetry 98 100 99 02/17/18 21:00 02/17/18 22:00 02/17/18 22:03 Temperature Pulse Rate 76 76 76 Respiratory Rate 20 20 20 Blood Pressure 162/77 H 159/76 H Pulse Oximetry 98 95 94 L 02/17/18 23:00 02/17/18 23:58 02/18/18 00:00 Temperature 98.0 F Pulse Rate 77 70 71 Respiratory Rate 18 17 23 Blood Pressure 158/102 H Pulse Oximetry 100 100 02/18/18 01:00 02/18/18 02:00 02/18/18 03:00 Temperature Pulse Rate 74 71 77 Respiratory Rate 24 18 24 Blood Pressure Pulse Oximetry 95 97 95 02/18/18 03:03 02/18/18 03:32 02/18/18 03:33 Temperature Pulse Rate 77 71 Respiratory Rate 20 18 Blood Pressure 152/82 H Pulse Oximetry 97 100 02/18/18 04:00 02/18/18 05:00 02/18/18 06:00 Temperature 97.6 F Pulse Rate 74 73 79 Respiratory Rate 20 23 20 Blood Pressure 147/69 H 159/73 H 145/71 H Pulse Oximetry 97 95 92 L 02/18/18 07:00 02/18/18 07:55 02/18/18 08:00 Temperature 97.5 F L Pulse Rate 79 74 74 Respiratory Rate 20 12 18 Blood Pressure 128/82 128/63 Pulse Oximetry 99 99 99 02/18/18 10:00 02/18/18 11:32 02/18/18 12:00 Temperature 97.7 F Pulse Rate 78 80 83 Respiratory Rate 20 18 Blood Pressure 111/58 L Pulse Oximetry 93 L 94 L 02/18/18 14:00 02/18/18 15:48 02/18/18 15:50 Temperature Pulse Rate 81 80 Respiratory Rate 20 Blood Pressure Pulse Oximetry 93 L 02/18/18 16:00 02/18/18 18:00 Temperature 98.1 F Pulse Rate 80 80 Respiratory Rate 23 Blood Pressure 117/56 L Pulse Oximetry 93 L Intake & Output 02/17/18 02/18/18 02/18/18 18:59 06:59 18:59 Intake Total 661 / 661 1445 / 1445 641 / 641 Output Total 1000 / 1000 700 / 700 4100 / 4100 Balance -339 / -339 745 / 745 -3459 / -3459 Weight 64.9 kg Intake: IV 661 / 661 1325 / 1325 401 / 401 KCl 20 mEq Premix Inj 20 meq In 100 / 100 480 / 480 200 / 200 100 ml @ 50 mls/hr IV.SIG Q2H PRN Rx#:[id number] Potassium Phosphate Inj 30 MMOL 260 / 260 In NS Inj 250 ML @ 43.333 mls/ hr IV.SIG ONCE ONE Rx#:[id number] Glycophos Inj 30 MMOL In NS Inj 250 / 250 230 ML @ 42 mls/hr IV.SIG ONCE ONE Rx#:[id number] Thiamine Inj 100 MG In NS Inj 101 / 101 101 / 101 100 ML @ 100 mls/hr IV.SIG DAILY [facility] Rx#:[id number] Vancomycin Inj 1,500 MG In NS 500 / 500 Inj 500 ML @ 250 mls/hr IV.SIG Q18H [facility] Rx#:[id number] Rocephin Inj 1,000 MG In NS Inj 100 / 100 95 / 95 100 / 100 100 ML @ 200 mls/hr IV.SIG Q12H [facility] Rx#:[id number] Flagyl 500 MG Inj 100 ML @ 100 100 / 100 mls/hr IV.SIG Q8H [facility] Rx#: [id number] Oral 120 / 120 240 / 240 Output: Urine 1000 / 1000 700 / 700 Urine Amount (Catheter) 4100 / 4100 Indwelling Urethral Catheter 4100 / 4100 Other: # Incontinent Voids 4 3 Date of Last Bowel Movement 02/17/18 02/18/18 02/18/18 # Incontinent Bowel Movements 1 1 - Constitutional no acute distress, average body habitus - Routine HEENT Exam Head: Present: normocephalic, atraumatic Eye: Present: EOMI, PERRL ENT: Present: mucous membranes moist, oropharynx clear - Routine Neck Exam Present: supple, full ROM - Routine Respiratory Exam Present: decreased breath sounds, CTA bilaterally. Absent: accessory muscle use - Routine Cardiovascular Exam Present: RRR, S1, S2. Absent: murmur, gallop, rubs - Routine Abdominal Exam Present: soft, normoactive bowel sounds. Absent: tenderness, distended, organomegaly, mass - Routine Extremities Exam Absent: cyanosis, clubbing, edema - Routine Skin Exam Present: intact, dry. Absent: jaundice, rash - Routine Neurological Exam Present: alert, CN II-XII intact. Absent: oriented X3, sensory deficit, motor deficit confused - Routine Psychiatric Exam Present: unable to assess Results - Labs CBC & Chem 7: 02/17/18 07:05 02/18/18 04:13 Labs: Laboratory Results - last 24 hr 02/18/18 02/18/18 04:13 06:17 Puncture Site Right radial Patient Temperature 98.6 O2 Saturation 94 ABG pH 7.47 H ABG pCO2 74 H* ABG pO2 80 ABG HCO3 53 H ABG O2 Content 16.6 ABG Base Excess 26.3 H ABG Methemoglobin 1.5 Kalyan Test Present Hemoglobin 12.6 Carboxyhemoglobin 1.2 O2 Delivery Device Non-rebreathing mask Liter Flow 15.00 Inspired O2 100 Critical Value Yes Sodium 144 Potassium 3.4 L Chloride 92 L Carbon Dioxide Greater than 45.0 H Anion Gap 7 BUN 11 Creatinine 0.52 L Estimated GFR Greater than 89 Random Glucose 98 Calcium 7.9 L Magnesium 1.4 L - Imaging Impressions Chest X-Ray 02/18/18 06:44 CONCLUSION: No significant change Assessment and Plan - Plan 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
[2018-02-19] MEDS: Oral Hygiene Kit OROPHARYNG SCH ×4 (00:21→15:33)
--- NOTE | 2018-02-19 05:19 | XR ---
EXAM DATE: 02/19/2018 4:57 AM EST AGE/SEX: 67 years / Male INDICATIONS: Shortness of breath, possible pulmonary disease. CLINICAL DATA: This is the patient's subsequent encounter. Patient reports that signs and symptoms h ave been present for 1 week and indicates a pain score of Nonresponsive. MEDICAL/SURGICAL HISTORY: Non-responsive. . Hip arthroplasty. [place] [facility] [place]18/2018. . FINDINGS: A single AP view of the chest demonstrates no significant change. Bilateral pulmonary infiltrates rig ht greater than left. Tiny bilateral pleural effusions. Heart is normal in size. CONCLUSION: Unchanged bilateral pleural effusions and pulmonary infiltrates. Electronically signed by: Jose Davenport MD Board Certified Radiologist 02/19/2018 5:18 AM EST
[2018-02-19 06:37] LABS: Anion Gap 8 meq/L (5-15); Blood Urea Nitrogen 13 mg/dL (7-18); Chloride 86 meq/L (98-107); Glomerular Filtration Rate Greater Than 89 mL/min (>89); Glucose,Random 76 mg/dL (74-106); Magnesium 1.6 mg/dL (1.5-2.5); Sodium 139 meq/L (136-145)
[2018-02-19 06:43] LABS: Phosphorus 2.6 mg/dL (2.5-4.9)
[2018-02-19] MEDS: Potassium Chlor 20 mEq Premix 20 MEQ/100 ML PIGGYBACK IV.SIG PRN ×4 (06:52→17:31)
[2018-02-19] MEDS: Chlorhexidine 0.12% Oral Kit 15 ML UDC OROPHARYNG SCH ×2 (07:23→21:04)
[2018-02-19] MEDS: Magnesium Oxide 400 MG Tablet PO PRN (08:00)
[2018-02-19] MEDS: Senna/Docusate Sodium 8.6/50 MG Tablet PO SCH ×2 (08:00→21:14)
[2018-02-19] MEDS: Vancomycin Inj 1,500 MG in Sodium Chlor 0.9% Inj 500 ML IV.SIG SCH (08:00)
[2018-02-19] MEDS: dilTIAZem CD 120 MG Capsule PO SCH (08:00)
[2018-02-19] MEDS: amLODIPine 5 MG Tablet PO SCH (08:00)
[2018-02-19] MEDS: Folic Acid 1 MG Tablet NG/OG SCH (08:00)
[2018-02-19] MEDS: Pantoprazole Inj 40 MG Vial IV.PUSH SCH (08:00)
[2018-02-19] MEDS: Thiamine Inj 100 MG in Sodium Chlor 0.9% Inj 100 ML IV.SIG SCH (08:01)
--- NOTE | 2018-02-19 08:14 | P.PNCA ---
Subjective Interval history: RN at bedside, reports trials overnight of weaning off BiPAP to nasal cannula. Patient is more awake today. Telemetry reviewed, no A. fib noted, 7 beats NSVT overnight. Consent for CHARLIE was obtained from patient's brother/MPOA. Medications and Allergies Allergies Allergy/AdvReac Type Severity Reaction Status Date / Time penicillin G Allergy Severe RASH Unverified 09/24/16 19:44 Home Medications Medication Instructions Recorded Confirmed Type Unable to Obtain Home Meds 02/10/18 02/10/18 History Active Medications: Active Medications Acetaminophen (Tylenol) 650 mg PO Q6H PRN PRN Reason: PAIN 1-10 AND/OR FEVER >101F Hydrocodone Bitart/Acetaminophen ([place] 5/325) 1 tab PO Q4H PRN PRN Reason: PAIN SCALE 1 TO 5 Last Admin: 02/16/18 21:24 Dose: 1 tab Al Hydroxide/Mg Hydroxide (Milk Of Magnvalencia Santosq) 30 ml PO Q12H PRN PRN Reason: Mild Constipation Albuterol (Albuterol Neb (Prn)) 2.5 mg NEB Q2HR NEB PRN PRN Reason: SHORTNESS OF BREATH/WHEEZING Amlodipine Besylate (Norvasc) 5 mg PO DAILY [facility] Last Admin: 02/19/18 08:00 Dose: 5 mg Aspirin (Aspirin Chew) 162 mg PO DAILY [facility] Last Admin: 02/19/18 08:00 Dose: 162 mg Bisacodyl (Dulcolax Supp) 10 mg RECTAL DAILY PRN PRN Reason: SEVERE CONSITIPATION Chlordiazepoxide (Librium) 5 mg PO Q8H [facility] Last Admin: 02/19/18 02:18 Dose: 5 mg Chlorhexidine Gluconate (Peridex 0.12% Oral Kit) 15 ml OROPHARYNG BID@0800, 2000 [facility] Last Admin: 02/19/18 07:23 Dose: 15 ml Diltiazem HCl (Cardizem Cd 24hr) 120 mg PO DAILY [facility] Last Admin: 02/19/18 08:00 Dose: 120 mg Flumazenil (Romazicon Inj) 0.2 mg IV.PUSH Q1M PRN PRN Reason: OVERSEDATION Folic Acid (Folic Acid) 1 mg NG/OG DAILY [facility] Last Admin: 02/19/18 08:00 Dose: 1 mg Furosemide (Lasix Inj) 40 mg IV.PUSH BID@0900,1800 [facility] Last Admin: 02/19/18 08:00 Dose: 40 mg Heparin Sodium (Porcine) (Heparin Inj) 5,000 units SQ Q12H [facility] Last Admin: 02/18/18 22:52 Dose: 5,000 units Hydralazine HCl (Apresoline Inj) 20 mg IV.PUSH Q4H PRN PRN Reason: HYPERTENSION Thiamine HCl 100 mg/ Sodium (Chloride) 101 mls @ 100 mls/hr IV.SIG DAILY [facility] Last Admin: 02/19/18 08:01 Dose: 100 mls/hr Magnesium Sulfate 2 gm/ Sodium (Chloride) 100 mls @ 50 mls/hr IV.SIG UNSCH PRN PRN Reason: For Magnesium 1.2 - 1.6 mg/dL Potassium Chloride (Kcl 40 Meq Premix Inj) 40 meq in 100 mls @ 25 mls/hr IV.SIG Q2H PRN PRN Reason: For Potassium 2.8 - 3.2 mEq/L Potassium Chloride (Kcl 20 Meq Premix Inj) 20 meq in 100 mls @ 50 mls/hr IV.SIG Q2H PRN PRN Reason: For Potassium 3.3 - 3.5 mEq/L Last Infusion: 02/18/18 14:23 Dose: Infused Potassium Chloride (Kcl 40 Meq Premix Inj) 40 meq in 100 mls @ 25 mls/hr IV.SIG UNSCH PRN PRN Reason: For Potassium 3.3 - 3.5 mEq/L Potassium Phosphate 30 mmol/ (Sodium Chloride) 260 mls @ 42 mls/hr IV.SIG UNSCH PRN PRN Reason: SEE LABEL COMMENTS Magnesium Sulfate 4 gm/ Sodium (Chloride) 100 mls @ 50 mls/hr IV.SIG UNSCH PRN PRN Reason: For Magnesium 0.9 - 1.1 mg/dL Potassium Chloride (Kcl 20 Meq Premix Inj) 20 meq in 100 mls @ 50 mls/hr IV.SIG Q2H PRN PRN Reason: For Potassium 2.8 - 3.2 mEq/L Last Admin: 02/19/18 06:52 Dose: 50 mls/hr Sodium Glycerophosphate 30 (mmol/ Sodium Chloride) 260 mls @ 42 mls/hr IV.SIG UNSCH PRN PRN Reason: For Phosphorus < 2.5 mg/dL Last Infusion: 02/15/18 23:32 Dose: Infused Vancomycin HCl 1,500 mg/ (Sodium Chloride) 515 mls @ 250 mls/hr IV.SIG Q18H [facility] Last Admin: 02/19/18 08:00 Dose: 250 mls/hr Ceftriaxone Sodium 2,000 mg/ (Sodium Chloride) 100 mls @ 200 mls/hr IV.SIG Q24H [facility] Last Admin: 02/19/18 07:48 Dose: 200 mls/hr Labetalol HCl (Trandate Inj) 10 mg IV.PUSH Q6H PRN PRN Reason: SYS BP GREATER THAN OR = 160 Last Admin: 02/16/18 16:46 Dose: 10 mg Lactulose (Lactulose Liq) 30 ml PO DAILY PRN PRN Reason: SEVERE CONSITIPATION Magnesium Oxide (Mag-Ox) 800 mg PO UNSCH PRN PRN Reason: For Magnesium 1.2 - 1.6 mg/dL Last Admin: 02/19/18 08:00 Dose: 800 mg Miscellaneous Information ([facility] Ordered Lab Info) 0 each OTHER ONCE ONE Stop: 02/20/18 17:46 Miscellaneous Medication () 1 each OROPHARYNG 0000,0400,1200,1600 [facility] Last Admin: 02/19/18 03:22 Dose: 1 each Multivitamins (Theragran) 1 tab NG/OG DAILY [facility] Last Admin: 02/19/18 08:00 Dose: 1 tab Ondansetron HCl (Zofran Inj) 4 mg IV.PUSH Q6H PRN PRN Reason: NAUSEA OR VOMITING Pantoprazole Sodium (Protonix Inj) 40 mg IV.PUSH DAILY [facility] Last Admin: 02/19/18 08:00 Dose: 40 mg Pharmacy Profile Note (Vancomycin Consult Pharmacy) 1 each OTHER UNSCH PRN PRN Reason: Pharmacy to dose Potassium Bicarb/Potassium Chloride (K-Lyte Cl Eff) 50 meq PO UNSCH PRN PRN Reason: For Potassium 3.3 - 3.5 mEq/L Potassium Phosphate (K-Phos Original) 2,000 mg PO Q4H PRN PRN Reason: Phosphorus Less Than 2.5 mg/dL Potassium Phosphate (K-Phos Original) 2,000 mg PO UNSCH PRN PRN Reason: SEE LABEL COMMENTS Senna/Docusate Sodium (Charissa-Colace) 1 tab PO BID [facility] Last Admin: 02/19/18 08:00 Dose: 1 tab Sennosides (Senokot) 17.2 mg PO Q12H PRN PRN Reason: Moderate Constipation Sodium Chloride (Ns Flush) 2 ml IV.FLUSH PRN PRN PRN Reason: FLUSH AFTER USING IV ACCESS Last Admin: 02/19/18 08:01 Dose: 2 ml Sodium Chloride (Ns Flush) 2 ml IV.FLUSH BID [facility] Last Admin: 02/19/18 08:01 Dose: 2 ml Physical Exam Vital signs: Vital Signs 02/18/18 10:00 02/18/18 11:32 02/18/18 12:00 Temperature 97.7 F Pulse Rate 78 80 83 Respiratory Rate 20 18 Blood Pressure 111/58 L Pulse Oximetry 93 L 94 L 02/18/18 14:00 02/18/18 15:48 02/18/18 15:50 Temperature Pulse Rate 81 80 Respiratory Rate 20 Blood Pressure Pulse Oximetry 93 L 02/18/18 16:00 02/18/18 18:00 02/18/18 19:00 Temperature 98.1 F Pulse Rate 80 80 Respiratory Rate 23 Blood Pressure 117/56 L Pulse Oximetry 93 L 95 02/18/18 19:42 02/18/18 19:45 02/18/18 20:00 Temperature 98.4 F Pulse Rate 81 81 Respiratory Rate 23 23 Blood Pressure 139/64 Pulse Oximetry 92 L 96 02/18/18 21:03 02/18/18 22:00 02/19/18 00:00 Temperature 98.6 F Pulse Rate 77 75 Respiratory Rate 17 Blood Pressure 113/58 L Pulse Oximetry 92 L 93 L 02/19/18 00:55 02/19/18 02:00 02/19/18 02:39 Temperature Pulse Rate 71 Respiratory Rate Blood Pressure Pulse Oximetry 90 L 92 L 02/19/18 03:56 02/19/18 04:00 02/19/18 06:00 Temperature 98.4 F Pulse Rate 69 69 Respiratory Rate 16 Blood Pressure 122/57 L Pulse Oximetry 98 95 02/19/18 07:00 Temperature Pulse Rate Respiratory Rate Blood Pressure Pulse Oximetry 99 Intake & Output 02/18/18 02/19/18 02/19/18 18:59 06:59 18:59 Intake Total 1156 / 1156 600 / 600 Output Total 4100 / 4100 1200 / 1200 Balance -2944 / -2944 -600 / -600 Weight 140 lb 3.424 oz Intake: IV 916 / 916 100 / 100 KCl 20 mEq Premix Inj 20 meq In 200 / 200 100 ml @ 50 mls/hr IV.SIG Q2H PRN Rx#:[id number] Thiamine Inj 100 MG In NS Inj 101 / 101 100 ML @ 100 mls/hr IV.SIG DAILY [facility] Rx#:[id number] Vancomycin Inj 1,500 MG In NS 515 / 515 Inj 500 ML @ 250 mls/hr IV.SIG Q18H [facility] Rx#:[id number] Rocephin Inj 1,000 MG In NS Inj 100 / 100 100 / 100 100 ML @ 200 mls/hr IV.SIG Q12H [facility] Rx#:[id number] Oral 240 / 240 500 / 500 Output: Urine Amount (Catheter) 4100 / 4100 1200 / 1200 Indwelling Urethral Catheter 4100 / 4100 1200 / 1200 Other: Date of Last Bowel Movement 02/18/18 02/19/18 # Bowel Movements 1 # Incontinent Bowel Movements 1 Narrative: GENERAL: Well-developed well-nourished. Appears in no acute distress on Bipap. NECK: No carotid bruits. No JVD. CARDIOVASCULAR: Regular rate and rhythm. No murmur appreciated. RESPIRATORY: No accessory muscle use. Clear to auscultation bilaterally. MUSCULOSKELETAL: No clubbing or cyanosis. No edema. NEURO: Awakens easily to voice and responds to questions appropriately. - Urinary Catheter Management Condom Cath placed during this visit: yes Reason for continuing: Acute urinary retention Insertion date: 02/18/18 Insertion time: 07:00 Indwelling Urethral Catheter Cath placed during this visit: yes, but has since been removed by the nurse Reason for continuing: Acute urinary retention Insertion date: 02/18/18 Insertion time: 07:00 Removal date: 02/11/18 Removal time: 17:00 Results 02/17/18 07:05 02/19/18 05:04 Comprehensive Metabolic Panel 02/17/18 02/18/18 02/19/18 Range/Units 12:10 04:13 05:04 Sodium 144 139 (136-145) meq/L Potassium 3.0 L 3.4 L 3.0 L (3.5-5.1) meq/L Chloride 92 L 86 L (98-107) meq/L Carbon Dioxide Greater than 45.0 H Greater than 45.0 H (21.0-32.0) meq/L BUN 11 13 (7-18) mg/dL Creatinine 0.52 L 0.61 (0.60-1.30) mg/dL Calcium 7.9 L 8.0 L (8.5-10.1) mg/dL Intake and Output 02/18/18 02/19/18 02/19/18 22:59 06:59 14:59 Intake Total 755 / 755 600 / 600 Output Total 4100 / 4100 1200 / 1200 Balance -3345 / -3345 -600 / -600 Intake: IV 515 / 515 100 / 100 Vancomycin Inj 1,500 MG In NS 515 / 515 Inj 500 ML @ 250 mls/hr IV.SIG Q18H [facility] Rx#:[id number] Rocephin Inj 1,000 MG In NS Inj 100 / 100 100 ML @ 200 mls/hr IV.SIG Q12H [facility] Rx#:[id number] Oral 240 / 240 500 / 500 Output: Urine Amount (Catheter) 4100 / 4100 1200 / 1200 Indwelling Urethral Catheter 4100 / 4100 1200 / 1200 Other: Date of Last Bowel Movement 02/18/18 02/19/18 # Bowel Movements 1 # Incontinent Bowel Movements 1 Weight 140 lb 3.424 oz - Imaging and Cardiology Imaging: Impressions Head CT 02/17/18 00:00 CONCLUSION: Evolving left occipital and medial temporal lobe infarction which is developing into an area of encephalomalacia. Chest X-Ray 02/18/18 06:44 CONCLUSION: No significant change Chest X-Ray 02/19/18 04:00 CONCLUSION: Unchanged bilateral pleural effusions and pulmonary infiltrates. Assessment and Plan - Plan Assessment: Mild troponin elevation consistent with demand ischemia in the setting of the following problems. Doubt ACS. 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 Lipid profile is acceptable. Given stroke superior embolic in etiology, would recommend CHARLIE. Will attempt CHARLIE this morning. Monitor telemetry for A. fib ID consultation to guide antibiosis Respiratory per primary team DC amlodipine and start metoprolol 25 mg daily Discussed Condition With: Patient with RN at bedside, Dr. Hernandez - Attending Attestation bacteremia anesthesia concerned about respiratory status and would require re-intubation for CHARLIE. would like to avoid intubation. Continue antibiotics schedule CHARLIE friday
[2018-02-19] MEDS: Metoprolol Tartrate 25 MG Tablet PO SCH ×2 (09:14→22:14)
[2018-02-19 09:25] LABS: Baso % (Auto) 0.4 % (0.0-2.0); Eos # (Auto) 0.3 th/mm3 (0.0-0.4); Hemoglobin 12.8 gm/dL (13.0-17.0); Lymph % (Auto) 9.6 % (9.0-44.0); Mean Corpuscular HGB Conc 31.2 % (32.0-36.0); Mean Corpuscular Hemoglobin 26.2 pg (27.0-34.0); Mean Corpuscular Volume 84.1 fL (80.0-100.0); Mean Platelet Volume 9.2 fL (7.0-11.0); Mono % (Auto) 9.6 % (0.0-8.0); Neut # (Auto) 7.8 th/mm3 (1.8-7.7); Neut % (Auto) 77.4 % (16.0-70.0); Platelet Count 120 th/mm3 (150-450); Red Blood Count 4.88 mil/mm3 (4.50-5.90); Red Cell Distribution Width 15.4 % (11.6-17.2)
[2018-02-19] MEDS: Heparin - SQ 10,000 UNITS/ML Vial SQ SCH ×2 (10:57→22:14)
--- NOTE | 2018-02-19 17:00 | P.PNCC ---
Subjective Subjective Remarks/Hospital Course: Patient is unable to provide history because he is intubated. Reviewed EMR. 67-year-old male with past medical history of alcohol abuse, tobacco abuse who presented to [facility] emergency department with altered mental status. Per report from [facility] he may have had syncope prior to their arrival. He ultimately was intubated for airway protection. CXR shows right lower lobe consolidation. White blood cell count is 12. Lactic acid is 5. Creatinine is 1.8. Most recent prior creatinine was 0.6 in 2008. He received 3 L normal saline bolus, azithromycin, Rocephin, neb in the emergency department. CT brain is pending. Concrete Puddler consulted for admission. SUBJ 02/11/18: Remains severely septic from 4 out of 4 bottles growing GPC. 2D echo ordered to rule out endocarditis. However mental status is improving following commands. MRI ordered by Dr. Santillan 02/12/18: Patient was intubated lightly sedated am. On sedation hold slight improvement of the neuro exam opens eyes intermittently follows simple commands with upper extremities. While undergoing CPAP trial patient self extubated initially was hypoxic and required 100% oxygen currently maintaining oxygen saturation on nonrebreather. 02/13/18: Patient self extubated yesterday a.m. while undergoing CPAP trial for planned extubation. Tolerating reasonably well. Chest x-ray shows increasing right-sided effusion. Sputum culture with Haemophilus. Plan for thoracentesis if large enough pleural effusion. Blood cultures growing strep species. 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, will need CHARLIE when more stable 02/14: Afebrile .patient remains on facemask at 5 L O2 saturation 96%. The patient underwent thoracentesis yesterday with approximately 650 cc removed, cultures pending. Patient extremely lethargic after receiving Ativan during the night. Ativan now discontinued the patient is on scheduled doses of Librium for avoidance of delirium tremens.. Formal swallow completed patient on mechanical soft diet, currently held secondary to lethargy. 02/15: The patient is more alert this afternoon after cessation of Ativan. Patient continues on Librium 3 times daily. Patient continues to have high FiO2 requirements Lasix twice daily added to medication regimen. Patient noted to be hypertensive systolic 170s hydralazine added also to medication regime Cardizem IV infusion transition to p.o. Cardizem extended release. The patient remains in four-point restraints for patient safety, intermittent bouts of confusion. Patient tolerating mechanical soft diet but needs assistance to be fed. Reconsult 02/18: Overnight the patient became hypoxic with noted cyanosis. Patient was placed on a nonrebreather mask, stat ABG was performed noted to be significantly hypercapnic. The patient was placed on BiPAP. Sleep 20 mg furosemide was given additional 40 mg of Lasix was given Ornelas was inserted to monitor output. Chest x-ray showed worsening infiltrates. Noted patient positive for Haemophilus influenza being treated and strep viridans bacteremia. ID was consulted yesterday will follow up recommendations today. After effective diuresis and placement of BiPAP the patient's FiO2 requirements decreased to 60%. The patient remains n.p.o. for tentative scheduled CHARLIE today. 02/19: Afebrile. ID following Rocephin increased to 2 g. Chest x-ray remains unchanged today. Oxygen requirement significantly decreased the patient remains on nasal cannula, never noted CO2 retention planned BiPAP at night while asleep. The patient continues to have effective diuresis. Patient is tolerating a regular diet now with thin liquids. Plan for n.p.o. tonight for possible CHARLIE in a.m. Objective Vital Signs / I&O: Vital Signs 02/18/18 18:00 02/18/18 19:00 02/18/18 19:42 Temperature Pulse Rate 80 Respiratory Rate Blood Pressure Pulse Oximetry 95 92 L 02/18/18 19:45 02/18/18 20:00 02/18/18 21:03 Temperature 98.4 F Pulse Rate 81 81 Respiratory Rate 23 23 Blood Pressure 139/64 Pulse Oximetry 96 92 L 02/18/18 22:00 02/19/18 00:00 02/19/18 00:55 Temperature 98.6 F Pulse Rate 77 75 Respiratory Rate 17 Blood Pressure 113/58 L Pulse Oximetry 93 L 90 L 02/19/18 02:00 02/19/18 02:39 02/19/18 03:56 Temperature Pulse Rate 71 Respiratory Rate Blood Pressure Pulse Oximetry 92 L 98 02/19/18 04:00 02/19/18 06:00 02/19/18 07:00 Temperature 98.4 F Pulse Rate 69 69 Respiratory Rate 16 Blood Pressure 122/57 L Pulse Oximetry 95 99 02/19/18 07:33 02/19/18 08:00 02/19/18 09:35 Temperature 97.5 F L Pulse Rate 67 Respiratory Rate 24 Blood Pressure 142/65 H Pulse Oximetry 99 99 96 02/19/18 10:00 02/19/18 12:00 02/19/18 14:00 Temperature 98.2 F Pulse Rate 71 75 79 Respiratory Rate 22 Blood Pressure 122/67 Pulse Oximetry 93 L 02/19/18 16:00 Temperature 98.2 F Pulse Rate 76 Respiratory Rate 20 Blood Pressure 97/57 L Pulse Oximetry 97 Intake & Output 02/18/18 02/19/18 02/19/18 18:59 06:59 18:59 Intake Total 1156 / 1156 600 / 600 916 / 916 Output Total 4100 / 4100 1200 / 1200 Balance -2944 / -2944 -600 / -600 916 / 916 Weight 63.6 kg Intake: IV 916 / 916 100 / 100 916 / 916 KCl 20 mEq Premix Inj 20 meq In 200 / 200 200 / 200 100 ml @ 50 mls/hr IV.SIG Q2H PRN Rx#:[id number] Thiamine Inj 100 MG In NS Inj 101 / 101 101 / 101 100 ML @ 100 mls/hr IV.SIG DAILY JUSTINE Rx#:[id number] Vancomycin Inj 1,500 MG In NS 515 / 515 515 / 515 Inj 500 ML @ 250 mls/hr IV.SIG Q18H JUSTINE Rx#:[id number] Rocephin Inj 2,000 MG In NS Inj 100 / 100 100 / 100 100 / 100 100 ML @ 200 mls/hr IV.SIG Q24H JUSTINE Rx#:[id number] Oral 240 / 240 500 / 500 Output: Urine Amount (Catheter) 4100 / 4100 1200 / 1200 Indwelling Urethral Catheter 4100 / 4100 1200 / 1200 Other: Date of Last Bowel Movement 02/18/18 02/19/18 02/19/18 # Bowel Movements 1 # Incontinent Bowel Movements 1 Result Diagrams: 02/19/18 08:13 02/19/18 05:04 Other Results: Laboratory Results WBC 10.0 th/mm3 (4.0-11.0) 02/19/18 08:13 RBC 4.88 mil/mm3 (4.50-5.90) 02/19/18 08:13 Hgb 12.8 gm/dL (13.0-17.0) L 02/19/18 08:13 Hct 41.0 % (39.0-51.0) 02/19/18 08:13 MCV 84.1 fL (80.0-100.0) 02/19/18 08:13 MCH 26.2 pg (27.0-34.0) L 02/19/18 08:13 MCHC 31.2 % (32.0-36.0) L 02/19/18 08:13 RDW 15.4 % (11.6-17.2) 02/19/18 08:13 Plt Count 120 th/mm3 (150-450) L D 02/19/18 08:13 MPV 9.2 fL (7.0-11.0) 02/19/18 08:13 Prelim Diff (Auto) Slide review pending 02/16/18 04:19 Neut % (Auto) 77.4 % (16.0-70.0) H 02/19/18 08:13 Lymph % (Auto) 9.6 % (9.0-44.0) 02/19/18 08:13 [place] % (Auto) 9.6 % (0.0-8.0) H 02/19/18 08:13 Eos % (Auto) 3.0 % (0.0-4.0) 02/19/18 08:13 Baso % (Auto) 0.4 % (0.0-2.0) 02/19/18 08:13 Neut # (Auto) 7.8 th/mm3 (1.8-7.7) H 02/19/18 08:13 Lymph # (Auto) 1.0 th/mm3 (1.0-4.8) 02/19/18 08:13 [place] # (Auto) 1.0 th/mm3 (0.0-0.9) H 02/19/18 08:13 Eos # (Auto) 0.3 th/mm3 (0.0-0.4) 02/19/18 08:13 Baso # (Auto) 0.0 th/mm3 (0.0-0.2) 02/19/18 08:13 WBC Differential . 02/19/18 08:13 Diff Scan Auto diff confirmed 02/19/18 08:13 Seg Neuts % (Manual) 78 % (16-70) H 02/16/18 04:19 Band Neuts % (Manual) 10 % (0-6) H 02/16/18 04:19 Lymphocytes % (Manual) 5 % (9-44) L 02/16/18 04:19 Monocytes % (Manual) 2 % (0-8) 02/16/18 04:19 Metamyelocytes % (Man) 4 % (0-1) H 02/16/18 04:19 Myelocytes % (Man) 1 % (0-0) H 02/16/18 04:19 Abs Neuts (Manual) 9.1 th/mm3 (1.8-7.7) H 02/16/18 04:19 Nucleated RBCs/100 WBC 1 /100 WBC (0-0) H 02/15/18 04:49 Differential Comment Auto diff final 02/19/18 08:13 Platelet Estimate Normal (Normal) 02/16/18 04:19 Platelet Morphology Normal (Normal) 02/16/18 04:19 Basophilic Stippling Faint (None) H 02/15/18 04:49 ESR 32 mm/hr (0-20) H 02/11/18 14:22 PT 15.2 sec (9.8-11.6) H 02/10/18 18:15 INR 1.5 Ratio 02/10/18 18:15 APTT 28.0 sec (23.4-31.7) 02/10/18 18:15 Puncture Site Right radial 02/18/18 06:17 Patient Temperature 98.6 02/18/18 06:17 O2 Saturation 94 % (90-100) 02/18/18 06:17 ABG pH 7.47 (7.380-7.420) H 02/18/18 06:17 ABG pCO2 74 mmHg (38-42) H* 02/18/18 06:17 ABG pO2 80 mmHG (61-120) 02/18/18 06:17 ABG HCO3 53 mmol/L (22-26) H 02/18/18 06:17 ABG O2 Content 16.6 Vol % (12.0-20.0) 02/18/18 06:17 ABG Base Excess 26.3 mmol/L (-2-2) H 02/18/18 06:17 ABG Methemoglobin 1.5 % (0-2) 02/18/18 06:17 Kalyan Test Present 02/18/18 06:17 Hemoglobin 12.6 G/DL (12.0-16.0) 02/18/18 06:17 Carboxyhemoglobin 1.2 % (0-4) 02/18/18 06:17 O2 Delivery Device Non-rebreathing mask 02/18/18 06:17 Liter Flow 15.00 L/M 02/18/18 06:17 Vent Setting 02/10/18 22:00 Inspired O2 100 % 02/18/18 06:17 Critical Value Yes 02/18/18 06:17 Sodium 139 meq/L (136-145) 02/19/18 05:04 Potassium 3.0 meq/L (3.5-5.1) L 02/19/18 05:04 Chloride 86 meq/L (98-107) L 02/19/18 05:04 Carbon Dioxide Greater than 45.0 meq/L (21.0-32.0) H 02/19/18 05:04 Anion Gap 8 meq/L (5-15) 02/19/18 05:04 BUN 13 mg/dL (7-18) 02/19/18 05:04 Creatinine 0.61 mg/dL (0.60-1.30) 02/19/18 05:04 Estimated GFR Greater than 89 mL/min (>89) 02/19/18 05:04 POC Glucose 94 mg/dl (68-110) 02/13/18 11:22 Random Glucose 76 mg/dL (74-106) 02/19/18 05:04 Hemoglobin A1c 5.3 % (4.3-6.0) 02/11/18 03:51 Lactic Acid 1.3 mmol/L (0.4-2.0) 02/10/18 22:40 Calcium 8.0 mg/dL (8.5-10.1) L 02/19/18 05:04 Phosphorus 2.6 mg/dL (2.5-4.9) D 02/19/18 05:04 Magnesium 1.6 mg/dL (1.5-2.5) 02/19/18 05:04 Total Bilirubin 0.4 mg/dL (0.2-1.0) 02/14/18 08:23 AST 152 U/L (15-37) H 02/14/18 08:23 ALT 256 U/L (12-78) H 02/14/18 08:23 Alkaline Phosphatase 76 U/L (45-117) 02/14/18 08:23 Ammonia 17 mcmol/L (11-32) 02/15/18 03:49 Total Creatine Kinase 111 U/L (39-308) 02/10/18 18:15 Troponin I 0.09 ng/mL (0.02-0.05) H 02/14/18 08:23 B-Natriuretic Peptide 1035 pg/mL (0-100) H 02/10/18 18:15 Total Protein 7.2 g/dL (6.4-8.2) D 02/14/18 08:23 Albumin 2.2 g/dL (3.4-5.0) L 02/14/18 08:23 Triglycerides 85 mg/dL (42-150) 02/12/18 03:30 Cholesterol 67 mg/dL (120-200) L 02/12/18 03:30 LDL Cholesterol, Calc 31 mg/dL (0-99) 02/12/18 03:30 HDL Cholesterol 19.4 mg/dL (40.0-60.0) L 02/12/18 03:30 Cholesterol/HDL Ratio 3.45 Ratio 02/12/18 03:30 Vitamin B12 917 pg/mL (193-986) 02/11/18 14:22 TSH 2.100 uIU/mL (0.358-3.740) 02/10/18 18:15 Urine Color [place] (Yellw/Straw) 02/10/18 20:39 Urine Clarity Cloudy (Clear) H 02/10/18 20:39 Urine pH 5.0 (5.0-8.5) 02/10/18 20:39 Ur Specific [place] 1.018 (1.002-1.035) 02/10/18 20:39 Urine Protein 500 or greater mg/dL (Neg-Trace) 02/10/18 20:39 Urine Glucose (UA) Negative mg/dL (Negative) 02/10/18 20:39 Urine Ketones Negative mg/dL (Negative) 02/10/18 20:39 Urine Occult Blood Negative (Negative) 02/10/18 20:39 Urine Nitrate Negative (Negative) 02/10/18 20:39 Urine Bilirubin Negative (Negative) 02/10/18 20:39 Urine Ictotest Negative (Negative) 02/10/18 20:39 Urine Urobilinogen 1.0 mg/dL (Less than 2) 02/10/18 20:39 Ur Leukocyte Esterase Negative (Negative) 02/10/18 20:39 Urine RBC 2 /hpf (0-3) 02/10/18 20:39 Urine WBC 8 /hpf (0-5) H 02/10/18 20:39 Amorphous Sediment Moderate /hpf (None) H 02/10/18 20:39 Urine Bacteria Few /hpf (None) H 02/10/18 20:39 Hyaline Casts Innum /lpf (0-3) 02/10/18 20:39 Urine Mucus Moderate /lpf (Occasional) H 02/10/18 20:39 Micro UA Comment Culture not ind 02/10/18 20:39 Ur Microscopic Review Not Reportable 02/10/18 20:39 Urine Culture Comments Culture not ind 02/10/18 20:39 Pleural pH 8.0 02/13/18 13:25 Pleural RBC 115 /mm3 (0-0) H 02/13/18 13:25 Pleural Nuc Cells 655 /mm3 (0-10) H 02/13/18 13:25 Pleural Neutrophils 79 % 02/13/18 13:25 Pleural Lymphocytes 6 % 02/13/18 13:25 Pleural Monocytes 11 % 02/13/18 13:25 Pleural Plasma Cells 1 % 02/13/18 13:25 Pleural Mesothelial 2 % 02/13/18 13:25 Pleural Other Cells 1 % 02/13/18 13:25 Pleural Total Protein 1.8 gm/dL 02/13/18 13:25 Pleural LDH 65 U/L 02/13/18 13:25 Pleural Glucose 100 mg/dL 02/13/18 13:25 Pleural Amylase 13 U/L 02/13/18 13:25 Nasal Screen MRSA (PCR) Not detected (Negative) 02/11/18 02:30 Vancomycin Trough 15.6 mcg/mL (5.0-10.0) H 02/16/18 23:45 Urine Opiates Screen Neg (Neg) 02/10/18 20:39 Ur Barbiturates Screen Neg (Neg) 02/10/18 20:39 Ur Amphetamines Screen Neg (Neg) 02/10/18 20:39 U Benzodiazepines Scrn Neg (Neg) 02/10/18 20:39 Urine Cocaine Screen Neg (Neg) 02/10/18 20:39 U Cannabinoids Screen Neg (Neg) 02/10/18 20:39 Serum Alcohol Less than 3 mg/dL (0-5) 02/10/18 18:15 JOSE Screen Neg (Neg) 02/11/18 14:22 Hepatitis A IgM Ab Nonreactive (Nonreactive) 02/10/18 22:40 Hep Bs Antigen Nonreactive (Nonreactive) 02/10/18 22:40 Hep B Core IgM Ab Nonreactive (Nonreactive) 02/10/18 22:40 Hep C IgG Ab Nonreactive (Nonreactive) 02/10/18 22:40 Impressions Abdomen Ultrasound 02/11/18 00:00 CONCLUSION: 1. Small liver with trace ascites. 2. Small cyst lower pole right kidney. Head MRA 02/11/18 00:00 CONCLUSION: 1. Occlusion of the left posterior cerebral artery at its origin with acute ischemia left occipital region.. Neck MRA 02/11/18 00:00 CONCLUSION: 1. Negative MRA Carotids. Percent stenosis is calculated using the diameter of the stenotic region over the diameter of the normal distal internal carotid artery Head MRI 02/11/18 10:28 CONCLUSION: 1. Acute infarction involving the left posterior thalamus and occipital lobe without hemorrhage or mass effect. Head CT 02/17/18 00:00 CONCLUSION: Evolving left occipital and medial temporal lobe infarction which is developing into an area of encephalomalacia. Chest X-Ray 02/19/18 04:00 CONCLUSION: Unchanged bilateral pleural effusions and pulmonary infiltrates. Objective Remarks: GENERAL: Well-nourished, well-developed patient who is lying in bed in four- point restraints, awake on BIPAP SKIN: Warm and dry. There are excoriations around his bilateral ankles. There are petechiae around the ankles at the site of the excoriations and there is a clear line of delineation where they abruptly stop at what appears to be a sock or shoe line. No petechiae of palms or soles. No splinter hemorrhages. HEAD: Atraumatic. Normocephalic. EYES: Pupils equal and round, pinpoint bilaterally no scleral icterus. No injection or drainage. ENT: No nasal bleeding or discharge. Mucous membranes pink and moist. BiPAP at 60% NECK: Trachea midline. +JVD. No meningismus CARDIOVASCULAR: Regular rate and rhythm. No murmurs rubs or gallops. RESPIRATORY: Bibasilar rales with rhonchorous breath sounds bilaterally. No wheeze GASTROINTESTINAL: Abdomen soft, non-tender, nondistended. Bowel sounds present. MUSCULOSKELETAL: Extremities without clubbing, cyanosis, or edema. Scar overlying left shoulder. NEUROLOGICAL: GCS 14. RASS 0. Moving purposefully x 4 extremities. Follows commands intermittently Procedures: / Thoracentesis Assessment and Plan - Problem List (1) Stroke Code(s): I63.9 - Cerebral infarction, unspecified Status: Acute (2) Encephalopathy acute Code(s): G93.40 - Encephalopathy, unspecified Status: Acute (3) Septic shock Code(s): A41.9 - Sepsis, unspecified organism; R65.21 - Severe sepsis with septic shock Status: Acute (4) Respiratory failure Code(s): J96.90 - Respiratory failure, unspecified, unspecified whether with hypoxia or hypercapnia Status: Acute (5) Aspiration pneumonia Code(s): J69.0 - Pneumonitis due to inhalation of food and vomit Status: Acute (6) KIMBERLY (acute kidney injury) Code(s): N17.9 - Acute kidney failure, unspecified Status: Acute (7) Tobacco abuse Code(s): Z72.0 - Tobacco use Status: Chronic (8) Anemia Code(s): D64.9 - Anemia, unspecified Status: Chronic (9) Lactic acidemia Code(s): E87.2 - Acidosis Status: Acute (10) Transaminasemia Code(s): R74.0 - Nonspecific elevation of levels of transaminase and lactic acid dehydrogenase [LDH] Status: Acute (11) Hyperglycemia Code(s): R73.9 - Hyperglycemia, unspecified Status: Acute - Assessment and Plan Plan: NEURO: Subacute ischemic stroke Acute encephalopathy EtOH abuse per prior record CT brain volving infarct left occipital lobe and medial left temporal lobe. No hemorrhage. MRI brain -Acute infarction involving the left posterior thalamus and occipital lobe without hemorrhage or mass effect. MRA head Left CINDER [employer] O[employer]ATOR occlusion Not candidate for TPA due to unknown time of onset, probably subacute. Aspirin [address] Santillan following Ammonia level normal. Thiamine/multivitamin/folic acid Seizure precautions. Monitor for signs of alcohol withdrawal Decrease Librium 5 mg TID 2D echo inadequate study, CHARLIE tentatively scheduled for 02/20-concern for possible intubation for procedure, date changed Four-point restraints placed for patient safety RESP: Acute hypercapnic respiratory failure Haemophilus influenza pneumonia B/L pleural effusions Tobacco abuse Intubated 02/10 for airway protection Self extubated today 02/12/2017 while on CPAP trial Currently on nasal cannula 4 L, plan for BiPAP at night patient continues to retain CO2 DuoNeb every 6 hours. Albuterol every 2 hours as needed ID following antibiotics see below 02/13 S/P right thoracentesis-650 cc removed Initiate chest physiotherapy 02/17-progression of bilateral pulmonary infiltrates, small bilateral pleural effusions CV: Lactic acidemia Elevated troponin/demand ischemia Hypertension Levophed as needed to maintain mean pressure greater than 65 Receiving aspirin 2D echo limited study normal-appearing ejection fraction Cardiology following ,CHARLIE tentatively schedule 02/18 EKG sinus rhythm with nonspecific ST changes in inferior leads. Hydralazine 20 mg every 4 hours as needed for systolic blood pressure greater than 160 GI: Transaminase elevated Follow-up liver ultrasound Viral hepatitis panel-negative FEN/RENAL: Acute kidney injury-resolved Hypokalemia, hypomagnesemia, hypophosphatemia Follow-up renal ultrasound. Ornelas Lasix twice daily Monitor intake and output hourly. Monitor electrolytes and replace as indicated. ID: Septic shock-resolved GPC/Streptococcus bacteremia Leukocytosis Aspiration pneumonia/Haemophilus influenza Penicillin allergyhives. Received ceftriaxone in the ED without issue. Chest x-ray with right lower lobe infiltrate. Blood cultures GPC/Streptococcus in 4 out of 4 bottles. Influenza negative. Follow-up sputum culture-Haemophilus influenzae Urine Legionella pneumococcal antigen- negative Vancomycin started 02/11/18 ID following HEME: Anemia Monitor CBC Transfuse for hemoglobin less than 7 ENDO: Mild hyperglycemia HgbA1C 5.3 TSH normal PROPH: SCDs for DVT prophylaxis. Protonix 40 mg IV daily for stress ulcer prophylaxis ACCESS: Left IJ central venous line placed 02/10 FULL CODE Level 3 follow-up. Code Status: Full Discussed Condition With: DOUBLE CUT SAWYER at bedside (4) Respiratory failure Qualifiers: Chronicity: acute Respiratory failure complication: hypercapnia Qualified Code(s): J96.02 - Acute respiratory failure with hypercapnia
[2018-02-20] MEDS: Oral Hygiene Kit OROPHARYNG SCH ×4 (01:05→15:04)
[2018-02-20] MEDS: Vancomycin Inj 1,500 MG in Sodium Chlor 0.9% Inj 500 ML IV.SIG SCH (02:32)
[2018-02-20 03:25] LABS: Baso # (Auto) 0.1 th/mm3 (0.0-0.2); Baso % (Auto) 0.8 % (0.0-2.0); Eos # (Auto) 0.4 th/mm3 (0.0-0.4); Eos % (Auto) 3.6 % (0.0-4.0); Hematocrit 38.2 % (39.0-51.0); Hemoglobin 12.4 gm/dL (13.0-17.0); Lymph # (Auto) 1.1 th/mm3 (1.0-4.8); Mean Corpuscular HGB Conc 32.4 % (32.0-36.0); Mean Corpuscular Hemoglobin 26.8 pg (27.0-34.0); Mean Corpuscular Volume 82.7 fL (80.0-100.0); Mean Platelet Volume 9.2 fL (7.0-11.0); Mono # (Auto) 0.8 th/mm3 (0.0-0.9); Neut # (Auto) 7.8 th/mm3 (1.8-7.7); Neut % (Auto) 76.6 % (16.0-70.0); Platelet Count 120 th/mm3 (150-450); Red Blood Count 4.62 mil/mm3 (4.50-5.90); Red Cell Distribution Width 15.7 % (11.6-17.2); White Blood Count 10.1 th/mm3 (4.0-11.0)
[2018-02-20 03:40] LABS: Blood Urea Nitrogen 15 mg/dL (7-18); Chloride 91 meq/L (98-107); Potassium 3.5 meq/L (3.5-5.1); Sodium 139 meq/L (136-145)
[2018-02-20 03:41] LABS: Calcium 7.9 mg/dL (8.5-10.1); Glomerular Filtration Rate Greater Than 89 mL/min (>89); Glucose,Random 95 mg/dL (74-106); Magnesium 1.6 mg/dL (1.5-2.5); Phosphorus 2.1 mg/dL (2.5-4.9)
[2018-02-20 03:48] LABS: Anion Gap 3 meq/L (5-15)
[2018-02-20] MEDS: Magnesium Oxide 400 MG Tablet PO PRN (04:27)
[2018-02-20 04:31] LABS: Platelet Morphology Normal (Normal); Stomatocytes 1+
[2018-02-20] MEDS: Chlorhexidine 0.12% Oral Kit 15 ML UDC OROPHARYNG SCH ×2 (07:19→21:33)
[2018-02-20] MEDS: Thiamine Inj 100 MG in Sodium Chlor 0.9% Inj 100 ML IV.SIG SCH (08:00)
[2018-02-20] MEDS: Metoprolol Tartrate 25 MG Tablet PO SCH ×2 (08:00→21:32)
[2018-02-20] MEDS: Folic Acid 1 MG Tablet NG/OG SCH (08:00)
[2018-02-20] MEDS: amLODIPine 5 MG Tablet PO SCH (08:00)
[2018-02-20] MEDS: Pantoprazole Inj 40 MG Vial IV.PUSH SCH (08:01)
[2018-02-20] MEDS: Senna/Docusate Sodium 8.6/50 MG Tablet PO SCH ×2 (08:01→21:32)
[2018-02-20] MEDS: Heparin - SQ 10,000 UNITS/ML Vial SQ SCH ×2 (10:25→23:48)
--- NOTE | 2018-02-20 13:39 | P.PNCC ---
Subjective Subjective Remarks/Hospital Course: Patient is unable to provide history because he is intubated. Reviewed EMR. 67-year-old male with past medical history of alcohol abuse, tobacco abuse who presented to [facility] emergency department with altered mental status. Per report from [facility] he may have had syncope prior to their arrival. He ultimately was intubated for airway protection. CXR shows right lower lobe consolidation. White blood cell count is 12. Lactic acid is 5. Creatinine is 1.8. Most recent prior creatinine was 0.6 in 2008. He received 3 L normal saline bolus, azithromycin, Rocephin, neb in the emergency department. CT brain is pending. Rn [employer] consulted for admission. SUBJ 02/11/18: Remains severely septic from 4 out of 4 bottles growing GPC. 2D echo ordered to rule out endocarditis. However mental status is improving following commands. MRI ordered by Dr. Santillan 02/12/18: Patient was intubated lightly sedated am. On sedation hold slight improvement of the neuro exam opens eyes intermittently follows simple commands with upper extremities. While undergoing CPAP trial patient self extubated initially was hypoxic and required 100% oxygen currently maintaining oxygen saturation on nonrebreather. 02/13/18: Patient self extubated yesterday a.m. while undergoing CPAP trial for planned extubation. Tolerating reasonably well. Chest x-ray shows increasing right-sided effusion. Sputum culture with Haemophilus. Plan for thoracentesis if large enough pleural effusion. Blood cultures growing strep species. 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, will need CHARLIE when more stable 02/14: Afebrile .patient remains on facemask at 5 L O2 saturation 96%. The patient underwent thoracentesis yesterday with approximately 650 cc removed, cultures pending. Patient extremely lethargic after receiving Ativan during the night. Ativan now discontinued the patient is on scheduled doses of Librium for avoidance of delirium tremens.. Formal swallow completed patient on mechanical soft diet, currently held secondary to lethargy. 02/15: The patient is more alert this afternoon after cessation of Ativan. Patient continues on Librium 3 times daily. Patient continues to have high FiO2 requirements Lasix twice daily added to medication regimen. Patient noted to be hypertensive systolic 170s hydralazine added also to medication regime Cardizem IV infusion transition to p.o. Cardizem extended release. The patient remains in four-point restraints for patient safety, intermittent bouts of confusion. Patient tolerating mechanical soft diet but needs assistance to be fed. Reconsult 02/18: Overnight the patient became hypoxic with noted cyanosis. Patient was placed on a nonrebreather mask, stat ABG was performed noted to be significantly hypercapnic. The patient was placed on BiPAP. Sleep 20 mg furosemide was given additional 40 mg of Lasix was given Ornelas was inserted to monitor output. Chest x-ray showed worsening infiltrates. Noted patient positive for Haemophilus influenza being treated and strep viridans bacteremia. ID was consulted yesterday will follow up recommendations today. After effective diuresis and placement of BiPAP the patient's FiO2 requirements decreased to 60%. The patient remains n.p.o. for tentative scheduled CHARLIE today. 02/19: Afebrile. ID following Rocephin increased to 2 g. Chest x-ray remains unchanged today. Oxygen requirement significantly decreased the patient remains on nasal cannula, never noted CO2 retention planned BiPAP at night while asleep. The patient continues to have effective diuresis. Patient is tolerating a regular diet now with thin liquids. Plan for n.p.o. tonight for possible CHARLIE in a.m. 02/20: CHARLIE canceled tentatively scheduled for Thursday 02/23. Patient remained on BiPAP during the night the patient now on nasal cannula 4L, O2 saturation 95%. The patient continues on Lasix twice daily noted at 5 L diuresis in the last 24hrs. The patient denies pain, tolerating a diet. Periods of confusion. Objective Vital Signs / I&O: Vital Signs 02/19/18 14:00 02/19/18 16:00 02/19/18 18:00 Temperature 98.2 F Pulse Rate 79 76 78 Respiratory Rate 20 Blood Pressure 97/57 L Pulse Oximetry 97 02/19/18 18:03 02/19/18 19:00 02/19/18 20:00 Temperature 98.0 F Pulse Rate 69 Respiratory Rate 18 Blood Pressure 108/58 L Pulse Oximetry 93 L 100 100 02/19/18 22:00 02/19/18 23:17 02/20/18 00:00 Temperature 98.4 F Pulse Rate 67 68 Respiratory Rate 19 Blood Pressure 102/56 L Pulse Oximetry 91 L 95 02/20/18 02:00 02/20/18 02:30 02/20/18 04:00 Temperature 98.4 F Pulse Rate 61 68 Respiratory Rate 19 Blood Pressure 112/60 Pulse Oximetry 94 L 02/20/18 06:00 02/20/18 07:00 02/20/18 07:14 Temperature Pulse Rate 64 Respiratory Rate Blood Pressure Pulse Oximetry 97 96 02/20/18 07:41 02/20/18 07:42 02/20/18 07:56 Temperature Pulse Rate 66 68 Respiratory Rate 20 Blood Pressure Pulse Oximetry 96 02/20/18 07:57 02/20/18 10:00 02/20/18 12:00 Temperature 98.2 F 98.5 F Pulse Rate 68 66 68 Respiratory Rate 22 18 Blood Pressure 111/62 98/53 L Pulse Oximetry 93 L 96 Intake & Output 02/19/18 02/20/18 02/20/18 18:59 06:59 18:59 Intake Total 1736 / 1736 965 / 965 461 / 461 Output Total 1650 / 1650 900 / 900 Balance 86 / 86 65 / 65 461 / 461 Weight 63.1 kg Intake: IV 1016 / 1016 615 / 615 461 / 461 KCl 20 mEq Premix Inj 20 meq In 300 / 300 100 / 100 100 ml @ 50 mls/hr IV.SIG Q2H PRN Rx#:[id number] Potassium Phosphate Inj 30 MMOL 260 / 260 In NS Inj 250 ML @ 42 mls/hr IV.SIG UNSCH PRN Rx#:[id number] Thiamine Inj 100 MG In NS Inj 101 / 101 101 / 101 100 ML @ 100 mls/hr IV.SIG DAILY JUSTINE Rx#:[id number] Vancomycin Inj 1,500 MG In NS 515 / 515 515 / 515 Inj 500 ML @ 250 mls/hr IV.SIG Q18H JUSTINE Rx#:[id number] Rocephin Inj 2,000 MG In NS Inj 100 / 100 100 / 100 100 ML @ 200 mls/hr IV.SIG Q24H JUSTINE Rx#:[id number] Oral 720 / 720 350 / 350 Output: Urine 1650 / 1650 Urine Amount (Catheter) 900 / 900 Indwelling Urethral Catheter 900 / 900 Other: Date of Last Bowel Movement 02/18/18 02/20/18 02/20/18 # Bowel Movements 7 # Incontinent Bowel Movements 3 Result Diagrams: 02/20/18 02:40 02/20/18 02:40 Other Results: Laboratory Results WBC 10.1 th/mm3 (4.0-11.0) 02/20/18 02:40 RBC 4.62 mil/mm3 (4.50-5.90) 02/20/18 02:40 Hgb 12.4 gm/dL (13.0-17.0) L 02/20/18 02:40 Hct 38.2 % (39.0-51.0) L 02/20/18 02:40 MCV 82.7 fL (80.0-100.0) 02/20/18 02:40 MCH 26.8 pg (27.0-34.0) L 02/20/18 02:40 MCHC 32.4 % (32.0-36.0) 02/20/18 02:40 RDW 15.7 % (11.6-17.2) 02/20/18 02:40 Plt Count 120 th/mm3 (150-450) L 02/20/18 02:40 MPV 9.2 fL (7.0-11.0) 02/20/18 02:40 Prelim Diff (Auto) Slide review pending 02/20/18 02:40 Neut % (Auto) 76.6 % (16.0-70.0) H 02/20/18 02:40 Lymph % (Auto) 11.0 % (9.0-44.0) 02/20/18 02:40 Hudson % (Auto) 8.0 % (0.0-8.0) 02/20/18 02:40 Eos % (Auto) 3.6 % (0.0-4.0) 02/20/18 02:40 Baso % (Auto) 0.8 % (0.0-2.0) 02/20/18 02:40 Neut # (Auto) 7.8 th/mm3 (1.8-7.7) H 02/20/18 02:40 Lymph # (Auto) 1.1 th/mm3 (1.0-4.8) 02/20/18 02:40 Hudson # (Auto) 0.8 th/mm3 (0.0-0.9) 02/20/18 02:40 Eos # (Auto) 0.4 th/mm3 (0.0-0.4) 02/20/18 02:40 Baso # (Auto) 0.1 th/mm3 (0.0-0.2) 02/20/18 02:40 WBC Differential . 02/20/18 02:40 Diff Scan Auto diff confirmed 02/20/18 02:40 Seg Neuts % (Manual) 78 % (16-70) H 02/16/18 04:19 Band Neuts % (Manual) 10 % (0-6) H 02/16/18 04:19 Lymphocytes % (Manual) 5 % (9-44) L 02/16/18 04:19 Monocytes % (Manual) 2 % (0-8) 02/16/18 04:19 Metamyelocytes % (Man) 4 % (0-1) H 02/16/18 04:19 Myelocytes % (Man) 1 % (0-0) H 02/16/18 04:19 Abs Neuts (Manual) 9.1 th/mm3 (1.8-7.7) H 02/16/18 04:19 Nucleated RBCs/100 WBC 1 /100 WBC (0-0) H 02/15/18 04:49 Differential Comment . 02/20/18 02:40 Platelet Estimate Low (Normal) L 02/20/18 02:40 Platelet Morphology Normal (Normal) 02/20/18 02:40 Basophilic Stippling Faint (None) H 02/15/18 04:49 Stomatocytes 1+ (None) H 02/20/18 02:40 ESR 32 mm/hr (0-20) H 02/11/18 14:22 PT 15.2 sec (9.8-11.6) H 02/10/18 18:15 INR 1.5 Ratio 02/10/18 18:15 APTT 28.0 sec (23.4-31.7) 02/10/18 18:15 Puncture Site Right radial 02/18/18 06:17 Patient Temperature 98.6 02/18/18 06:17 O2 Saturation 94 % (90-100) 02/18/18 06:17 ABG pH 7.47 (7.380-7.420) H 02/18/18 06:17 ABG pCO2 74 mmHg (38-42) H* 02/18/18 06:17 ABG pO2 80 mmHG (61-120) 02/18/18 06:17 ABG HCO3 53 mmol/L (22-26) H 02/18/18 06:17 ABG O2 Content 16.6 Vol % (12.0-20.0) 02/18/18 06:17 ABG Base Excess 26.3 mmol/L (-2-2) H 02/18/18 06:17 ABG Methemoglobin 1.5 % (0-2) 02/18/18 06:17 Kalyan Test Present 02/18/18 06:17 Hemoglobin 12.6 G/DL (12.0-16.0) 02/18/18 06:17 Carboxyhemoglobin 1.2 % (0-4) 02/18/18 06:17 O2 Delivery Device Non-rebreathing mask 02/18/18 06:17 Liter Flow 15.00 L/M 02/18/18 06:17 Vent Setting 02/10/18 22:00 Inspired O2 100 % 02/18/18 06:17 Critical Value Yes 02/18/18 06:17 Sodium 139 meq/L (136-145) 02/20/18 02:40 Potassium 3.5 meq/L (3.5-5.1) 02/20/18 02:40 Chloride 91 meq/L (98-107) L 02/20/18 02:40 Carbon Dioxide Greater than 45.0 meq/L (21.0-32.0) H 02/20/18 02:40 Anion Gap 3 meq/L (5-15) L 02/20/18 02:40 BUN 15 mg/dL (7-18) 02/20/18 02:40 Creatinine 0.74 mg/dL (0.60-1.30) 02/20/18 02:40 Estimated GFR Greater than 89 mL/min (>89) 02/20/18 02:40 POC Glucose 94 mg/dl (68-110) 02/13/18 11:22 Random Glucose 95 mg/dL (74-106) 02/20/18 02:40 Hemoglobin A1c 5.3 % (4.3-6.0) 02/11/18 03:51 Lactic Acid 1.3 mmol/L (0.4-2.0) 02/10/18 22:40 Calcium 7.9 mg/dL (8.5-10.1) L 02/20/18 02:40 Phosphorus 2.1 mg/dL (2.5-4.9) L 02/20/18 02:40 Magnesium 1.6 mg/dL (1.5-2.5) 02/20/18 02:40 Total Bilirubin 0.4 mg/dL (0.2-1.0) 02/14/18 08:23 AST 152 U/L (15-37) H 02/14/18 08:23 ALT 256 U/L (12-78) H 02/14/18 08:23 Alkaline Phosphatase 76 U/L (45-117) 02/14/18 08:23 Ammonia 17 mcmol/L (11-32) 02/15/18 03:49 Total Creatine Kinase 111 U/L (39-308) 02/10/18 18:15 Troponin I 0.09 ng/mL (0.02-0.05) H 02/14/18 08:23 B-Natriuretic Peptide 1035 pg/mL (0-100) H 02/10/18 18:15 Total Protein 7.2 g/dL (6.4-8.2) D 02/14/18 08:23 Albumin 2.2 g/dL (3.4-5.0) L 02/14/18 08:23 Triglycerides 85 mg/dL (42-150) 02/12/18 03:30 Cholesterol 67 mg/dL (120-200) L 02/12/18 03:30 LDL Cholesterol, Calc 31 mg/dL (0-99) 02/12/18 03:30 HDL Cholesterol 19.4 mg/dL (40.0-60.0) L 02/12/18 03:30 Cholesterol/HDL Ratio 3.45 Ratio 02/12/18 03:30 Vitamin B12 917 pg/mL (193-986) 02/11/18 14:22 TSH 2.100 uIU/mL (0.358-3.740) 02/10/18 18:15 Urine Color Yesenia (Yellw/Straw) 02/10/18 20:39 Urine Clarity Cloudy (Clear) H 02/10/18 20:39 Urine pH 5.0 (5.0-8.5) 02/10/18 20:39 Ur Specific [place] 1.018 (1.002-1.035) 02/10/18 20:39 Urine Protein 500 or greater mg/dL (Neg-Trace) 02/10/18 20:39 Urine Glucose (UA) Negative mg/dL (Negative) 02/10/18 20:39 Urine Ketones Negative mg/dL (Negative) 02/10/18 20:39 Urine Occult Blood Negative (Negative) 02/10/18 20:39 Urine Nitrate Negative (Negative) 02/10/18 20:39 Urine Bilirubin Negative (Negative) 02/10/18 20:39 Urine Ictotest Negative (Negative) 02/10/18 20:39 Urine Urobilinogen 1.0 mg/dL (Less than 2) 02/10/18 20:39 Ur Leukocyte Esterase Negative (Negative) 02/10/18 20:39 Urine RBC 2 /hpf (0-3) 02/10/18 20:39 Urine WBC 8 /hpf (0-5) H 02/10/18 20:39 Amorphous Sediment Moderate /hpf (None) H 02/10/18 20:39 Urine Bacteria Few /hpf (None) H 02/10/18 20:39 Hyaline Casts Innum /lpf (0-3) 02/10/18 20:39 Urine Mucus Moderate /lpf (Occasional) H 02/10/18 20:39 Micro UA Comment Culture not ind 02/10/18 20:39 Ur Microscopic Review Not Reportable 02/10/18 20:39 Urine Culture Comments Culture not ind 02/10/18 20:39 Pleural pH 8.0 02/13/18 13:25 Pleural RBC 115 /mm3 (0-0) H 02/13/18 13:25 Pleural Nuc Cells 655 /mm3 (0-10) H 02/13/18 13:25 Pleural Neutrophils 79 % 02/13/18 13:25 Pleural Lymphocytes 6 % 02/13/18 13:25 Pleural Monocytes 11 % 02/13/18 13:25 Pleural Plasma Cells 1 % 02/13/18 13:25 Pleural Mesothelial 2 % 02/13/18 13:25 Pleural Other Cells 1 % 02/13/18 13:25 Pleural Total Protein 1.8 gm/dL 02/13/18 13:25 Pleural LDH 65 U/L 02/13/18 13:25 Pleural Glucose 100 mg/dL 02/13/18 13:25 Pleural Amylase 13 U/L 02/13/18 13:25 Nasal Screen MRSA (PCR) Not detected (Negative) 02/11/18 02:30 Vancomycin Trough 15.6 mcg/mL (5.0-10.0) H 02/16/18 23:45 Urine Opiates Screen Neg (Neg) 02/10/18 20:39 Ur Barbiturates Screen Neg (Neg) 02/10/18 20:39 Ur Amphetamines Screen Neg (Neg) 02/10/18 20:39 U Benzodiazepines Scrn Neg (Neg) 02/10/18 20:39 Urine Cocaine Screen Neg (Neg) 02/10/18 20:39 U Cannabinoids Screen Neg (Neg) 02/10/18 20:39 Serum Alcohol Less than 3 mg/dL (0-5) 02/10/18 18:15 JOSE Screen Neg (Neg) 02/11/18 14:22 Hepatitis A IgM Ab Nonreactive (Nonreactive) 02/10/18 22:40 Hep Bs Antigen Nonreactive (Nonreactive) 02/10/18 22:40 Hep B Core IgM Ab Nonreactive (Nonreactive) 02/10/18 22:40 Hep C IgG Ab Nonreactive (Nonreactive) 02/10/18 22:40 Impressions Abdomen Ultrasound 02/11/18 00:00 CONCLUSION: 1. Small liver with trace ascites. 2. Small cyst lower pole right kidney. Head MRA 02/11/18 00:00 CONCLUSION: 1. Occlusion of the left posterior cerebral artery at its origin with acute ischemia left occipital region.. Neck MRA 02/11/18 00:00 CONCLUSION: 1. Negative MRA Carotids. Percent stenosis is calculated using the diameter of the stenotic region over the diameter of the normal distal internal carotid artery Head MRI 02/11/18 10:28 CONCLUSION: 1. Acute infarction involving the left posterior thalamus and occipital lobe without hemorrhage or mass effect. Head CT 02/17/18 00:00 CONCLUSION: Evolving left occipital and medial temporal lobe infarction which is developing into an area of encephalomalacia. Chest X-Ray 02/19/18 04:00 CONCLUSION: Unchanged bilateral pleural effusions and pulmonary infiltrates. Objective Remarks: GENERAL: Well-nourished, well-developed patient who is lying in bed in four- point restraints, awake, on nasal cannula SKIN: Warm and dry. No petechiae of palms or soles. No splinter hemorrhages. HEAD: Atraumatic. Normocephalic. EYES: Pupils equal and round, pinpoint bilaterally no scleral icterus. No injection or drainage. ENT: No nasal bleeding or discharge. Mucous membranes pink and moist. Nasal cannula 6 L/min NECK: Trachea midline. +JVD. No meningismus CARDIOVASCULAR: Regular rate and rhythm. No murmurs rubs or gallops. RESPIRATORY: Bibasilar rales with rhonchorous breath sounds bilaterally. No wheeze GASTROINTESTINAL: Abdomen soft, non-tender, nondistended. Bowel sounds present. MUSCULOSKELETAL: Extremities without clubbing, cyanosis, or edema. Scar overlying left shoulder. NEUROLOGICAL: GCS 14. RASS 0. Moving purposefully x 4 extremities. Follows commands intermittently Procedures: 02/13 Thoracentesis Assessment and Plan - Problem List (1) Stroke Code(s): I63.9 - Cerebral infarction, unspecified Status: Acute (2) Encephalopathy acute Code(s): G93.40 - Encephalopathy, unspecified Status: Acute (3) Septic shock Code(s): A41.9 - Sepsis, unspecified organism; R65.21 - Severe sepsis with septic shock Status: Acute (4) Respiratory failure Code(s): J96.90 - Respiratory failure, unspecified, unspecified whether with hypoxia or hypercapnia Status: Acute (5) Aspiration pneumonia Code(s): J69.0 - Pneumonitis due to inhalation of food and vomit Status: Acute (6) KIMBERLY (acute kidney injury) Code(s): N17.9 - Acute kidney failure, unspecified Status: Acute (7) Tobacco abuse Code(s): Z72.0 - Tobacco use Status: Chronic (8) Anemia Code(s): D64.9 - Anemia, unspecified Status: Chronic (9) Lactic acidemia Code(s): E87.2 - Acidosis Status: Acute (10) Transaminasemia Code(s): R74.0 - Nonspecific elevation of levels of transaminase and lactic acid dehydrogenase [LDH] Status: Acute (11) Hyperglycemia Code(s): R73.9 - Hyperglycemia, unspecified Status: Acute - Assessment and Plan Plan: NEURO: Subacute ischemic stroke Acute encephalopathy EtOH abuse per prior record CT brain volving infarct left occipital lobe and medial left temporal lobe. No hemorrhage. MRI brain -Acute infarction involving the left posterior thalamus and occipital lobe without hemorrhage or mass effect. MRA head Left ZONE MANAGER occlusion Not candidate for TPA due to unknown time of onset, probably subacute. Aspirin [address] Santillan following Ammonia level normal. Thiamine/multivitamin/folic acid Seizure precautions. Monitor for signs of alcohol withdrawal Librium 5 mg TID 2D echo inadequate study, CHARLIE tentatively scheduled for 02/23-concern for possible intubation for procedure, date changed Four-point restraints placed for patient safety RESP: Acute hypercapnic respiratory failure Haemophilus influenza pneumonia B/L pleural effusions Tobacco abuse Intubated 02/10 for airway protection Self extubated today 02/12/2017 while on CPAP trial Currently on nasal cannula 6 L, maintain BiPAP at night patient continues to retain CO2, Acetazolamide 250 mg x 1 dose DuoNeb every 6 hours. Albuterol every 2 hours as needed ID following antibiotics see below 02/13 S/P right thoracentesis-650 cc removed Initiate chest physiotherapy 02/17-progression of bilateral pulmonary infiltrates, small bilateral pleural effusions F/U chest x-ray in a.m.-persistent hypercarbia, Acetazolamide 250mg x 1 dose CV: Lactic acidemia Elevated troponin/demand ischemia Hypertension Levophed as needed to maintain mean pressure greater than 65 Receiving aspirin 2D echo limited study normal-appearing ejection fraction Cardiology following ,CHARLIE tentatively schedule 02/18 EKG sinus rhythm with nonspecific ST changes in inferior leads. Hydralazine 20 mg every 4 hours as needed for systolic blood pressure greater than 160mmHg GI: Transaminase elevated Repeat LFT Viral hepatitis panel-negative FEN/RENAL: Acute kidney injury-resolved Hypokalemia, hypomagnesemia, hypophosphatemia Follow-up renal ultrasound. Ornelas Lasix twice daily Monitor intake and output hourly. Monitor electrolytes and replace as indicated. ID: Septic shock-resolved GPC/Streptococcus bacteremia Leukocytosis Aspiration pneumonia/Haemophilus influenza Penicillin allergyhives. Received ceftriaxone in the ED without issue. Chest x-ray with right lower lobe infiltrate. Blood cultures GPC/Streptococcus in 4 out of 4 bottles. Influenza negative. Follow-up sputum culture-Haemophilus influenzae Urine Legionella pneumococcal antigen- negative Vancomycin started 02/11/18 ID following HEME: Anemia Monitor CBC Transfuse for hemoglobin less than 7 ENDO: Mild hyperglycemia HgbA1C 5.3 TSH normal PROPH: SCDs for DVT prophylaxis. Protonix 40 mg IV daily for stress ulcer prophylaxis ACCESS: Left IJ central venous line placed 02/10 FULL CODE Level 3 follow-up. 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
[2018-02-20] MEDS: Potassium Phosphate 500 MG Soluble Tablet PO SCH (15:03)
[2018-02-20] MEDS ORDERED: Pharmacy Ordered Lab Info OTHER ONE (17:45)
[2018-02-20] MEDS: Vancomycin Inj 1,250 MG in Sodium Chlor 0.9% Inj 250 ML IV.SIG SCH (21:31)
--- NOTE | 2018-02-20 23:59 | P.PNID ---
Subjective Remarks: afebrile On nasal cannula O2 awake Antibiotics: CFTX Allergies/Adverse Reactions: Allergies penicillin G Allergy (Severe, Verified 02/20/18 01:05) RASH Objective Vital Signs 02/20/18 00:00 02/20/18 02:00 02/20/18 02:30 Temperature 98.4 F Pulse Rate 68 61 Respiratory Rate 19 Blood Pressure 102/56 L Pulse Oximetry 95 94 L 02/20/18 04:00 02/20/18 06:00 02/20/18 07:00 Temperature 98.4 F Pulse Rate 68 64 Respiratory Rate 19 Blood Pressure 112/60 Pulse Oximetry 97 02/20/18 07:14 02/20/18 07:41 02/20/18 07:42 Temperature Pulse Rate 66 Respiratory Rate 20 Blood Pressure Pulse Oximetry 96 96 02/20/18 07:56 02/20/18 07:57 02/20/18 10:00 Temperature 98.2 F Pulse Rate 68 68 66 Respiratory Rate 22 Blood Pressure 111/62 Pulse Oximetry 93 L 02/20/18 12:00 02/20/18 14:00 02/20/18 15:16 Temperature 98.5 F Pulse Rate 68 69 65 Respiratory Rate 18 16 Blood Pressure 98/53 L Pulse Oximetry 96 02/20/18 16:00 02/20/18 18:00 02/20/18 19:53 Temperature 98.6 F Pulse Rate 72 70 Respiratory Rate 18 Blood Pressure 97/55 L Pulse Oximetry 91 L 97 02/20/18 21:27 Temperature Pulse Rate Respiratory Rate Blood Pressure Pulse Oximetry 94 L Intake & Output 02/20/18 02/20/18 02/21/18 06:59 18:59 06:59 Intake Total 965 / 965 1181 / 1181 Output Total 900 / 900 1600 / 1600 Balance 65 / 65 -419 / -419 Weight 63.1 kg Intake: IV 615 / 615 461 / 461 KCl 20 mEq Premix Inj 20 meq In 100 / 100 100 ml @ 50 mls/hr IV.SIG Q2H PRN Rx#:[id number] Potassium Phosphate Inj 30 MMOL 260 / 260 In NS Inj 250 ML @ 42 mls/hr IV.SIG UNSCH PRN Rx#:[id number] Thiamine Inj 100 MG In NS Inj 101 / 101 100 ML @ 100 mls/hr IV.SIG DAILY JUSTINE Rx#:[id number] Vancomycin Inj 1,500 MG In NS 515 / 515 Inj 500 ML @ 250 mls/hr IV.SIG Q18H JUSTINE Rx#:[id number] Rocephin Inj 2,000 MG In NS Inj 100 / 100 100 ML @ 200 mls/hr IV.SIG Q24H JUSTINE Rx#:[id number] Oral 350 / 350 720 / 720 Output: Urine Amount (Catheter) 900 / 900 1600 / 1600 Indwelling Urethral Catheter 900 / 900 1600 / 1600 Other: Date of Last Bowel Movement 02/20/18 02/20/18 # Bowel Movements 7 2 02/13/18 13:25 Fluid - Pleural fluid Fungal Smear - Final No fungal elements seen 02/13/18 13:25 Fluid - Pleural fluid Fungal Culture - Preliminary No growth in 1 week 02/13/18 13:25 Fluid - Pleural fluid Acid Fast Bacilli Smear - Final No acid fast bacilli seen 02/13/18 13:25 Fluid - Pleural fluid Mycobacterial Culture - Preliminary No growth in 1 week 02/18/18 10:38 Blood - Peripheral Aerobic Blood Culture - Preliminary No growth in 2 days 02/18/18 10:38 Blood - Peripheral Anaerobic Blood Culture - Preliminary No growth in 2 days 02/18/18 10:30 Blood - Peripheral Aerobic Blood Culture - Preliminary No growth in 2 days 02/18/18 10:30 Blood - Peripheral Anaerobic Blood Culture - Preliminary No growth in 2 days 02/17/18 20:04 Blood - Peripheral Aerobic Blood Culture - Preliminary No growth in 3 days 02/17/18 20:04 Blood - Peripheral Anaerobic Blood Culture - Preliminary No growth in 3 days 02/17/18 19:59 Blood - Peripheral Aerobic Blood Culture - Preliminary No growth in 3 days 02/17/18 19:59 Blood - Peripheral Anaerobic Blood Culture - Preliminary No growth in 3 days 02/10/18 20:00 Blood - Peripheral Aerobic Blood Culture - Final Viridans streptococcus grp gram positive cocci 02/10/18 20:00 Blood - Peripheral Anaerobic Blood Culture - Preliminary Viridans streptococcus grp Lab - Hematology Results 02/19/18 02/20/18 08:13 02:40 WBC 10.0 10.1 RBC 4.88 4.62 Hgb 12.8 L 12.4 L Hct 41.0 38.2 L MCV 84.1 82.7 MCH 26.2 L 26.8 L MCHC 31.2 L 32.4 RDW 15.4 15.7 Plt Count 120 L D 120 L MPV 9.2 9.2 Prelim Diff (Auto) Slide review pending Neut % (Auto) 77.4 H 76.6 H Lymph % (Auto) 9.6 11.0 Caswell % (Auto) 9.6 H 8.0 Eos % (Auto) 3.0 3.6 Baso % (Auto) 0.4 0.8 Neut # (Auto) 7.8 H 7.8 H Lymph # (Auto) 1.0 1.1 Caswell # (Auto) 1.0 H 0.8 Eos # (Auto) 0.3 0.4 Baso # (Auto) 0.0 0.1 WBC Differential . . Diff Scan Auto diff confirmed Auto diff confirmed Differential Comment Auto diff final . Platelet Estimate Low L Platelet Morphology Normal Stomatocytes 1+ H Lab - Chemistry Results 02/19/18 02/20/18 02/20/18 05:04 02:40 02:40 Sodium 139 139 Potassium 3.0 L 3.5 3.5 Chloride 86 L 91 L Carbon Dioxide Greater than 45.0 H Greater than 45.0 H Anion Gap 8 3 L BUN 13 15 Creatinine 0.61 0.74 Estimated GFR Greater than 89 Greater than 89 Random Glucose 76 95 Calcium 8.0 L 7.9 L Phosphorus 2.6 D 2.1 L Magnesium 1.6 1.6 Imaging: ITS Impressions Abdomen Ultrasound 02/11/18 00:00 CONCLUSION: 1. Small liver with trace ascites. 2. Small cyst lower pole right kidney. Head MRA 02/11/18 00:00 CONCLUSION: 1. Occlusion of the left posterior cerebral artery at its origin with acute ischemia left occipital region.. Neck MRA 02/11/18 00:00 CONCLUSION: 1. Negative MRA Carotids. Percent stenosis is calculated using the diameter of the stenotic region over the diameter of the normal distal internal carotid artery Head MRI 02/11/18 10:28 CONCLUSION: 1. Acute infarction involving the left posterior thalamus and occipital lobe without hemorrhage or mass effect. Head CT 02/17/18 00:00 CONCLUSION: Evolving left occipital and medial temporal lobe infarction which is developing into an area of encephalomalacia. Chest X-Ray 02/19/18 04:00 CONCLUSION: Unchanged bilateral pleural effusions and pulmonary infiltrates. Physical Exam: GENERAL: NAD SKIN: Warm and dry.no rash no embolic phenomena HEAD: Atraumatic. Normocephalic. EYES: Pupils equal and round. No scleral icterus. No injection or drainage. ENT: No nasal bleeding or discharge. Mucous membranes pink and moist. NECK: Trachea midline. No JVD. CARDIOVASCULAR: Regular rate and rhythm. RESPIRATORY: No accessory muscle use. Clear to auscultation. Breath sounds equal bilaterally. GASTROINTESTINAL: Abdomen soft, non-tender, nondistended. Hepatic and splenic margins not palpable. MUSCULOSKELETAL: Extremities without clubbing, cyanosis, or edema. No obvious deformities. NEUROLOGICAL: Awake and alert. 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
[2018-02-21] MEDS: Oral Hygiene Kit OROPHARYNG SCH ×3 (05:08→17:38)
[2018-02-21 06:00] LABS: Albumin 2.1 g/dL (3.4-5.0); Anion Gap 3 meq/L (5-15); Aspartate Aminotransferase 21 U/L (15-37); Blood Urea Nitrogen 15 mg/dL (7-18); Calcium 7.8 mg/dL (8.5-10.1); Carbon Dioxide 43.1 meq/L (21.0-32.0); Chloride 92 meq/L (98-107); Glomerular Filtration Rate 87 mL/min (>89); Glucose,Random 89 mg/dL (74-106); Magnesium 1.5 mg/dL (1.5-2.5); Potassium 3.2 meq/L (3.5-5.1); Sodium 138 meq/L (136-145)
[2018-02-21 06:09] LABS: Alanine Aminotransferase 43 U/L (12-78); Alkaline Phosphatase 49 U/L (45-117); Phosphorus 3.3 mg/dL (2.5-4.9); Total Protein 6.9 g/dL (6.4-8.2)
[2018-02-21] MEDS: Potassium Chlor 20 mEq Premix 20 MEQ/100 ML PIGGYBACK IV.SIG PRN (08:15)
[2018-02-21] MEDS: Chlorhexidine 0.12% Oral Kit 15 ML UDC OROPHARYNG SCH ×2 (09:35→21:23)
[2018-02-21] MEDS: Thiamine Inj 100 MG in Sodium Chlor 0.9% Inj 100 ML IV.SIG SCH (09:36)
[2018-02-21] MEDS: Pantoprazole Inj 40 MG Vial IV.PUSH SCH (09:37)
[2018-02-21] MEDS: amLODIPine 5 MG Tablet PO SCH (09:37)
[2018-02-21] MEDS: Folic Acid 1 MG Tablet NG/OG SCH (09:37)
[2018-02-21] MEDS: Potassium Phosphate 500 MG Soluble Tablet PO SCH (09:37)
[2018-02-21] MEDS: Senna/Docusate Sodium 8.6/50 MG Tablet PO SCH ×2 (09:37→21:23)
[2018-02-21] MEDS: Metoprolol Tartrate 25 MG Tablet PO SCH ×2 (09:37→21:22)
[2018-02-21] MEDS: Heparin - SQ 10,000 UNITS/ML Vial SQ SCH ×2 (12:09→22:40)
[2018-02-21] MEDS: Vancomycin Inj 1,250 MG in Sodium Chlor 0.9% Inj 250 ML IV.SIG SCH (15:08)
--- NOTE | 2018-02-21 17:31 | P.PNCC ---
Subjective Subjective Remarks/Hospital Course: Patient is unable to provide history because he is intubated. Reviewed EMR. 67-year-old male with past medical history of alcohol abuse, tobacco abuse who presented to [facility] emergency department with altered mental status. Per report from [facility] he may have had syncope prior to their arrival. He ultimately was intubated for airway protection. CXR shows right lower lobe consolidation. White blood cell count is 12. Lactic acid is 5. Creatinine is 1.8. Most recent prior creatinine was 0.6 in 2008. He received 3 L normal saline bolus, azithromycin, Rocephin, neb in the emergency department. CT brain is pending. Remote Computer Terminal Operator consulted for admission. SUBJ 02/11/18: Remains severely septic from 4 out of 4 bottles growing GPC. 2D echo ordered to rule out endocarditis. However mental status is improving following commands. MRI ordered by Dr. Santillan 02/12/18: Patient was intubated lightly sedated am. On sedation hold slight improvement of the neuro exam opens eyes intermittently follows simple commands with upper extremities. While undergoing CPAP trial patient self extubated initially was hypoxic and required 100% oxygen currently maintaining oxygen saturation on nonrebreather. 02/13/18: Patient self extubated yesterday a.m. while undergoing CPAP trial for planned extubation. Tolerating reasonably well. Chest x-ray shows increasing right-sided effusion. Sputum culture with Haemophilus. Plan for thoracentesis if large enough pleural effusion. Blood cultures growing strep species. 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, will need CHARLIE when more stable 02/14: Afebrile .patient remains on facemask at 5 L O2 saturation 96%. The patient underwent thoracentesis yesterday with approximately 650 cc removed, cultures pending. Patient extremely lethargic after receiving Ativan during the night. Ativan now discontinued the patient is on scheduled doses of Librium for avoidance of delirium tremens.. Formal swallow completed patient on mechanical soft diet, currently held secondary to lethargy. 02/15: The patient is more alert this afternoon after cessation of Ativan. Patient continues on Librium 3 times daily. Patient continues to have high FiO2 requirements Lasix twice daily added to medication regimen. Patient noted to be hypertensive systolic 170s hydralazine added also to medication regime Cardizem IV infusion transition to p.o. Cardizem extended release. The patient remains in four-point restraints for patient safety, intermittent bouts of confusion. Patient tolerating mechanical soft diet but needs assistance to be fed. Reconsult 02/18: Overnight the patient became hypoxic with noted cyanosis. Patient was placed on a nonrebreather mask, stat ABG was performed noted to be significantly hypercapnic. The patient was placed on BiPAP. Sleep 20 mg furosemide was given additional 40 mg of Lasix was given Ornelas was inserted to monitor output. Chest x-ray showed worsening infiltrates. Noted patient positive for Haemophilus influenza being treated and strep viridans bacteremia. ID was consulted yesterday will follow up recommendations today. After effective diuresis and placement of BiPAP the patient's FiO2 requirements decreased to 60%. The patient remains n.p.o. for tentative scheduled CHARLIE today. 02/19: Afebrile. ID following Rocephin increased to 2 g. Chest x-ray remains unchanged today. Oxygen requirement significantly decreased the patient remains on nasal cannula, never noted CO2 retention planned BiPAP at night while asleep. The patient continues to have effective diuresis. Patient is tolerating a regular diet now with thin liquids. Plan for n.p.o. tonight for possible CHARLIE in a.m. 02/20: CHARLIE canceled tentatively scheduled for Thursday 02/23. Patient remained on BiPAP during the night the patient now on nasal cannula 4L, O2 saturation 95%. The patient continues on Lasix twice daily noted at 5 L diuresis in the last 24hrs. The patient denies pain, tolerating a diet. Periods of confusion. 02/21: Respiratory status improved. O2 at nasal cannula 4 L/min O2 saturation 96 %. The patient is tolerating a regular diet. Objective Vital Signs / I&O: Vital Signs 02/20/18 18:00 02/20/18 19:00 02/20/18 19:53 Temperature Pulse Rate 70 76 Respiratory Rate 18 20 Blood Pressure 110/54 L 98/54 L Pulse Oximetry 98 96 97 02/20/18 20:00 02/20/18 21:00 02/20/18 21:27 Temperature 99.5 F Pulse Rate 74 74 Respiratory Rate 19 23 Blood Pressure 96/54 L 105/61 Pulse Oximetry 97 96 94 L 02/20/18 22:00 02/20/18 23:00 02/21/18 00:00 Temperature Pulse Rate 70 67 70 Respiratory Rate 17 17 18 Blood Pressure 96/53 L 93/54 L 89/54 L Pulse Oximetry 100 100 99 02/21/18 00:12 02/21/18 01:00 02/21/18 02:00 Temperature Pulse Rate 71 73 Respiratory Rate 17 17 Blood Pressure 94/56 L 91/55 L Pulse Oximetry 100 100 87 L 02/21/18 02:33 02/21/18 03:00 02/21/18 03:01 Temperature Pulse Rate 68 68 Respiratory Rate 17 18 Blood Pressure 109/54 L Pulse Oximetry 96 97 97 02/21/18 04:00 02/21/18 04:01 02/21/18 05:00 Temperature 98.4 F Pulse Rate 71 72 65 Respiratory Rate 19 18 18 Blood Pressure 88/50 L 88/50 L 106/58 L Pulse Oximetry 94 L 93 L 99 02/21/18 06:00 02/21/18 07:00 02/21/18 08:00 Temperature 97.8 F Pulse Rate 67 67 69 Respiratory Rate 18 18 17 Blood Pressure 104/59 L 108/56 L 102/58 L Pulse Oximetry 96 97 94 L 02/21/18 09:00 02/21/18 10:00 02/21/18 11:00 Temperature Pulse Rate 72 74 70 Respiratory Rate 18 18 17 Blood Pressure 107/51 L 110/57 L 117/56 L Pulse Oximetry 76 L 92 L 94 L 02/21/18 12:00 02/21/18 13:00 02/21/18 13:06 Temperature 98.4 F Pulse Rate 65 70 65 Respiratory Rate 18 19 Blood Pressure 96/54 L 93/55 L Pulse Oximetry 97 95 02/21/18 14:00 Temperature Pulse Rate 69 Respiratory Rate 20 Blood Pressure 93/54 L Pulse Oximetry 96 Intake & Output 02/20/18 02/21/18 02/21/18 18:59 06:59 18:59 Intake Total 1181 / 1181 1050 / 1050 1088 / 1088 Output Total 1600 / 1600 1450 / 1450 900 / 900 Balance -419 / -419 -400 / -400 188 / 188 Weight 62.7 kg Intake: IV 461 / 461 250 / 250 288 / 288 KCl 20 mEq Premix Inj 20 meq In 98 / 98 100 ml @ 50 mls/hr IV.SIG Q2H PRN Rx#:[id number] Potassium Phosphate Inj 30 MMOL 260 / 260 In NS Inj 250 ML @ 42 mls/hr IV.SIG UNSCH PRN Rx#:[id number] Thiamine Inj 100 MG In NS Inj 101 / 101 90 / 90 100 ML @ 100 mls/hr IV.SIG DAILY JUSTINE Rx#:[id number] Vancomycin Inj 1,250 MG In NS 250 / 250 Inj 250 ML @ 250 mls/hr IV.SIG Q18H JUSTINE Rx#:[id number] Rocephin Inj 2,000 MG In NS Inj 100 / 100 100 / 100 100 ML @ 200 mls/hr IV.SIG Q24H JUSTINE Rx#:[id number] Oral 720 / 720 300 / 300 300 / 300 Other 500 / 500 500 / 500 Output: Urine Amount (Catheter) 1600 / 1600 1450 / 1450 900 / 900 Indwelling Urethral Catheter 1600 / 1600 1450 / 1450 900 / 900 Other: Date of Last Bowel Movement 02/20/18 02/21/18 02/21/18 # Bowel Movements 2 Result Diagrams: 02/20/18 02:40 02/21/18 05:17 Objective Remarks: GENERAL: Well-nourished, well-developed patient who is lying in bed in four- point restraints, awake, on nasal cannula SKIN: Warm and dry. No petechiae of palms or soles. No splinter hemorrhages. HEAD: Atraumatic. Normocephalic. EYES: Pupils equal and round, pinpoint bilaterally no scleral icterus. No injection or drainage. ENT: No nasal bleeding or discharge. Mucous membranes pink and moist. Nasal cannula 4 L/min NECK: Trachea midline. +JVD. No meningismus CARDIOVASCULAR: Regular rate and rhythm. No murmurs rubs or gallops. RESPIRATORY: Bibasilar rales with rhonchorous breath sounds bilaterally. No wheeze GASTROINTESTINAL: Abdomen soft, non-tender, nondistended. Bowel sounds present. MUSCULOSKELETAL: Extremities without clubbing, cyanosis, or edema. Scar overlying left shoulder. NEUROLOGICAL: GCS 14. RASS 0. Moving purposefully x 4 extremities. Follows commands intermittently Procedures: 02/13 Thoracentesis Assessment and Plan - Problem List (1) Stroke Code(s): I63.9 - Cerebral infarction, unspecified Status: Acute (2) Encephalopathy acute Code(s): G93.40 - Encephalopathy, unspecified Status: Acute (3) Septic shock Code(s): A41.9 - Sepsis, unspecified organism; R65.21 - Severe sepsis with septic shock Status: Acute (4) Respiratory failure Code(s): J96.90 - Respiratory failure, unspecified, unspecified whether with hypoxia or hypercapnia Status: Acute (5) Aspiration pneumonia Code(s): J69.0 - Pneumonitis due to inhalation of food and vomit Status: Acute (6) KIMBERLY (acute kidney injury) Code(s): N17.9 - Acute kidney failure, unspecified Status: Acute (7) Tobacco abuse Code(s): Z72.0 - Tobacco use Status: Chronic (8) Anemia Code(s): D64.9 - Anemia, unspecified Status: Chronic (9) Lactic acidemia Code(s): E87.2 - Acidosis Status: Acute (10) Transaminasemia Code(s): R74.0 - Nonspecific elevation of levels of transaminase and lactic acid dehydrogenase [LDH] Status: Acute (11) Hyperglycemia Code(s): R73.9 - Hyperglycemia, unspecified Status: Acute - Assessment and Plan Plan: NEURO: Subacute ischemic stroke Acute encephalopathy EtOH abuse per prior record CT brain volving infarct left occipital lobe and medial left temporal lobe. No hemorrhage. MRI brain -Acute infarction involving the left posterior thalamus and occipital lobe without hemorrhage or mass effect. 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 Aspirin [address] Santillan following Ammonia level normal. Thiamine/multivitamin/folic acid Seizure precautions. Monitor for signs of alcohol withdrawal Librium 5 mg TID 2D echo inadequate study, CHARLIE tentatively scheduled for 02/23-concern for possible intubation for procedure, date changed Four-point restraints placed for patient safety RESP: Acute hypercapnic respiratory failure Haemophilus influenza pneumonia B/L pleural effusions Tobacco abuse Intubated 02/10 for airway protection Self extubated today 02/12/2017 while on CPAP trial Currently on nasal cannula 6 L, maintain BiPAP at night patient continues to retain CO2, Acetazolamide 250 mg x 1 dose DuoNeb every 6 hours. Albuterol every 2 hours as needed ID following antibiotics see below 02/13 S/P right thoracentesis-650 cc removed Initiate chest physiotherapy 02/17-progression of bilateral pulmonary infiltrates, small bilateral pleural effusions F/U chest x-ray in a.m.-persistent hypercarbia, Acetazolamide 250mg x 1 dose CV: Lactic acidemia Elevated troponin/demand ischemia Hypertension Maintain mean pressure greater than 65 Receiving aspirin 2D echo limited study normal-appearing ejection fraction Cardiology following ,CHARLIE tentatively schedule 02/23 EKG sinus rhythm with nonspecific ST changes in inferior leads. Hydralazine 20 mg every 4 hours as needed for systolic blood pressure greater than 160mmHg GI: Transaminase elevated Repeat LFT Viral hepatitis panel-negative FEN/RENAL: Acute kidney injury-resolved Hypokalemia, hypomagnesemia, hypophosphatemia Follow-up renal ultrasound. Maintain Ornelas Lasix 40 mg twice daily Monitor intake and output hourly. Monitor electrolytes and replace as indicated. ID: Septic shock-resolved GPC/Streptococcus bacteremia Leukocytosis Aspiration pneumonia/Haemophilus influenza Penicillin allergyhives. Received ceftriaxone in the ED without issue. Chest x-ray with right lower lobe infiltrate. Blood cultures GPC/Streptococcus in 4 out of 4 bottles. Influenza negative. Follow-up sputum culture-Haemophilus influenzae Urine Legionella pneumococcal antigen- negative Vancomycin started 02/11/18 ID following HEME: Anemia Monitor CBC Transfuse for hemoglobin less than 7 ENDO: Mild hyperglycemia HgbA1C 5.3 TSH normal PROPH: SCDs for DVT prophylaxis. Protonix 40 mg IV daily for stress ulcer prophylaxis ACCESS: Left IJ central venous line placed 02/10 FULL CODE Level 3 follow-up. Patient remains at risk for possible reintubation Code Status: Full Discussed Condition With: CLUTCH REBUILDER at bedside (4) Respiratory failure Qualifiers: Chronicity: acute Respiratory failure complication: hypercapnia Qualified Code(s): J96.02 - Acute respiratory failure with hypercapnia
[2018-02-21] MEDS: Magnesium Oxide 400 MG Tablet PO PRN (21:23)
[2018-02-22] MEDS: Oral Hygiene Kit OROPHARYNG SCH ×4 (00:22→16:57)
--- NOTE | 2018-02-22 02:40 | MB ---
cc: Adama Galan MD DATE: 02/22/2018 REASON FOR CONSULTATION: Pneumonia and respiratory failure. HISTORY OF PRESENT ILLNESS: The patient is a 67-year-old male admitted 02/11/2018 with altered mental status, sepsis, respiratory failure, requiring intubation and mechanical ventilation. The patient does have a history of heavy smoking and probable COPD. A chest x-ray with bilateral lung infiltrates. Intubated and mechanically ventilated, subsequently improved, extubated presently with adequate oxygenation with oxygen via nasal cannula. His blood culture was positive for Streptococcus viridans and is being treated for probable underlying endocarditis. His tracheal aspirate was with Haemophilus influenza. Echocardiogram with ejection fraction to 40%-45%. ETT is pending at this time. PAST MEDICAL HISTORY: Alcohol and tobacco use. I believe he has total hip surgery, probable COPD. FAMILY HISTORY: Notable for heart disease, otherwise unremarkable. SOCIAL HISTORY: The patient is a previous smoker, how much is not clear. No known history of drug abuse. Drinks alcohol, how much is not clear as well. CURRENT MEDICATIONS: Include: 1. Rocephin 2 g daily. 2. Hydrocodone/acetaminophen. 3. Nebulized albuterol. 4. Norvasc. 5. Librium. 6. Flumazenil. 7. Lasix. 8. Apresoline. 9. Trandate as needed. 10. Metoprolol. 11. Pantoprazole. 12. Vitamins. 13. Vancomycin. ALLERGIES: PENICILLIN. REVIEW OF SYSTEMS: A 12-point review of systems as per HPI and past history, otherwise negative. PHYSICAL EXAMINATION: GENERAL: The patient is alert, in no acute distress. VITAL SIGNS: Oxygen saturation 98%, pulse 70, respirations 20, blood pressure 110/60. HEENT: Unremarkable. Eyes without icterus. NECK: Without adenopathy or thyroid enlargement. CHEST: Few scattered rhonchi bilaterally. CARDIAC: PMI not appreciated. S1 and S2 audible. ABDOMEN: Lax, bowel sounds audible. EXTREMITIES: No clubbing, cyanosis or edema. LABORATORY DATA: White count 10,000, hemoglobin 12, hematocrit 38, platelets 120,000. INR is 1.5. ABG on 02/18/2018, pH 7.47, pCO2 of 74, pO2 of 80. Sodium 139, potassium 3.5, BUN 15, creatinine 0.7. IMPRESSION: 1. Respiratory failure. 2. Pneumonia. 3. Bacteremia, probable endocarditis. 4. Probable chronic obstructive pulmonary disease. PLAN: The patient will be maintained on bronchodilator therapy, antibiotic therapy will be continued as well, and the patient is followed by infectious disease. Last chest x-ray done 02/19/2018 is with bilateral pleural effusions and lung infiltrates, which is unchanged from previous. The patient's oxygenation will be adjusted as needed. BiPAP therapy will be helpful, especially during sleep for this patient with significant hypercapnia. Will follow his course along with you and, depending on progress, proceed further. I do thank you for asking me to partake in Mr. Krishnamurthy's care. Adama Galan MD WWW/rw , 12:49 AM , 01:00 AM
--- NOTE | 2018-02-22 03:47 | XR ---
EXAM DATE: 02/22/2018 3:44 AM EST AGE/SEX: 67 years / Male INDICATIONS: shortness of breath, possible pulmonary disease. CLINICAL DATA: This is the patient's subsequent encounter. Patient reports that signs and symptoms h ave been present for 1 week and indicates a pain score of 0/10. MEDICAL/SURGICAL HISTORY: Non-responsive. . Hip arthroplasty. COMPARISON: [facility] – [place], CHEST 1V SINGLE AP, 02/19/2018. . FINDINGS: Portable AP view of the chest demonstrates a normal-sized cardiac silhouette. Patient is underinflate d and rotated. There is bibasilar pleural-parenchymal opacity, right greater than left. No pneumothor ax is visualized. Bones of a stable appearance. CONCLUSION: Stable bibasilar pleural-parenchymal opacity, right greater than left. The opacity at the right base is slightly improved. Electronically signed by: Adarsh Clark MD Board Certified Radiologist 02/22/2018 3:46 AM EST
[2018-02-22 05:15] LABS: Baso # (Auto) 0.1 th/mm3 (0.0-0.2); Baso % (Auto) 1.2 % (0.0-2.0); Eos # (Auto) 0.2 th/mm3 (0.0-0.4); Hematocrit 38.8 % (39.0-51.0); Hemoglobin 12.2 gm/dL (13.0-17.0); Lymph # (Auto) 1.1 th/mm3 (1.0-4.8); Lymph % (Auto) 12.3 % (9.0-44.0); Mean Corpuscular HGB Conc 31.4 % (32.0-36.0); Mean Corpuscular Hemoglobin 26.5 pg (27.0-34.0); Mean Corpuscular Volume 84.5 fL (80.0-100.0); Mean Platelet Volume 10.8 fL (7.0-11.0); Mono # (Auto) 0.7 th/mm3 (0.0-0.9); Neut # (Auto) 6.9 th/mm3 (1.8-7.7); Neut % (Auto) 76.5 % (16.0-70.0); Platelet Count 149 th/mm3 (150-450); Red Blood Count 4.59 mil/mm3 (4.50-5.90); Red Cell Distribution Width 15.7 % (11.6-17.2)
[2018-02-22 05:28] LABS: Calcium 7.7 mg/dL (8.5-10.1); Carbon Dioxide 39.8 meq/L (21.0-32.0); Potassium 3.6 meq/L (3.5-5.1)
[2018-02-22] MEDS: Vancomycin Inj 1,250 MG in Sodium Chlor 0.9% Inj 250 ML IV.SIG SCH (08:05)
[2018-02-22] MEDS: Chlorhexidine 0.12% Oral Kit 15 ML UDC OROPHARYNG SCH ×2 (08:05→21:27)
[2018-02-22] MEDS: Metoprolol Tartrate 25 MG Tablet PO SCH ×2 (08:12→21:27)
[2018-02-22] MEDS: Pantoprazole Inj 40 MG Vial IV.PUSH SCH (08:12)
[2018-02-22] MEDS: Potassium Phosphate 500 MG Soluble Tablet PO SCH (08:13)
[2018-02-22] MEDS: amLODIPine 5 MG Tablet PO SCH (08:13)
[2018-02-22] MEDS: Senna/Docusate Sodium 8.6/50 MG Tablet PO SCH ×2 (08:13→21:27)
[2018-02-22] MEDS: Folic Acid 1 MG Tablet NG/OG SCH (08:13)
[2018-02-22] MEDS: Thiamine Inj 100 MG in Sodium Chlor 0.9% Inj 100 ML IV.SIG SCH (08:14)
[2018-02-22] MEDS ORDERED: Pharmacy Ordered Lab Info OTHER ONE (08:45)
[2018-02-22] MEDS: Heparin - SQ 10,000 UNITS/ML Vial SQ SCH (11:17)
[2018-02-22 11:24] LABS: Magnesium 0.9 mg/dL (1.5-2.5); Phosphorus 5.3 mg/dL (2.5-4.9)
[2018-02-22 11:25] LABS: Vancomycin,Trough 11.6 mcg/mL (5.0-10.0)
[2018-02-22] MEDS ORDERED: Influenza (Quadrivalent) Vaccine 0.5 ML Syringe IM ONE (16:00)
--- NOTE | 2018-02-22 16:19 | P.PNCC ---
Subjective Subjective Remarks/Hospital Course: Patient is unable to provide history because he is intubated. Reviewed EMR. 67-year-old male with past medical history of alcohol abuse, tobacco abuse who presented to [facility] emergency department with altered mental status. Per report from [facility] he may have had syncope prior to their arrival. He ultimately was intubated for airway protection. CXR shows right lower lobe consolidation. White blood cell count is 12. Lactic acid is 5. Creatinine is 1.8. Most recent prior creatinine was 0.6 in 2008. He received 3 L normal saline bolus, azithromycin, Rocephin, neb in the emergency department. CT brain is pending. Palliative Medicine Physician consulted for admission. SUBJ 02/11/18: Remains severely septic from 4 out of 4 bottles growing GPC. 2D echo ordered to rule out endocarditis. However mental status is improving following commands. MRI ordered by Dr. Santillan 02/12/18: Patient was intubated lightly sedated am. On sedation hold slight improvement of the neuro exam opens eyes intermittently follows simple commands with upper extremities. While undergoing CPAP trial patient self extubated initially was hypoxic and required 100% oxygen currently maintaining oxygen saturation on nonrebreather. 02/13/18: Patient self extubated yesterday a.m. while undergoing CPAP trial for planned extubation. Tolerating reasonably well. Chest x-ray shows increasing right-sided effusion. Sputum culture with Haemophilus. Plan for thoracentesis if large enough pleural effusion. Blood cultures growing strep species. 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, will need CHARLIE when more stable 02/14: Afebrile .patient remains on facemask at 5 L O2 saturation 96%. The patient underwent thoracentesis yesterday with approximately 650 cc removed, cultures pending. Patient extremely lethargic after receiving Ativan during the night. Ativan now discontinued the patient is on scheduled doses of Librium for avoidance of delirium tremens.. Formal swallow completed patient on mechanical soft diet, currently held secondary to lethargy. 02/15: The patient is more alert this afternoon after cessation of Ativan. Patient continues on Librium 3 times daily. Patient continues to have high FiO2 requirements Lasix twice daily added to medication regimen. Patient noted to be hypertensive systolic 170s hydralazine added also to medication regime Cardizem IV infusion transition to p.o. Cardizem extended release. The patient remains in four-point restraints for patient safety, intermittent bouts of confusion. Patient tolerating mechanical soft diet but needs assistance to be fed. Reconsult 02/18: Overnight the patient became hypoxic with noted cyanosis. Patient was placed on a nonrebreather mask, stat ABG was performed noted to be significantly hypercapnic. The patient was placed on BiPAP. Sleep 20 mg furosemide was given additional 40 mg of Lasix was given Ornelas was inserted to monitor output. Chest x-ray showed worsening infiltrates. Noted patient positive for Haemophilus influenza being treated and strep viridans bacteremia. ID was consulted yesterday will follow up recommendations today. After effective diuresis and placement of BiPAP the patient's FiO2 requirements decreased to 60%. The patient remains n.p.o. for tentative scheduled CHARLIE today. 02/19: Afebrile. ID following Rocephin increased to 2 g. Chest x-ray remains unchanged today. Oxygen requirement significantly decreased the patient remains on nasal cannula, never noted CO2 retention planned BiPAP at night while asleep. The patient continues to have effective diuresis. Patient is tolerating a regular diet now with thin liquids. Plan for n.p.o. tonight for possible CHARLIE in a.m. 02/20: CHARLIE canceled tentatively scheduled for Thursday 02/23. Patient remained on BiPAP during the night the patient now on nasal cannula 4L, O2 saturation 95%. The patient continues on Lasix twice daily noted at 5 L diuresis in the last 24hrs. The patient denies pain, tolerating a diet. Periods of confusion. 02/21: Respiratory status improved. O2 at nasal cannula 4 L/min O2 saturation 96 %. The patient is tolerating a regular diet. 02/22: She became agitated last night and refused BiPAP. Currently the patient remains on 4 L at an O2 saturation of 94-96%. Chest x-ray is improving white count is within normal limits. Lasix has been increased to 40 mg every 6 hours. Heparin and aspirin have been held tonight in anticipation of CHARLIE in a.m. Objective Vital Signs / I&O: Vital Signs 02/21/18 16:00 02/21/18 17:00 02/21/18 18:00 Temperature 98.7 F Pulse Rate 72 74 79 Respiratory Rate 19 19 22 Blood Pressure 98/55 L 101/58 L 104/56 L Pulse Oximetry 93 L 93 L 96 02/21/18 19:00 02/21/18 20:00 02/21/18 20:01 Temperature 98.6 F Pulse Rate 79 78 78 Respiratory Rate 23 22 19 Blood Pressure 96/54 L 107/60 107/60 Pulse Oximetry 97 96 95 02/21/18 20:39 02/21/18 21:00 02/21/18 21:13 Temperature Pulse Rate 80 78 Respiratory Rate 36 H 24 Blood Pressure 109/58 L Pulse Oximetry 93 L 92 L 88 L 02/21/18 21:47 02/21/18 21:49 02/21/18 22:00 Temperature Pulse Rate 73 Respiratory Rate 19 Blood Pressure 108/60 Pulse Oximetry 97 97 100 02/21/18 23:00 02/21/18 23:59 02/22/18 00:00 Temperature 98.4 F Pulse Rate 73 71 Respiratory Rate 16 22 Blood Pressure 107/64 108/62 Pulse Oximetry 100 97 98 02/22/18 00:01 02/22/18 01:00 02/22/18 02:00 Temperature Pulse Rate 72 70 72 Respiratory Rate 20 17 19 Blood Pressure 108/62 113/63 108/59 L Pulse Oximetry 97 90 L 95 02/22/18 03:00 02/22/18 03:37 02/22/18 03:40 Temperature Pulse Rate 70 Respiratory Rate 20 Blood Pressure 105/51 L Pulse Oximetry 81 L 96 96 02/22/18 04:00 02/22/18 05:00 02/22/18 06:00 Temperature 98.6 F Pulse Rate 65 65 65 Respiratory Rate 18 19 18 Blood Pressure 107/55 L 102/55 L 110/54 L Pulse Oximetry 97 99 97 02/22/18 07:00 02/22/18 08:00 02/22/18 08:01 Temperature 96.9 F L Pulse Rate 64 72 74 Respiratory Rate 17 22 20 Blood Pressure 112/56 L 110/54 L 99/51 L Pulse Oximetry 100 90 L 94 L 02/22/18 09:00 02/22/18 10:00 Temperature Pulse Rate 67 65 Respiratory Rate 18 16 Blood Pressure 116/56 L 121/58 L Pulse Oximetry 98 98 Intake & Output 02/21/18 02/22/18 02/22/18 18:59 06:59 18:59 Intake Total 2528 / 2528 350 / 350 358 / 358 Output Total 900 / 900 1100 / 1100 Balance 1628 / 1628 -750 / -750 358 / 358 Weight 62.4 kg Intake: IV 288 / 288 250 / 250 358 / 358 KCl 20 mEq Premix Inj 20 meq In 98 / 98 100 ml @ 50 mls/hr IV.SIG Q2H PRN Rx#:[id number] Thiamine Inj 100 MG In NS Inj 90 / 90 100 ML @ 100 mls/hr IV.SIG DAILY JUSTINE Rx#:[id number] Vancomycin Inj 1,250 MG In NS 250 / 250 248 / 248 Inj 250 ML @ 250 mls/hr IV.SIG Q18H JUSTINE Rx#:[id number] Rocephin Inj 2,000 MG In NS Inj 100 / 100 110 / 110 100 ML @ 200 mls/hr IV.SIG Q24H JUSTINE Rx#:[id number] Oral 1740 / 1740 100 / 100 Other 500 / 500 Output: Urine Amount (Catheter) 900 / 900 1100 / 1100 Condom 0 / 0 Indwelling Urethral Catheter 900 / 900 Straight 1100 / 1100 Other: # Voids 4 # Incontinent Voids 2 Date of Last Bowel Movement 02/20/18 02/21/18 02/22/18 # Bowel Movements 2 Result Diagrams: 02/22/18 03:58 02/22/18 03:58 Other Results: Laboratory Results WBC 9.0 th/mm3 (4.0-11.0) 02/22/18 03:58 RBC 4.59 mil/mm3 (4.50-5.90) 02/22/18 03:58 Hgb 12.2 gm/dL (13.0-17.0) L 02/22/18 03:58 Hct 38.8 % (39.0-51.0) L 02/22/18 03:58 MCV 84.5 fL (80.0-100.0) 02/22/18 03:58 MCH 26.5 pg (27.0-34.0) L 02/22/18 03:58 MCHC 31.4 % (32.0-36.0) L 02/22/18 03:58 RDW 15.7 % (11.6-17.2) 02/22/18 03:58 Plt Count 149 th/mm3 (150-450) L 02/22/18 03:58 MPV 10.8 fL (7.0-11.0) 02/22/18 03:58 Prelim Diff (Auto) Slide review pending 02/20/18 02:40 Neut % (Auto) 76.5 % (16.0-70.0) H 02/22/18 03:58 Lymph % (Auto) 12.3 % (9.0-44.0) 02/22/18 03:58 [place] % (Auto) 8.0 % (0.0-8.0) 02/22/18 03:58 Eos % (Auto) 2.0 % (0.0-4.0) 02/22/18 03:58 Baso % (Auto) 1.2 % (0.0-2.0) 02/22/18 03:58 Neut # (Auto) 6.9 th/mm3 (1.8-7.7) 02/22/18 03:58 Lymph # (Auto) 1.1 th/mm3 (1.0-4.8) 02/22/18 03:58 [place] # (Auto) 0.7 th/mm3 (0.0-0.9) 02/22/18 03:58 Eos # (Auto) 0.2 th/mm3 (0.0-0.4) 02/22/18 03:58 Baso # (Auto) 0.1 th/mm3 (0.0-0.2) 02/22/18 03:58 WBC Differential . 02/22/18 03:58 Diff Scan Auto diff confirmed 02/20/18 02:40 Seg Neuts % (Manual) 78 % (16-70) H 02/16/18 04:19 Band Neuts % (Manual) 10 % (0-6) H 02/16/18 04:19 Lymphocytes % (Manual) 5 % (9-44) L 02/16/18 04:19 Monocytes % (Manual) 2 % (0-8) 02/16/18 04:19 Metamyelocytes % (Man) 4 % (0-1) H 02/16/18 04:19 Myelocytes % (Man) 1 % (0-0) H 02/16/18 04:19 Abs Neuts (Manual) 9.1 th/mm3 (1.8-7.7) H 02/16/18 04:19 Nucleated RBCs/100 WBC 1 /100 WBC (0-0) H 02/15/18 04:49 Differential Comment Auto diff final 02/22/18 03:58 Platelet Estimate Low (Normal) L 02/20/18 02:40 Platelet Morphology Normal (Normal) 02/20/18 02:40 Basophilic Stippling Faint (None) H 02/15/18 04:49 Stomatocytes 1+ (None) H 02/20/18 02:40 ESR 32 mm/hr (0-20) H 02/11/18 14:22 PT 15.2 sec (9.8-11.6) H 02/10/18 18:15 INR 1.5 Ratio 02/10/18 18:15 APTT 28.0 sec (23.4-31.7) 02/10/18 18:15 Puncture Site Right radial 02/18/18 06:17 Patient Temperature 98.6 02/18/18 06:17 O2 Saturation 94 % (90-100) 02/18/18 06:17 ABG pH 7.47 (7.380-7.420) H 02/18/18 06:17 ABG pCO2 74 mmHg (38-42) H* 02/18/18 06:17 ABG pO2 80 mmHG (61-120) 02/18/18 06:17 ABG HCO3 53 mmol/L (22-26) H 02/18/18 06:17 ABG O2 Content 16.6 Vol % (12.0-20.0) 02/18/18 06:17 ABG Base Excess 26.3 mmol/L (-2-2) H 02/18/18 06:17 ABG Methemoglobin 1.5 % (0-2) 02/18/18 06:17 Kalyan Test Present 02/18/18 06:17 Hemoglobin 12.6 G/DL (12.0-16.0) 02/18/18 06:17 Carboxyhemoglobin 1.2 % (0-4) 02/18/18 06:17 O2 Delivery Device Non-rebreathing mask 02/18/18 06:17 Liter Flow 15.00 L/M 02/18/18 06:17 Vent Setting 02/10/18 22:00 Inspired O2 100 % 02/18/18 06:17 Critical Value Yes 02/18/18 06:17 Sodium 140 meq/L (136-145) 02/22/18 03:58 Potassium 3.6 meq/L (3.5-5.1) 02/22/18 03:58 Chloride 96 meq/L (98-107) L 02/22/18 03:58 Carbon Dioxide 39.8 meq/L (21.0-32.0) H 02/22/18 03:58 Anion Gap 4 meq/L (5-15) L 02/22/18 03:58 BUN 16 mg/dL (7-18) 02/22/18 03:58 Creatinine 0.92 mg/dL (0.60-1.30) 02/22/18 03:58 Estimated GFR 82 mL/min (>89) L 02/22/18 03:58 POC Glucose 94 mg/dl (68-110) 02/13/18 11:22 Random Glucose 83 mg/dL (74-106) 02/22/18 03:58 Hemoglobin A1c 5.3 % (4.3-6.0) 02/11/18 03:51 Lactic Acid 1.0 mmol/L (0.4-2.0) 02/21/18 05:17 Calcium 7.7 mg/dL (8.5-10.1) L 02/22/18 03:58 Phosphorus 5.3 mg/dL (2.5-4.9) H D 02/22/18 08:45 Magnesium 0.9 mg/dL (1.5-2.5) L D 02/22/18 08:45 Total Bilirubin 0.4 mg/dL (0.2-1.0) 02/21/18 05:17 Direct Bilirubin 0.2 mg/dL (0.0-0.2) 02/21/18 05:17 Indirect Bilirubin 0.2 mg/dL (0.0-0.8) 02/21/18 05:17 AST 21 U/L (15-37) 02/21/18 05:17 ALT 43 U/L (12-78) 02/21/18 05:17 Alkaline Phosphatase 49 U/L (45-117) 02/21/18 05:17 Ammonia 17 mcmol/L (11-32) 02/15/18 03:49 Total Creatine Kinase 111 U/L (39-308) 02/10/18 18:15 Troponin I 0.09 ng/mL (0.02-0.05) H 02/14/18 08:23 B-Natriuretic Peptide 1035 pg/mL (0-100) H 02/10/18 18:15 Total Protein 6.9 g/dL (6.4-8.2) 02/21/18 05:17 Albumin 2.1 g/dL (3.4-5.0) L 02/21/18 05:17 Triglycerides 85 mg/dL (42-150) 02/12/18 03:30 Cholesterol 67 mg/dL (120-200) L 02/12/18 03:30 LDL Cholesterol, Calc 31 mg/dL (0-99) 02/12/18 03:30 HDL Cholesterol 19.4 mg/dL (40.0-60.0) L 02/12/18 03:30 Cholesterol/HDL Ratio 3.45 Ratio 02/12/18 03:30 Vitamin B12 917 pg/mL (193-986) 02/11/18 14:22 TSH 2.100 uIU/mL (0.358-3.740) 02/10/18 18:15 Urine Color Yesenia (Yellw/Straw) 02/10/18 20:39 Urine Clarity Cloudy (Clear) H 02/10/18 20:39 Urine pH 5.0 (5.0-8.5) 02/10/18 20:39 Ur Specific [place] 1.018 (1.002-1.035) 02/10/18 20:39 Urine Protein 500 or greater mg/dL (Neg-Trace) 02/10/18 20:39 Urine Glucose (UA) Negative mg/dL (Negative) 02/10/18 20:39 Urine Ketones Negative mg/dL (Negative) 02/10/18 20:39 Urine Occult Blood Negative (Negative) 02/10/18 20:39 Urine Nitrate Negative (Negative) 02/10/18 20:39 Urine Bilirubin Negative (Negative) 02/10/18 20:39 Urine Ictotest Negative (Negative) 02/10/18 20:39 Urine Urobilinogen 1.0 mg/dL (Less than 2) 02/10/18 20:39 Ur Leukocyte Esterase Negative (Negative) 02/10/18 20:39 Urine RBC 2 /hpf (0-3) 02/10/18 20:39 Urine WBC 8 /hpf (0-5) H 02/10/18 20:39 Amorphous Sediment Moderate /hpf (None) H 02/10/18 20:39 Urine Bacteria Few /hpf (None) H 02/10/18 20:39 Hyaline Casts Innum /lpf (0-3) 02/10/18 20:39 Urine Mucus Moderate /lpf (Occasional) H 02/10/18 20:39 Micro UA Comment Culture not ind 02/10/18 20:39 Ur Microscopic Review Not Reportable 02/10/18 20:39 Urine Culture Comments Culture not ind 02/10/18 20:39 Pleural pH 8.0 02/13/18 13:25 Pleural RBC 115 /mm3 (0-0) H 02/13/18 13:25 Pleural Nuc Cells 655 /mm3 (0-10) H 02/13/18 13:25 Pleural Neutrophils 79 % 02/13/18 13:25 Pleural Lymphocytes 6 % 02/13/18 13:25 Pleural Monocytes 11 % 02/13/18 13:25 Pleural Plasma Cells 1 % 02/13/18 13:25 Pleural Mesothelial 2 % 02/13/18 13:25 Pleural Other Cells 1 % 02/13/18 13:25 Pleural Total Protein 1.8 gm/dL 02/13/18 13:25 Pleural LDH 65 U/L 02/13/18 13:25 Pleural Glucose 100 mg/dL 02/13/18 13:25 Pleural Amylase 13 U/L 02/13/18 13:25 Nasal Screen MRSA (PCR) Not detected (Negative) 02/11/18 02:30 Vancomycin Trough 11.6 mcg/mL (5.0-10.0) H 02/22/18 08:45 Urine Opiates Screen Neg (Neg) 02/10/18 20:39 Ur Barbiturates Screen Neg (Neg) 02/10/18 20:39 Ur Amphetamines Screen Neg (Neg) 02/10/18 20:39 U Benzodiazepines Scrn Neg (Neg) 02/10/18 20:39 Urine Cocaine Screen Neg (Neg) 02/10/18 20:39 U Cannabinoids Screen Neg (Neg) 02/10/18 20:39 Serum Alcohol Less than 3 mg/dL (0-5) 02/10/18 18:15 JOSE Screen Neg (Neg) 02/11/18 14:22 Hepatitis A IgM Ab Nonreactive (Nonreactive) 02/10/18 22:40 Hep Bs Antigen Nonreactive (Nonreactive) 02/10/18 22:40 Hep B Core IgM Ab Nonreactive (Nonreactive) 02/10/18 22:40 Hep C IgG Ab Nonreactive (Nonreactive) 02/10/18 22:40 Impressions Abdomen Ultrasound 02/11/18 00:00 CONCLUSION: 1. Small liver with trace ascites. 2. Small cyst lower pole right kidney. Head MRA 02/11/18 00:00 CONCLUSION: 1. Occlusion of the left posterior cerebral artery at its origin with acute ischemia left occipital region.. Neck MRA 02/11/18 00:00 CONCLUSION: 1. Negative MRA Carotids. Percent stenosis is calculated using the diameter of the stenotic region over the diameter of the normal distal internal carotid artery Head MRI 02/11/18 10:28 CONCLUSION: 1. Acute infarction involving the left posterior thalamus and occipital lobe without hemorrhage or mass effect. Head CT 02/17/18 00:00 CONCLUSION: Evolving left occipital and medial temporal lobe infarction which is developing into an area of encephalomalacia. Chest X-Ray 02/22/18 04:00 CONCLUSION: Stable bibasilar pleural-parenchymal opacity, right greater than left. The opacity at the right base is slightly improved. Objective Remarks: GENERAL: Well-nourished, well-developed patient who is lying in bed in 2 point restraints, awake, on nasal cannula 4LPM SKIN: Warm and dry. No petechiae of palms or soles. No splinter hemorrhages. HEAD: Atraumatic. Normocephalic. EYES: Pupils equal and round, pinpoint bilaterally no scleral icterus. No injection or drainage. ENT: No nasal bleeding or discharge. Mucous membranes pink and moist. Nasal cannula 4 L/min NECK: Trachea midline. +JVD. No meningismus CARDIOVASCULAR: Regular rate and rhythm. No murmurs rubs or gallops. RESPIRATORY: CTAB. No wheezing noted GASTROINTESTINAL: Abdomen soft, non-tender, nondistended. Bowel sounds present. MUSCULOSKELETAL: Extremities without clubbing, cyanosis, or edema. Scar overlying left shoulder. NEUROLOGICAL: GCS 14. RASS 0. Moving purposefully x 4 extremities. Follows commands intermittently Procedures: 02/13 Thoracentesis Assessment and Plan - Problem List (1) Stroke Code(s): I63.9 - Cerebral infarction, unspecified Status: Acute (2) Encephalopathy acute Code(s): G93.40 - Encephalopathy, unspecified Status: Acute (3) Septic shock Code(s): A41.9 - Sepsis, unspecified organism; R65.21 - Severe sepsis with septic shock Status: Acute (4) Respiratory failure Code(s): J96.90 - Respiratory failure, unspecified, unspecified whether with hypoxia or hypercapnia Status: Acute (5) Aspiration pneumonia Code(s): J69.0 - Pneumonitis due to inhalation of food and vomit Status: Acute (6) KIMBERLY (acute kidney injury) Code(s): N17.9 - Acute kidney failure, unspecified Status: Acute (7) Tobacco abuse Code(s): Z72.0 - Tobacco use Status: Chronic (8) Anemia Code(s): D64.9 - Anemia, unspecified Status: Chronic (9) Lactic acidemia Code(s): E87.2 - Acidosis Status: Acute (10) Transaminasemia Code(s): R74.0 - Nonspecific elevation of levels of transaminase and lactic acid dehydrogenase [LDH] Status: Acute (11) Hyperglycemia Code(s): R73.9 - Hyperglycemia, unspecified Status: Acute - Assessment and Plan Plan: NEURO: Subacute ischemic stroke Acute encephalopathy EtOH abuse per prior record Agitation CT brain 1/1evolving infarct left occipital lobe and medial left temporal lobe. No hemorrhage. MRI brain -Acute infarction involving the left posterior thalamus and occipital lobe without hemorrhage or mass effect. MRA head Left [employer] O[employer]ATOR occlusion Not candidate for TPA due to unknown time of onset, probably subacute. Aspirin [address] Santillan following Ammonia level normal. Thiamine/multivitamin/folic acid Seizure precautions. Monitor for signs of alcohol withdrawal Librium 5 mg TID 2D echo inadequate study, CHARLIE tentatively scheduled for Mon 02/23-concern for possible intubation for procedure, date changed 2-point restraints placed for patient safety Consider low-dose Ativan , if patient becomes agitated RESP: Acute hypercapnic respiratory failure Haemophilus influenza pneumonia B/L pleural effusions Tobacco abuse Intubated 02/10 for airway protection Self extubated today 02/12/2017 while on CPAP trial Currently on nasal cannula 4LPM/NC, O2 saturation 9495 DuoNeb every 6 hours. Albuterol every 2 hours as needed ID following antibiotics see below 02/13 S/P right thoracentesis-650 cc removed Continue chest physiotherapy 02/22 -chest x-ray improved F/U chest x-ray in a.m Pulmonology consulted CV: Lactic acidemia-resolved Elevated troponin/demand ischemia Hypertension Maintain mean pressure greater than 65 Receiving aspirin 2D echo limited study normal-appearing ejection fraction Cardiology following ,CHARLIE tentatively schedule 02/23 EKG sinus rhythm with nonspecific ST changes in inferior leads. Hydralazine 20 mg every 4 hours as needed for systolic blood pressure greater than 160mmHg GI: Transaminase elevated Repeat LFT Viral hepatitis panel-negative FEN/RENAL: Acute kidney injury-resolved Hypokalemia, hypomagnesemia, hypophosphatemia Follow-up renal ultrasound. Maintain Ornelas Lasix 40 mg every 6 hours x 24 hours Monitor intake and output hourly. Monitor electrolytes and replace as indicated. ID: Septic shock-resolved GPC/Streptococcus bacteremia Leukocytosis Aspiration pneumonia/Haemophilus influenza Penicillin allergyhives. Received ceftriaxone in the ED without issue. Chest x-ray with right lower lobe infiltrate. Blood cultures GPC/Streptococcus in 4 out of 4 bottles. Influenza negative. Follow-up sputum culture-Haemophilus influenzae Urine Legionella pneumococcal antigen- negative Vancomycin started 02/11/18 ID following-antibiotics per recommendations HEME: Anemia Monitor CBC Transfuse for hemoglobin less than 7 ENDO: Mild hyperglycemia HgbA1C 5.3 TSH normal PROPH: SCDs for DVT prophylaxis. Protonix 40 mg IV daily for stress ulcer prophylaxis ACCESS: Left IJ central venous line placed 02/10 FULL CODE Level [facility]: Full Discussed Condition With: Discussed with CAROUSEL ATTENDANT at bedside (4) Respiratory failure Qualifiers: Chronicity: acute Respiratory failure complication: hypercapnia Qualified Code(s): J96.02 - Acute respiratory failure with hypercapnia
--- NOTE | 2018-02-22 17:52 | P.PN ---
Subjective Interval history: alert nad Physical Exam Vital signs: Vital Signs 02/21/18 18:00 02/21/18 19:00 02/21/18 20:00 Temperature 98.6 F Pulse Rate 79 79 78 Respiratory Rate 22 23 22 Blood Pressure 104/56 L 96/54 L 107/60 Pulse Oximetry 96 97 96 02/21/18 20:01 02/21/18 20:39 02/21/18 21:00 Temperature Pulse Rate 78 80 Respiratory Rate 19 36 H Blood Pressure 107/60 Pulse Oximetry 95 93 L 92 L 02/21/18 21:13 02/21/18 21:47 02/21/18 21:49 Temperature Pulse Rate 78 Respiratory Rate 24 Blood Pressure 109/58 L Pulse Oximetry 88 L 97 97 02/21/18 22:00 02/21/18 23:00 02/21/18 23:59 Temperature Pulse Rate 73 73 Respiratory Rate 19 16 Blood Pressure 108/60 107/64 Pulse Oximetry 100 100 97 02/22/18 00:00 02/22/18 00:01 02/22/18 01:00 Temperature 98.4 F Pulse Rate 71 72 70 Respiratory Rate 22 20 17 Blood Pressure 108/62 108/62 113/63 Pulse Oximetry 98 97 90 L 02/22/18 02:00 02/22/18 03:00 02/22/18 03:37 Temperature Pulse Rate 72 70 Respiratory Rate 19 20 Blood Pressure 108/59 L 105/51 L Pulse Oximetry 95 81 L 96 02/22/18 03:40 02/22/18 04:00 02/22/18 05:00 Temperature 98.6 F Pulse Rate 65 65 Respiratory Rate 18 19 Blood Pressure 107/55 L 102/55 L Pulse Oximetry 96 97 99 02/22/18 06:00 02/22/18 07:00 02/22/18 08:00 Temperature 96.9 F L Pulse Rate 65 64 72 Respiratory Rate 18 17 22 Blood Pressure 110/54 L 112/56 L 110/54 L Pulse Oximetry 97 100 90 L 02/22/18 08:01 02/22/18 09:00 02/22/18 10:00 Temperature Pulse Rate 74 67 65 Respiratory Rate 20 18 16 Blood Pressure 99/51 L 116/56 L 121/58 L Pulse Oximetry 94 L 98 98 Intake & Output 02/21/18 02/22/18 02/22/18 18:59 06:59 18:59 Intake Total 2528 / 2528 350 / 350 358 / 358 Output Total 900 / 900 1100 / 1100 Balance 1628 / 1628 -750 / -750 358 / 358 Weight 62.4 kg Intake: IV 288 / 288 250 / 250 358 / 358 KCl 20 mEq Premix Inj 20 meq In 98 / 98 100 ml @ 50 mls/hr IV.SIG Q2H PRN Rx#:[id number] Thiamine Inj 100 MG In NS Inj 90 / 90 100 ML @ 100 mls/hr IV.SIG DAILY [facility] Rx#:[id number] Vancomycin Inj 1,250 MG In NS 250 / 250 248 / 248 Inj 250 ML @ 250 mls/hr IV.SIG Q18H [facility] Rx#:[id number] Rocephin Inj 2,000 MG In NS Inj 100 / 100 110 / 110 100 ML @ 200 mls/hr IV.SIG Q24H [facility] Rx#:[id number] Oral 1740 / 1740 100 / 100 Other 500 / 500 Output: Urine Amount (Catheter) 900 / 900 1100 / 1100 Condom 0 / 0 Indwelling Urethral Catheter 900 / 900 Straight 1100 / 1100 Other: # Voids 4 # Incontinent Voids 2 Date of Last Bowel Movement 02/20/18 02/21/18 02/22/18 # Bowel Movements 2 Narrative: GENERAL: Well-developed well-nourished. Appears in no acute distress on Bipap. NECK: No carotid bruits. No JVD. CARDIOVASCULAR: Regular rate and rhythm. No murmur appreciated. RESPIRATORY: No accessory muscle use. Clear to auscultation bilaterally. MUSCULOSKELETAL: No clubbing or cyanosis. No edema. NEURO: Awakens easily to voice and responds to questions appropriately. - Urinary Catheter Management Condom Cath placed during this visit: yes Reason for continuing: Not indwelling catheter Insertion date: 02/21/18 Insertion time: 13:06 Indwelling Urethral Catheter Cath placed during this visit: yes, but has since been removed by the nurse Reason for continuing: Hourly intake/output Insertion date: 02/18/18 Insertion time: 07:00 Removal date: 02/21/18 Removal time: 13:06 Straight Cath placed during this visit: yes Reason for continuing: Not indwelling catheter Insertion date: 02/22/18 Insertion time: 03:37 Results - Labs CBC & Chem 7: 02/22/18 03:58 02/22/18 03:58 Laboratory Results - last 24 hr 02/22/18 02/22/18 02/22/18 00:46 03:58 03:58 WBC 9.0 RBC 4.59 Hgb 12.2 L Hct 38.8 L MCV 84.5 MCH 26.5 L MCHC 31.4 L RDW 15.7 Plt Count 149 L MPV 10.8 Neut % (Auto) 76.5 H Lymph % (Auto) 12.3 [place] % (Auto) 8.0 Eos % (Auto) 2.0 Baso % (Auto) 1.2 Neut # (Auto) 6.9 Lymph # (Auto) 1.1 [place] # (Auto) 0.7 Eos # (Auto) 0.2 Baso # (Auto) 0.1 WBC Differential . Differential Comment Auto diff final Sodium 140 Potassium 3.8 3.6 Chloride 96 L Carbon Dioxide 39.8 H Anion Gap 4 L BUN 16 Creatinine 0.92 Estimated GFR 82 L Random Glucose 83 Calcium 7.7 L Phosphorus Magnesium Vancomycin Trough 02/22/18 08:45 WBC RBC Hgb Hct MCV MCH MCHC RDW Plt Count MPV Neut % (Auto) Lymph % (Auto) [place] % (Auto) Eos % (Auto) Baso % (Auto) Neut # (Auto) Lymph # (Auto) [place] # (Auto) Eos # (Auto) Baso # (Auto) WBC Differential Differential Comment Sodium Potassium Chloride Carbon Dioxide Anion Gap BUN Creatinine Estimated GFR Random Glucose Calcium Phosphorus 5.3 H D Magnesium 0.9 L D Vancomycin Trough 11.6 H Microbiology 02/18/18 10:38 Blood - Peripheral Aerobic Blood Culture - Preliminary No growth in 4 days 02/18/18 10:38 Blood - Peripheral Anaerobic Blood Culture - Preliminary No growth in 4 days 02/18/18 10:30 Blood - Peripheral Aerobic Blood Culture - Preliminary No growth in 4 days 02/18/18 10:30 Blood - Peripheral Anaerobic Blood Culture - Preliminary No growth in 4 days 02/17/18 20:04 Blood - Peripheral Aerobic Blood Culture - Final No growth in 5 days 02/17/18 20:04 Blood - Peripheral Anaerobic Blood Culture - Final No growth in 5 days 02/17/18 19:59 Blood - Peripheral Aerobic Blood Culture - Final No growth in 5 days 02/17/18 19:59 Blood - Peripheral Anaerobic Blood Culture - Final No growth in 5 days - Imaging Impressions Chest X-Ray 02/22/18 04:00 CONCLUSION: Stable bibasilar pleural-parenchymal opacity, right greater than left. The opacity at the right base is slightly improved. Assessment and Plan - Plan RESPIRATORY FAILURE PNA COPD PROBABLE ENDOCARDITIS PLAN O2 NEEDED BRONCHODILATORS ANTIBX PER ID CHARLIE PENDING
[2018-02-23] MEDS: Oral Hygiene Kit OROPHARYNG SCH ×4 (00:30→15:31)
[2018-02-23] MEDS: Vancomycin Inj 1,250 MG in Sodium Chlor 0.9% Inj 250 ML IV.SIG SCH (03:09)
--- NOTE | 2018-02-23 04:42 | XR ---
EXAM DATE: 02/23/2018 4:03 AM EST AGE/SEX: 67 years / Male INDICATIONS: Shortness of breath, possible pulmonary disease. CLINICAL DATA: This is the patient's subsequent encounter. Patient reports that signs and symptoms h ave been present for 2 weeks and indicates a pain score of Nonresponsive. MEDICAL/SURGICAL HISTORY: Non-responsive. . Hip arthroplasty. [place] [facility] [place]. . FINDINGS: Stable bilateral pleural-parenchymal opacities, right greater than left. Cardiomediastinal contours a re within normal limits. Remainder of the exam is unchanged. CONCLUSION: 1. No significant interval change. 2. Stable bilateral pleural-parenchymal opacities, right greater than left. Electronically signed by: Hermilo Bermudez MD Board Certified Radiologist 02/23/2018 4:41 AM EST
[2018-02-23 06:42] LABS: Baso # (Auto) 0.1 th/mm3 (0.0-0.2); Baso % (Auto) 1.5 % (0.0-2.0); Eos # (Auto) 0.3 th/mm3 (0.0-0.4); Eos % (Auto) 3.5 % (0.0-4.0); Hematocrit 36.8 % (39.0-51.0); Hemoglobin 11.8 gm/dL (13.0-17.0); Lymph # (Auto) 1.3 th/mm3 (1.0-4.8); Lymph % (Auto) 13.2 % (9.0-44.0); Mean Corpuscular HGB Conc 32.1 % (32.0-36.0); Mean Corpuscular Hemoglobin 27.1 pg (27.0-34.0); Mean Corpuscular Volume 84.3 fL (80.0-100.0); Mean Platelet Volume 10.3 fL (7.0-11.0); Mono # (Auto) 0.8 th/mm3 (0.0-0.9); Mono % (Auto) 7.7 % (0.0-8.0); Neut # (Auto) 7.3 th/mm3 (1.8-7.7); Neut % (Auto) 74.1 % (16.0-70.0); Platelet Count 171 th/mm3 (150-450); Red Blood Count 4.36 mil/mm3 (4.50-5.90); Red Cell Distribution Width 15.9 % (11.6-17.2); White Blood Count 9.8 th/mm3 (4.0-11.0)
[2018-02-23 07:03] LABS: INR 1.2 Ratio; Prothrombin Time 11.8 sec (9.8-11.6)
[2018-02-23 07:09] LABS: Calcium 7.8 mg/dL (8.5-10.1); Carbon Dioxide 41.1 meq/L (21.0-32.0); Magnesium 1.6 mg/dL (1.5-2.5); Potassium 3.5 meq/L (3.5-5.1)
--- NOTE | 2018-02-23 08:21 | P.PNCA ---
Subjective Interval history: Patient awakens easily, not very conversant but denies chest pain or shortness of breath. Appears comfortable on nasal cannula 3 L. Discussed with RN, no events and respiratory status has been stable. Medications and Allergies Allergies Allergy/AdvReac Type Severity Reaction Status Date / Time penicillin G Allergy Severe RASH Verified 02/20/18 01:05 Home Medications Medication Instructions Recorded Confirmed Type Unable to Obtain Home Meds 02/10/18 02/10/18 History Active Medications: Active Medications Acetaminophen (Tylenol) 650 mg PO Q6H PRN PRN Reason: PAIN 1-10 AND/OR FEVER >101F Hydrocodone Bitart/Acetaminophen ([place] 5/325) 1 tab PO Q4H PRN PRN Reason: PAIN SCALE 1 TO 5 Last Admin: 02/16/18 21:24 Dose: 1 tab Al Hydroxide/Mg Hydroxide (Milk Of Viola Cotton) 30 ml PO Q12H PRN PRN Reason: Mild Constipation Albuterol (Albuterol Neb (Prn)) 2.5 mg NEB Q2HR NEB PRN PRN Reason: SHORTNESS OF BREATH/WHEEZING Last Admin: 02/20/18 15:16 Dose: 2.5 mg Amlodipine Besylate (Norvasc) 5 mg PO DAILY [facility] Last Admin: 02/22/18 08:13 Dose: 5 mg Aspirin (Aspirin Chew) 162 mg PO DAILY [facility] Last Admin: 02/22/18 08:13 Dose: 162 mg Bisacodyl (Dulcolax Supp) 10 mg RECTAL DAILY PRN PRN Reason: SEVERE CONSITIPATION Chlordiazepoxide (Librium) 5 mg PO Q8H [facility] Last Admin: 02/23/18 03:08 Dose: 5 mg Chlorhexidine Gluconate (Peridex 0.12% Oral Kit) 15 ml OROPHARYNG BID@0800, 2000 [facility] Last Admin: 02/22/18 21:27 Dose: Not Given Flumazenil (Romazicon Inj) 0.2 mg IV.PUSH Q1M PRN PRN Reason: OVERSEDATION Folic Acid (Folic Acid) 1 mg NG/OG DAILY [facility] Last Admin: 02/22/18 08:13 Dose: 1 mg Furosemide (Lasix Inj) 40 mg IV.PUSH Q6H [facility] Stop: 02/23/18 16:00 Last Admin: 02/23/18 03:09 Dose: 40 mg Furosemide (Lasix Inj) 40 mg IV.PUSH DAILY [facility] Heparin Sodium (Porcine) (Heparin Inj) 5,000 units SQ Q12H [facility] Last Admin: 02/22/18 11:17 Dose: 5,000 units Hydralazine HCl (Apresoline Inj) 20 mg IV.PUSH Q4H PRN PRN Reason: HYPERTENSION Thiamine HCl 100 mg/ Sodium (Chloride) 101 mls @ 100 mls/hr IV.SIG DAILY [facility] Last Admin: 02/22/18 08:14 Dose: 100 mls/hr Magnesium Sulfate 2 gm/ Sodium (Chloride) 100 mls @ 50 mls/hr IV.SIG UNSCH PRN PRN Reason: For Magnesium 1.2 - 1.6 mg/dL Potassium Chloride (Kcl 40 Meq Premix Inj) 40 meq in 100 mls @ 25 mls/hr IV.SIG Q2H PRN PRN Reason: For Potassium 2.8 - 3.2 mEq/L Potassium Chloride (Kcl 20 Meq Premix Inj) 20 meq in 100 mls @ 50 mls/hr IV.SIG Q2H PRN PRN Reason: For Potassium 3.3 - 3.5 mEq/L Last Infusion: 02/18/18 14:23 Dose: Infused Potassium Chloride (Kcl 40 Meq Premix Inj) 40 meq in 100 mls @ 25 mls/hr IV.SIG UNSCH PRN PRN Reason: For Potassium 3.3 - 3.5 mEq/L Potassium Phosphate 30 mmol/ (Sodium Chloride) 260 mls @ 42 mls/hr IV.SIG UNSCH PRN PRN Reason: SEE LABEL COMMENTS Last Infusion: 02/20/18 10:39 Dose: Infused Magnesium Sulfate 4 gm/ Sodium (Chloride) 100 mls @ 50 mls/hr IV.SIG UNSCH PRN PRN Reason: For Magnesium 0.9 - 1.1 mg/dL Last Infusion: 02/22/18 19:00 Dose: Infused Potassium Chloride (Kcl 20 Meq Premix Inj) 20 meq in 100 mls @ 50 mls/hr IV.SIG Q2H PRN PRN Reason: For Potassium 2.8 - 3.2 mEq/L Last Infusion: 02/21/18 15:02 Dose: Infused Sodium Glycerophosphate 30 (mmol/ Sodium Chloride) 260 mls @ 42 mls/hr IV.SIG UNSCH PRN PRN Reason: For Phosphorus < 2.5 mg/dL Last Infusion: 02/15/18 23:32 Dose: Infused Ceftriaxone Sodium 2,000 mg/ (Sodium Chloride) 100 mls @ 200 mls/hr IV.SIG Q24H [facility] Last Infusion: 02/22/18 10:00 Dose: Infused Vancomycin HCl 1,250 mg/ (Sodium Chloride) 262.5 mls @ 250 mls/hr IV.SIG Q18H [facility] Last Admin: 02/23/18 03:09 Dose: 250 mls/hr Labetalol HCl (Trandate Inj) 10 mg IV.PUSH Q6H PRN PRN Reason: SYS BP GREATER THAN OR = 160 Last Admin: 02/16/18 16:46 Dose: 10 mg Lactulose (Lactulose Liq) 30 ml PO DAILY PRN PRN Reason: SEVERE CONSITIPATION Magnesium Oxide (Mag-Ox) 800 mg PO UNSCH PRN PRN Reason: For Magnesium 1.2 - 1.6 mg/dL Last Admin: 02/21/18 21:23 Dose: 800 mg Metoprolol Tartrate (Lopressor) 25 mg PO BID [facility] Last Admin: 02/22/18 21:27 Dose: 25 mg Miscellaneous Information ([facility] Ordered Lab Info) 0 each OTHER ONCE ONE Stop: 02/23/18 20:46 Miscellaneous Medication () 1 each OROPHARYNG 0000,0400,1200,1600 [facility] Last Admin: 02/23/18 03:10 Dose: Not Given Multivitamins (Theragran) 1 tab NG/OG DAILY [facility] Last Admin: 02/22/18 08:13 Dose: 1 tab Ondansetron HCl (Zofran Inj) 4 mg IV.PUSH Q6H PRN PRN Reason: NAUSEA OR VOMITING Pantoprazole Sodium (Protonix Inj) 40 mg IV.PUSH DAILY [facility] Last Admin: 02/22/18 08:12 Dose: 40 mg Pharmacy Profile Note (Vancomycin Consult Pharmacy) 1 each OTHER UNSCH PRN PRN Reason: Pharmacy to dose Potassium Bicarb/Potassium Chloride (K-Lyte Cl Eff) 50 meq PO UNSCH PRN PRN Reason: For Potassium 3.3 - 3.5 mEq/L Last Admin: 02/21/18 15:08 Dose: 50 meq Potassium Phosphate (K-Phos Original) 2,000 mg PO Q4H PRN PRN Reason: Phosphorus Less Than 2.5 mg/dL Potassium Phosphate (K-Phos Original) 2,000 mg PO UNSCH PRN PRN Reason: SEE LABEL COMMENTS Potassium Phosphate (K-Phos Original) 500 mg PO DAILY [facility] Last Admin: 02/22/18 08:13 Dose: 500 mg Senna/Docusate Sodium (Charissa-Colace) 1 tab PO BID [facility] Last Admin: 02/22/18 21:27 Dose: Not Given Sennosides (Senokot) 17.2 mg PO Q12H PRN PRN Reason: Moderate Constipation Sodium Chloride (Ns Flush) 2 ml IV.FLUSH PRN PRN PRN Reason: FLUSH AFTER USING IV ACCESS Last Admin: 02/19/18 08:01 Dose: 2 ml Sodium Chloride (Ns Flush) 2 ml IV.FLUSH BID [facility] Last Admin: 02/22/18 21:27 Dose: 2 ml Physical Exam Vital signs: Vital Signs 02/22/18 09:00 02/22/18 10:00 02/22/18 11:00 Temperature Pulse Rate 67 65 56 L Respiratory Rate 18 16 16 Blood Pressure 116/56 L 121/58 L Pulse Oximetry 98 98 99 02/22/18 11:01 02/22/18 12:00 02/22/18 13:00 Temperature 97.8 F Pulse Rate 56 L 66 64 Respiratory Rate 16 17 17 Blood Pressure 112/53 L 101/56 L 101/58 L Pulse Oximetry 100 96 100 02/22/18 14:00 02/22/18 15:00 02/22/18 16:00 Temperature Pulse Rate 65 73 80 Respiratory Rate 17 17 22 Blood Pressure 112/52 L 94/55 L Pulse Oximetry 96 95 94 L 02/22/18 16:01 02/22/18 17:00 02/22/18 17:49 Temperature Pulse Rate 81 75 90 Respiratory Rate 22 22 24 Blood Pressure 119/57 L 105/59 L Pulse Oximetry 95 92 L 93 L 02/22/18 18:00 02/22/18 19:00 02/22/18 19:20 Temperature Pulse Rate 87 87 Respiratory Rate 20 22 Blood Pressure 116/64 111/55 L Pulse Oximetry 93 L 91 L 94 L 02/22/18 20:00 02/22/18 22:00 02/23/18 00:00 Temperature 98.8 F Pulse Rate 77 79 74 Respiratory Rate 21 20 21 Blood Pressure 116/58 L 111/57 L 122/56 L Pulse Oximetry 93 L 94 L 93 L 02/23/18 02:00 02/23/18 03:30 02/23/18 04:00 Temperature 98.6 F Pulse Rate 70 67 Respiratory Rate 20 14 Blood Pressure 100/59 L 104/61 Pulse Oximetry 94 L 100 97 02/23/18 06:00 Temperature Pulse Rate 69 Respiratory Rate 16 Blood Pressure 109/59 L Pulse Oximetry 97 Intake & Output 02/22/18 02/23/18 02/23/18 18:59 06:59 18:59 Intake Total 1798 / 1798 150 / 150 Output Total 2175 / 2175 1600 / 1600 Balance -377 / -377 -1450 / -1450 Weight 130 lb 11.746 oz Intake: IV 358 / 358 100 / 100 Magnesium Sulfate Inj 4 GM In 100 / 100 NS Inj 92 ML @ 50 mls/hr IV.SIG UNSCH PRN Rx#:[id number] Vancomycin Inj 1,250 MG In NS 248 / 248 Inj 250 ML @ 250 mls/hr IV.SIG Q18H [facility] Rx#:[id number] Rocephin Inj 2,000 MG In NS Inj 110 / 110 100 ML @ 200 mls/hr IV.SIG Q24H [facility] Rx#:[id number] Oral 1440 / 1440 50 / 50 Output: Urine Amount (Catheter) 2175 / 2175 1600 / 1600 Straight 2175 / 2175 1600 / 1600 Other: Date of Last Bowel Movement 02/22/18 02/23/18 # Bowel Movements 1 1 Narrative: GENERAL: Well-developed well-nourished. No acute distress. NECK: No carotid bruits. No JVD. CARDIOVASCULAR: Regular rate and rhythm. No murmur appreciated. RESPIRATORY: No accessory muscle use. Clear to auscultation bilaterally. MUSCULOSKELETAL: No clubbing or cyanosis. No edema. NEURO: Awakens to voice and responds to questions appropriately. - Urinary Catheter Management Condom Cath placed during this visit: yes Reason for continuing: Not indwelling catheter Insertion date: 02/21/18 Insertion time: 13:06 Indwelling Urethral Catheter Cath placed during this visit: yes, but has since been removed by the nurse Reason for continuing: Hourly intake/output Insertion date: 02/18/18 Insertion time: 07:00 Removal date: 02/21/18 Removal time: 13:06 Straight Cath placed during this visit: yes Reason for continuing: Not indwelling catheter Insertion date: 02/22/18 Insertion time: 06:00 Results 02/23/18 04:41 02/23/18 04:41 Coagulation 02/23/18 Range/Units 04:41 PT 11.8 H (9.8-11.6) sec CBC 02/22/18 02/23/18 Range/Units 03:58 04:41 WBC 9.0 9.8 (4.0-11.0) th/mm3 RBC 4.59 4.36 L (4.50-5.90) mil/mm3 Hgb 12.2 L 11.8 L (13.0-17.0) gm/dL Hct 38.8 L 36.8 L (39.0-51.0) % Plt Count 149 L 171 (150-450) th/mm3 Neut # (Auto) 6.9 7.3 (1.8-7.7) th/mm3 Lymph # (Auto) 1.1 1.3 (1.0-4.8) th/mm3 [place] # (Auto) 0.7 0.8 (0.0-0.9) th/mm3 Eos # (Auto) 0.2 0.3 (0.0-0.4) th/mm3 Baso # (Auto) 0.1 0.1 (0.0-0.2) th/mm3 Comprehensive Metabolic Panel 02/22/18 02/22/18 02/23/18 Range/Units 00:46 03:58 04:41 Sodium 140 140 (136-145) meq/L Potassium 3.8 3.6 3.5 (3.5-5.1) meq/L Chloride 96 L 93 L (98-107) meq/L Carbon Dioxide 39.8 H 41.1 H (21.0-32.0) meq/L BUN 16 20 H (7-18) mg/dL Creatinine 0.92 1.02 (0.60-1.30) mg/dL Calcium 7.7 L 7.8 L (8.5-10.1) mg/dL Intake and Output 02/22/18 02/23/18 02/23/18 22:59 06:59 14:59 Intake Total 1540 / 1540 50 / 50 Output Total 800 / 800 1600 / 1600 Balance 740 / 740 -1550 / -1550 Intake: IV 100 / 100 Magnesium Sulfate Inj 4 GM In 100 / 100 NS Inj 92 ML @ 50 mls/hr IV.SIG UNSCH PRN Rx#:[id number] Oral 1440 / 1440 50 / 50 Output: Urine Amount (Catheter) 800 / 800 1600 / 1600 Straight 800 / 800 1600 / 1600 Other: Date of Last Bowel Movement 02/22/18 02/23/18 # Bowel Movements 1 1 Weight 130 lb 11.746 oz - Imaging and Cardiology Imaging: Impressions Chest X-Ray 02/22/18 04:00 CONCLUSION: Stable bibasilar pleural-parenchymal opacity, right greater than left. The opacity at the right base is slightly improved. Chest X-Ray 02/23/18 04:00 CONCLUSION: 1. No significant interval change. 2. Stable bilateral pleural-parenchymal opacities, right greater than left. Assessment and Plan - Plan Assessment: Mild troponin elevation consistent with demand ischemia in the setting of the following problems. Doubt ACS. 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 Lipid profile is acceptable. Given stroke superior embolic in etiology, would recommend CHARLIE. N.p.o. for CHARLIE today. Monitor telemetry for A. fib - none to date ID consultation to guide antibiotics Respiratory per primary team Discussed Condition With: Patient, RN, Dr. Hernandez - Attending Attestation Agree with above Transesophageal echocardiogram negative for vegetations. There is a presence of a small patent foramen ovale with right to left shunting that does not appear to have hemodynamic significance. Clinical correlation recommended. Call with further questions.
[2018-02-23] MEDS: Potassium Phosphate 500 MG Soluble Tablet PO SCH (08:47)
[2018-02-23] MEDS: Metoprolol Tartrate 25 MG Tablet PO SCH ×3 (08:47→21:32)
[2018-02-23] MEDS: amLODIPine 5 MG Tablet PO SCH (08:47)
[2018-02-23] MEDS: Folic Acid 1 MG Tablet NG/OG SCH (08:48)
[2018-02-23] MEDS: Pantoprazole Inj 40 MG Vial IV.PUSH SCH (08:48)
[2018-02-23] MEDS: Senna/Docusate Sodium 8.6/50 MG Tablet PO SCH ×2 (08:48→21:32)
[2018-02-23] MEDS: Thiamine Inj 100 MG in Sodium Chlor 0.9% Inj 100 ML IV.SIG SCH (08:49)
[2018-02-23] MEDS: Chlorhexidine 0.12% Oral Kit 15 ML UDC OROPHARYNG SCH ×2 (08:50→21:32)
--- NOTE | 2018-02-23 12:06 | P.PNIM ---
Subjective Interval history: Patient is awake in bed. He is speaking but is confused. Does not appear to be in distress. Physical Exam Vital signs: Vital Signs 02/22/18 12:00 02/22/18 13:00 02/22/18 14:00 Temperature 97.8 F Pulse Rate 66 64 65 Respiratory Rate 17 17 17 Blood Pressure 101/56 L 101/58 L 112/52 L Pulse Oximetry 96 100 96 02/22/18 15:00 02/22/18 16:00 02/22/18 16:01 Temperature Pulse Rate 73 80 81 Respiratory Rate 17 22 22 Blood Pressure 94/55 L 119/57 L Pulse Oximetry 95 94 L 95 02/22/18 17:00 02/22/18 17:49 02/22/18 18:00 Temperature Pulse Rate 75 90 87 Respiratory Rate 22 24 20 Blood Pressure 105/59 L 116/64 Pulse Oximetry 92 L 93 L 93 L 02/22/18 19:00 02/22/18 19:20 02/22/18 20:00 Temperature 98.8 F Pulse Rate 87 77 Respiratory Rate 22 21 Blood Pressure 111/55 L 116/58 L Pulse Oximetry 91 L 94 L 93 L 02/22/18 22:00 02/23/18 00:00 02/23/18 02:00 Temperature 98.6 F Pulse Rate 79 74 70 Respiratory Rate 20 21 20 Blood Pressure 111/57 L 122/56 L 100/59 L Pulse Oximetry 94 L 93 L 94 L 02/23/18 03:30 02/23/18 04:00 02/23/18 06:00 Temperature Pulse Rate 67 69 Respiratory Rate 14 16 Blood Pressure 104/61 109/59 L Pulse Oximetry 100 97 97 02/23/18 07:00 Temperature Pulse Rate Respiratory Rate Blood Pressure Pulse Oximetry 98 Intake & Output 02/22/18 02/23/18 02/23/18 18:59 06:59 18:59 Intake Total 1899 / 1899 150 / 150 Output Total 2175 / 2175 1600 / 1600 Balance -276 / -276 -1450 / -1450 Weight 59.3 kg Intake: IV 459 / 459 100 / 100 Magnesium Sulfate Inj 4 GM In 100 / 100 NS Inj 92 ML @ 50 mls/hr IV.SIG UNSCH PRN Rx#:[id number] Thiamine Inj 100 MG In NS Inj 101 / 101 100 ML @ 100 mls/hr IV.SIG DAILY [facility] Rx#:[id number] Vancomycin Inj 1,250 MG In NS 248 / 248 Inj 250 ML @ 250 mls/hr IV.SIG Q18H [facility] Rx#:[id number] Rocephin Inj 2,000 MG In NS Inj 110 / 110 100 ML @ 200 mls/hr IV.SIG Q24H [facility] Rx#:[id number] Oral 1440 / 1440 50 / 50 Output: Urine Amount (Catheter) 2175 / 2175 1600 / 1600 Straight 2175 / 2175 1600 / 1600 Other: Date of Last Bowel Movement 02/22/18 02/23/18 # Bowel Movements 1 1 Narrative: Patient is awake, he is confused but is speaking. S1S2 Decreased breath sounds at right lung base abd soft, nontender, normal bowel sounds No edema of exts. Patient moves all 4 exts, no focal neuro deficits. Full neuro assessment difficult and patient is currently altered. - Urinary Catheter Management Condom Cath placed during this visit: yes Reason for continuing: Not indwelling catheter Insertion date: 02/21/18 Insertion time: 13:06 Indwelling Urethral Catheter Cath placed during this visit: yes, but has since been removed by the nurse Reason for continuing: Hourly intake/output Insertion date: 02/18/18 Insertion time: 07:00 Removal date: 02/21/18 Removal time: 13:06 Straight Cath placed during this visit: yes Reason for continuing: Not indwelling catheter Insertion date: 02/22/18 Insertion time: 06:00 Results - Labs CBC & Chem 7: 02/23/18 04:41 02/23/18 04:41 Laboratory Results - last 24 hr 02/23/18 02/23/18 02/23/18 00:21 04:41 04:41 WBC RBC Hgb Hct MCV MCH MCHC RDW Plt Count MPV Neut % (Auto) Lymph % (Auto) [place] % (Auto) Eos % (Auto) Baso % (Auto) Neut # (Auto) Lymph # (Auto) [place] # (Auto) Eos # (Auto) Baso # (Auto) WBC Differential Differential Comment PT 11.8 H INR 1.2 Sodium 140 Potassium 3.5 Chloride 93 L Carbon Dioxide 41.1 H Anion Gap 6 BUN 20 H Creatinine 1.02 Estimated GFR 72 L Random Glucose 80 Calcium 7.8 L Magnesium 1.7 D 1.6 02/23/18 04:41 WBC 9.8 RBC 4.36 L Hgb 11.8 L Hct 36.8 L MCV 84.3 MCH 27.1 MCHC 32.1 RDW 15.9 Plt Count 171 MPV 10.3 Neut % (Auto) 74.1 H Lymph % (Auto) 13.2 [place] % (Auto) 7.7 Eos % (Auto) 3.5 Baso % (Auto) 1.5 Neut # (Auto) 7.3 Lymph # (Auto) 1.3 [place] # (Auto) 0.8 Eos # (Auto) 0.3 Baso # (Auto) 0.1 WBC Differential . Differential Comment Auto diff final PT INR Sodium Potassium Chloride Carbon Dioxide Anion Gap BUN Creatinine Estimated GFR Random Glucose Calcium Magnesium Microbiology 02/18/18 10:38 Blood - Peripheral Aerobic Blood Culture - Final No growth in 5 days 02/18/18 10:38 Blood - Peripheral Anaerobic Blood Culture - Final No growth in 5 days 02/18/18 10:30 Blood - Peripheral Aerobic Blood Culture - Final No growth in 5 days 02/18/18 10:30 Blood - Peripheral Anaerobic Blood Culture - Final No growth in 5 days 02/17/18 20:04 Blood - Peripheral Aerobic Blood Culture - Final No growth in 5 days 02/17/18 20:04 Blood - Peripheral Anaerobic Blood Culture - Final No growth in 5 days 02/17/18 19:59 Blood - Peripheral Aerobic Blood Culture - Final No growth in 5 days 02/17/18 19:59 Blood - Peripheral Anaerobic Blood Culture - Final No growth in 5 days - Imaging Impressions Chest X-Ray 02/23/18 04:00 CONCLUSION: 1. No significant interval change. 2. Stable bilateral pleural-parenchymal opacities, right greater than left. Assessment and Plan - Plan 67 y/o male with a dx of alcohol abuse, tobacco abuse, htn, who presented to the ER with acute encephalopathy. As per documentation he had a syncopal episode prior to arrival. He was subsequently intubated for airway protection. Patient was found to have a slightly elevated wbc ct, lactate 5, cxr showed a right lower lobe infiltrate. He was admitted to the intensive care unit. 1. Subacute ischemic CVA 2. Acute encephalopathy 2/2 #1 3. Troponemia likely demand ischemia Patient is much more awake today than my previous evaluation a few days ago. He is still confused. CT head shows a evolving infarct of the left occipital lobe and medial left temporal lobe. MRI brain acute infarct of the left post thalamus, and occipital lobe. 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 No tpa as pt was not a candidate, no known onset of symptoms. Neurology following the patient. Continue aspirin. NSR on telemetry, CHARLIE was done today. Will follow up the results of CHARLIE. Will follow up with the cardiology team. Patient is in nsr on telemetry. EKG nsr, nonspecific st changes in inf leads 2decho limited study, normal ef. CHARLIE done, follow results. Slight elevation in serum trops, cardiology following the patient. Likely demand ischemia. On aspirin. 4. Acute hypoxic hypercapnic respiratory failure 2/2 H. influenza pna 5. Haemophilus influenza pna with right pleural effusion 6. ETOH abuse. [facility] Subsequently self extubated on . Currently on 4 L supplemental oxygen. Continue oxygen and keep o2 sats above 92 %. S/p thoracentesis, 650 cc removed 02/14/18. Sputum grew H. Influenza Continue current antibiotics. Continue bipap intermittently. Continue CIWA protocol. Patient counseled to stop drinking alcohol. Folic acid, mv, thiamine, librium, ativan prn. 7. Septic shock 2/2 Strept Viridans bacteremia Lactate initially 5, now normalized. Blood cxs from 02/10/18 positive 2/2 Repeat blood cultures are negative. CHARLIE results pending. ID following, will follow up with their recommendations. Continue Rocephin 2gm IV Qdaily. 8. HTN Patient's blood pressure in low 100s. Will stop norvasc. I believe his bp was initially elevated due to agitation. Continue to monitor and adjust meds if needed. Heparin for DVT prophylaxis. If patient is stable by tomorrow and no significant findings on CHARLIE then patient should be transferred out of the ICU.
--- NOTE | 2018-02-23 12:18 | ECHRPT ---
Indication: CVA/TIA CONCLUSIONS Normal left ventricular size. Mild concentric left ventricular hypertrophy. The left ventricular systolic function is normal with an estimated ejection fraction in the range of 60-65%. A patent foramen ovale is present with a [id number] shunt demonstrated by color flow Doppler interrogation. Right to left atrial level shunt is observed with agitated saline contrast administration. No vegetations BP: / HR: Rhythm: MEASUREMENTS (Male / Female) Normal Values Technical Quality: DOPPLER Mitral E Point Velocity 40.9 cm/s Mitral E to A Ratio 0.6 Mitral A Point Velocity 72.9 cm/s Medications Complications Proc. Components FINDINGS LEFT VENTRICLE Normal left ventricular size. Mild concentric left ventricular hypertrophy. The left ventricular systolic function is normal with an estimated ejection fraction in the range of 60-65%. RIGHT VENTRICLE Normal right ventricular size and systolic function. LEFT ATRIUM The left atrial size is normal. RIGHT ATRIUM The right atrial size is mildly dilated. ATRIAL SEPTUM A patent foramen ovale is present with a [id number] shunt demonstrated by color flow Doppler interrogation. Right to left atrial level shunt is observed with agitated saline contrast administration. AORTA The aortic root and proximal ascending aorta are normal in size on limited imaging. MITRAL VALVE Moderate thickening of the mitral valve leaflets. Trace mitral valve regurgitation. Mitral annular calcification is present. AORTIC VALVE Trileaflet aortic valve. Mild thickening of the aortic valve leaflets. No aortic valve regurgitation. No aortic valve stenosis. TRICUSPID VALVE Mild thickening of the tricuspid valve leaflets. There is trace tricuspid valve regurgitation. Pulmo nary arterial systolic pressure could not be estimated due to an insufficient tricuspid valve regurgitati on doppler jet for measurement. No tricuspid valve stenosis. VESSELS The inferior vena cava is normal in size. PULMONARY VALVE The pulmonary valve is not well visualized. PERICADIUM No pericardial effusion. Lawrence Hernandez MD, FACC (Electronically Signed) Final Date:23 February 2018 12:17
[2018-02-23] MEDS ORDERED: Magnesium Sulfate Inj 2 GM in Sodium Chlor 0.9% Inj 96 ML IV.SIG ONE (13:00)
--- NOTE | 2018-02-23 17:17 | P.PN ---
Subjective Interval history: ALERT CONFUSED NO SOB Physical Exam Vital signs: Vital Signs 02/22/18 17:49 02/22/18 18:00 02/22/18 19:00 Temperature Pulse Rate 90 87 87 Respiratory Rate 24 20 22 Blood Pressure 105/59 L 116/64 111/55 L Pulse Oximetry 93 L 93 L 91 L 02/22/18 19:20 02/22/18 20:00 02/22/18 22:00 Temperature 98.8 F Pulse Rate 77 79 Respiratory Rate 21 20 Blood Pressure 116/58 L 111/57 L Pulse Oximetry 94 L 93 L 94 L 02/23/18 00:00 02/23/18 02:00 02/23/18 03:30 Temperature 98.6 F Pulse Rate 74 70 Respiratory Rate 21 20 Blood Pressure 122/56 L 100/59 L Pulse Oximetry 93 L 94 L 100 02/23/18 04:00 02/23/18 06:00 02/23/18 07:00 Temperature Pulse Rate 67 69 Respiratory Rate 14 16 Blood Pressure 104/61 109/59 L Pulse Oximetry 97 97 98 02/23/18 08:00 02/23/18 10:00 02/23/18 12:00 Temperature 97.5 F L 98.0 F Pulse Rate 72 66 81 Respiratory Rate 18 19 21 Blood Pressure 101/55 L 110/57 L 114/73 Pulse Oximetry 97 96 93 L 02/23/18 14:00 02/23/18 16:00 Temperature 98.3 F Pulse Rate 65 71 Respiratory Rate 16 20 Blood Pressure 109/61 102/62 Pulse Oximetry 100 98 Intake & Output 02/22/18 02/23/18 02/23/18 18:59 06:59 18:59 Intake Total 1899 / 1899 150 / 150 Output Total 2175 / 2175 1600 / 1600 Balance -276 / -276 -1450 / -1450 Weight 59.3 kg Intake: IV 459 / 459 100 / 100 Magnesium Sulfate Inj 4 GM In 100 / 100 NS Inj 92 ML @ 50 mls/hr IV.SIG UNSCH PRN Rx#:[id number] Thiamine Inj 100 MG In NS Inj 101 / 101 100 ML @ 100 mls/hr IV.SIG DAILY [facility] Rx#:[id number] Vancomycin Inj 1,250 MG In NS 248 / 248 Inj 250 ML @ 250 mls/hr IV.SIG Q18H [facility] Rx#:[id number] Rocephin Inj 2,000 MG In NS Inj 110 / 110 100 ML @ 200 mls/hr IV.SIG Q24H [facility] Rx#:[id number] Oral 1440 / 1440 50 / 50 Output: Urine Amount (Catheter) 2175 / 2175 1600 / 1600 Straight 2175 / 2175 1600 / 1600 Other: Date of Last Bowel Movement 02/22/18 02/23/18 02/22/18 # Bowel Movements 1 1 Narrative: GENERAL: Well-developed well-nourished. No acute distress. NECK: No carotid bruits. No JVD. CARDIOVASCULAR: Regular rate and rhythm. No murmur appreciated. RESPIRATORY: No accessory muscle use. Clear to auscultation bilaterally. MUSCULOSKELETAL: No clubbing or cyanosis. No edema. NEURO: Awakens to voice and responds to questions appropriately. - Urinary Catheter Management Condom Cath placed during this visit: yes Reason for continuing: Not indwelling catheter Insertion date: 02/21/18 Insertion time: 13:06 Indwelling Urethral Catheter Cath placed during this visit: yes, but has since been removed by the nurse Reason for continuing: Hourly intake/output Insertion date: 02/18/18 Insertion time: 07:00 Removal date: 02/21/18 Removal time: 13:06 Straight Cath placed during this visit: yes Reason for continuing: Not indwelling catheter Insertion date: 02/22/18 Insertion time: 06:00 Results - Labs CBC & Chem 7: 02/23/18 04:41 02/23/18 04:41 Laboratory Results - last 24 hr 02/23/18 02/23/18 02/23/18 00:21 04:41 04:41 WBC RBC Hgb Hct MCV MCH MCHC RDW Plt Count MPV Neut % (Auto) Lymph % (Auto) [place] % (Auto) Eos % (Auto) Baso % (Auto) Neut # (Auto) Lymph # (Auto) [place] # (Auto) Eos # (Auto) Baso # (Auto) WBC Differential Differential Comment PT 11.8 H INR 1.2 Sodium 140 Potassium 3.5 Chloride 93 L Carbon Dioxide 41.1 H Anion Gap 6 BUN 20 H Creatinine 1.02 Estimated GFR 72 L Random Glucose 80 Calcium 7.8 L Magnesium 1.7 D 1.6 02/23/18 04:41 WBC 9.8 RBC 4.36 L Hgb 11.8 L Hct 36.8 L MCV 84.3 MCH 27.1 MCHC 32.1 RDW 15.9 Plt Count 171 MPV 10.3 Neut % (Auto) 74.1 H Lymph % (Auto) 13.2 [place] % (Auto) 7.7 Eos % (Auto) 3.5 Baso % (Auto) 1.5 Neut # (Auto) 7.3 Lymph # (Auto) 1.3 [place] # (Auto) 0.8 Eos # (Auto) 0.3 Baso # (Auto) 0.1 WBC Differential . Differential Comment Auto diff final PT INR Sodium Potassium Chloride Carbon Dioxide Anion Gap BUN Creatinine Estimated GFR Random Glucose Calcium Magnesium Microbiology 02/18/18 10:38 Blood - Peripheral Aerobic Blood Culture - Final No growth in 5 days 02/18/18 10:38 Blood - Peripheral Anaerobic Blood Culture - Final No growth in 5 days 02/18/18 10:30 Blood - Peripheral Aerobic Blood Culture - Final No growth in 5 days 02/18/18 10:30 Blood - Peripheral Anaerobic Blood Culture - Final No growth in 5 days - Imaging Impressions Chest X-Ray 02/23/18 04:00 CONCLUSION: 1. No significant interval change. 2. Stable bilateral pleural-parenchymal opacities, right greater than left. Assessment and Plan - Plan RESPIRATORY FAILURE PNA CVA COPD CHARLIE PFO, NO VEGETATION PLAN O2 NEEDED BRONCHODILATORS ANTIBX PER ID
--- NOTE | 2018-02-23 19:39 | P.PNID ---
Subjective Remarks: afebrile On nasal cannula O2 awake CHARLIE w/o vegetation s but patent foramen ovale Antibiotics: CFTX Allergies/Adverse Reactions: Allergies penicillin G Allergy (Severe, Verified 02/20/18 01:05) RASH Objective Vital Signs 02/22/18 20:00 02/22/18 22:00 02/23/18 00:00 Temperature 98.8 F Pulse Rate 77 79 74 Respiratory Rate 21 20 21 Blood Pressure 116/58 L 111/57 L 122/56 L Pulse Oximetry 93 L 94 L 93 L 02/23/18 02:00 02/23/18 03:30 02/23/18 04:00 Temperature 98.6 F Pulse Rate 70 67 Respiratory Rate 20 14 Blood Pressure 100/59 L 104/61 Pulse Oximetry 94 L 100 97 02/23/18 06:00 02/23/18 07:00 02/23/18 08:00 Temperature 97.5 F L Pulse Rate 69 72 Respiratory Rate 16 18 Blood Pressure 109/59 L 101/55 L Pulse Oximetry 97 98 97 02/23/18 10:00 02/23/18 12:00 02/23/18 14:00 Temperature 98.0 F Pulse Rate 66 81 65 Respiratory Rate 19 21 16 Blood Pressure 110/57 L 114/73 109/61 Pulse Oximetry 96 93 L 100 02/23/18 16:00 02/23/18 18:00 02/23/18 19:30 Temperature 98.3 F Pulse Rate 71 72 Respiratory Rate 20 21 Blood Pressure 102/62 109/55 L Pulse Oximetry 98 95 97 Intake & Output 02/23/18 02/23/18 02/24/18 06:59 18:59 06:59 Intake Total 150 / 150 1213.5 / 1213.5 Output Total 1600 / 1600 1100 / 1100 Balance -1450 / -1450 113.5 / 113.5 Weight 59.3 kg Intake: IV 100 / 100 563.5 / 563.5 Magnesium Sulfate Inj 2 GM In 100 / 100 100 / 100 NS Inj 96 ML @ 50 mls/hr IV.SIG ONCE ONE Rx#:[id number] Thiamine Inj 100 MG In NS Inj 101 / 101 100 ML @ 100 mls/hr IV.SIG DAILY [facility] Rx#:[id number] Vancomycin Inj 1,250 MG In NS 262.5 / 262.5 Inj 250 ML @ 250 mls/hr IV.SIG Q18H [facility] Rx#:[id number] Rocephin Inj 2,000 MG In NS Inj 100 / 100 100 ML @ 200 mls/hr IV.SIG Q24H [facility] Rx#:[id number] Oral 50 / 50 650 / 650 Output: Urine Amount (Catheter) 1600 / 1600 1100 / 1100 Straight 1600 / 1600 1100 / 1100 Other: Date of Last Bowel Movement 02/23/18 02/23/18 # Bowel Movements 1 0 02/18/18 10:38 Blood - Peripheral Aerobic Blood Culture - Final No growth in 5 days 02/18/18 10:38 Blood - Peripheral Anaerobic Blood Culture - Final No growth in 5 days 02/18/18 10:30 Blood - Peripheral Aerobic Blood Culture - Final No growth in 5 days 02/18/18 10:30 Blood - Peripheral Anaerobic Blood Culture - Final No growth in 5 days 02/17/18 20:04 Blood - Peripheral Aerobic Blood Culture - Final No growth in 5 days 02/17/18 20:04 Blood - Peripheral Anaerobic Blood Culture - Final No growth in 5 days 02/17/18 19:59 Blood - Peripheral Aerobic Blood Culture - Final No growth in 5 days 02/17/18 19:59 Blood - Peripheral Anaerobic Blood Culture - Final No growth in 5 days 02/10/18 20:00 Blood - Peripheral Aerobic Blood Culture - Final Viridans streptococcus grp gram positive cocci 02/10/18 20:00 Blood - Peripheral Anaerobic Blood Culture - Final Viridans streptococcus grp gram positive cocci Lab - Hematology Results 02/22/18 02/23/18 03:58 04:41 WBC 9.0 9.8 RBC 4.59 4.36 L Hgb 12.2 L 11.8 L Hct 38.8 L 36.8 L MCV 84.5 84.3 MCH 26.5 L 27.1 MCHC 31.4 L 32.1 RDW 15.7 15.9 Plt Count 149 L 171 MPV 10.8 10.3 Neut % (Auto) 76.5 H 74.1 H Lymph % (Auto) 12.3 13.2 [place] % (Auto) 8.0 7.7 Eos % (Auto) 2.0 3.5 Baso % (Auto) 1.2 1.5 Neut # (Auto) 6.9 7.3 Lymph # (Auto) 1.1 1.3 [place] # (Auto) 0.7 0.8 Eos # (Auto) 0.2 0.3 Baso # (Auto) 0.1 0.1 WBC Differential . . Differential Comment Auto diff final Auto diff final Lab - Chemistry Results 02/22/18 02/22/18 02/22/18 00:46 03:58 08:45 Sodium 140 Potassium 3.8 3.6 Chloride 96 L Carbon Dioxide 39.8 H Anion Gap 4 L BUN 16 Creatinine 0.92 Estimated GFR 82 L Random Glucose 83 Calcium 7.7 L Phosphorus 5.3 H D Magnesium 0.9 L D 02/23/18 02/23/18 00:21 04:41 Sodium 140 Potassium 3.5 Chloride 93 L Carbon Dioxide 41.1 H Anion Gap 6 BUN 20 H Creatinine 1.02 Estimated GFR 72 L Random Glucose 80 Calcium 7.8 L Phosphorus Magnesium 1.7 D 1.6 Imaging: ITS Impressions Abdomen Ultrasound 02/11/18 00:00 CONCLUSION: 1. Small liver with trace ascites. 2. Small cyst lower pole right kidney. Head MRA 02/11/18 00:00 CONCLUSION: 1. Occlusion of the left posterior cerebral artery at its origin with acute ischemia left occipital region.. Neck MRA 02/11/18 00:00 CONCLUSION: 1. Negative MRA Carotids. Percent stenosis is calculated using the diameter of the stenotic region over the diameter of the normal distal internal carotid artery Head MRI 02/11/18 10:28 CONCLUSION: 1. Acute infarction involving the left posterior thalamus and occipital lobe without hemorrhage or mass effect. Head CT 02/17/18 00:00 CONCLUSION: Evolving left occipital and medial temporal lobe infarction which is developing into an area of encephalomalacia. Chest X-Ray 02/23/18 04:00 CONCLUSION: 1. No significant interval change. 2. Stable bilateral pleural-parenchymal opacities, right greater than left. Physical Exam: GENERAL: NAD SKIN: Warm and dry.no rash no embolic phenomena EYES: Pupils equal and round. No scleral icterus. No injection or drainage. ENT: No nasal bleeding or discharge. Mucous membranes pink and moist. CARDIOVASCULAR: Regular rate and rhythm. RESPIRATORY: No accessory muscle use. Clear to auscultation. Breath sounds equal bilaterally. GASTROINTESTINAL: Abdomen soft, non-tender, nondistended. Hepatic and splenic margins not palpable. MUSCULOSKELETAL: Extremities without clubbing, cyanosis, or edema. No obvious deformities. NEUROLOGICAL: Awake and alert. 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 paradoxic embolic phenomea 2/2 patent foramen ovale - tough cultures show different morphorlogies of vir strep, but embolic strokes are highly suspicious for endocarditis sequela H flu PNA complete Rocephin 2 gm and vancomycin repeat BC if fever
[2018-02-23] MEDS ORDERED: Pharmacy Ordered Lab Info OTHER ONE (20:45)
[2018-02-24] MEDS: Metoprolol Tartrate 25 MG Tablet PO SCH ×3 (01:24→22:37)
[2018-02-24] MEDS: Oral Hygiene Kit OROPHARYNG SCH ×4 (01:24→16:16)
--- NOTE | 2018-02-24 09:08 | P.PN ---
Subjective Interval history: ALERT COFUSED NO SOB AT REST Physical Exam Vital signs: Vital Signs 02/23/18 10:00 02/23/18 12:00 02/23/18 14:00 Temperature 98.0 F Pulse Rate 66 81 65 Respiratory Rate 19 21 16 Blood Pressure 110/57 L 114/73 109/61 Pulse Oximetry 96 93 L 100 02/23/18 16:00 02/23/18 18:00 02/23/18 19:30 Temperature 98.3 F Pulse Rate 71 72 Respiratory Rate 20 21 Blood Pressure 102/62 109/55 L Pulse Oximetry 98 95 97 02/23/18 20:00 02/23/18 22:00 02/23/18 23:44 Temperature 97.6 F Pulse Rate 69 71 Respiratory Rate 17 Blood Pressure 107/60 Pulse Oximetry 97 97 02/24/18 00:00 02/24/18 00:20 02/24/18 00:25 Temperature Pulse Rate 58 L 59 L 55 L Respiratory Rate 9 L 14 Blood Pressure 113/66 108/61 Pulse Oximetry 100 100 02/24/18 00:30 02/24/18 00:35 02/24/18 00:40 Temperature Pulse Rate 58 L 56 L 57 L Respiratory Rate 13 9 L 14 Blood Pressure 115/66 126/66 126/60 Pulse Oximetry 100 97 100 02/24/18 00:45 02/24/18 00:50 02/24/18 00:55 Temperature Pulse Rate 67 62 57 L Respiratory Rate 17 11 L 10 L Blood Pressure 126/69 119/58 L 102/51 L Pulse Oximetry 100 100 100 02/24/18 01:00 02/24/18 01:05 02/24/18 01:10 Temperature Pulse Rate 55 L 66 61 Respiratory Rate 12 23 19 Blood Pressure 102/53 L 104/55 L 98/53 L Pulse Oximetry 100 99 85 L 02/24/18 01:15 02/24/18 01:20 02/24/18 01:25 Temperature Pulse Rate 66 64 69 Respiratory Rate 14 20 24 Blood Pressure 93/50 L 97/52 L 99/55 L Pulse Oximetry 83 L 91 L 91 L 02/24/18 01:30 02/24/18 01:35 02/24/18 01:40 Temperature Pulse Rate 74 67 63 Respiratory Rate 25 H 27 H 34 H Blood Pressure 97/55 L 96/54 L 93/52 L Pulse Oximetry 85 L 95 96 02/24/18 01:45 02/24/18 01:50 02/24/18 01:55 Temperature Pulse Rate 63 62 63 Respiratory Rate 37 H 42 H 38 H Blood Pressure 98/52 L 87/51 L 81/45 L Pulse Oximetry 96 97 96 02/24/18 01:57 02/24/18 02:00 02/24/18 03:00 Temperature Pulse Rate 63 67 70 Respiratory Rate 38 H 52 H 18 Blood Pressure 96/55 L 100/53 L 98/55 L Pulse Oximetry 96 96 97 02/24/18 04:00 02/24/18 05:00 02/24/18 06:00 Temperature 97.4 F L Pulse Rate 66 73 64 Respiratory Rate 15 16 15 Blood Pressure 101/51 L 99/51 L 111/53 L Pulse Oximetry 95 94 L 97 02/24/18 06:01 02/24/18 06:28 02/24/18 08:28 Temperature Pulse Rate 67 Respiratory Rate 18 Blood Pressure 111/53 L Pulse Oximetry 99 97 96 Intake & Output 02/23/18 02/24/18 02/24/18 18:59 06:59 18:59 Intake Total 1213.5 / 1213.5 Output Total 1100 / 1100 1000 / 1000 Balance 113.5 / 113.5 -1000 / -1000 Weight 60.3 kg Intake: IV 563.5 / 563.5 Magnesium Sulfate Inj 2 GM In 100 / 100 NS Inj 96 ML @ 50 mls/hr IV.SIG ONCE ONE Rx#:[id number] Thiamine Inj 100 MG In NS Inj 101 / 101 100 ML @ 100 mls/hr IV.SIG DAILY JUSTINE Rx#:[id number] Vancomycin Inj 1,250 MG In NS 262.5 / 262.5 Inj 250 ML @ 250 mls/hr IV.SIG Q18H JUSTINE Rx#:[id number] Rocephin Inj 2,000 MG In NS Inj 100 / 100 100 ML @ 200 mls/hr IV.SIG Q24H JUSTINE Rx#:[id number] Oral 650 / 650 Output: Stool 0 / 0 Urine/Stool Mix 0 / 0 Urine Amount (Catheter) 1100 / 1100 1000 / 1000 Straight 1100 / 1100 1000 / 1000 Other: Date of Last Bowel Movement 02/23/18 02/23/18 # Bowel Movements 0 0 # Incontinent Bowel Movements 0 Narrative: GENERAL: Well-developed well-nourished. No acute distress. NECK: No carotid bruits. No JVD. CARDIOVASCULAR: Regular rate and rhythm. No murmur appreciated. RESPIRATORY: No accessory muscle use. Clear to auscultation bilaterally. MUSCULOSKELETAL: No clubbing or cyanosis. No edema. NEURO: Awakens to voice and responds to questions appropriately. - Urinary Catheter Management Condom Cath placed during this visit: yes Reason for continuing: Not indwelling catheter Insertion date: 02/21/18 Insertion time: 13:06 Indwelling Urethral Catheter Cath placed during this visit: yes, but has since been removed by the nurse Reason for continuing: Hourly intake/output Insertion date: 02/18/18 Insertion time: 07:00 Removal date: 02/21/18 Removal time: 13:06 Straight Cath placed during this visit: yes Reason for continuing: Not indwelling catheter Insertion date: 02/22/18 Insertion time: 06:00 Results - Labs CBC & Chem 7: 02/23/18 04:41 02/23/18 04:41 Laboratory Results - last 24 hr 02/23/18 20:20 Vancomycin Trough 28.2 H Microbiology 02/18/18 10:38 Blood - Peripheral Aerobic Blood Culture - Final No growth in 5 days 02/18/18 10:38 Blood - Peripheral Anaerobic Blood Culture - Final No growth in 5 days 02/18/18 10:30 Blood - Peripheral Aerobic Blood Culture - Final No growth in 5 days 02/18/18 10:30 Blood - Peripheral Anaerobic Blood Culture - Final No growth in 5 days Assessment and Plan - Plan RESPIRATORY FAILURE PNA CVA COPD CHARLIE PFO, NO VEGETATION PLAN O2 NEEDED BRONCHODILATORS ANTIBX PER ID OBTAIN CT CHEST
[2018-02-24] MEDS: Thiamine Inj 100 MG in Sodium Chlor 0.9% Inj 100 ML IV.SIG SCH (09:15)
[2018-02-24 09:54] LABS: Calcium 8.4 mg/dL (8.5-10.1); Carbon Dioxide 42.2 meq/L (21.0-32.0); Magnesium 2.3 mg/dL (1.5-2.5); Potassium 3.5 meq/L (3.5-5.1)
[2018-02-24] MEDS: Pantoprazole Inj 40 MG Vial IV.PUSH SCH (10:12)
[2018-02-24] MEDS: Folic Acid 1 MG Tablet NG/OG SCH (10:12)
[2018-02-24] MEDS: Potassium Phosphate 500 MG Soluble Tablet PO SCH (10:13)
[2018-02-24] MEDS: Senna/Docusate Sodium 8.6/50 MG Tablet PO SCH ×2 (10:14→22:38)
[2018-02-24] MEDS: Chlorhexidine 0.12% Oral Kit 15 ML UDC OROPHARYNG SCH ×2 (10:26→19:24)
--- NOTE | 2018-02-24 20:59 | P.PNIM ---
Subjective Interval history: Follow up for acute CVA. Patient is doing well, was seen this evening. He is having his dinner. Overall, feel well. No acute concerns. Physical Exam Vital signs: Vital Signs 02/23/18 22:00 02/23/18 23:44 02/24/18 00:00 Temperature Pulse Rate 71 58 L Respiratory Rate Blood Pressure Pulse Oximetry 97 02/24/18 00:20 02/24/18 00:25 02/24/18 00:30 Temperature Pulse Rate 59 L 55 L 58 L Respiratory Rate 9 L 14 13 Blood Pressure 113/66 108/61 115/66 Pulse Oximetry 100 100 100 02/24/18 00:35 02/24/18 00:40 02/24/18 00:45 Temperature Pulse Rate 56 L 57 L 67 Respiratory Rate 9 L 14 17 Blood Pressure 126/66 126/60 126/69 Pulse Oximetry 97 100 100 02/24/18 00:50 02/24/18 00:55 02/24/18 01:00 Temperature Pulse Rate 62 57 L 55 L Respiratory Rate 11 L 10 L 12 Blood Pressure 119/58 L 102/51 L 102/53 L Pulse Oximetry 100 100 100 02/24/18 01:05 02/24/18 01:10 02/24/18 01:15 Temperature Pulse Rate 66 61 66 Respiratory Rate 23 19 14 Blood Pressure 104/55 L 98/53 L 93/50 L Pulse Oximetry 99 85 L 83 L 02/24/18 01:20 02/24/18 01:25 02/24/18 01:30 Temperature Pulse Rate 64 69 74 Respiratory Rate 20 24 25 H Blood Pressure 97/52 L 99/55 L 97/55 L Pulse Oximetry 91 L 91 L 85 L 02/24/18 01:35 02/24/18 01:40 02/24/18 01:45 Temperature Pulse Rate 67 63 63 Respiratory Rate 27 H 34 H 37 H Blood Pressure 96/54 L 93/52 L 98/52 L Pulse Oximetry 95 96 96 02/24/18 01:50 02/24/18 01:55 02/24/18 01:57 Temperature Pulse Rate 62 63 63 Respiratory Rate 42 H 38 H 38 H Blood Pressure 87/51 L 81/45 L 96/55 L Pulse Oximetry 97 96 96 02/24/18 02:00 02/24/18 03:00 02/24/18 04:00 Temperature Pulse Rate 67 70 66 Respiratory Rate 52 H 18 15 Blood Pressure 100/53 L 98/55 L 101/51 L Pulse Oximetry 96 97 95 02/24/18 05:00 02/24/18 06:00 02/24/18 06:01 Temperature 97.4 F L Pulse Rate 73 64 67 Respiratory Rate 16 15 18 Blood Pressure 99/51 L 111/53 L 111/53 L Pulse Oximetry 94 L 97 99 02/24/18 06:28 02/24/18 07:00 02/24/18 08:00 Temperature Pulse Rate 63 69 Respiratory Rate 16 15 Blood Pressure 93/55 L 110/56 L Pulse Oximetry 97 95 94 L 02/24/18 08:28 02/24/18 09:01 02/24/18 10:00 Temperature Pulse Rate 76 70 Respiratory Rate 17 Blood Pressure 97/54 L Pulse Oximetry 96 91 L 02/24/18 10:01 02/24/18 11:00 02/24/18 12:00 Temperature Pulse Rate 66 70 88 Respiratory Rate 19 21 20 Blood Pressure 117/59 L 108/58 L 97/62 L Pulse Oximetry 92 L 82 L 90 L 02/24/18 13:01 02/24/18 14:00 02/24/18 15:00 Temperature Pulse Rate 86 74 76 Respiratory Rate 24 20 18 Blood Pressure 112/63 111/53 L 106/58 L Pulse Oximetry 87 L 93 L 92 L 02/24/18 16:00 02/24/18 16:01 02/24/18 20:41 Temperature 98.1 F Pulse Rate 69 73 Respiratory Rate 17 21 Blood Pressure 100/53 L 133/60 Pulse Oximetry 95 94 L 96 Intake & Output 02/24/18 02/24/18 02/25/18 06:59 18:59 06:59 Output Total 1000 / 1000 Balance -1000 / -1000 Weight 60.3 kg Output: Stool 0 / 0 Urine/Stool Mix 0 / 0 Urine Amount (Catheter) 1000 / 1000 Straight 1000 / 1000 Other: Date of Last Bowel Movement 02/23/18 02/23/18 # Bowel Movements 0 # Incontinent Bowel Movements 0 Narrative: GENERAL: Alert, NAD. Converses, follows commands. SKIN: Warm and dry. HEAD: Normocephalic. EYES: No scleral icterus. No injection or drainage. NECK: Supple, trachea midline. No JVD or lymphadenopathy. CARDIOVASCULAR: Regular rate and rhythm without murmurs, gallops, or rubs. RESPIRATORY: Breath sounds equal bilaterally. No accessory muscle use. GASTROINTESTINAL: Abdomen soft, non-tender, nondistended. MUSCULOSKELETAL: No cyanosis, or edema. BACK: Nontender without obvious deformity. No CVA tenderness. Urinary Catheter Management Condom: Cath placed during this visit: yes Reason for continuing: Not indwelling catheter Insertion date: 02/21/18 Insertion time: 13:06 Indwelling Urethral Catheter: Cath placed during this visit: yes, but has since been removed by the nurse Reason for continuing: Hourly intake/output Insertion date: 02/18/18 Insertion time: 07:00 Removal date: 02/21/18 Removal time: 13:06 Straight: Cath placed during this visit: yes Reason for continuing: Not indwelling catheter Insertion date: 02/22/18 Insertion time: 06:00 Results Labs CBC & Chem 7: 02/23/18 04:41 02/24/18 08:45 Assessment and Plan Plan 67 y/o male with a dx of alcohol abuse, tobacco abuse, htn, who presented to the ER with acute encephalopathy. As per documentation he had a syncopal episode prior to arrival. He was subsequently intubated for airway protection. Patient was found to have a slightly elevated wbc ct, lactate 5, cxr showed a right lower lobe infiltrate. He was admitted to the intensive care unit. 1. Subacute ischemic CVA 2. Acute encephalopathy - currently resolved. 3. Mild elevation in troponin - likely due to demand ischemia. -CT head shows a evolving infarct of the left occipital lobe and medial left temporal lobe. -MRI brain acute infarct of the left post thalamus, and occipital lobe. -MRA head left client representative occlusion. -Continue aspirin 162mg Qday. -CHARLIE shows small hemodynamically insignificant patent foramen ovale. 4. Acute hypoxic hypercapnic respiratory failure 2/2 H. influenza pna 5. Haemophilus influenza pna with right pleural effusion 6. ETOH abuse. Patient was initially on [facility] ventilation. Subsequently self extubated on . Currently on 4 L supplemental oxygen. Wean off to keep O2 sat > 90%. S/p thoracentesis, 650 cc removed 02/14/18. Sputum grew H. Influenza Currently off abx. Continue bipap intermittently. Continue CIWA protocol. Patient counseled to stop drinking alcohol. Folic acid, mv, thiamine, librium, ativan prn. 7. Septic shock 2/2 Strep Viridans bacteremia Lactate initially 5, now normalized. Blood cxs from 02/10/18 positive 2/ Repeat blood cultures are negative. CHARLIE shows no evidence of endocarditis. BPH -Start Tamsulosin 0.4mg Qday. Hyperphosphatemia - will consider Sevelamer if PO4 continues to be elevated. Full code. Heparin for DVT prophylaxis. Progress Note: Quality VTE Deep Vein Thrombosis/Pulmonary Embolism Present on Admission: No
--- NOTE | 2018-02-24 23:20 | CT ---
EXAM DATE: 02/24/2018 11:09 PM EST AGE/SEX: 67 years / Male INDICATIONS: Shortness of breath. Atelectasis. CLINICAL DATA: This is the patient's initial encounter. Patient reports that signs and symptoms have been present for 1 day and indicates a pain score of 0/10. MEDICAL/SURGICAL HISTORY: Chronic obstructive pulmonary disease. Cerebrovascular disease. None. RADIATION DOSE: 8.62 CTDI (mGy) COMPARISON: [facility] – [place], CHEST 1V SINGLE AP, 02/23/2018. . TECHNIQUE: Multiple contiguous axial images were obtained through the chest without contrast. Image s were obtained in suspended respiration using multiple row detector helical technique. Using automa zaina exposure control and adjustment of the mA and/or kV according to patient size, radiation dose was kept as low as reasonably achievable to obtain optimal diagnostic quality images. DICOM format imag e data is available electronically for review and comparison. FINDINGS: Lung: There are scattered nodular opacities in the posterior right upper lobe measuring up to 9 mm a djacent the major fissure. There is nodular airspace consolidation in the superior segment of the rig ht lower lobe which appears more confluent near the base with air bronchograms. There are scattered i ll-defined groundglass nodular opacities in the left upper lobe as well as the superior segment of th e left lower lobe. Minimal focal airspace consolidation is noted near the left lung base. There are s cattered calcified granulomas in the left lower lobe as well. Pleura: Small bilateral pleural effusions which appear simple in density. Mediastinum: Heart is unremarkable without significant pericardial effusion. There are subcarinal an d right hilar calcified lymph nodes. Additional primarily right hilar noncalcified nodes are also not ed. Osseous Structures: Multiple old healed right-sided rib fractures with associated posterior rib cage abnormality. Probable Schmorl's node in the inferior endplate of T11 and superior endplate of T10. Soft Tissues: Soft tissues are unremarkable. No significant axillary adenopathy. Other: Fat density 2.5 cm right adrenal mass consistent with adrenal myolipoma. The splenic and live r calcifications. CONCLUSION: 1. Scattered bilateral upper lobe groundglass nodules extending to the superior segments of the lowe r lobes with more confluent airspace consolidation near the right lung base and minimal airspace cons olidation near the left lung base. Although the left lung base consolidation may reflect compressive atelectasis, remaining findings are most concerning for a diffuse infectious or inflammatory process. 2. Small bilateral simple appearing pleural effusions. 3. Evidence for prior granulomatous disease with left lower lobe granulomas, calcified mediastinal n odes and scattered splenic and hepatic calcifications. 4. 2.5 cm fat density right adrenal mass consistent with adrenal myolipoma. Electronically signed by: Hermilo Bermudez MD Board Certified Radiologist 02/24/2018 11:19 PM [facility] T
[2018-02-25] MEDS: Oral Hygiene Kit OROPHARYNG SCH ×3 (00:13→17:44)
--- NOTE | 2018-02-25 08:46 | P.PNNEU ---
Subjective Active Medications: Active Medications Acetaminophen (Tylenol) 650 mg PO Q6H PRN PRN Reason: PAIN 1-10 AND/OR FEVER >101F Hydrocodone Bitart/Acetaminophen (Artie 5/325) 1 tab PO Q4H PRN PRN Reason: PAIN SCALE 1 TO 5 Last Admin: 02/16/18 21:24 Dose: 1 tab Al Hydroxide/Mg Hydroxide (Milk Of Magnvalencia Liq) 30 ml PO Q12H PRN PRN Reason: Mild Constipation Albuterol (Albuterol Neb (Prn)) 2.5 mg NEB Q2HR NEB PRN PRN Reason: SHORTNESS OF BREATH/WHEEZING Last Admin: 02/20/18 15:16 Dose: 2.5 mg Aspirin (Aspirin Chew) 162 mg PO DAILY [facility] Last Admin: 02/22/18 08:13 Dose: 162 mg Bisacodyl (Dulcolax Supp) 10 mg RECTAL DAILY PRN PRN Reason: SEVERE CONSITIPATION Chlordiazepoxide (Librium) 5 mg PO Q8H [facility] Last Admin: 02/25/18 04:19 Dose: 5 mg Chlorhexidine Gluconate (Peridex 0.12% Oral Kit) 15 ml OROPHARYNG BID@0800, 2000 [facility] Last Admin: 02/24/18 19:24 Dose: Not Given Flumazenil (Romazicon Inj) 0.2 mg IV.PUSH Q1M PRN PRN Reason: OVERSEDATION Folic Acid (Folic Acid) 1 mg NG/OG DAILY [facility] Last Admin: 02/24/18 10:12 Dose: 1 mg Furosemide (Lasix Inj) 40 mg IV.PUSH DAILY [facility] Last Admin: 02/24/18 10:13 Dose: 40 mg Heparin Sodium (Porcine) (Heparin Inj) 5,000 units SQ Q12H [facility] Last Admin: 02/22/18 11:17 Dose: 5,000 units Hydralazine HCl (Apresoline Inj) 20 mg IV.PUSH Q4H PRN PRN Reason: HYPERTENSION Thiamine HCl 100 mg/ Sodium (Chloride) 101 mls @ 100 mls/hr IV.SIG DAILY [facility] Last Admin: 02/24/18 09:15 Dose: Not Given Sodium Glycerophosphate 30 (mmol/ Sodium Chloride) 260 mls @ 42 mls/hr IV.SIG UNSCH PRN PRN Reason: For Phosphorus < 2.5 mg/dL Last Infusion: 02/15/18 23:32 Dose: Infused Labetalol HCl (Trandate Inj) 10 mg IV.PUSH Q6H PRN PRN Reason: SYS BP GREATER THAN OR = 160 Last Admin: 02/16/18 16:46 Dose: 10 mg Lactulose (Lactulose Liq) 30 ml PO DAILY PRN PRN Reason: SEVERE CONSITIPATION Metoprolol Tartrate (Lopressor) 25 mg PO BID [facility] Last Admin: 02/24/18 22:37 Dose: 25 mg Miscellaneous Medication () 1 each OROPHARYNG 0000,0400,1200,1600 [facility] Last Admin: 02/25/18 04:20 Dose: Not Given Multivitamins (Theragran) 1 tab NG/OG DAILY [facility] Last Admin: 02/24/18 10:14 Dose: 1 tab Ondansetron HCl (Zofran Inj) 4 mg IV.PUSH Q6H PRN PRN Reason: NAUSEA OR VOMITING Pantoprazole Sodium (Protonix Inj) 40 mg IV.PUSH DAILY [facility] Last Admin: 02/24/18 10:12 Dose: 40 mg Potassium Phosphate (K-Phos Original) 500 mg PO DAILY [facility] Last Admin: 02/24/18 10:13 Dose: 500 mg Senna/Docusate Sodium (Charissa-Colace) 1 tab PO BID [facility] Last Admin: 02/24/18 22:38 Dose: Not Given Sennosides (Senokot) 17.2 mg PO Q12H PRN PRN Reason: Moderate Constipation Sodium Chloride (Ns Flush) 2 ml IV.FLUSH PRN PRN PRN Reason: FLUSH AFTER USING IV ACCESS Last Admin: 02/19/18 08:01 Dose: 2 ml Sodium Chloride (Ns Flush) 2 ml IV.FLUSH BID [facility] Last Admin: 02/24/18 22:38 Dose: 2 ml Tamsulosin HCl (Flomax) 0.4 mg PO DAILY [facility] Allergies/Adverse Reactions: Allergies Allergy/AdvReac Type Severity Reaction Status Date / Time penicillin G Allergy Severe RASH Verified 02/20/18 01:05 Physical Exam Vital signs: Vital Signs 02/24/18 09:01 02/24/18 10:00 02/24/18 10:01 Temperature Pulse Rate 76 70 66 Respiratory Rate 17 19 Blood Pressure 97/54 L 117/59 L Pulse Oximetry 91 L 92 L 02/24/18 11:00 02/24/18 12:00 02/24/18 13:01 Temperature Pulse Rate 70 88 86 Respiratory Rate 21 20 24 Blood Pressure 108/58 L 97/62 L 112/63 Pulse Oximetry 82 L 90 L 87 L 02/24/18 14:00 02/24/18 15:00 02/24/18 16:00 Temperature 98.1 F Pulse Rate 74 76 69 Respiratory Rate 20 18 17 Blood Pressure 111/53 L 106/58 L 100/53 L Pulse Oximetry 93 L 92 L 95 02/24/18 16:01 02/24/18 20:00 02/24/18 20:41 Temperature 98.2 F Pulse Rate 73 70 Respiratory Rate 21 17 Blood Pressure 133/60 101/60 Pulse Oximetry 94 L 97 96 02/25/18 00:00 02/25/18 04:00 02/25/18 08:00 Temperature 98.2 F 98.1 F 97.9 F Pulse Rate 70 64 66 Respiratory Rate 17 17 20 Blood Pressure 101/60 120/64 111/55 L Pulse Oximetry 97 93 L 93 L 02/25/18 08:20 Temperature Pulse Rate Respiratory Rate Blood Pressure Pulse Oximetry 93 L Intake & Output 02/24/18 02/25/18 02/25/18 18:59 06:59 18:59 Intake Total 0 / 0 Output Total 300 / 300 Balance -300 / -300 Intake: Oral 0 / 0 Output: Urine 300 / 300 Other: Date of Last Bowel Movement 02/23/18 02/23/18 # Bowel Movements 0 Narrative: awake alert hospital not yr seems to see to left and r better movesa ll well - Urinary Catheter Management Condom Cath placed during this visit: yes Reason for continuing: Not indwelling catheter Insertion date: 02/21/18 Insertion time: 13:06 Indwelling Urethral Catheter Cath placed during this visit: yes, but has since been removed by the nurse Reason for continuing: Hourly intake/output Insertion date: 02/18/18 Insertion time: 07:00 Removal date: 02/21/18 Removal time: 13:06 Straight Cath placed during this visit: yes Reason for continuing: Not indwelling catheter Insertion date: 02/22/18 Insertion time: 06:00 Objective Laboratory Results - last 24 hr 02/24/18 02/25/18 08:45 06:31 Sodium 139 Potassium 3.5 Chloride 91 L Carbon Dioxide 42.2 H Anion Gap 6 BUN 16 Creatinine 0.94 Estimated GFR 80 L Random Glucose 82 Calcium 8.4 L Phosphorus 2.5 Magnesium 2.3 D Review/Management - Review/Management Plan: imp mod size left stone polisher hand cva with minimal blood products one small acute r mca cva on mri mra neck and cow ok left stone polisher hand occ vb nl echo la 4.0 45% ef trop inc bilat cva prob cardioembolic ?NE consult cards watch for any afib fu holter asa for now 02/13/18 he denies etoh does smoke and i asked him to dc that cards on case for raissa next fr[facility] lft could have been from some emboli also will consider coumadin on him see what raissa shows fu holter loop would be helpful lives in aclf he tells me 02/16/18 holter neg sr on tele raissa today if that is neg i would like to get loop in asa for now 02/25/18 raissa positive small pfo right to lefts shunt on asa i would like to get loop placed
[2018-02-25] MEDS: Folic Acid 1 MG Tablet NG/OG SCH (12:51)
[2018-02-25] MEDS: Chlorhexidine 0.12% Oral Kit 15 ML UDC OROPHARYNG SCH ×2 (12:51→21:58)
[2018-02-25] MEDS: Potassium Phosphate 500 MG Soluble Tablet PO SCH (12:52)
[2018-02-25] MEDS: Senna/Docusate Sodium 8.6/50 MG Tablet PO SCH ×2 (12:53→21:58)
[2018-02-25] MEDS: Metoprolol Tartrate 25 MG Tablet PO SCH ×2 (12:53→21:58)
[2018-02-25] MEDS: Pantoprazole Inj 40 MG Vial IV.PUSH SCH (12:53)
[2018-02-25] MEDS: Thiamine Inj 100 MG in Sodium Chlor 0.9% Inj 100 ML IV.SIG SCH (12:54)
--- NOTE | 2018-02-25 23:41 | P.PNIM ---
Subjective Interval history: Follow up for acute CVA. Patient is resting in bed, doing well. No acute concerns. Afebrile. Physical Exam Vital signs: Vital Signs 02/25/18 00:00 02/25/18 04:00 02/25/18 08:00 Temperature 98.2 F 98.1 F 97.9 F Pulse Rate 70 64 66 Respiratory Rate 17 17 20 Blood Pressure 101/60 120/64 111/55 L Pulse Oximetry 97 93 L 97 02/25/18 08:20 02/25/18 12:00 02/25/18 16:00 Temperature 97.7 F 97 F L Pulse Rate 70 69 Respiratory Rate 20 20 Blood Pressure 115/57 L 102/56 L Pulse Oximetry 93 L 94 L 97 02/25/18 21:00 Temperature Pulse Rate Respiratory Rate Blood Pressure Pulse Oximetry 95 Intake & Output 02/25/18 02/25/18 02/26/18 06:59 18:59 06:59 Intake Total 0 / 0 581 / 581 Output Total 300 / 300 Balance -300 / -300 581 / 581 Intake: IV 101 / 101 Thiamine Inj 100 MG In NS Inj 101 / 101 100 ML @ 100 mls/hr IV.SIG DAILY JUSTINE Rx#:[id number] Oral 0 / 0 480 / 480 Output: Urine 300 / 300 Other: # Voids 4 Date of Last Bowel Movement 02/23/18 02/23/18 # Bowel Movements 0 4 Narrative: GENERAL: Alert, NAD. Converses, follows commands. SKIN: Warm and dry. HEAD: Normocephalic. EYES: No scleral icterus. No injection or drainage. NECK: Supple, trachea midline. No JVD or lymphadenopathy. CARDIOVASCULAR: Regular rate and rhythm without murmurs, gallops, or rubs. RESPIRATORY: Breath sounds equal bilaterally. No accessory muscle use. GASTROINTESTINAL: Abdomen soft, non-tender, nondistended. MUSCULOSKELETAL: No cyanosis, or edema. BACK: Nontender without obvious deformity. No CVA tenderness. Urinary Catheter Management Condom: Cath placed during this visit: yes Reason for continuing: Not indwelling catheter Insertion date: 02/21/18 Insertion time: 13:06 Indwelling Urethral Catheter: Cath placed during this visit: yes, but has since been removed by the nurse Reason for continuing: Hourly intake/output Insertion date: 02/18/18 Insertion time: 07:00 Removal date: 02/21/18 Removal time: 13:06 Straight: Cath placed during this visit: yes Reason for continuing: Not indwelling catheter Insertion date: 02/22/18 Insertion time: 06:00 Results Labs CBC & Chem 7: 02/23/18 04:41 02/24/18 08:45 Imaging Imaging: Impressions Chest CT 02/24/18 00:00 CONCLUSION: 1. Scattered bilateral upper lobe groundglass nodules extending to the superior segments of the lower lobes with more confluent airspace consolidation near the right lung base and minimal airspace consolidation near the left lung base. Although the left lung base consolidation may reflect compressive atelectasis, remaining findings are most concerning for a diffuse infectious or inflammatory process. 2. Small bilateral simple appearing pleural effusions. 3. Evidence for prior granulomatous disease with left lower lobe granulomas, calcified mediastinal nodes and scattered splenic and hepatic calcifications. 4. 2.5 cm fat density right adrenal mass consistent with adrenal myolipoma. Assessment and Plan Plan 67 y/o male with a dx of alcohol abuse, tobacco abuse, htn, who presented to the ER with acute encephalopathy. As per documentation he had a syncopal episode prior to arrival. He was subsequently intubated for airway protection. Patient was found to have a slightly elevated wbc ct, lactate 5, cxr showed a right lower lobe infiltrate. He was admitted to the intensive care unit. 1. Subacute ischemic CVA 2. Acute encephalopathy - currently resolved. 3. Mild elevation in troponin - likely due to demand ischemia. -CT head shows a evolving infarct of the left occipital lobe and medial left temporal lobe. -MRI brain acute infarct of the left post thalamus, and occipital lobe. -MRA head left skin carver occlusion. -Continue aspirin 162mg Qday. -CHARLIE shows small hemodynamically insignificant patent foramen ovale. -Neurology consulted cardiology for loop recorder placement. 4. Acute hypoxic hypercapnic respiratory failure 2/2 H. influenza pna 5. Haemophilus influenza pna with right pleural effusion 6. ETOH abuse. [facility]. Subsequently self extubated on . Currently on 4 L supplemental oxygen. Wean off to keep O2 sat > 90%. S/p thoracentesis, 650 cc removed 02/14/18. Sputum grew H. Influenza Currently off abx. Continue bipap intermittently. Continue CIWA protocol. Patient counseled to stop drinking alcohol. Folic acid, mv, thiamine, librium, ativan prn. 7. Septic shock 2/2 Strep Viridans bacteremia Lactate initially 5, now normalized. Blood cxs from 02/10/18 positive 2/2 Repeat blood cultures are negative. CHARLIE shows no evidence of endocarditis. BPH -Start Tamsulosin 0.4mg Qday. Hyperphosphatemia - Repeat phosphorous 2.5 today. No need for PO4 binders. Full code. Heparin for DVT prophylaxis. Progress Note: Quality VTE Deep Vein Thrombosis/Pulmonary Embolism Present on Admission: No
--- NOTE | 2018-02-25 23:50 | P.PN ---
Subjective Interval history: ALERT NAD MED FLOOR Physical Exam Vital signs: Vital Signs 02/25/18 00:00 02/25/18 04:00 02/25/18 08:00 Temperature 98.2 F 98.1 F 97.9 F Pulse Rate 70 64 66 Respiratory Rate 17 17 20 Blood Pressure 101/60 120/64 111/55 L Pulse Oximetry 97 93 L 97 02/25/18 08:20 02/25/18 12:00 02/25/18 16:00 Temperature 97.7 F 97 F L Pulse Rate 70 69 Respiratory Rate 20 20 Blood Pressure 115/57 L 102/56 L Pulse Oximetry 93 L 94 L 97 02/25/18 21:00 Temperature Pulse Rate Respiratory Rate Blood Pressure Pulse Oximetry 95 Intake & Output 02/25/18 02/25/18 02/26/18 06:59 18:59 06:59 Intake Total 0 / 0 581 / 581 Output Total 300 / 300 Balance -300 / -300 581 / 581 Intake: IV 101 / 101 Thiamine Inj 100 MG In NS Inj 101 / 101 100 ML @ 100 mls/hr IV.SIG DAILY JUSTINE Rx#:[id number] Oral 0 / 0 480 / 480 Output: Urine 300 / 300 Other: # Voids 4 Date of Last Bowel Movement 02/23/18 02/23/18 # Bowel Movements 0 4 Narrative: awake alert hospital not yr seems to see to left and r better movesa ll well - Urinary Catheter Management Condom Cath placed during this visit: yes Reason for continuing: Not indwelling catheter Insertion date: 02/21/18 Insertion time: 13:06 Indwelling Urethral Catheter Cath placed during this visit: yes, but has since been removed by the nurse Reason for continuing: Hourly intake/output Insertion date: 02/18/18 Insertion time: 07:00 Removal date: 02/21/18 Removal time: 13:06 Straight Cath placed during this visit: yes Reason for continuing: Not indwelling catheter Insertion date: 02/22/18 Insertion time: 06:00 Results - Labs CBC & Chem 7: 02/23/18 04:41 02/24/18 08:45 Laboratory Results - last 24 hr 02/25/18 06:31 Phosphorus 2.5 Assessment and Plan - Plan RESPIRATORY FAILURE PNA CVA COPD CT CHEST ?PNA PLAN O2 NEEDED BRONCHODILATORS ANTIBX PER ID
[2018-02-26] MEDS: Oral Hygiene Kit OROPHARYNG SCH ×4 (02:08→15:54)
[2018-02-26 08:38] VITALS: RESP 18
[2018-02-26] MEDS: Chlorhexidine 0.12% Oral Kit 15 ML UDC OROPHARYNG SCH (09:16)
[2018-02-26] MEDS: Potassium Phosphate 500 MG Soluble Tablet PO SCH (09:17)
[2018-02-26] MEDS: Folic Acid 1 MG Tablet NG/OG SCH (09:17)
[2018-02-26] MEDS: Senna/Docusate Sodium 8.6/50 MG Tablet PO SCH (09:17)
[2018-02-26] MEDS: Pantoprazole Inj 40 MG Vial IV.PUSH SCH (09:17)
[2018-02-26] MEDS: Metoprolol Tartrate 25 MG Tablet PO SCH (09:17)
[2018-02-26] MEDS: Thiamine Inj 100 MG in Sodium Chlor 0.9% Inj 100 ML IV.SIG SCH (09:18)
--- NOTE | 2018-02-26 11:03 | P.PN ---
Subjective Interval history: ALERT NO SOB AT REST Physical Exam Vital signs: Vital Signs 02/25/18 12:00 02/25/18 16:00 02/25/18 21:00 Temperature 97.7 F 97 F L Pulse Rate 70 69 Respiratory Rate 20 20 Blood Pressure 115/57 L 102/56 L Pulse Oximetry 94 L 97 95 02/26/18 00:00 02/26/18 04:00 02/26/18 08:00 Temperature 97.7 F 97.6 F 98.2 F Pulse Rate 64 64 65 Respiratory Rate 18 20 18 Blood Pressure 108/62 114/63 118/57 L Pulse Oximetry 96 92 L 94 L Intake & Output 02/25/18 02/26/18 02/26/18 18:59 06:59 18:59 Intake Total 581 / 581 960 / 960 Output Total 1250 / 1250 Balance 581 / 581 -290 / -290 Weight 61.2 kg Intake: IV 101 / 101 Thiamine Inj 100 MG In NS Inj 101 / 101 100 ML @ 100 mls/hr IV.SIG DAILY JUSTINE Rx#:[id number] Oral 480 / 480 960 / 960 Output: Urine 1250 / 1250 Other: # Voids 4 Date of Last Bowel Movement 02/23/18 02/24/18 # Bowel Movements 4 0 Narrative: ALERT HEENT NORMAL NECK, NO JVD CHEST , SCATTERED [employer] S1, S2 NO S3 ABDOMEN LAX, BS POSITIVE EXTREMETIES, NO CCE - Urinary Catheter Management Condom Cath placed during this visit: yes Reason for continuing: Not indwelling catheter Insertion date: 02/21/18 Insertion time: 13:06 Indwelling Urethral Catheter Cath placed during this visit: yes, but has since been removed by the nurse Reason for continuing: Hourly intake/output Insertion date: 02/18/18 Insertion time: 07:00 Removal date: 02/21/18 Removal time: 13:06 Straight Cath placed during this visit: yes Reason for continuing: Not indwelling catheter Insertion date: 02/22/18 Insertion time: 06:00 Results - Labs CBC & Chem 7: 02/23/18 04:41 02/24/18 08:45 Assessment and Plan - Plan RESPIRATORY FAILURE PNA CVA COPD PLAN O2 NEEDED BRONCHODILATORS ANTIBX PER ID
--- NOTE | 2018-02-26 14:57 | P.DS ---
DS: Providers Date of admission: 02/11/18 00:23 Primary care physician: No Primary Care Physician Consults: 02/10/18 22:58 Consult to Neurology Routine Consulting Provider: Joel Amin Reason for Consultation: subacute ischemic stroke Notified:: Service Spoke with:: Teri Date Notified:: 02/10/18 Time Notified:: 23:48 Comments:: Ordering Provider: AMARJIT 02/12/18 07:55 Consult to Cardiology Routine Consulting Provider: Lawrence Hernandez Does the patient have a Computational Theory Scientist who follows them?: No Preferred Fire Engine Pump Operator:: Salvage Grinder Physician Reason for Consultation: mi? 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 Endocarditis suspected Notified:: Physician Spoke with:: Dr Caba Date Notified:: 02/19/18 Time Notified:: 07:13 Comments:: Initially given to Dr Caba, he called and said give to Dr Madsen, patient known to him - Info given to Dr Madsen office @ 0852 - ML Ordering Provider: MORGAN 02/20/18 13:18 Consult to Pulmonology Routine Consulting Provider: Adama Galan Preferred Catalytic Converter Operator:: Adama W Adama Reason for Consultation: Respiratory insufficiency, hypercarbic respiratory failure, status post embolic CVA Notified:: Office Spoke with:: Barby Date Notified:: 02/20/18 Time Notified:: 13:21 Ordering Provider: DEBBIE 02/22/18 17:32 Consult to Hospitalist Routine Consulting Provider: Yohannes Romo Reason for Consultation: Patient with respiratory failure status post extubation, left occipital CVA, septic shock resolved per concern for embolic CVA scheduled for CHARLIE 02/23 Utilizes BiPAP at night, pulmonology following Notified:: Service Spoke with:: HUDSON Date Notified:: 02/22/18 Time Notified:: 17:36 Ordering Provider: DEBBIE 02/25/18 09:08 HUB Only Consult Order [facility]ine [facility] 02/25/18 09:09 HUB Only Consult Order Routine Consulting Provider: [facility] 02/25/18 09:11 HUB Only Consult Order Routine Consulting Provider: Milad Olivas [facility] 02/25/18 09:19 HUB Only Consult Order Routine Consulting [facility]: [facility] Brief History from admission: Patient is unable to provide history because he is intubated. Reviewed EMR. 67-year-old male with past medical history of alcohol abuse, tobacco abuse who presented to [facility] emergency department with altered mental status. Per report from [facility] he may have had syncope prior to their arrival. He ultimately was intubated for airway protection. CXR shows right lower lobe consolidation. White blood cell count is 12. Lactic acid is 5. Creatinine is 1.8. Most recent prior creatinine was 0.6 in 2008. He received 3 L normal saline bolus, azithromycin, Rocephin, neb in the emergency department. CT brain is pending. Land Manager consulted for admission. DS: Summary Time Spent with Patient Total time spent providing and/or coordinating discharge services: Quality: VTE Deep Vein Thrombosis/Pulmonary Embolism Present on Admission: No Results Labs on day of discharge: Preliminary micro results at discharge 02/13/18 13:25 Fungal Culture - Preliminary Fluid - Pleural fluid No growth in 1 week 02/13/18 13:25 Mycobacterial Culture - Preliminary Fluid - Pleural fluid No growth in 1 week Impressions ITS Impressions Abdomen Ultrasound 02/11/18 00:00 CONCLUSION: 1. Small liver with trace ascites. 2. Small cyst lower pole right kidney. Head MRA 02/11/18 00:00 CONCLUSION: 1. Occlusion of the left posterior cerebral artery at its origin with acute ischemia left occipital region.. Neck MRA 02/11/18 00:00 CONCLUSION: 1. Negative MRA Carotids. Percent stenosis is calculated using the diameter of the stenotic region over the diameter of the normal distal internal carotid artery Head MRI 02/11/18 10:28 CONCLUSION: 1. Acute infarction involving the left posterior thalamus and occipital lobe without hemorrhage or mass effect. Head CT 02/17/18 00:00 CONCLUSION: Evolving left occipital and medial temporal lobe infarction which is developing into an area of encephalomalacia. Chest X-Ray 02/23/18 04:00 CONCLUSION: 1. No significant interval change. 2. Stable bilateral pleural-parenchymal opacities, right greater than left. Chest CT 02/24/18 00:00 CONCLUSION: 1. Scattered bilateral upper lobe groundglass nodules extending to the superior segments of the lower lobes with more confluent airspace consolidation near the right lung base and minimal airspace consolidation near the left lung base. Although the left lung base consolidation may reflect compressive atelectasis, remaining findings are most concerning for a diffuse infectious or inflammatory process. 2. Small bilateral simple appearing pleural effusions. 3. Evidence for prior granulomatous disease with left lower lobe granulomas, calcified mediastinal nodes and scattered splenic and hepatic calcifications. 4. 2.5 cm fat density right adrenal mass consistent with adrenal myolipoma. Discharge Plan Discharge Disposition Patient Disposition: 03 Discharge to SNF Discharge Condition Condition: Fair Discharge Order Discharge Orders: Discharge Order (Routine); Ordered 02/26/18 Ordered By: Preet Jaime Discharge Details Anticipated Discharge Date: 02/26/18 Physicians Team Primary Care Provider: Primary Care Lucila Tyler Attending Provider: Preet Jaime Other Providers: Joel Amin ; Lawrence Hernandez ; [facility] ; Belem Caba ; Madison Renner ; Wander Madsen ; Adama Galan ; [facility] ; [facility] ; [facility] ; [facility] Rxs /Orders / Referrals /Forms Prescriptions: New chlordiazepoxide HCl 5 mg Capsule 5 mg PO Q8H Qty: 10 RF: 0 multivitamin with folic acid [Thera] 400 mcg Tablet 1 tab PO DAILY Qty: 30 RF: 0 tamsulosin 0.4 mg Capsule 0.4 mg PO DAILY Qty: 30 RF: 0 potassium chloride 10 mEq capsule, extended release 10 meq PO DAILY Qty: 30 RF: 0 thiamine HCl (vitamin B1) 100 mg tablet 100 mg PO DAILY Qty: 30 RF: 0 torsemide 10 mg tablet 10 mg PO DAILY Qty: 30 RF: 0 folic acid 1 mg Tablet 1 mg PO DAILY Qty: 30 RF: 0 aspirin 81 mg Tablet,Chewable 162 mg PO DAILY Qty: 60 RF: 0 metoprolol tartrate 25 mg Tablet 25 mg PO BID Qty: 60 RF: 0 No Action Unable to Obtain Home Meds RF: 0 Referrals: Primary Care Lucila Tyler [Primary Care Provider] - See Instructions Status ED Status: Left Department
[2018-02-26 17:25] VITALS: BP 104/54; PULSE 72; TEMP 98.2; O2SAT 94
== END 2018-02-26 18:43 | DRG 871 ==
LOC: NEPC 17:51 → NEDA 02-11 00:23 → HIMC 02-11 02:25 → N04 02-24 16:55
PROVIDERS: ADMIT Hospitalist; ATTEND Hospitalist
CPT/HCPCS: 31500; 32554; 36600; 70450; 70544; 70548; 70553; 71010; 71045; 71250; 76700; 76937; 80048; 80053; 80061; 80074; 80076; 80202; 80307; 81001; 82140; 82150; 82550; 82607; 82805; 82945; 82948; 82962; 83036; 83520; 83605; 83615; 83735; 83880; 83986; 84100; 84132; 84155; 84157; 84443; 84484; 85025; 85027; 85610; 85651; 85652; 85730; 86038; 86403; 87015; 87040; 87070; 87077; 87102; 87116; 87149; 87181; 87184; 87185; 87186; 87205; 87206; 87275; 87276; 87449; 87641; 87804; 88112; 88305; 89051; 90658; 90686; 90760; 90765; 90768; 92526; 92610; 93005; 93225; 93306; 93312; 93320; 93325; 94002; 94003; 94640; 94656; 94657; 94664; 94665; 94667; 94668; 95819; 96360; 96365; 96368; 97110; 97116; 97162; 97530; 99285; A9585; C9113; G0195; J0282; J0330; J0456; J0696; J1120; J1644; J1940; J2060; J2704; J3370; J3411; J3475; J3480; J7030; J7040; J7050; J7060; P9045; P9047; Q2038